=== PATIENT | male | born 1955 | race Caucasian/White ===

== ENCOUNTER → 2016-09-22 | Outpatient (CLI) | payer BC ==
[~2016-09-22] MED LIST: ATOR1TAB21 PO; CIAL20TA PO; PROS5TAB PO; TAMS0.4C2 PO
[2016-09-22 13:32] LABS: ALBUMIN 4.1 GM/DL (3.2-5.2); ALBUMIN/GLOBULIN RATIO 1.32 (1.00-1.93); ALKALINE PHOSPHATASE 76 U/L (45-117); ALT/SGPT 17 U/L (12-78); ANION GAP 9 MEQ/L (8-16); AST/SGOT 21 U/L (15-37); BILIRUBIN,TOTAL 0.8 MG/DL (0.2-1.0); BLOOD UREA NITROGEN 14 MG/DL (7-18); CALCIUM LEVEL 8.9 MG/DL (8.8-10.2); CARBON DIOXIDE LEVEL 25 MEQ/L (21-32); CHLORIDE LEVEL 105 MEQ/L (98-107); CHOLESTEROL LEVEL 241 MG/DL (<200); GLOMERULAR FILTRATION RATE > 60.0 (>49); GLUCOSE, FASTING 101 MG/DL (80-110); POTASSIUM SERUM 4.9 MEQ/L (3.5-5.1); SODIUM LEVEL 139 MEQ/L (136-145); TOTAL PROTEIN 7.2 GM/DL (6.4-8.2); TRIGLYCERIDES LEVEL 88 MG/DL (<150)
== END ==
LOC: M WUC 10:28
PROVIDERS: ATTEND Family Medicine
DX: E78.2 Mixed hyperlipidemia (principal)

== ENCOUNTER → 2016-11-04 | Outpatient (REF) | payer BC ==
[2016-11-04 18:34] LABS: CALCIUM OXALATE CRYSTALS MODERATE
== END ==
LOC: M SMT 16:57
PROVIDERS: ATTEND Urology
DX: R31.9 Hematuria, unspecified (principal)

== ENCOUNTER → 2016-12-16 | Outpatient (REF) | payer BC | LOC: M SMT 13:17 | PROVIDERS: ATTEND Family Medicine | DX: R31.0 Gross hematuria (principal) ==

== ENCOUNTER → 2017-03-29 | Outpatient (REF) | payer BC ==
[~2017-03-29] MED LIST changes: +CIAL5TAB PO
[2017-03-29 12:07] LABS: ALBUMIN 4.2 GM/DL (3.2-5.2); ALKALINE PHOSPHATASE 71 U/L (45-117); ALT/SGPT 17 U/L (12-78); ANION GAP 8 MEQ/L (8-16); AST/SGOT 21 U/L (15-37); BILIRUBIN,TOTAL 1.3 MG/DL (0.2-1.0); BLOOD UREA NITROGEN 16 MG/DL (7-18); CALCIUM LEVEL 8.6 MG/DL (8.8-10.2); CARBON DIOXIDE LEVEL 26 MEQ/L (21-32); CHLORIDE LEVEL 103 MEQ/L (98-107); CHOLESTEROL LEVEL 290 MG/DL (<200); CREATININE FOR GFR 0.93 MG/DL (0.70-1.30); GLOMERULAR FILTRATION RATE > 60.0 (>49); GLUCOSE, FASTING 113 MG/DL (80-110); POTASSIUM SERUM 4.4 MEQ/L (3.5-5.1); SODIUM LEVEL 137 MEQ/L (136-145); TRIGLYCERIDES LEVEL 87 MG/DL (<150)
== END ==
LOC: M SFHCCLAY 08:10
PROVIDERS: ATTEND Family Medicine
DX: E78.2 Mixed hyperlipidemia (principal)

== ENCOUNTER 2017-05-12 10:53 | Outpatient (CLI) | payer BC ==
[~2017-05-12] VITALS: Ht 175.3 cm; Wt 83.0 kg
[2017-05-12] MEDS ORDERED: NS 1,000 ML IV ONE (11:00)
--- NOTE | 2017-05-12 11:59 | ROOR ---
Patient Name: Bahman Silva Procedure Date: 05/12/2017 11:36 AM Date of : 1955 Age: 61 Room: [facility] Gender: Male Note Status: Finalized Procedure: Total Colonoscopy to cecum + Biopsy Polypectomy Indications: Colon cancer screening in patient at increased risk: Colorectal cancer in father Providers: Koffi Ma MD Referring MD: ROMULO GARDNER DO Requesting Provider: Medicines: Monitored Anesthesia Care Complications: No immediate complications. Procedure: Pre-Anesthesia Assessment: - The heart rate, respiratory rate, oxygen saturations, blood pressure, adequacy of pulmonary ventilation, and response to care were monitored throughout the procedure. The Colonoscope was introduced through the anus and advanced to the cecum, identified by appendiceal orifice and ileocecal valve. The colonoscopy was performed without difficulty. The patient tolerated the procedure well. The quality of the bowel preparation was excellent. Findings: The perianal and digital rectal examinations were normal. Non-bleeding internal hemorrhoids were found during retroflexion. The hemorrhoids were small and Grade I (internal hemorrhoids that do not prolapse). Multiple small and large-mouthed diverticula were found in the recto-sigmoid colon, sigmoid colon and descending colon. Multiple sessile polyps were found at 20 cm proximal to the anus. The polyps were small in size. These polyps were removed with a jumbo cold forceps. Resection and retrieval were complete. The exam was otherwise without abnormality on direct and retroflexion views. Impression: - Non-bleeding internal hemorrhoids. - Diverticulosis in the recto-sigmoid colon, in the sigmoid colon and in the descending colon. - Multiple small polyps at 20 cm proximal to the anus, removed with a jumbo cold forceps. Resected and retrieved. - The examination was otherwise normal on direct and retroflexion views. - The exam was otherwise normal to the cecum. Recommendation: - Patient has a contact number available for emergencies. The signs and symptoms of potential delayed complications were discussed with the patient. Return to normal activities tomorrow. Written discharge instructions were provided to the patient. - High fiber diet. - Discharge patient to home. - Continue present medications. - Await pathology results. - Telephone GI clinic for pathology results in 1 week. - Repeat colonoscopy in 5 years for surveillance based on pathology results. - Return to referring physician. - The findings and recommendations were discussed with the patient's family. Koffi Ma MD Koffi Ma MD 05/12/2017 11:58:51 AM This report has been signed electronically. Number of Addenda: 0 Note Initiated On: 05/12/2017 11:36 AM Estimated Blood Loss: Estimated blood loss: none.
[2017-05-12] MEDS ORDERED: LIDOCAINE 2% INJ 100 MG/5 ML SDV (FOR ANES.) As Ordered ONE (12:12)
[2017-05-12] MEDS ORDERED: PROPOFOL 500 MG/50 ML VIAL As Ordered ONE (12:12)
[2017-05-12 12:20] VITALS: BP 157/102
== END 2017-05-12 12:35 | disposition home or self-care (01) ==
LOC: M OPP 10:53
PROVIDERS: ATTEND Internal Medicine Gastroenterology
DX: Z12.11 Encounter for screening for malignant neoplasm of colon (principal); Z80.0 Family history of malignant neoplasm of digestive organs; Z86.010 Personal history of colon polyps; D12.5 Benign neoplasm of sigmoid colon; K64.0 First degree hemorrhoids; K57.30 Diverticulosis of large intestine without perforation or abscess without bleeding; R19.4 Change in bowel habit; E78.5 Hyperlipidemia, unspecified; N40.1 Benign prostatic hyperplasia with lower urinary tract symptoms; Z87.891 Personal history of nicotine dependence; Z79.899 Other long term (current) drug therapy; Z79.82 Long term (current) use of aspirin

== ENCOUNTER → 2017-06-15 | Outpatient (REF) | payer BC | LOC: M SMT 17:08 | PROVIDERS: ATTEND Urology | DX: R31.0 Gross hematuria (principal) ==

== ENCOUNTER → 2017-06-24 | Outpatient (CLI) | payer BC ==
--- NOTE | 2017-06-24 18:50 | REP ---
Clinical: Right testicular mass. Technique: Real time noriega scale and color Doppler evaluation using linear high frequency transducer. Findings: The bilateral testicles and left epididymis are normal in contour, size, echogenicity and overall appearance without intratesticular mass lesion, infectious/inflammatory process, or torsion. Right epididymis demonstrates 3.4 x 1.5 x 3.5 cm septated cyst corresponding to the palpable mass as well as a 4.9 x 4.2 x 6.7 mm cyst at the epididymal tail. No significant hydroceles or varicoceles noted. Right testicle measures 3.4 x 1.8 x 3.4 cm. Left testicle measures 3.3 x 2.2 x 2.7 cm. Impression: Palpable mass corresponds to large septated right epididymal cyst. Signed by Price Anderson MD 06/24/2017 06:41 P
== END ==
LOC: M LAB 15:43
PROVIDERS: ATTEND Urology
DX: Z12.5 Encounter for screening for malignant neoplasm of prostate (principal); N50.3 Cyst of epididymis
CPT/HCPCS: 36415; 76870; 93976; G0103

== ENCOUNTER → 2017-07-23 | Outpatient (CLI) | payer BC ==
[2017-07-23 18:28] LABS: ANION GAP 9 MEQ/L (8-16); BLOOD UREA NITROGEN 14 MG/DL (7-18); CALCIUM LEVEL 9.1 MG/DL (8.8-10.2); CARBON DIOXIDE LEVEL 28 MEQ/L (21-32); CHLORIDE LEVEL 102 MEQ/L (98-107); CREATININE FOR GFR 1.01 MG/DL (0.70-1.30); GLOMERULAR FILTRATION RATE > 60.0 (>49); GLUCOSE, FASTING 178 MG/DL (80-110); POTASSIUM SERUM 4.4 MEQ/L (3.5-5.1); SODIUM LEVEL 139 MEQ/L (136-145)
== END ==
LOC: M SMT 15:51
PROVIDERS: ATTEND Nurse Practitioner Family
DX: R31.9 Hematuria, unspecified (principal)

== ENCOUNTER → 2017-07-29 | Outpatient (CLI) | payer BC ==
[~2017-07-29] MED LIST changes: +ISOVUE-370 76% 100ML VIAL (Q9967) As Ordered ONE
--- NOTE | 2017-07-29 15:41 | REP ---
Clinical: Hematuria. Technique: Axial precontrast, contrast enhanced, and delayed images of the abdomen and pelvis using 100 ml Isovue 370 intravenous contrast material with coronal and sagittal re-formations. Findings: The kidneys are relatively normal in appearance and symmetric in enhancement without evidence for nephrolithiasis cystic or renal mass lesion. Mild right perinephric stranding and hydroureteronephrosis is appreciated to the level of the bladder without obstructing calculus, but which may be secondary to posterior bladder mass likely reflecting enlarged and possibly infiltrating prostate gland. Delayed images demonstrate symmetric excretion to the collecting system again demonstrating a mildly prominent right ureter to the bladder where posterior soft tissue mass is best appreciated (images 128 - 140). Liver, spleen, pancreas, gallbladder, and bilateral adrenal glands are normal. The enteric system is without obstruction or acute inflammatory process. Normal terminal ileum and appendix identified in the right lower quadrant. Colonic and sigmoid diverticulosis noted without acute diverticulitis. Pelvis again demonstrates mild bladder wall thickening and enlarged prostate gland which appears to be infiltrating into the base of the bladder. No ascites. No significant adenopathy. No free air. Abdominal aorta demonstrates atherosclerotic changes without aneurysm or dissection. Musculoskeletal structures demonstrate degenerative changes without focal osseous abnormality. Lung bases are clear. Impression: 1. Mild possibly chronic right perinephric stranding and hydroureter extending to the bladder which demonstrates wall thickening and posterior mass likely infiltrating from the underlying enlarged prostate gland. Prostate examination is recommended. 2. The urinary tract system including bilateral kidneys and ureters are otherwise unremarkable and without evidence for nephrolithiasis, cystic or renal mass lesion. 3. Colonic diverticula without acute diverticulitis. Signed by Price Anderson MD 07/29/2017 03:33 P
== END ==
LOC: M RAD 13:33
PROVIDERS: ATTEND Nurse Practitioner Family
DX: R31.9 Hematuria, unspecified (principal)
CPT/HCPCS: 74178; Q9967

== ENCOUNTER → 2017-08-04 | Outpatient (CLI) | payer BC ==
[~2017-08-04] MED LIST changes: -ISOVUE-370 76% 100ML VIAL (Q9967) As Ordered ONE
--- NOTE | 2017-08-04 14:36 | REP ---
Clinical: Preoperative assessment. Bladder obstruction. Comparison: 02/27/2016 . Technique: PA and lateral. Findings: The mediastinum and cardiac silhouette are normal. The lung etienne are clear and without acute consolidation, effusion, or pneumothorax. The skeletal structures are intact and normal. Impression: 1. No acute cardiopulmonary process. Signed by Price Anderson MD 08/04/2017 02:27 P
[2017-08-04 15:07] LABS: MEAN CORPUSCULAR HEMOGLOBIN 30.4 pg (27.0-33.0); MEAN CORPUSCULAR HGB CONC 33.7 g/dl (32.0-36.5); MEAN CORPUSCULAR VOLUME 90.1 fl (80.0-96.0); PLATELET COUNT, AUTOMATED 273 10^3/uL (150-450); RED CELL DISTRIBUTION WIDTH 12.8 % (11.5-14.5); WHITE BLOOD COUNT 10.5 10^3/uL (4.0-10.0)
--- NOTE | 2017-08-04 21:42 | ECGEPIP ---
Stationary ECG Study [facility] Test Date: 2017-08-04 Pat Name: SELENA ARRIAGA Department: Room: - Gender: M Marketing Specialist: JACOBO : 1955 Requested By: GO Arnett Order Number: [id number] Reading MD: Osmani Solares Measurements Intervals [place] Rate: 64 P: 70 TN: 273 QRS: 61 QRSD: 106 T: 39 QT: 388 QTc: 401 Interpretive Statements Normal sinus rhythm with first degree AV block Normal EKG otherwise No significant change when compared to prior tracing of 02/17/2016 Electronically Signed On 08-04-2017 21:41:50 EST by Osmani Solares
== END ==
LOC: M LAB 13:50
PROVIDERS: ATTEND Urology
DX: N32.0 Bladder-neck obstruction (principal)

== ENCOUNTER 2017-08-13 08:39 | Day surgery (SDC) | payer BC ==
[~2017-08-13] VITALS: Ht 175.3 cm; Wt 83.8 kg
[2017-08-13] MEDS ORDERED: FLOM5CAP PO (09:59)
[2017-08-13] MEDS ORDERED: LR 1,000 ML IV ONE (11:00)
[2017-08-13] MEDS ORDERED: MIDAZOLAM INJ 2 MG/2 ML VIAL (J2250) As Ordered ONE ×2 (11:59→12:51)
[2017-08-13] MEDS ORDERED: fentaNYL 100 MCG/2 ML INJECTION (J3010) As Ordered ONE ×3 (12:04→13:39)
[2017-08-13] MEDS ORDERED: FUROSEMIDE 100 MG/10 ML VIAL (J1940) As Ordered ONE (12:37)
[2017-08-13] MEDS ORDERED: PROPOFOL 200 MG/20 ML VIAL As Ordered ONE (12:37)
[2017-08-13] MEDS ORDERED: dexameTHASONE 4 MG/ML 1ML VIAL (J1100) As Ordered ONE (12:38)
[2017-08-13] MEDS ORDERED: ONDANSETRON 4MG/2ML VIAL (J2405) As Ordered ONE (12:38)
[2017-08-13] MEDS ORDERED: fentaNYL 250 MCG/5 ML INJECTION (J3010) As Ordered ONE (12:53)
[2017-08-13] MEDS ORDERED: HYDROmorphone HCL 1 MG/ML SYRINGE (J1170) IV PRN (13:30)
[2017-08-13] MEDS ORDERED: ONDANSETRON 4MG/2ML VIAL (J2405) IV PRN (13:30)
[2017-08-13] MEDS ORDERED: LR 1,000 ML IV SCH (13:30)
[2017-08-13] MEDS ORDERED: ACETAMINOPHEN TAB 650MG DOSE (2X325MG) PO PRN (13:45)
[2017-08-13] MEDS: fentaNYL 100 MCG/2 ML INJECTION (J3010) IV PRN ×2 (13:55→14:05)
[2017-08-13] MEDS ORDERED: PERCOCET 5MG/325MG TAB As Ordered ONE (14:39)
[2017-08-13] MEDS: PERCOCET 5MG/325MG TAB PO PRN ×2 (14:40→15:27)
[2017-08-13 16:00] VITALS: BP 168/99
--- NOTE | 2017-08-14 12:48 | RO ---
DATE OF PROCEDURE: 08/13/2017 PREOPERATIVE DIAGNOSIS: Bladder neck contracture. POSTOPERATIVE DIAGNOSIS: Bladder neck contracture. OPERATIVE PROCEDURE: Cystoscopy, transurethral incision of bladder neck. SURGEON: Miguel A Thomas MD ELEVATOR REPAIRER: None. ANESTHESIA: General. OPERATIVE INDICATIONS: This is a 62-year-old male who had a button transurethral electrovaporization of the prostate approximately 1 year ago. He started having obstructive voiding symptoms recently and office cystoscopy was notable for a moderate bladder neck contracture. He is brought today to the operating room for treatment. DESCRIPTION OF OPERATION: The patient was brought to the operating room and general anesthesia induced. Prophylactic antibiotics were infused. He was then placed in the dorsal lithotomy position and prepped and draped in the usual sterile fashion. A button resectoscope was inserted through the urethral meatus and advance towards the bladder using a the visual obturator. Of note he did have a moderate severe bladder neck contracture with a barely patent urethral lumen. I was able to advance the scope through the contracture I then utilized the button to incise the bladder neck contracture in several different areas. I kept doing this until the contracture was open. I also used the button to vaporize some overgrowth of prostate tissue as well. Once this was done, there was a clear open channel. I utilized the coagulation current to obtain good hemostasis. At the end of the procedure the button resectoscope was removed. I did make note not to vaporize too close to the ureteral orifices or distal to the verumontanum. After the scope was removed and an #18-Thai Drake catheter was inserted into the bladder and the balloon was filled with 15 mL of sterile water. At the end of the procedure fluid drained clear. The catheter then connected to gravity drainage and this marked the conclusion of the procedure. The patient was then taken out of dorsal lithotomy position, awakened from anesthesia and transported to the recovery room in stable condition. ESTIMATED BLOOD LOSS: 5 mL. COMPLICATIONS: None. SPECIMENS: None. PLAN: The patient will remove his catheter Wednesday morning. He will followup in the clinic in a week or two for postoperative visit. RAMÓN
== END 2017-08-13 16:18 | disposition home or self-care (01) ==
LOC: M SDC 08:39
PROVIDERS: ATTEND Urology
DX: N32.0 Bladder-neck obstruction (principal); N40.1 Benign prostatic hyperplasia with lower urinary tract symptoms; R73.9 Hyperglycemia, unspecified; R03.0 Elevated blood-pressure reading, without diagnosis of hypertension; E78.2 Mixed hyperlipidemia; R31.0 Gross hematuria; Z79.899 Other long term (current) drug therapy; Z87.81 Personal history of (healed) traumatic fracture; Z87.891 Personal history of nicotine dependence
CPT/HCPCS: 52640; J0690; J1100; J1940; J2250; J2405; J3010

== ENCOUNTER → 2018-05-23 | Outpatient (REF) | payer BC | LOC: M SFHCLERA 11:16 | DX: D23.5 Other benign neoplasm of skin of trunk (principal) | CPT/HCPCS: 88305 ==

== ENCOUNTER → 2018-08-08 | Outpatient (REF) | payer BC ==
[2018-08-08 17:52] LABS: APPEARANCE, URINE HAZY (CLEAR); BACTERIA, URINE AUTO NEGATIVE (NEGATIVE); BILIRUBIN, URINE AUTO NEGATIVE (NEGATIVE); BLOOD, URINE BLOOD 3+ (NEGATIVE); CALCIUM OXALATE CRYSTALS MODERATE; COLOR, URINE YELLOW (YELLOW); GLUCOSE, URINE (UA) AUTO NEGATIVE (NEGATIVE); KETONE, URINE AUTO TRACE mg/dL (NEGATIVE); LEUKOCYTE ESTERASE, URINE AUTO NEGATIVE (NEGATIVE); MUCUS, URINE SMALL (NEGATIVE); NITRITE, URINE AUTO NEGATIVE (NEGATIVE); PROTEIN, URINE AUTO 1+ mg/dL (NEGATIVE); RBC, URINE AUTO TNTC /HPF (0-3); SPECIFIC GRAVITY URINE AUTO 1.023 (1.002-1.035); SQUAMOUS EPITHELIAL CELL UR AU 0 /HPF (0-6); UROBILINOGEN, URINE AUTO 0.2 mg/dL (0.0-2.0); WBC, URINE AUTO 0 /HPF (0-3)
== END ==
LOC: M SMT 17:22
DX: N40.1 Benign prostatic hyperplasia with lower urinary tract symptoms (principal)
CPT/HCPCS: 81001

== ENCOUNTER → 2018-09-02 | Outpatient (CLI) | payer BC ==
[~2018-09-02] MED LIST changes: +ALFU10TA2; +FINA5TAB2; +FLOM0.4C39 PO
[2018-09-02 13:09] LABS: AMORPHOUS SEDIMENT SMALL (NEGATIVE); APPEARANCE, URINE HAZY (CLEAR); BACTERIA, URINE AUTO NEGATIVE (NEGATIVE); BILIRUBIN, URINE AUTO NEGATIVE (NEGATIVE); BLOOD, URINE BLOOD 2+ (NEGATIVE); COLOR, URINE YELLOW (YELLOW); GLUCOSE, URINE (UA) AUTO NEGATIVE (NEGATIVE); KETONE, URINE AUTO NEGATIVE (NEGATIVE); LEUKOCYTE ESTERASE, URINE AUTO NEGATIVE (NEGATIVE); MUCUS, URINE SMALL (NEGATIVE); NITRITE, URINE AUTO NEGATIVE (NEGATIVE); PROTEIN, URINE AUTO NEGATIVE (NEGATIVE); RBC, URINE AUTO 81 /HPF (0-3); SPECIFIC GRAVITY URINE AUTO 1.013 (1.002-1.035); SQUAMOUS EPITHELIAL CELL UR AU 0 /HPF (0-6); UROBILINOGEN, URINE AUTO 0.2 mg/dL (0.0-2.0); WBC, URINE AUTO 3 /HPF (0-3)
[2018-09-02 13:10] LABS: HEMATOCRIT 46.5 % (42.0-52.0); HEMOGLOBIN 15.8 g/dl (13.5-17.5); MEAN CORPUSCULAR HEMOGLOBIN 30.9 pg (27.0-33.0); MEAN CORPUSCULAR VOLUME 90.8 fl (80.0-96.0); PLATELET COUNT, AUTOMATED 243 10^3/uL (150-450); RED BLOOD COUNT 5.12 10^6/uL (4.30-6.10); WHITE BLOOD COUNT 7.4 10^3/uL (4.0-10.0)
[2018-09-02 13:23] LABS: INR 0.87; PROTHROMBIN TIME 11.9 SECONDS (12.1-14.4)
[2018-09-02 13:24] LABS: PARTIAL THROMBOPLASTIN TIME 32.3 SECONDS (25.4-37.6)
[2018-09-02 13:43] LABS: BLOOD UREA NITROGEN 18 MG/DL (7-18); CALCIUM LEVEL 8.7 MG/DL (8.8-10.2); CARBON DIOXIDE LEVEL 29 MEQ/L (21-32); CHLORIDE LEVEL 103 MEQ/L (98-107); CREATININE FOR GFR 1.02 MG/DL (0.70-1.30); GLOMERULAR FILTRATION RATE > 60.0 (>49); GLUCOSE, FASTING 103 MG/DL (70-100); POTASSIUM SERUM 4.5 MEQ/L (3.5-5.1); SODIUM LEVEL 140 MEQ/L (136-145)
== END ==
LOC: M WUC 10:46
PROVIDERS: ATTEND Nurse Practitioner Family
DX: Z01.818 Encounter for other preprocedural examination (principal); N40.1 Benign prostatic hyperplasia with lower urinary tract symptoms
CPT/HCPCS: 36415; 80048; 81001; 85027; 85610; 85730; 87086; G0103

== ENCOUNTER → 2018-09-02 | Outpatient (CLI) | payer BC ==
--- NOTE | 2018-09-02 16:53 | REP ---
Clinical: Preoperative assessment . Comparison: 08/04/2017 . Technique: PA and lateral. Findings: The mediastinum and cardiac silhouette are normal. Airway is patent and midline. The lung etienne are clear and without acute consolidation, effusion, or pneumothorax. The skeletal structures are intact and normal. Impression: 1. No acute cardiopulmonary process.
== END ==
LOC: M CLY 16:10
PROVIDERS: ATTEND Nurse Practitioner Family
DX: Z01.818 Encounter for other preprocedural examination (principal); N40.1 Benign prostatic hyperplasia with lower urinary tract symptoms

== ENCOUNTER → 2018-09-09 | Day surgery (SDC) | payer BC ==
[~2018-09-09] MED LIST changes: +ACETAMINOPHEN TAB 650MG DOSE (2X325MG) PO; -ALFU10TA2; -ATOR1TAB21 PO; -CIAL20TA PO; -CIAL5TAB PO; -FINA5TAB2; -FLOM0.4C39 PO; +FUROSEMIDE 100 MG/10 ML VIAL (J1940) As Ordered; +LIDOCAINE 2% INJ 100 MG/5 ML SDV (FOR ANES.) As Ordered; +LR 1,000 ML IV; +METOCLOPRAMIDE INJ 10MG/2ML VIAL (J2765) IV; +MIDAZOLAM INJ 2 MG/2 ML VIAL (J2250) As Ordered; +ONDANSETRON 4MG/2ML VIAL (J2405) As Ordered; +ONDANSETRON 4MG/2ML VIAL (J2405) IV; +PERCOCET 5MG/325MG TAB PO; +PROPOFOL 200 MG/20 ML VIAL As Ordered; -PROS5TAB PO; -TAMS0.4C2 PO; +dexameTHASONE 4 MG/ML 1ML VIAL (J1100) As Ordered; +fentaNYL 100 MCG/2 ML INJECTION (J3010) As Ordered
[2018-09-09] MEDS: LR 1,000 ML IV (09:00)
[2018-09-09] MEDS: fentaNYL 100 MCG/2 ML INJECTION (J3010) IV ×4 (11:38→11:55)
[2018-09-09] MEDS: oxyBUTYnin 5 MG TAB PO ×2 (11:48→12:35)
== END | disposition home or self-care (01) ==
LOC: M SDC 08:16
DX: N32.0 Bladder-neck obstruction (principal); N13.8 Other obstructive and reflux uropathy; I44.1 Atrioventricular block, second degree; E78.00 Pure hypercholesterolemia, unspecified; K57.30 Diverticulosis of large intestine without perforation or abscess without bleeding; K64.8 Other hemorrhoids; N40.1 Benign prostatic hyperplasia with lower urinary tract symptoms; Z79.899 Other long term (current) drug therapy; Z87.81 Personal history of (healed) traumatic fracture
CPT/HCPCS: 52277

== ENCOUNTER 2018-10-03 15:19 | Day surgery (SDC) | payer BC ==
[~2018-10-03] VITALS: Ht 175.3 cm; Wt 79.5 kg
[~2018-10-03 15:19] MED LIST changes: -ACETAMINOPHEN TAB 650MG DOSE (2X325MG) PO; +ALFU10TA2; +ATOR1TAB21 PO; +CIAL20TA PO; +CIAL5TAB PO; +FINA5TAB2; +FLOM0.4C39 PO; -FUROSEMIDE 100 MG/10 ML VIAL (J1940) As Ordered; -LIDOCAINE 2% INJ 100 MG/5 ML SDV (FOR ANES.) As Ordered; -LR 1,000 ML IV; -METOCLOPRAMIDE INJ 10MG/2ML VIAL (J2765) IV; -MIDAZOLAM INJ 2 MG/2 ML VIAL (J2250) As Ordered; -ONDANSETRON 4MG/2ML VIAL (J2405) As Ordered; -ONDANSETRON 4MG/2ML VIAL (J2405) IV; -PERCOCET 5MG/325MG TAB PO; -PROPOFOL 200 MG/20 ML VIAL As Ordered; +PROS5TAB PO; +TAMS0.4C2 PO; -dexameTHASONE 4 MG/ML 1ML VIAL (J1100) As Ordered; -fentaNYL 100 MCG/2 ML INJECTION (J3010) As Ordered
[2018-10-03] MEDS ORDERED: ceFAZolin SOD 1 GM in D5W MINI-BAG PLUS 50 ML IV ONE (15:30)
[2018-10-03] MEDS ORDERED: TETANUS/DIPHTHERIA TOX ADSORB ADULT 0.5ML SYR/VIAL (90714) IM ONE (15:30)
[2018-10-03 15:43] LABS: BASO # 0.1 10^3/uL (0.0-0.2); BASO % 0.4 % (0.0-1.0); EOS # 0.4 10^3/uL (0.0-0.50); EOS % 3.2 % (0.0-3.0); HEMATOCRIT 43.6 % (42.0-52.0); LYMPH # 3.2 10^3/uL (1.5-4.5); LYMPH % 26.9 % (24.0-44.0); MEAN CORPUSCULAR HEMOGLOBIN 30.8 pg (27.0-33.0); MEAN CORPUSCULAR HGB CONC 34.4 g/dl (32.0-36.5); MEAN CORPUSCULAR VOLUME 89.5 fl (80.0-96.0); MONO % 8.5 % (0.0-5.0); NEUTROPHILS # 7.2 10^3/uL (1.8-7.7); NEUTROPHILS % 60.7 % (36.0-66.0); PLATELET COUNT, AUTOMATED 253 10^3/uL (150-450); RED BLOOD COUNT 4.87 10^6/uL (4.30-6.10); WHITE BLOOD COUNT 11.8 10^3/uL (4.0-10.0)
[2018-10-03] MEDS ORDERED: NS 1,000 ML IV ONE (15:45)
[2018-10-03] MEDS ORDERED: MORPHINE 4 MG/ML 1ML VIAL/SYRINGE (J2270) IV ONE ×2 (15:45)
[2018-10-03] MEDS ORDERED: ONDANSETRON 4MG/2ML VIAL (J2405) IV ONE (15:45)
[2018-10-03 16:00] LABS: BLOOD UREA NITROGEN 21 MG/DL (7-18); CARBON DIOXIDE LEVEL 22 MEQ/L (21-32); CHLORIDE LEVEL 106 MEQ/L (98-107); CREATININE FOR GFR 0.98 MG/DL (0.70-1.30); GLOMERULAR FILTRATION RATE > 60.0 (>49); GLUCOSE, FASTING 120 MG/DL (70-100); POTASSIUM SERUM 4.3 MEQ/L (3.5-5.1); SODIUM LEVEL 138 MEQ/L (136-145)
[2018-10-03] MEDS ORDERED: BUPIVACAINE HCL 0.5% 10 ML VIAL SC ONE (16:00)
[2018-10-03] MEDS ORDERED: BUPIVACAINE HCL 0.5% 30 ML VIAL SC ONE (16:15)
--- NOTE | 2018-10-03 16:20 | REP ---
LEFT HAND, FOUR VIEWS: HISTORY: Amputation. The patient is status-post amputation of the distal phalange and distal one half of the intermediate phalange of the 4th digit. The patient is status-post amputation of the majority of the distal phalange of the 5th digit. A small remnant of the base is present. There is no dislocation. The remaining joint spaces are normal in appearance. IMPRESSION: Amputation of the 4th and 5th digits as described above. Electronically Signed by Claude Buenrostro MD 10/03/2018 04:21 P
[2018-10-03] MEDS ORDERED: ROPIvacaine 0.5% 30 ML INJECTION (J2795 PER 1MG) ONE (16:21)
[2018-10-03] MEDS ORDERED: dexameTHASONE 10 MG/1 ML VIAL PRES.FREE (J1100) ONE (16:21)
[2018-10-03] MEDS ORDERED: LIDOCAINE 1% MDV 20ML VIAL ONE (16:21)
[2018-10-03] MEDS ORDERED: SUCCINYLCHOLINE 100 MG/5 ML SYRINGE (J0330) As Ordered ONE (16:24)
[2018-10-03] MEDS ORDERED: PROPOFOL 200 MG/20 ML VIAL As Ordered ONE (16:24)
[2018-10-03] MEDS ORDERED: LIDOCAINE 2% INJ 100 MG/5 ML SDV (FOR ANES.) As Ordered ONE (16:24)
[2018-10-03] MEDS ORDERED: fentaNYL 100 MCG/2 ML INJECTION (J3010) As Ordered ONE (16:25)
[2018-10-03] MEDS ORDERED: MIDAZOLAM INJ 2 MG/2 ML VIAL (J2250) As Ordered ONE ×2 (16:25→20:04)
[2018-10-03] MEDS ORDERED: ceFAZolin 1GM INJ (J0690 PER 500MG) As Ordered ONE ×2 (16:25→17:36)
[2018-10-03] MEDS ORDERED: ROCURONIUM BROMIDE 50 MG/5 ML VIAL As Ordered ONE (17:38)
[2018-10-03] MEDS ORDERED: dexameTHASONE 4 MG/ML 1ML VIAL (J1100) As Ordered ONE (17:56)
[2018-10-03] MEDS ORDERED: ONDANSETRON 4MG/2ML VIAL (J2405) As Ordered ONE (17:56)
[2018-10-03] MEDS ORDERED: SUGAMMADEX SODIUM 500 MG/5 ML VIAL (BRIDION) As Ordered ONE (19:01)
[2018-10-03] MEDS ORDERED: LR 1,000 ML IV SCH (19:30)
[2018-10-03] MEDS ORDERED: ONDANSETRON 4MG/2ML VIAL (J2405) IV PRN (19:30)
[2018-10-03] MEDS ORDERED: NORCO, ANEXSIA 5/325MG TABLET (HYDROcodone/ACETAMINOPHEN) PO PRN ×2 (19:30)
[2018-10-03] MEDS ORDERED: MORPHINE 4 MG/ML 1ML VIAL/SYRINGE (J2270) IV PRN (19:30)
[2018-10-03] MEDS: fentaNYL 100 MCG/2 ML INJECTION (J3010) IV PRN ×5 (19:34→20:29)
[2018-10-03] MEDS ORDERED: PERCOCET 5MG/325MG TAB As Ordered ONE (19:44)
[2018-10-03] MEDS ORDERED: PERCOCET 5MG/325MG TAB PO PRN (20:00)
[2018-10-03] MEDS: MIDAZOLAM INJ 2 MG/2 ML VIAL (J2250) IV PRN ×2 (20:24→20:26)
[2018-10-03 22:10] VITALS: BP 168/88
--- NOTE | 2018-10-04 06:47 | HPE ---
DATE OF ADMISSION: 10/03/2018 REASON FOR ADMISSION: Table saw/router injury to the left hand small and ring fingers. HISTORY OF PRESENT ILLNESS: This is a 63-year-old right hand dominant male otherwise fairly healthy who was working in his wood shop with a gloved hand which was caught into the router and brought into the router causing traumatic amputations to the left small and ring fingers. He was brought to the emergency room and a friend looked for the ends of his digits, they were found to be in the vacuum sawdust remover in shreds. There was no salvage of pieces of his digits remaining. I was called to the emergency room from the emergency room staff to evaluate and treat this injury. He complains of isolated soreness just to the small and ring fingers, no other injury. He was otherwise healthy, just recently recovering from prostate surgery. He has had three separate prostate surgeries, most recently a week ago. MEDICATIONS: He is on no medications. ALLERGIES: None. PAST SURGICAL HISTORY: Per the history of present illness. SOCIAL HISTORY: He does not smoke. He does not drink alcohol excessively. REVIEW OF SYSTEMS: Health survey is in the chart. PHYSICAL EXAMINATION: GENERAL: He is in quite a bit of distress and pain in the emergency room but he is otherwise alert and oriented. VITAL SIGNS: Temperature 97.8, pulse 81, respirations 20, blood pressure 128/88, Oxygen sat 100% on room air. LUNGS: Clear to auscultation. HEART: Regular. LEFT UPPER EXTREMITY EXAM: Oblique, full thickness amputation across the dorsum of the small finger just proximal to distal interphalangeal phalanx (DIP) joint extending distally with just a small fragment of the distal phalanx remaining. On the ring finger there is a similar traumatic wound with the middle phalanx completely exposed which is quite comminuted and jagged with a volar flap of soft tissue still remaining. This is just at the base of the middle phalanx. Radiographs show comminuted traumatic fracture distal fracture amputation of the ring finger at the level of the base of the middle phalanx with some comminution. Small finger had a fracture amputation through the distal phalanx just at the DIP joint extending obliquely distally. IMPRESSION: Traumatic amputations of the small and ring fingers. This is going to require formal operative irrigation and debridement. There is no chance of salvaging these digits. I would instead recommend irrigating excess bone and dirt and debris in soft tissue and then primary soft tissue closure. He has received his tetanus shot in the emergency room and a gram of Kefzol has been given. I explained this to he and his in detail and they understand the plan and we plan to proceed to the operating room emergently to care for this injury. He signed a consent with plan to proceed shortly. cc: [facility]
--- NOTE | 2018-10-04 11:15 | RO ---
DATE OF PROCEDURE: 10/03/2018 PREPROCEDURE DIAGNOSIS: Traumatic amputations of the small and ring fingers of the left hand. POSTPROCEDURE DIAGNOSIS: Traumatic amputations of the small and ring fingers of the left hand. PROCEDURE: 1. Irrigation, debridement and resection of bone, soft tissue, tendons and deep dermis tissue left ring finger with completion amputation to the level of the base of the middle phalanx and primary flap closure. 2. Left small finger debridement of the dirt, debris, bone, soft tissue dermis and skin with completion amputation through the distal phalanx at the distal interphalangeal (DIP) joint of the left small finger. SURGEON: Dr. Aki Polanco. BET TAKER: None. ANESTHESIA: General endotracheal tube anesthesia. COMPLICATIONS: None. DESCRIPTION OF PROCEDURE: Antibiotics were given intravenously preoperatively in the emergency room. Tetanus shot had been given. He had already obtained a digital block on the volar aspect of both fingers in the emergency room by myself. After appropriate anesthesia, his left upper extremity was carefully scrubbed prepped and draped in the usual sterile fashion. After appropriate time-out, I first addressed the small finger. A finger tourniquet was applied. A combination of the Esmarch and tourniquet using a cutoff finger of a sterile glove. I first irritated thoroughly and removed any excess dirt and debris that was evident and then the distal phalanx was carefully shelled out from a soft tissue envelop. There was just as small portion of the distal phalanx remaining and this was removed. We continued to irrigate out the skin flap and make sure there was no dirt and debris. Then I contoured the skin and resected obvious necrotic skin edges and then created a volar flap to fold over dorsally and then secured the flap to the dorsal extensor skin surface with interrupted #4-0 nylon sutures. Then I trimmed the dog ears and repaired those appropriately providing nice cosmetic closure if this digit. I then removed the tourniquet at the base of that finger. I applied the tourniquet now to the base of the ring finger in a similar fashion using the sterile glove. I copiously irrigated the wound, removed excess dirt and debris sharply and with rongeur. Then I contoured and shelled out the remaining portion of the middle phalanx down to its base to level it off. He still had a attached fragment of bone at the level of the proximal interphalangeal (PIP) joint that was stable and I thought possibly leaving a small numb of bone would allow some potential pit tanner and this was elected to maintain the small piece of bone at the base of the middle phalanx. I leveled it off using a bone cutter and rongeur. Then continued to remove any dirt and debris. Once I was satisfied that the wound was nice and clean, I then folded the flap back over on to the dorsal extensor surface using #4-0 nylon sutures. Then repaired the dog-ear on each end by resecting the obvious necrotic skin edges that were necessary to remove. This provided a nice cosmetic closure. The tourniquet was then released and the wounds were carefully irrigated again and covered with Adaptic and a dry sterile hand dressing. Then he was awakened from general endotracheal anesthesia and then transferred to the recovery room instable condition. There were on intraoperative complications.
== END 2018-10-03 22:20 | disposition home or self-care (01) ==
LOC: M ED 15:19 → M SDC 16:20
PROVIDERS: ATTEND Orthopaedic Surgery
DX: S68.617A Complete traumatic transphalangeal amputation of left little finger, initial encounter (principal); S68.625A Partial traumatic transphalangeal amputation of left ring finger, initial encounter; W31.2XXA Contact with powered woodworking and forming machines, initial encounter; Y93.89 Activity, other specified; Y92.89 Other specified places as the place of occurrence of the external cause; Y99.8 Other external cause status; E78.5 Hyperlipidemia, unspecified
CPT/HCPCS: 11012; 26951; 26952; 73130; 80048; 85025; 90714; 96374; 96375; 96376; 99284; J0330; J0690; J1100; J2250; J2270; J2405; J2795; J3010

== ENCOUNTER 2019-01-22 06:07 | Emergency (ER) | payer BC ==
[~2019-01-22] VITALS: Ht 175.3 cm; Wt 79.5 kg
[2019-01-22] MEDS ORDERED: FLOM0.4C39 PO (06:18)
[2019-01-22] MEDS ORDERED: LIDOCAINE 2% 5ML JELLY UROJET TOP ONE (06:30)
[2019-01-22 07:19] LABS: BASO # 0.1 10^3/uL (0.0-0.2); BASO % 0.5 % (0.0-1.0); EOS # 0.2 10^3/uL (0.0-0.50); EOS % 2.3 % (0.0-3.0); HEMATOCRIT 50.4 % (42.0-52.0); HEMOGLOBIN 17.1 g/dl (13.5-17.5); LYMPH # 1.8 10^3/uL (1.5-4.5); MEAN CORPUSCULAR HEMOGLOBIN 30.7 pg (27.0-33.0); MEAN CORPUSCULAR HGB CONC 33.9 g/dl (32.0-36.5); MEAN CORPUSCULAR VOLUME 90.5 fl (80.0-96.0); MONO % 9.4 % (0.0-5.0); NEUTROPHILS # 7.4 10^3/uL (1.8-7.7); NEUTROPHILS % 70.4 % (36.0-66.0); PLATELET COUNT, AUTOMATED 259 10^3/uL (150-450); RED BLOOD COUNT 5.57 10^6/uL (4.30-6.10); WHITE BLOOD COUNT 10.5 10^3/uL (4.0-10.0)
[2019-01-22 07:29] LABS: INR 0.92; PROTHROMBIN TIME 12.5 SECONDS (12.1-14.4)
[2019-01-22] MEDS ORDERED: NITROFURANTOIN (MACROBID) 100 MG CAP PO ONE (07:30)
[2019-01-22 07:47] LABS: ALBUMIN 4.6 GM/DL (3.2-5.2); ALT/SGPT 21 U/L (12-78); BILIRUBIN,DIRECT 0.3 MG/DL (0.0-0.2); BILIRUBIN,TOTAL 1.3 MG/DL (0.2-1.0); BLOOD UREA NITROGEN 14 MG/DL (7-18); CALCIUM LEVEL 9.3 MG/DL (8.8-10.2); CARBON DIOXIDE LEVEL 23 MEQ/L (21-32); CHLORIDE LEVEL 108 MEQ/L (98-107); CPK CREATINE PHOSPHOKINASE 198 U/L (39-308); CREATININE FOR GFR 1.05 MG/DL (0.70-1.30); FREE T4 1.23 NG/DL (0.76-1.46); GLOMERULAR FILTRATION RATE > 60.0 (>49); GLUCOSE, FASTING 115 MG/DL (70-100); MB/CK RELATIVE INDEX 0.96 (< OR =4); SODIUM LEVEL 141 MEQ/L (136-145); TOTAL PROTEIN 7.4 GM/DL (6.4-8.2); TROPONIN I < 0.02 NG/ML (< 0.10)
[2019-01-22] MEDS ORDERED: NITR100C2 PO (07:53)
--- NOTE | 2019-01-22 08:08 | ECGEPIP ---
Stationary ECG Study [facility] - ED Test Date: 2019-01-22 Pat Name: SELENA ARRIAGA Department: Room: - Gender: M Biofuels Manager: TC : 1955 Requested By: Leyla Alcantar PA-C Order Number: [id number] Reading MD: Wayne Loving Measurements Intervals [place] Rate: 62 P: RI: 0 QRS: 45 QRSD: 110 T: 40 QT: 390 QTc: 398 Interpretive Statements SINUS RHYTHM WITH TYPE II SINOATRIAL EXIT BLOCK Electronically Signed On 01-22-2019 8:08:12 EDT by Wayne Loving
[2019-01-22 08:16] VITALS: BP 190/98
== END 2019-01-22 08:29 | disposition home or self-care (01) ==
LOC: M ED 06:07
DX: R33.9 Retention of urine, unspecified (principal); N40.0 Benign prostatic hyperplasia without lower urinary tract symptoms; N39.0 Urinary tract infection, site not specified; E80.6 Other disorders of bilirubin metabolism; I49.9 Cardiac arrhythmia, unspecified; I44.1 Atrioventricular block, second degree; E78.5 Hyperlipidemia, unspecified; Z87.891 Personal history of nicotine dependence; F12.10 Cannabis abuse, uncomplicated; Z79.899 Other long term (current) drug therapy

== ENCOUNTER 2019-01-25 14:23 | Day surgery (SDC) | payer BC ==
[~2019-01-25] VITALS: Ht 175.3 cm; Wt 83.1 kg
[~2019-01-25 14:23] MED LIST changes: +NITR100C2 PO
[2019-01-25] MEDS ORDERED: LR 1,000 ML IV ONE (16:15)
[2019-01-25] MEDS: PERCOCET 5MG/325MG TAB PO PRN ×2 (17:42→18:10)
[2019-01-25] MEDS: fentaNYL 100 MCG/2 ML INJECTION (J3010) IV PRN ×4 (17:42→18:02)
[2019-01-25] MEDS ORDERED: LR 1,000 ML IV SCH (17:45)
[2019-01-25] MEDS ORDERED: ONDANSETRON 4MG/2ML VIAL (J2405) IV PRN (17:45)
[2019-01-25] MEDS ORDERED: ACETAMINOPHEN TAB 650MG DOSE (2X325MG) PO PRN (17:45)
[2019-01-25] MEDS ORDERED: oxyBUTYnin 5 MG TAB PO PRN (18:00)
[2019-01-25] MEDS ORDERED: KETOROLAC 30 MG/ML VIAL (J1885) As Ordered ONE (18:04)
--- NOTE | 2019-01-25 18:04 | RO ---
DATE OF PROCEDURE: 01/25/2019 PREPROCEDURE DIAGNOSIS: Urethral stricture. POSTPROCEDURE DIAGNOSIS: Urethral stricture. PROCEDURE: Cystoscopy, transurethral resection of prostate. SURGEON: Dr. Miguel A Thomas SECURITY OPERATIONS ENGINEER: None. ANESTHESIA: General. OPERATIVE INDICATIONS: This is a 63-year-old male with a history of benign prostatic hyperplasia who has undergone a plasma reposition nephrostomy previously, also had bladder neck contracture, urethral stricture which has been treated with a transurethral incision of the bladder neck as well as removal of a prostatic calcification previously. I performed office cystoscopy today but could not get the scope past the membranous urethra due to calcifications. He was brought to the operating room today emergently for bladder retention and to clear out the calcifications. DESCRIPTION AND PROCEDURE: The patient was brought to the operating room where general anesthesia was induced. Prophylactic antibiotics were infused. He was then placed in the dorsal lithotomy position, prepped and draped in the usual sterile fashion. A rigid cystoscope was inserted into the urethral meatus and advanced towards the bladder. At the level of the membranous urethra a calcification was seen and I did have some resistance getting the scope in. I was able to advance the scope past this area of calcification. The prostatic urethra of note appeared to be wide open except it was lined with several calcifications all the way up to the membranous urethra. At this point the decision was made to use a Gyrus loop to try to resect these calcifications out of the prostate. This was done until the prostate calcifications were completely removed. There was a clear channel from the membranous urethra all the way up the bladder. Of note some of this tissue appeared friable and a little bit abnormal and therefore the decision was made to send all of the tissue including the calcifications for pathologic analysis. Once done the area of of resection was cauterized and there was good hemostasis. Once there was adequate hemostasis the resectoscope was removed and an 18-Maori Drake catheter was inserted into the bladder. The balloon was filled with 15 mL of sterile water and this marked the conclusion of the procedure. The catheter was connected to gravity drainage. The patient was taken out of dorsal lithotomy position, awakened from anesthesia and transferred to the recovery room in stable condition. ESTIMATED BLOOD LOSS: 10 mL. COMPLICATIONS: None. SPECIMENS: Prostate chips. PLAN: The patient will followup in the clinic in approximately 1 week for catheter removal and voiding trial. There is concern that this patient's calcifications will recur. We therefore will need to consider a different option to prevent this from happening again. This might include a prostatectomy. RAMÓN
[2019-01-25] MEDS ORDERED: MORPHINE 4 MG/ML 1ML VIAL/SYRINGE (J2270) As Ordered ONE ×2 (18:14→18:48)
[2019-01-25] MEDS: MORPHINE 10 MG/ML 1ML VIAL (J2270) IV PRN ×4 (18:14→19:05)
[2019-01-25] MEDS ORDERED: KETOROLAC 30 MG/ML VIAL (J1885) IV PRN (19:00)
[2019-01-25 19:45] VITALS: BP 158/96
== END 2019-01-25 19:55 | disposition home or self-care (01) ==
LOC: M SDC 14:23
PROVIDERS: ATTEND Urology
DX: C61 Malignant neoplasm of prostate (principal); K57.90 Diverticulosis of intestine, part unspecified, without perforation or abscess without bleeding; E78.49 Other hyperlipidemia; Z79.899 Other long term (current) drug therapy
CPT/HCPCS: 52601; 88305; J0690; J2270; J3010

== ENCOUNTER → 2019-02-09 | Outpatient (CLI) | payer BC ==
[~2019-02-09] MED LIST changes: +PROHANCE 279.3MG/ML 15ML VIAL (A9576) As Ordered ONE; +PROHANCE 279.3MG/ML 5ML VIAL (A9576) As Ordered ONE
--- NOTE | 2019-02-09 15:26 | REP ---
MULTI-PARAMETRIC PROSTATE MRI WITHOUT AND WITH IV GADOLINIUM: HISTORY: Prostate CA. The patient is status post transurethral resection January 26, 2019 showing high-grade prostatic adenocarcinoma. COMPARISONS: Comparison CT study of the abdomen and pelvis July 29, 2017. TECHNIQUE: Using a phased array surface coil, small field of view imaging was acquired using T2-weighted scans in the axial, coronal, and sagittal imaging planes. Small field of view diffusion-weighted sequences are acquired. Small field of view axial T1-weighted scans are acquired dynamically after the intravenous administration of 16 mL of ProHance. PROSTATE MRI FINDINGS: There is no evidence of skeletal metastatic disease. No inguinal or pelvic mass or adenopathy is observed. The posterior urethra is somewhat dilated consistent with transurethral resection. There is somewhat nodular enhancing thickening of the posterior bladder wall bilaterally and of the posterior urethral wall. The prostate gland is not enlarged overall. Seminal vesicles are prominent and show nodular low T1 signal intensity tissue which enhances. The left seminal vesicle is larger than the right. I suspect extraprostatic disease involving both seminal vesicles and the posterior bladder wall. Prostate glandular dimensions are 3.7 x 3.1 x 3.1 cm, calculated glandular volume 12.7 mL. T2-weighted scans demonstrate extensive low T2-weighted signal intensity at the apex of the gland circumferentially surrounding the urethra. There is some asymmetry in the left posterior aspect with increased thickening. There is a nodular enhancement in the anterior stroma in the mid base and left mid anterior stroma with type 3 enhancement curve. Abnormal low T2 nodular signal intensity is seen throughout both seminal vesicles, left more extensively than right. Three lesions were identified and circumscribed for submission to the UroNav system for possible ultrasound/MR fusion guided biopsy. Lesion #1 is the midline base anterior stroma and left mid anterior stromal area of type 3 contrast enhancement. This is a discrete homogeneous low signal intensity focus on T2-weighted scans with extracapsular extension extending into the anterior bladder wall. This has an intermediate appearance on diffusion weighted scans, a type 3 enhancement curve as above, and clinically significant cancer is felt to be highly likely. Its dimensions are 1.4 x 1.0 x 1.4 cm, 0.92 mL calculated volume. Lesion #2 is in the left base lateral peripheral zone extending into the left seminal vesicle. It is calculated volume is 1.2 mL , 1.8 x 1.3 x 1.0 cm. It is a discrete low signal intensity homogeneous focus on T2 invading the seminal vesicle. Intermediate appearance on diffusion weighted scans. Type 2 enhancement curve on dynamic postcontrast images. Clinically significant cancer is likely to be present. Lesion #3 is in the left apical posterior transition zone with a 1.3 mL volume lesion measuring 1.5 x 1.0 x 1.0 cm. It is homogeneous and low signal and T2, intermediate appearance on diffusion, type 2 enhancement curve and clinically significant cancer is felt to be likely. IMPRESSION: Three "lesions" are identified and circumscribed for transmission to the UroNav System. There is evidence of extensive malignancy essentially circumferentially involving the small prostate gland and extending into the bladder wall and suspected to extend into both seminal vesicles. No adenopathy or bony metastases seen. Electronically Signed by Javi Michaud MD 02/09/2019 03:58 P
== END ==
LOC: M RAD 07:55
PROVIDERS: ATTEND Urology
DX: C61 Malignant neoplasm of prostate (principal)
CPT/HCPCS: 72197; A9576

== ENCOUNTER → 2019-02-16 | Outpatient (CLI) | payer BC ==
[~2019-02-16] MED LIST changes: -PROHANCE 279.3MG/ML 15ML VIAL (A9576) As Ordered ONE; -PROHANCE 279.3MG/ML 5ML VIAL (A9576) As Ordered ONE
--- NOTE | 2019-02-17 13:42 | RADONC ---
RADIATION ONCOLOGY NEW PATIENT CONSULTATION DATE: 02/16/2019 CHART NUMBER: [id number] DIAGNOSIS: Adenocarcinoma, prostate, high-grade with a Jakob score of 9 (4+5). STAGE: [id number], group stage IIIC, and a PSA of approximately 2. There was evidence of bladder neck involvement and probable bilateral seminal vesicle involvement. The patient is status post TURP on 01/25/2019. ICD-10 CODE: C61. ECOG PERFORMANCE STATUS: 0 HISTORY OF PRESENT ILLNESS: The patient is a 63-year-old man who has had multiple TURP's in the past because of urinary retention and a long history of benign prostatic hypertrophy (BPH). He underwent TURP in 2016 and again in 2017 and a repeat in 2018. Most recently he underwent two bladder neck incisions, one in 2017 and in 2018. He most recently underwent a resection of the obstructing prostatic urethral calcifications under the care of Dr. Thomas in [place] and a resection of abnormal tissue seen after removal of calcifications. The pathology report revealed an adenocarcinoma of Compton 9 (4+5) with focal areas of grade 5 noted. Also noted was evidence of perineural invasion and bladder neck positive for involvement of adenocarcinoma. His PSAs have been approximately 2. After his TURP it was noted histopathologically that 80% of the tissue was involved with tumor and he was categorized as high risk group. He comes today to discuss the possibility of external beam radiotherapy and he has already been given some hormonal therapy under the direction of Dr. Thomas. The patient tells me that this was an injection which was to last approximately 1 month. He comes today to discuss radiotherapy options. PAST MEDICAL HEALTH: He has a history of a partial fourth and fifth finger amputation from a woodworking accident. He has a past surgical history of TURPs. MEDICAL ISSUES: BPH. Heart murmurs. Hyperlipidemia. Prostatic cancer. FAMILY HISTORY: Cancer. His father from colon cancer. SOCIAL HISTORY: He is and has three children who are healthy. He is a nonsmoker and drinks only moderately. ALLERGIES: No known allergies. MEDICATIONS: - atorvastatin OCCUPATION: Construction. REVIEW OF SYSTEMS: GENERAL: He denies any nausea, vomiting, fevers, chills, night sweats but has had about a 7-8 pounds weight loss in 3 weeks. HEENT: Normal vision. No visual field defects. No pain reported in the head and neck region. RESPIRATORY: Denies coughing, sputum production or shortness of breath. CARDIAC: He has a history of a murmur and he sees his outbound sales professional. No evidence of angina, COPD, dyspnea on exertion, palpitations or syncope. GASTROINTESTINAL: Negative for odynophagia, dysphagia, changes in bowel or bladder habits, dark stools or hematemesis. GENITOURINARY: See HPI. MUSCULAR: Denies any difficulty with motion, pain, swelling. NEUROLOGIC EXAMINATION: Negative for headaches, nausea, vomiting, weakness, seizure activity. HEMATOLOGY: Negative for bleeding diathesis or easy bruising. SKIN: Denies rashes, itching or other issues. LYMPHATICS: No lymphadenopathy appreciated. EXTREMITIES: Denies any evidence of abnormalities involving his extremities. EXAMINATION FINDINGS: PHYSICAL EXAMINATION BP 133/88, temperature 97.7, pulse 74, respirations 18, height 5 feet 9 inches, weight 175, O2 saturation 98% a room air. HEENT: Normocephalic. EOMs intact. PERRLA. Fundi benign. LYMPHATICS: No palpable peripheral lymphadenopathy is noted in the cervical, supraclavicular, axillary or inguinal lymph node chains. LUNGS: Clear to auscultation and percussion. HEART: Regular without murmurs. ABDOMEN: Without evidence of hepatomegaly, masses, deep abdominal tenderness. EXTREMITIES: Without cyanosis, clubbing or edema. NEUROLOGIC: Examination grossly physiologic. RECTAL EXAM: Normal rectal sphincter tone. A fairly small prostate is noted with no focal abnormalities. IMPRESSION: Adenocarcinoma, prostate high risk, Compton 9 (4+5), stage T1c, Nx, Mx, group stage IIIC with pathologic evidence of bladder neck involvement and radiographic evidence of probable bilateral involvement of the seminal vesicles. An MRI scan was obtained post TURP. There was evidence of extensive malignancy essentially circumferentially involving a small prostate gland and extending into the bladder wall and suspected to extend into both seminal vesicles. No adenopathy or bony metastasis were noted. A bone scan taken postoperatively was negative. PLAN OF RADIOTHERAPY: The patient would be an appropriate candidate for local regional definitive radiotherapy. As per our protocol, a cumulative dose of to 7920 cGy is recommended. The lymphatics are most likely at a significant risk for micrometastasis and should be included in our radiation portals as well as treatment to periprostatic tissues such as including seminal vesicles and extending into the bladder neck. Prior to treatment delivery localization will be accomplished upon our CT simulator and treatment portals defined by the use of multiple leaf collimators. IMRT/IGRT will be implemented for treatment delivery. The indications, possible side effects of radiotherapy have been explained thoroughly to the patient. He understands and is willing to proceed as outlined. The patient has received androgen deprivation therapy through the office of Dr. Thomas. Thank you for referring this fine gentleman to us and allowing us the opportunity of participation in his overall management. Fiduciary markers will be scheduled for Dr. Thomas's office. cc: MD Warren Melendez MD
== END ==
LOC: M ONCR 13:16
PROVIDERS: ATTEND Radiology Radiation Oncology
DX: C61 Malignant neoplasm of prostate (principal)

== ENCOUNTER → 2019-02-28 | Outpatient (CLI) | payer BC ==
--- NOTE | 2019-02-28 11:56 | REP ---
TRANSRECTAL ULTRASOUND GUIDANCE FOR FIDUCIARY MAKER PLACEMENT: Transrectal ultrasound guidance provided for Dr. Thomas who placed three fiduciary markers, one in the mid apex, one in the left base and one in the right base. Electronically Signed by Mehdi Varner MD 02/28/2019 04:31 P
== END ==
LOC: M SMT 09:51
PROVIDERS: ATTEND Urology
DX: C61 Malignant neoplasm of prostate (principal)

== ENCOUNTER → 2019-03-06 | Outpatient (REF) | payer BC ==
[2019-03-06 12:54] LABS: ALT/SGPT 17 U/L (12-78); BILIRUBIN,TOTAL 0.8 MG/DL (0.2-1.0); BLOOD UREA NITROGEN 15 MG/DL (7-18); CALCIUM LEVEL 9.4 MG/DL (8.8-10.2); CARBON DIOXIDE LEVEL 29 MEQ/L (21-32); CHLORIDE LEVEL 104 MEQ/L (98-107); CHOLESTEROL LEVEL 226 MG/DL (<200); CHOLESTEROL RISK RATIO 3.645 (<5); CREATININE FOR GFR 0.98 MG/DL (0.70-1.30); GLOMERULAR FILTRATION RATE > 60.0 (>49); GLUCOSE, FASTING 106 MG/DL (70-100); HDL CHOLESTEROL 62 MG/DL (>40); LDL CHOLESTEROL 147 MG/DL (<100); NON-HDL-C 164 MG/DL; POTASSIUM SERUM 4.6 MEQ/L (3.5-5.1); SODIUM LEVEL 140 MEQ/L (136-145); TOTAL PROTEIN 7.1 GM/DL (6.4-8.2); TRIGLYCERIDES LEVEL 87 MG/DL (<150)
== END ==
LOC: M SFHCCLAY 07:04
PROVIDERS: ATTEND Family Medicine
DX: E78.00 Pure hypercholesterolemia, unspecified (principal)

== ENCOUNTER → 2019-04-12 | Outpatient (RCR) | payer BC ==
--- NOTE | 2019-03-15 11:07 | RADONC ---
RADIATION ONCOLOGY SIMULATION NOTE DATE: 03/14/2019 DIAGNOSIS: Adenocarcinoma of prostate. The patient was brought to the simulator room and an immobilization device was constructed in order to immobilize the patient for day-to-day accuracy during his proposed radiation treatments. Thereafter, images of the pelvis were captured at 3-mm intervals and these images will be used for contouring purposes. Both the target volumes, as well as normal surrounding structures will be contoured in order to develop a treatment plan. The patient was simulated and will be planned for the utilization of IMRT / IGRT, in the definitive treatment of his prostate cancer.and the construction of the immobilization device went well as did the remainder of the simulation process. I was present during the entire simulation, which proceeded uneventfully. CHRISTYD
--- NOTE | 2019-04-05 09:17 | RADONC ---
RADIATION ONCOLOGY PROGRESS NOTE DATE: 04/03/2019 CHART NUMBER: [id number] Mr. Silva is presently at a dose of 900 cGy to his prostate and is tolerating treatments quite well at this point with no significant difficulties related to his radiation therapy. He is having no urinary or bowel difficulties and no bone pain. REVIEW OF SYSTEMS: The patient's review of systems is noncontributory. He denies nausea, vomiting, fevers, chills, night sweats, diplopia, headaches, anxiety or depression, anorexia, weight loss, visual disturbances, chest pain, urinary or bowel difficulties, bone pain or neurological problems. PHYSICAL EXAMINATION: The patient's skin is in good condition with no evidence of radiation change present. There is no moist or dry desquamation. The remainder of his physical exam remains unchanged. Mr. Silva is tolerating treatments quite well and radiation will continue as scheduled.
--- NOTE | 2019-04-11 11:48 | RADONC ---
RADIATION ONCOLOGY PROGRESS NOTE DATE: 04/10/2019 CHART NUMBER: [id number] PROGRESS NOTE: Mr. Silva is presently at a dose of 1800 cGy to his prostate and is tolerating treatments quite well at this point with no complaints related to his radiation therapy. He is having no urinary or bowel difficulties and no bone pain. REVIEW OF SYSTEMS: The patient's review of systems is noncontributory. Denies nausea, vomiting, fevers, chills, night sweats, diplopia, headaches, anxiety or depression, anorexia, weight loss, visual disturbances, chest pain, urinary or bowel difficulties, bone pain, or neurological problems. PHYSICAL EXAMINATION: The patient's skin is in good condition with no evidence of radiation change present. There is no moist or dry desquamation. The remainder of his physical exam remains unchanged. Mr. Silva is tolerating treatments quite well and radiation will continue as scheduled.
[~2019-04-12] MED LIST changes: -ALFU10TA2; +ALFU10TA3; +BACT800T5 PO; +CHLO125TA PO; +DOXY-350 PO; +LEVO750T13 PO; +POTA1TAB14 PO
== END ==
LOC: M ONCR 03-14 14:26
PROVIDERS: ATTEND Radiology Radiation Oncology
DX: C61 Malignant neoplasm of prostate (principal)

== ENCOUNTER → 2019-04-24 | Outpatient (CLI) | payer BC ==
[~2019-04-24] MED LIST changes: +ALFU10TA2; -ALFU10TA3; -BACT800T5 PO; -CHLO125TA PO; -DOXY-350 PO; +ISOVUE-370 76% 100ML VIAL (Q9967) As Ordered ONE; -LEVO750T13 PO; -POTA1TAB14 PO
--- NOTE | 2019-04-25 08:27 | REP ---
CT chest with IV contrast: History: Staging for prostate cancer. No comparison chest CT. Comparison chest x-ray September 02, 2018. CT contrast dose: 75 mL of intravenous Isovue 370. CT findings: The lungs are symmetrically aerated. No pulmonary nodule or mass lesion is observed. There is no evidence of pleural or pericardial effusion. No hilar or mediastinal mass or adenopathy is observed. Tracheobronchial tree is unremarkable. There are degenerative changes in the thoracic spine at multiple mid and lower thoracic levels. No bony destructive lesion is appreciated. No sclerotic lesion is seen. There are osteoarthritic changes in the glenohumeral articulations bilaterally. No adrenal lesion is seen. A tiny accessory splenule is noted. The visualized upper abdominal structures are unremarkable. Impression: No active cardiopulmonary disease seen. Electronically Signed by Javi Michaud MD 04/25/2019 07:26 P
== END ==
LOC: M RAD 16:21
PROVIDERS: ATTEND Internal Medicine Medical Oncology
DX: C61 Malignant neoplasm of prostate (principal)
CPT/HCPCS: 71260; Q9967

== ENCOUNTER → 2019-04-25 | Outpatient (REF) | payer BC ==
[~2019-04-25] MED LIST changes: -ISOVUE-370 76% 100ML VIAL (Q9967) As Ordered ONE
== END ==
LOC: M SMT 12:45
PROVIDERS: ATTEND Urology
DX: R39.9 Unspecified symptoms and signs involving the genitourinary system (principal)

== ENCOUNTER 2019-05-12 16:00 | Outpatient (RCR) | payer BC ==
--- NOTE | 2019-04-18 10:22 | RADONC ---
RADIATION ONCOLOGY PROGRESS NOTE DATE: 04/17/2019 CHART NUMBER: [id number] Mr. Silva, with a diagnosis of adenocarcinoma of the prostate, is currently receiving local regional radiotherapy and he is at a dose of 2700 cGy of an anticipated 920 cGy. He has no complaints referable to his disease or to his treatments. REVIEW OF SYSTEMS He specifically denies any nausea, vomiting, diarrhea, dysuria, hematuria or blood per rectum. His energy level is such that he is able to maintain most day-to-day activities without any alteration of his lifestyle. Skin irritation is denied. EXAMINATION FINDINGS: The skin within the irradiated volume shows neither erythema nor desquamation. Lymphatics: no palpable peripheral lymphadenopathy is appreciated. The remainder of the physical examination is unchanged. IMPRESSION: Tolerating therapy well. PLAN: Treatments to continue.
--- NOTE | 2019-04-28 11:26 | RADONC ---
RADIATION ONCOLOGY PROGRESS NOTE DATE: 04/25/2019 CHART NUMBER: [id number] Mr. Silva, with a diagnosis of adenocarcinoma of the prostate, is currently receiving local regional radiotherapy. He has been having some issues for several days. Most recently he has gone to see Dr. Miguel A Thomas for inability to urinate. He did not actually see Dr. Thomas but saw a doctor who was covering for him and the doctor took a sample of his urine and felt that he might be suffering from a urinary tract infection because he had several preceding days of urinary burning. When the patient self catheterized because of inability to urinate, a clot came out of the urine. It was not felt at the time by the covering doctor that the patient's bladder was full of clots but rather he may have one or two. The patient was told that he might have to have an irrigation of his bladder and might have to initiate antibiotic therapy if the urinary sample actually to did discover that he did have a urinary tract infection. Nonetheless, the patient has elected to observe whether or not these episodes of complete obstruction continue and will gladly consent to a flushing of his bladder if necessary. He also asked if there were any medications that he could take for the dysuria, which he was experiencing up to approximately 2 days ago. I told the patient that if he did have a urinary tract infection that we may want to put him on some antibiotic therapy and in addition to that he might get peridium in the drugstore. This medicine is an [id number] medicine at the current time and does not need a prescription. REVIEW OF SYSTEMS: The patient has been undergoing self-catheterization for the last 2 days, as above. He denies any nausea, vomiting, diarrhea. He does have some dysuria and hematuria. His energy level is diminished but he is able to still maintain most day-to-day activities without any alteration of his lifestyle. Skin irritation is denied. The remainder of the review of systems is unchanged. EXAMINATION FINDINGS: The patient is a slender but well-nourished and developed male in no acute distress. The skin within the irradiated volume shows neither significant erythema nor desquamation. There is no palpable peripheral lymphadenopathy. The remainder of the physical examination is unchanged. IMPRESSION: The patient has had difficulty with urination for the last several days and may require his bladder to be irrigated or may indeed require antibiotic therapy if there is a documented urinary tract infection.
[2019-05-03 15:44] LABS: BASO % 0.2 % (0.0-1.0); EOS % 0.5 % (0.0-3.0); HEMATOCRIT 41.6 % (42.0-52.0); HEMOGLOBIN 14.4 g/dl (13.5-17.5); LYMPH # 0.7 10^3/uL (1.5-4.5); MEAN CORPUSCULAR HEMOGLOBIN 31.6 pg (27.0-33.0); MEAN CORPUSCULAR HGB CONC 34.6 g/dl (32.0-36.5); MEAN CORPUSCULAR VOLUME 91.2 fl (80.0-96.0); MONO # 1.4 10^3/uL (0.0-0.8); NEUTROPHILS # 6.2 10^3/uL (1.8-7.7); NEUTROPHILS % 73.8 % (36.0-66.0); PLATELET COUNT, AUTOMATED 286 10^3/uL (150-450); RED BLOOD COUNT 4.56 10^6/uL (4.30-6.10); WHITE BLOOD COUNT 8.4 10^3/uL (4.0-10.0)
[2019-05-03 15:54] LABS: APPEARANCE, URINE HAZY (CLEAR); BACTERIA, URINE AUTO 1+ (NEGATIVE); BILIRUBIN, URINE AUTO NEGATIVE (NEGATIVE); BLOOD, URINE BLOOD 1+ (NEGATIVE); COLOR, URINE YELLOW (YELLOW); GLUCOSE, URINE (UA) AUTO NEGATIVE (NEGATIVE); KETONE, URINE AUTO TRACE mg/dL (NEGATIVE); LEUKOCYTE ESTERASE, URINE AUTO 2+ (NEGATIVE); NITRITE, URINE AUTO NEGATIVE (NEGATIVE); PROTEIN, URINE AUTO NEGATIVE (NEGATIVE); RBC, URINE AUTO 31 /HPF (0-3); SPECIFIC GRAVITY URINE AUTO 1.016 (1.002-1.035); SQUAMOUS EPITHELIAL CELL UR AU 0 /HPF (0-6); UROBILINOGEN, URINE AUTO 0.2 mg/dL (0.0-2.0); WBC, URINE AUTO 118 /HPF (0-3)
--- NOTE | 2019-05-04 11:09 | RADONC ---
RADIATION ONCOLOGY PROGRESS NOTE DATE: 05/01/2019 CHART NUMBER: [id number] PROGRESS NOTE: Mr. Silva is presently at a dose of 4500 cGy to his prostate and is tolerating treatments quite well at this point with no significant difficulties related to his radiation therapy. He was seen by his urologist last week and it was recommended that he catheterize himself. This was done and since self-catheterization he has had no further issues with urination or burning. REVIEW OF SYSTEMS: The patient's review of systems at this time is noncontributory. Denies nausea, vomiting, fevers, chills, night sweats, diplopia, headaches, anxiety or depression, anorexia, weight loss, visual disturbances, chest pain, urinary or bowel difficulties, bone pain, or neurological problems. PHYSICAL EXAMINATION: The patient's skin is in good condition with no evidence of radiation change present. There is no moist or dry desquamation. The remainder of his physical exam remains unchanged. Mr. Silva is tolerating treatments quite well and radiation will continue as scheduled.
[2019-05-05 14:50] LABS: Lyme Disease IgG/IgM Antibodie <0.91 ISR (0.00-0.90); Lyme Disease IgM Ab Quantitati <0.80 index (0.00-0.79)
--- NOTE | 2019-05-09 14:26 | MEDONCTEEN ---
MEDICAL ONCOLOGY TELEPHONE NOTE DATE OF SERVICE: 05/05/2019 Bahman in his Suha have been calling over the last 48 hours regarding intermittent fevers. He was started empirically on Bactrim a few days ago by Dr. Stinson. Currently undergoing radiation for stage III, T4N0M0 prostate cancer with bladder invasion. He began having fever spikes earlier in the week. These quelled after a day or two of Bactrim but have recurred in the last day associated with some shaking chills. Today, Bahman has developed a new pinpoint macular rash. This is non coalescing, nonerythematous, but over his arms and leg. He does have potential tick exposure, though no known tick bite. Notably, urinary culture has been negative with no growth. I prescribed doxycycline 100 mg b.i.d. for 14 days with one refill if needed, empiric treatment for potential Lyme disease though notably also Lyme titers drawn within the last 2 days were negative. IMPRESSION: Waxing and waning fever and a new rash in 63-year-old man with stage III bladder invasive, nonoperable prostate cancer undergoing radiation, status post TURP January 2019 and with recent self-catheterization, at risk for UTI, pyelonephritis, potential bladder / prostate abscess. PLAN: 1. Doxycycline 100 mg b.i.d. started today. 2. Arranged for CT of abdomen and pelvis with p.o. and IV contrast first thing Wednesday morning to rule out abscess or pyelo. Given negative urine culture and low grade fever, which seemingly broke, my suspicion is low, but given bladder invasive disease on radiation, recent need for surgical biopsy, infection and abscess remain a possibility. Bahman and Suha were advised for him to go immediately to the emergency room should he have increasing fever, chills during the weekend. Discontinue Bactrim given negative urine culture. Bahman has my number and will be in touch should symptoms progress. Electronically Signed by Veronika Snowden MD 05/09/2019 05:46 P DD: Veronika Snowden MD 05/05/2019 04:24 P DT: [email or web address] 05/09/2019 02:22 P CC: MD Mehdi Melendez MD John Gebert, MD Stephen Grybowski, MD
--- NOTE | 2019-05-10 10:31 | RADONC ---
RADIATION ONCOLOGY PROGRESS NOTE DATE: 05/08/2019 CHART NUMBER: [id number] Mr. Silva is presently at the dose of 5400 cGy to his prostate and is tolerating treatments quite well at this point with no complaints related to his radiation therapy. He reports that he is having some continued urinary issues but overall is feeling better. He is continuing with the doxycycline. This was prescribed by Dr. Snowden who believed he had Lyme disease. His Lyme test, however, was negative, but in light of the fact that he is clinically feeling better day I think that it is reasonable to continue with that treatment as prescribed by his medical oncologist. PHYSICAL EXAMINATION: The patient's skin is in good condition with no evidence of moist or dry desquamation. The remainder of his physical exam remains unchanged. Mr. Silva is tolerating treatments quite well and radiation will continue as scheduled.
== END 2019-05-13 ==
LOC: M ONCR 16:00
PROVIDERS: ATTEND Radiology Radiation Oncology
DX: C61 Malignant neoplasm of prostate (principal)

== ENCOUNTER → 2019-05-12 | Outpatient (CLI) | payer BC ==
[~2019-05-12] MED LIST changes: +BACT800T5 PO; +CHLO125TA PO; +DOXY-350 PO; +POTA1TAB14 PO
--- NOTE | 2019-05-12 13:02 | REP ---
MRI pelvis: Without and with intravenous gadolinium. History: Fever, weight loss, rectal bleeding. High risk stage 3 prostate carcinoma on radiation. Rule out progression, abscess, or fistula. Comparison MR imaging is from February 09, [address] scanning is from July 29, 2017. MRI contrast dose: 15 mL of intravenous ProHance is administered. MRI findings: Cortical and medullary bone signal intensity are normal in the pelvis. There is no evidence to suggest skeletal metastatic disease. No pelvic lymphadenopathy is appreciated. No free fluid collection or abscess is seen. The urinary bladder is distended and thick-walled with trabeculation. There are two bladder diverticula, one on each side. These are small. There is evidence of a hydroureter on the right which appears to be a new finding compared with February 09, 2019. The appearance the prostate and seminal vesicles is improved. The left seminal vesicle remains larger than the right. The oblique transverse dimension of the left seminal vesicle has decreased from 3.2 cm by my measurement February 09, 2019 to 2.7 cm today. Postcontrast imaging shows improvement in contrast enhancement in the seminal vesicles and prostate as well as the posterior bladder wall. Impression: Distension of the thick walled urinary bladder with bladder diverticula. Right-sided hydroureter suspected as a new finding. Improvement noted in the prostate and posterior bladder wall. No evidence of abscess or fistula. No adenopathy seen. Electronically Signed by Javi Michaud MD 05/12/2019 04:03 P
== END ==
LOC: M PLARAD 09:20
PROVIDERS: ATTEND Internal Medicine Medical Oncology
DX: C61 Malignant neoplasm of prostate (principal)

== ENCOUNTER 2019-05-30 16:00 | Outpatient (RCR) | payer BC ==
--- NOTE | 2019-05-17 10:48 | RADONC ---
RADIATION ONCOLOGY PROGRESS NOTE DATE: 05/16/2019 CHART NUMBER: [id number] PROGRESS NOTE: Mr. Silva with a diagnosis of prostate cancer is currently receiving local regional radiotherapy and he has achieved a dose thus far of 6120 cGy of an anticipated 6920 cGy. He seems to be tolerating his therapy reasonably well with the exception of having an indwelling Drake catheter. His doctors felt that an indwelling Drake catheter would help reduce the possibility of contamination with bacteria and thusly help reduce the possibility of infection. He also had an MRI scan according to the patient, which showed a reduction in the overall size of the tumor, and no evidence of inflammation or cancer having spread. He denies any nausea, vomiting, diarrhea. He had some dysuria and occasional clots involving his bladder but no rectal bleeding. EXAMINATION FINDINGS: Skin within the irradiated volume shows neither erythema nor desquamation. Lymphatics: No palpable peripheral lymphadenopathy noted. The remainder of the physical examination is unchanged. IMPRESSION: Tolerating therapy reasonably well with issues with clot formation and urethral obstruction. PLAN: Treatments to continue.
--- NOTE | 2019-05-24 09:45 | RADONC ---
RADIATION ONCOLOGY PROGRESS NOTE DATE: 05/22/2019 CHART NUMBER: [id number] PROGRESS NOTE: Mr. Silva with a diagnosis of adenocarcinoma of the prostate is currently receiving local regional radiotherapy and he has achieved dose of 6120 cGy of a proposed 7920 cGy. He is now tolerating his radiotherapy reasonably well, and he denies any nausea, vomiting, diarrhea, dysuria, hematuria or blood per rectum. He does have an indwelling Drake catheter and there have been no clots observed in the urine. His energy level is adequate and he is able to maintain most day-to-day activities. EXAMINATION FINDINGS: The skin within the irradiated volume shows neither erythema nor desquamation. There is no palpable peripheral lymphadenopathy. Lungs are clear. Remainder of the physical examination is unchanged. IMPRESSION: Tolerating therapy well. PLAN: Treatments to continue.
--- NOTE | 2019-05-31 13:28 | RADONC ---
RADIATION ONCOLOGY PROGRESS NOTE DATE OF SERVICE: 05/29/2019 CHART NUMBER: [id number]. PROGRESS NOTE: Mr. Silva is presently at a dose of 7740 cGy to his prostate and has been tolerating his treatments with some difficulty. He continues to have an indwelling catheter but has no other complaints related to his radiation. REVIEW OF SYSTEMS: The patient's review of systems is positive for his continued use of an indwelling catheter but is otherwise noncontributory. He denies nausea, vomiting, fevers, chills, night sweats, diplopia, headaches, anxiety or depression, anorexia, weight loss, visual disturbances, chest pain, urinary or bowel difficulties, bone pain, or neurological problems. PHYSICAL EXAMINATION: The patient's skin is in good condition with no evidence of moist or dry desquamation. The remainder of his physical exam remains unchanged. Mr. Silva is tolerating treatments quite well, and radiation will continue as scheduled.
--- NOTE | 2019-06-01 10:56 | RADONC ---
RADIATION ONCOLOGY TREATMENT SUMMARY DATE OF SERVICE: 05/31/2019 CHART NUMBER: [id number] DIAGNOSIS: Prostate cancer. STAGE: III C, T1c, NX, MX, Clarkston score 9 (4-5), probable seminal vesical involvement. ECOG PERFORMANCE STATUS: 0 TREATMENT SUMMARY: Mr. Silva is a very pleasant, 63-year-old white male who had multiple TURPs in the past because of urinary retention and a long history of benign prostatic hypertrophy. He was found on TURP to have a Jakob score 9 (4-5) adenocarcinoma of the prostate and presented to us for consideration of definitive external beam radiation therapy with IMRT/IGRT. We treated the patient to his prostate for a total dose of 7920 cGy delivered in 44 fractions of 180 cGy each over 61 elapsed days from 03/28/2019 through 05/30/2019. The patient's prostate was treated on a linear accelerator utilizing a 6 MV photon beam via IMRT/IGRT. We initially treated the prostate and seminal vesicles to a dose of 5400 cGy and subsequently coned down to deliver an additional 2520 cGy to the prostate itself. The patient tolerated his treatments quite well but continued to have obstructive symptoms and also continued to self-catheterize. Eventually, he was seen by Dr. Thomas and an indwelling catheter was placed. It is scheduled to be changed this week. He had no other complaints related to his radiation therapy or disease. The patient is scheduled to see me again in 1 month for further followup. He will also continue to be followed by his other physicians as well. cc: MAGED Hong MD [place], MD
== END 2019-06-12 ==
LOC: M ONCR 16:00
PROVIDERS: ATTEND Radiology Radiation Oncology
DX: C61 Malignant neoplasm of prostate (principal)

== ENCOUNTER → 2019-06-28 | Outpatient (CLI) | payer BC ==
--- NOTE | 2019-06-29 14:52 | RADONC ---
RADIATION ONCOLOGY FOLLOWUP NOTE DATE OF SERVICE: 06/28/2019 CHART NUMBER: [id number] DIAGNOSIS: Prostate cancer. 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 The patient was status post TURP. ECOG PERFORMANCE STATUS: 0. FOLLOWUP NOTE: Mr. Silva is a very pleasant 64-year-old white male with the diagnosis of what appears to be a stage III C, [id number] Mes[place] score 9 (4+5) adenocarcinoma of the prostate who is presenting to us today for routine followup visit 1 month post completion of external beam radiation therapy. The patient presents today reporting that he is doing quite well with no significant difficulties related to his radiation therapy other than continued use of an indwelling catheter. He is being followed by his urologist Dr. Thomas for this and indeed has spoken with a urologist at [facility] who agrees that he would be this catheter in place until August at least. The patient's review of systems is positive for continued use of his indwelling catheter but is otherwise noncontributory. Denies nausea, vomiting, fevers, chills, night sweats, diplopia, headaches, anxiety or depression, anorexia, weight loss, visual disturbances, chest pain, urinary or bowel difficulties, bone pain, or neurological problems. PHYSICAL EXAMINATION: The patient is a well-developed, well-nourished, white male in no acute distress. HEENT: Exam is normocephalic, atraumatic. Extraocular movements are intact. There is no palpable cervical, supraclavicular, infraclavicular, axillary or inguinal lymphadenopathy present. Lungs: Clear to auscultation and percussion. His heart has regular rate and rhythm. Rectal examination was deferred at this time. The remainder of his physical exam is unremarkable except for the use of an indwelling catheter. ASSESSMENT: The patient is clinically stable at this time. He did not go for his PSA level today and rather than hold him here and made him wait to have it done, I think it reasonable to wait at this time. Clearly, he has an indwelling catheter, which will irritate the prostate and cause an artificially elevated PSA at this point making the PSA results themselves unreliable. In light of that, I think it reasonable to wait and do a PSA level after the catheter is removed in August. At this time, the patient and his report they are planning to continue to close management with Dr. Thomas and have been consulting a physician at [facility]. He agrees that we could cause more damage and inflammation by multiple attempts at removing the indwelling catheter and then having to go back and place it in again. He has recommended waiting perhaps until mid August to remove it. Since the patient is being followed and managed so closely by his urologist, I have not set him up at this time for a followup appointment. He will contact us once they remove the catheter and then we will set him up to be seen by us and do a PSA level at that time. cc: MD Warren Melendez MD
== END ==
LOC: M ONCR 15:03
PROVIDERS: ATTEND Radiology Radiation Oncology
DX: C61 Malignant neoplasm of prostate (principal)

== ENCOUNTER → 2019-08-14 | Outpatient (REF) | payer BC ==
[~2019-08-14] MED LIST changes: -ALFU10TA2; +ALFU10TA3
== END ==
LOC: M LAB REF 18:47
PROVIDERS: ATTEND Dermatology
DX: L57.0 Actinic keratosis (principal); L81.4 Other melanin hyperpigmentation

== ENCOUNTER → 2019-08-26 | Outpatient (REF) | payer BC | LOC: M LAB REF 12:03 | PROVIDERS: ATTEND Physician Assistant | DX: R30.0 Dysuria (principal) ==

== ENCOUNTER → 2019-08-28 | Outpatient (CLI) | payer BC ==
[~2019-08-28] MED LIST changes: +GASTROGRAFIN SOLUTION 30ML (Q9963) As Ordered ONE; +ISOVUE-370 76% 100ML VIAL (Q9967) As Ordered ONE
--- NOTE | 2019-08-28 18:01 | REP ---
CT CHEST WITH IV CONTRAST: CT ANGIO CHEST: TECHNIQUE: Axial contrast enhanced images from the thoracic inlet to the upper abdomen using 100 mL Isovue 370 intravenous contrast material with multiplanar reformations. In the posterior aspect of the right upper lobe there is a tiny calcified granuloma. Another is seen more inferiorly in the right lower lobe. No suspicious nodules are seen in either lung. There is no aneurysm or dissection of the thoracic aorta. The heart is normal in size. There is no mediastinal, hilar or chest wall lymphadenopathy. There is no pleural or pericardial effusion. There are degenerative changes of the spine and shoulders. IMPRESSION: No active pulmonary disease. Electronically Signed by Mehdi Varner MD 08/29/2019 03:58 P
--- NOTE | 2019-08-28 19:40 | REP ---
CT ABDOMEN AND PELVIS WITH AND WITHOUT IV CONTRAST WITH ORAL CONTRAST: CT abdomen and pelvis was performed. Oral contrast was administered. Pre-Iv contrast images are obtained through the abdomen. Post-IV contrast images are obtained through the abdomen and pelvis. Sagittal and coronal reconstruction images are performed. Comparison made with prior MRI of the pelvis 05/12/2019. No mass is seen in the liver. The gallbladder is grossly unremarkable. The spleen, adrenals, and pancreas are unremarkable. The left kidney appears unremarkable. The right kidney demonstrates patchy heterogenous enhancement diffusely. Two subcentimeter cysts were seen in the upper pole of the right kidney. I do not see significant perinephric stranding or fluid. The findings may indicate hyperprofusion of the right kidney due to renal artery stenosis. There is fairly significant plaque seen at the origin of the main right renal artery. Alternatively the finding could indicate pyelonephritis. Moderate atherosclerotic calcifications are seen of the abdominal aorta without aneurysm. I see no adenopathy. There is no free air or free fluid. Scattered diverticula are seen of the left colon. The appendix is normal. Urinary bladder is diffusely thickened. Small amount of air and fluid is seen in the bladder lumen and there is a Drake catheter in place. Mildly prominent soft-tissue in the region of the left seminal vesical appears unchanged since the prior MRI. No new pelvic mass is seen. There are degenerative changes of the spine with no definite bone lesions identified. IMPRESSION: Diffuse heterogenous enhancement of the right kidney may be due to hypoperfusion from renal artery stenosis. There is a significant amount of plaque at the origin of the main right renal artery. Alternatively the findings could indicate pyelonephritis. No adenopathy is seen in the abdomen or pelvis. Diffuse bladder wall thickening and mildly prominent soft-tissue at the left base of the bladder in the region of the seminal vesicle appears unchanged since the prior MRI of the pelvis 05/12/2019. No new pelvic mass. Electronically Signed by Mehdi Varner MD 08/29/2019 03:59 P
== END ==
LOC: M RAD 14:01
PROVIDERS: ATTEND Internal Medicine Medical Oncology
DX: C61 Malignant neoplasm of prostate (principal); N28.1 Cyst of kidney, acquired; I70.1 Atherosclerosis of renal artery; I70.0 Atherosclerosis of aorta
CPT/HCPCS: 71260; 74178; Q9963; Q9967

== ENCOUNTER → 2019-11-23 | Outpatient (REF) | payer BC ==
[~2019-11-23] MED LIST changes: -GASTROGRAFIN SOLUTION 30ML (Q9963) As Ordered ONE; -ISOVUE-370 76% 100ML VIAL (Q9967) As Ordered ONE; +LEVO750T13 PO
== END ==
LOC: M LAB REF 17:14
PROVIDERS: ATTEND Nurse Practitioner Family
DX: N39.0 Urinary tract infection, site not specified (principal)

== ENCOUNTER → 2019-12-26 | Outpatient (CLI) | payer BC ==
[~2019-12-26] MED LIST changes: +GASTROGRAFIN SOLUTION 30ML (Q9963) As Ordered ONE; +ISOVUE-370 76% 100ML VIAL (Q9967) As Ordered ONE
[2019-12-26 09:40] LABS: BASO # 0.1 10^3/uL (0.0-0.2); BASO % 0.7 % (0.0-1.0); EOS # 0.4 10^3/uL (0.0-0.5); HEMATOCRIT 45.9 % (42.0-52.0); HEMOGLOBIN 15.8 g/dl (13.5-17.5); LYMPH % 26.5 % (24.0-44.0); MEAN CORPUSCULAR HEMOGLOBIN 30.8 pg (27.0-33.0); MEAN CORPUSCULAR HGB CONC 34.4 g/dl (32.0-36.5); MEAN CORPUSCULAR VOLUME 89.5 fl (80.0-96.0); MONO # 1.1 10^3/uL (0.0-0.8); MONO % 14.7 % (0.0-5.0); NEUTROPHILS # 4.1 10^3/uL (1.5-8.5); NEUTROPHILS % 52.8 % (36.0-66.0); PLATELET COUNT, AUTOMATED 315 10^3/uL (150-450); RED BLOOD COUNT 5.13 10^6/uL (4.30-6.10); WHITE BLOOD COUNT 7.7 10^3/uL (4.0-10.0)
[2019-12-26 10:10] LABS: ALT/SGPT 18 U/L (12-78); BILIRUBIN,TOTAL 0.6 MG/DL (0.2-1.0); BLOOD UREA NITROGEN 21 MG/DL (7-18); CALCIUM LEVEL 9.5 MG/DL (8.8-10.2); CARBON DIOXIDE LEVEL 31 MEQ/L (21-32); CHLORIDE LEVEL 100 MEQ/L (98-107); GLOMERULAR FILTRATION RATE > 60.0 (>49); GLUCOSE, FASTING 114 MG/DL (70-100); POTASSIUM SERUM 3.9 MEQ/L (3.5-5.1); PROSTATIC SPECIFIC AG MONITOR 0.03 NG/ML (< 4.00); SODIUM LEVEL 136 MEQ/L (136-145); TOTAL PROTEIN 7.8 GM/DL (6.4-8.2)
--- NOTE | 2019-12-27 18:01 | REP ---
Clinical: Prostate cancer restaging. Technique: Axial contrast enhanced images from the lung bases to the pubic symphysis using oral (per protocol) and 100 ml Isovue 370 intravenous contrast material. Delayed images of the abdomen obtained along with coronal and sagittal re-formations. Comparison: 08/28/2019. Findings: Lung bases are clear. Visualized heart and pericardium normal. Liver, spleen, pancreas, gallbladder, bilateral adrenal glands and kidneys are normal. The enteric system is without obstruction or acute inflammatory process. Normal terminal ileum and appendix are identified in the right lower quadrant. Colonic and sigmoid diverticulosis noted without acute diverticulitis. Pelvis demonstrates Drake catheter within collapsed bladder with bladder wall thickening essentially unchanged from prior examination. Findings suggest prior prostate surgery with stable calcifications at the base of the bladder. No ascites. No free air. No significant adenopathy. Atherosclerotic changes of the aorta and vasculature noted without aneurysm or dissection. Skeletal structures demonstrate degenerative appearing changes without focal sclerotic lesions identified. Impression: 1. Postsurgical changes in the pelvis related to prior prostate surgery remain essentially stable compared to prior examination. 2. Presumed chronic bladder wall thickening. 3. No acute abdominopelvic pathology is appreciated. No obvious evidence for metastatic disease or recurrence. No ascites. No adenopathy. 4. Colonic diverticulosis without acute diverticulitis. Electronically Signed by Price Anderson MD 12/27/2019 05:53 P
--- NOTE | 2019-12-27 18:15 | REP ---
Clinical: Prostate cancer restaging. Technique: Axial contrast enhanced images from the thoracic inlet to the upper abdomen with coronal and sagittal re-formations using 100 ml Isovue 370 intravenous contrast material followed by CT of the abdomen and pelvis. Comparison: 08/28/2019. Findings: The bilateral lung etienne are well-aerated and clear. No acute consolidation, significant nodule, or mass lesion is appreciated. A small 3 mm perifissural density along the apical aspect of the right major fissure remain stable along with minimal lingular and right upper lobe scarring. No pleural effusion or pneumothorax. Tracheobronchial tree is patent. No adenopathy. Mediastinum demonstrates normal thoracic aorta, pulmonary vasculature and heart/pericardium. No cardiomegaly or pericardial effusion. Surrounding musculoskeletal structures demonstrate age-related changes without focal osseous abnormality. Impression: No acute mediastinal or pleuroparenchymal process. Electronically Signed by Price Anderson MD 12/27/2019 06:07 P
== END ==
LOC: M RAD 09:09
PROVIDERS: ATTEND Internal Medicine Medical Oncology
DX: C61 Malignant neoplasm of prostate (principal)
CPT/HCPCS: 36415; 71260; 74177; 80053; 84153; 85025; Q9963; Q9967

== ENCOUNTER → 2020-01-10 | Outpatient (REF) | payer BC ==
[~2020-01-10] MED LIST changes: -GASTROGRAFIN SOLUTION 30ML (Q9963) As Ordered ONE; -ISOVUE-370 76% 100ML VIAL (Q9967) As Ordered ONE
[2020-01-10 18:55] LABS: APPEARANCE, URINE CLOUDY (CLEAR); BACTERIA, URINE AUTO 1+ (NEGATIVE); BILIRUBIN, URINE AUTO NEGATIVE (NEGATIVE); BLOOD, URINE BLOOD 2+ (NEGATIVE); COLOR, URINE YELLOW (YELLOW); GLUCOSE, URINE (UA) AUTO NEGATIVE (NEGATIVE); KETONE, URINE AUTO NEGATIVE (NEGATIVE); LEUKOCYTE ESTERASE, URINE AUTO 3+ (NEGATIVE); MUCUS, URINE SMALL (NEGATIVE); NITRITE, URINE AUTO POSITIVE (NEGATIVE); PROTEIN, URINE AUTO 2+ mg/dL (NEGATIVE); RBC, URINE AUTO 99 /HPF (0-3); SPECIFIC GRAVITY URINE AUTO 1.016 (1.002-1.035); SQUAMOUS EPITHELIAL CELL UR AU 0 /HPF (0-6); UROBILINOGEN, URINE AUTO 0.2 mg/dL (0.0-2.0); WBC, URINE AUTO TNTC /HPF (0-3)
== END ==
LOC: M SMT 17:27
PROVIDERS: ATTEND Urology
DX: R33.9 Retention of urine, unspecified (principal)

== ENCOUNTER → 2020-01-30 | Outpatient (REF) | payer BC | LOC: M SMT 14:34 | PROVIDERS: ATTEND Urology | DX: N39.0 Urinary tract infection, site not specified (principal) ==

== ENCOUNTER → 2020-04-01 | Outpatient (CLI) | payer BC ==
[~2020-04-01] MED LIST changes: +GASTROGRAFIN SOLUTION 30ML (Q9963) As Ordered ONE; +ISOVUE-370 76% 100ML VIAL As Ordered ONE
--- NOTE | 2020-04-01 16:08 | REP ---
Clinical: Stage III prostate cancer. Restaging. Technique: Axial contrast enhanced images from the lung bases to the pubic symphysis using oral (per protocol) and 100 ml Isovue 370 intravenous contrast material with coronal and sagittal re-formations. Comparison: 12/26/2019. Findings: Lung bases are clear. Visualized heart and pericardium normal. Mild fatty infiltration to the liver suggested without focal hepatic lesion identified. Spleen, pancreas, gallbladder, bilateral adrenal glands and kidneys are normal. The enteric system is without obstruction or acute inflammatory process. Normal terminal ileum, cecum and appendix identified in the right lower quadrant. Sigmoid diverticulosis noted without acute diverticulitis. Pelvis demonstrates chronic bladder wall thickening and scattered calcifications in the dependent posterior portion of the bladder along with evidence of prior prostate surgery. No obvious pelvic mass. Scattered retroperitoneal lymph nodes measuring up to approximately 12 mm are nonspecific but appears slightly more prominent when compared to prior examination and warrants followup. No ascites. No free air. Atherosclerotic changes to the aorta and vasculature noted without aneurysm or dissection. Musculoskeletal structures demonstrate age-related degenerative changes without focal osseous abnormality. Impression: 1. Retroperitoneal lymph nodes measuring up to approximately 12 mm appear more prominent than prior examination and warrants followup. 2. Scattered sigmoid diverticula without acute diverticulitis. 3. No further acute abdominopelvic pathology appreciated. No ascites. Electronically Signed by Price Anderson MD 04/01/2020 04:00 P
--- NOTE | 2020-04-01 16:10 | REP ---
Clinical: Stage III prostate cancer. Restaging. Technique: Axial contrast enhanced images from the thoracic inlet to the upper abdomen with coronal and sagittal re-formations using 100 ml Isovue 370 intravenous contrast material (followed by CT of the abdomen and pelvis). Comparison: 12/26/2019. Findings: Bilateral lung etienne are well-aerated and relatively clear. No consolidation, significant nodule/mass, or pleural effusion. No pneumothorax. Tracheobronchial tree is patent. No adenopathy. Mediastinum demonstrates normal thoracic aorta, pulmonary vasculature, and heart/pericardium. Surrounding musculoskeletal structures demonstrate age-related changes without focal osseous abnormality. Impression: No acute mediastinal or pleuroparenchymal process. No evidence for metastatic disease. Electronically Signed by Price Anderson MD 04/01/2020 04:02 P
== END ==
LOC: M RAD 13:51
PROVIDERS: ATTEND Internal Medicine Medical Oncology
DX: C61 Malignant neoplasm of prostate (principal)
CPT/HCPCS: 71260; 74177; Q9963; Q9967

== ENCOUNTER → 2020-05-07 | Outpatient (CLI) | payer BC ==
[~2020-05-07] MED LIST changes: -GASTROGRAFIN SOLUTION 30ML (Q9963) As Ordered ONE; -ISOVUE-370 76% 100ML VIAL As Ordered ONE; +LISI10TA4 PO
== END ==
LOC: M WUC 16:45
PROVIDERS: ATTEND Internal Medicine Medical Oncology
DX: C61 Malignant neoplasm of prostate (principal)

== ENCOUNTER → 2020-07-03 | Outpatient (CLI) | payer BC ==
[~2020-07-03] MED LIST changes: +GASTROGRAFIN SOLUTION 30ML (Q9963) As Ordered ONE; +ISOVUE-370 76% 100ML VIAL As Ordered ONE; -LISI10TA4 PO
--- NOTE | 2020-07-03 13:10 | REP ---
INDICATION: FOLLOW UP PROSTATE CA COMPARISON: 04/24/2019 TECHNIQUE: Axial contrast enhanced images from the thoracic inlet to the upper abdomen with coronal and sagittal reformations using 75 ml Isovue 370 intravenous contrast material. This CT examination was performed using the following dose reduction techniques: Automated exposure control, adjustment of mA and/or kv according to the patient's size, and use of iterative reconstruction technique. FINDINGS: There is a small 3 mm non solid perifissural nodule along the apical aspect of the right major fissure (image 43) which remains stable. Minimal scattered linear scarring noted primarily at the right middle lobe and lingula unchanged. No acute consolidation, suspicious nodule or mass lesion. No pleural effusion. No pneumothorax. Tracheobronchial tree is patent. Further evaluation of the mediastinum demonstrates normal thoracic aorta, pulmonary vasculature, and heart/pericardium. Normal thyroid tissue noted. No axillary, hilar, or mediastinal adenopathy. Osseous structures are intact with age-related degenerative changes and no evidence for obvious osseous metastatic lesion. IMPRESSION: *Chronic stable findings as described above including 3 mm non solid perifissural nodule along the right major fissure. *No acute mediastinal or pleuroparenchymal process appreciated. *No evidence for metastatic disease. <Electronically signed by Price Anderson > 07/03/20 [id number]
--- NOTE | 2020-07-03 13:21 | REP ---
INDICATION: FOLLOW UP PROSTATE CA. COMPARISON: 04/01/2020, 08/28/2019 TECHNIQUE: Axial contrast-enhanced images from the lung bases to the pubic symphysis using oral and 100 cc Isovue 370 intravenous contrast material. Delayed images of the abdomen as well as coronal and sagittal reformations obtained. This CT examination was performed using the following dose reduction techniques: Automated exposure control, adjustment of mA and/or kv according to the patient's size, and the use of iterative reconstruction technique. FINDINGS: Moderate fatty infiltration to the liver noted without focal hepatic lesion identified. Spleen, pancreas, gallbladder, bilateral adrenal glands are normal. The left kidney demonstrates mild cortical scarring without perinephric stranding or hydroureteronephrosis. The right kidney demonstrates mild but somewhat prominent and obviously asymmetric enhancement of the urothelial tissue lining the renal collecting system and ureter along with mild distal Periureteral stranding as well as mild adenopathy in the retroperitoneal/pericaval space at the level of the right kidney. These findings are suspicious for an underlying process including possible transitional cell carcinoma and or changes related to metastatic disease. Subtle posterior bladder wall thickening and layering bladder calculi. Calcifications extend caudally into the region of the dilated prostatic urethra with evidence for prior TURP. The enteric system including stomach, small, and large bowel appears normal. No evidence for obstruction or acute inflammatory process. Normal terminal ileum and appendix are identified in the right lower quadrant. Few scattered sigmoid diverticula noted without acute diverticulitis. Pelvis demonstrates bladder findings as described above and evidence for prior prostatectomy (TURP). No pelvic fluid or adenopathy. No ascites. Skeletal structures demonstrate degenerative changes without definite focal osseous abnormalities to suggest osseous metastatic disease related to the given history of prostate cancer. IMPRESSION: 1. Prominent asymmetric enhancement to the urothelial tissue of the right renal pelvis and right ureter with mild periureteral stranding as well as adenopathy at the level of the right kidney. These findings are suspicious for an underlying acute process including malignancy. Differential diagnosis includes but is not limited to transitional cell carcinoma and metastatic disease. Urology consultation is required. 2. Bladder demonstrates calcifications, and somewhat irregular mild bladder wall thickening which may be related to prior prostate disease and TURP. 3. Sigmoid diverticulosis without acute diverticulitis. 4. Further nonacute findings as described above. <Electronically signed by Price Anderson > 07/03/20 [id number]
== END ==
LOC: M RAD 11:19
PROVIDERS: ATTEND Internal Medicine Medical Oncology
DX: C61 Malignant neoplasm of prostate (principal); R93.41 Abnormal radiologic findings on diagnostic imaging of renal pelvis, ureter, or bladder
CPT/HCPCS: 71260; 74177; Q9963; Q9967

== ENCOUNTER → 2020-07-30 | Outpatient (CLI) | payer BC ==
[~2020-07-30] MED LIST changes: -GASTROGRAFIN SOLUTION 30ML (Q9963) As Ordered ONE; -ISOVUE-370 76% 100ML VIAL As Ordered ONE; +LISI10TA4 PO
== END ==
LOC: M LABSMTC 10:20
PROVIDERS: ATTEND Anesthesiology
DX: Z01.812 Encounter for preprocedural laboratory examination (principal); Z20.828 Contact with and (suspected) exposure to other viral communicable diseases

== ENCOUNTER 2020-08-01 08:50 | Day surgery (SDC) | payer BC ==
[~2020-08-01] VITALS: Ht 175.3 cm; Wt 86.2 kg
[~2020-08-01 08:50] MED LIST changes: +LR 1,000 ML IV ONE; +ceFAZolin SOD 2 GM in IV 1 EA IV ONE
[2020-08-01] MEDS ORDERED: CONRAY-60 60% 50ML VIAL (Q9961) As Ordered ONE (09:33)
[2020-08-01] MEDS ORDERED: LIDOCAINE 2% 100MG/5ML SDV (FOR ANES.) As Ordered ONE (09:35)
[2020-08-01] MEDS ORDERED: MIDAZOLAM INJ 2MG/2ML VIAL (J2250 PER 1MG) As Ordered ONE (09:35)
[2020-08-01] MEDS ORDERED: fentaNYL 100 MCG/2 ML INJECTION (J3010) As Ordered ONE ×2 (09:35→10:18)
[2020-08-01] MEDS ORDERED: dexameTHASONE 4 MG/ML 1ML VIAL (J1100 PER 1MG) As Ordered ONE (09:36)
[2020-08-01] MEDS ORDERED: ONDANSETRON 4MG/2ML VIAL As Ordered ONE (09:36)
[2020-08-01] MEDS ORDERED: propofoL 200 MG/20 ML VIAL As Ordered ONE (09:52)
[2020-08-01] MEDS ORDERED: oxyCODONE 5MG TAB PO PRN (11:45)
[2020-08-01] MEDS ORDERED: fentaNYL 100 MCG/2 ML INJECTION (J3010) IV PRN (11:45)
[2020-08-01] MEDS ORDERED: ONDANSETRON 4MG/2ML VIAL IV PRN (11:45)
[2020-08-01] MEDS ORDERED: LR 1,000 ML IV SCH (11:45)
[2020-08-01] MEDS ORDERED: PERCOCET 5MG/325MG TAB PO PRN (11:45)
[2020-08-01 13:02] VITALS: BP 166/87
--- NOTE | 2020-08-01 13:37 | REP ---
INDICATION: RIGHT URETERAL STENT PLACEMENT. COMPARISON: None. TECHNIQUE: Multiple C-arm views performed of abdomen and pelvis. FINDINGS: The right ureter is catheterized and contrast is injected. Air bubbles are seen in the mid right ureter. The proximal ureter appears narrowed and strictured. Pelvocaliceal system appears mildly dilated. A right ureteral stent is placed. The proximal end is in the right renal pelvis in the distal end is in the urinary bladder. IMPRESSION: 59 seconds fluoroscopy time utilized. <Electronically signed by Mehdi Varner > 08/01/20 [id number]
--- NOTE | 2020-08-02 10:52 | RO ---
DATE OF OPERATION: 08/01/2020 PREOPERATIVE DIAGNOSIS: Right hydroureteronephrosis. POSTOPERATIVE DIAGNOSIS: Right hydroureteronephrosis, urethral stricture. PROCEDURE: Cystoscopy, Right Ureteroscopy, Right Retrograde Pyelogram with Intraoperative Interpretation of Images, Urethral Dilation. SURGEON: Miguel A Thomas MD PEDIATRIC CNS: None. ANESTHESIA: General. OPERATIVE INDICATIONS: This is a 65-year-old male with history of high risk prostate cancer treated with radiation therapy and androgen deprivation therapy. He also had history of benign prostatic hyperplasia and undergone TURP previously. On recent surveillance CT scan he was found to have what appeared to be enhancement of the urothelium of the right collecting system from the renal pelvis down to the ureter raising concern for possible malignancy. There is also mild hydroureteronephrosis. He is brought to the operating room today to investigate this. DESCRIPTION OF PROCEDURE: The patient was brought to the operating room and general anesthesia induced. Prophylactic antibiotics were infused. He was then placed in the dorsal lithotomy position and prepped and draped in usual sterile fashion. At this point a rigid cystoscope was inserted in the urethral meatus and advanced toward the bladder. At the level of the prostatic urethra I could not advance the scope due to a stricture. I therefore advanced the guidewire through the stricture into the bladder. The cystoscope was then removed and the wire was utilized to dilate the stricture to 24-Honduran using blue fascial dilators. Once that was done the cystoscope was advanced in and I could get the scope into the bladder. The patient of note had calcifications within his prostatic urethra which had been seen previously. There was fibrotic tissue there. Once at the bladder the right ureteral orifice was identified and the 6- Honduran open-ended ureteral catheter was advanced into the right collecting system. Retrograde pyelogram was performed and notable for mild to moderate right hydroureteronephrosis with tortuous appearing proximal ureter. There were no filling defects. There was no extravasation. I then advanced the guidewire up the right collecting system. I then advanced the ureteral access sheath over the wire. I advanced the access sheath over flexible ureteroscope and of note the proximal ureter was nephrotic and tortuous. It was a little bit difficult to get the scope into the renal pelvis because of the tortuosity of the proximal ureter. I was ultimately able to get the scope into the renal pelvis and the renal pelvis and all calyces were examined. No tumors were seen. There was no erythema of the urothelium. Everything appeared to be completely normal with the exception of the fact that the right kidney was hydronephrotic. At this point I withdrew the ureteroscope along with access sheath and no abnormalities were seen inside the right ureter except for the hydronephrosis. I then utilized the previously placed guidewire to advance a 6-Honduran x 22-32 cm JJ ureteral stent up the right collecting system. I then withdrew the wire and there were adequate curls of the stent in the right renal pelvis and bladder. I removed the scope completely. I then utilized the guidewire to advance an 18-Honduran [place]-tip catheter into the bladder. The balloon was filled with 10 mL of sterile water and the catheter was connected to gravity drainage after removing the wire. This marked the conclusion of the procedure. The patient was taken out of the dorsal lithotomy position, awakened from anesthesia, transported to the recovery room in stable condition. ESTIMATED BLOOD LOSS: 10 mL. COMPLICATIONS: None. SPECIMENS: None. PLAN: I will have the patient take his catheter out in a few days. He will follow up in urology clinic in few weeks for stent removal. RAMÓN
== END 2020-08-01 13:02 | disposition home or self-care (01) ==
LOC: M SDC 08:50
PROVIDERS: ATTEND Urology
DX: N35.919 Unspecified urethral stricture, male, unspecified site (principal); N13.30 Unspecified hydronephrosis; I10 Essential (primary) hypertension; I35.8 Other nonrheumatic aortic valve disorders; I49.5 Sick sinus syndrome; E78.00 Pure hypercholesterolemia, unspecified; K57.30 Diverticulosis of large intestine without perforation or abscess without bleeding; N40.1 Benign prostatic hyperplasia with lower urinary tract symptoms; Z87.81 Personal history of (healed) traumatic fracture; Z87.891 Personal history of nicotine dependence; Z92.3 Personal history of irradiation
CPT/HCPCS: 53600; 74420; C1769; C1894; C2617; J1100; J2250; J2405; J3010; Q9961

== ENCOUNTER → 2020-08-15 | Outpatient (CLI) | payer BC ==
[~2020-08-15] MED LIST changes: -LR 1,000 ML IV ONE; -ceFAZolin SOD 2 GM in IV 1 EA IV ONE
== END ==
LOC: M LABSMTC 13:59
PROVIDERS: ATTEND Family Medicine
DX: Z20.828 Contact with and (suspected) exposure to other viral communicable diseases (principal)

== ENCOUNTER → 2020-10-02 | Outpatient (REF) | payer BC ==
[~2020-10-02] MED LIST changes: +LISI10TA22 PO; -LISI10TA4 PO
== END ==
LOC: M LAB REF 17:19
PROVIDERS: ATTEND Dermatology
DX: L57.0 Actinic keratosis (principal); C44.519 Basal cell carcinoma of skin of other part of trunk

== ENCOUNTER → 2020-11-07 | Outpatient (REF) | payer BC | LOC: M LAB REF 11:17 | PROVIDERS: ATTEND Physician Assistant | DX: N39.0 Urinary tract infection, site not specified (principal) ==

== ENCOUNTER → 2020-11-12 | Outpatient (REF) | payer BC | LOC: M LAB REF 19:19 | PROVIDERS: ATTEND Dermatology | DX: L57.8 Other skin changes due to chronic exposure to nonionizing radiation (principal); Z85.828 Personal history of other malignant neoplasm of skin ==

== ENCOUNTER → 2020-11-25 | Outpatient (REF) | payer BC | LOC: M WUC 20:30 | PROVIDERS: ATTEND Physician Assistant | DX: N39.0 Urinary tract infection, site not specified (principal) ==

== ENCOUNTER → 2020-12-09 | Outpatient (REF) | payer BC ==
[2020-12-09 19:12] LABS: APPEARANCE, URINE CLOUDY (CLEAR); BACTERIA, URINE AUTO 1+ (NEGATIVE); BILIRUBIN, URINE AUTO NEGATIVE (NEGATIVE); BLOOD, URINE BLOOD 1+ (NEGATIVE); COLOR, URINE YELLOW (YELLOW); GLUCOSE, URINE (UA) AUTO NEGATIVE (NEGATIVE); KETONE, URINE AUTO NEGATIVE (NEGATIVE); LEUKOCYTE ESTERASE, URINE AUTO 2+ (NEGATIVE); MUCUS, URINE SMALL (NEGATIVE); NITRITE, URINE AUTO NEGATIVE (NEGATIVE); PROTEIN, URINE AUTO 2+ mg/dL (NEGATIVE); RBC, URINE AUTO 20 /HPF (0-3); SPECIFIC GRAVITY URINE AUTO 1.019 (1.002-1.035); SQUAMOUS EPITHELIAL CELL UR AU 0 /HPF (0-6); UROBILINOGEN, URINE AUTO 0.2 mg/dL (0.0-2.0); WBC, URINE AUTO TNTC /HPF (0-3)
== END ==
LOC: M SMT 17:01
PROVIDERS: ATTEND Urology
DX: N40.1 Benign prostatic hyperplasia with lower urinary tract symptoms (principal)

== ENCOUNTER → 2021-01-06 | Outpatient (CLI) | payer BC ==
[~2021-01-06] MED LIST changes: +eligard INJ
[2021-01-06 17:33] LABS: BASO % 0.3 % (0.0-1.0); EOS # 0.3 10^3/uL (0.0-0.5); HEMOGLOBIN 14.3 g/dl (13.5-17.5); LYMPH # 1.7 10^3/uL (1.5-5.0); LYMPH % 19.5 % (24.0-44.0); MEAN CORPUSCULAR HEMOGLOBIN 29.9 pg (27.0-33.0); MEAN CORPUSCULAR HGB CONC 33.3 g/dl (32.0-36.5); MONO % 11.8 % (2.0-8.0); NEUTROPHILS # 5.6 10^3/uL (1.5-8.5); NEUTROPHILS % 65.1 % (36.0-66.0); PLATELET COUNT, AUTOMATED 312 10^3/uL (150-450); RED BLOOD COUNT 4.78 10^6/uL (4.30-6.10); WHITE BLOOD COUNT 8.7 10^3/uL (4.0-10.0)
[2021-01-06 17:53] LABS: ALT/SGPT 20 U/L (12-78); BILIRUBIN,TOTAL 0.4 MG/DL (0.2-1.0); BLOOD UREA NITROGEN 22 MG/DL (7-18); CALCIUM LEVEL 9.9 MG/DL (8.8-10.2); CARBON DIOXIDE LEVEL 30 MEQ/L (21-32); CHLORIDE LEVEL 99 MEQ/L (98-107); CREATININE FOR GFR 1.22 MG/DL (0.70-1.30); GLOMERULAR FILTRATION RATE > 60.0 (>49); GLUCOSE, FASTING 99 MG/DL (70-100); POTASSIUM SERUM 3.9 MEQ/L (3.5-5.1); PROSTATIC SPECIFIC AG MONITOR 0.02 NG/ML (< 4.00); SODIUM LEVEL 137 MEQ/L (136-145); TOTAL PROTEIN 7.7 GM/DL (6.4-8.2)
== END ==
LOC: M LAB 16:42
PROVIDERS: ATTEND Internal Medicine Medical Oncology
DX: C61 Malignant neoplasm of prostate (principal)

== ENCOUNTER → 2021-01-06 | Outpatient (CLI) | payer BC ==
[~2021-01-06] MED LIST changes: +GASTROGRAFIN SOLUTION 30ML (Q9963) As Ordered ONE; +ISOVUE-370 76% 100ML VIAL As Ordered ONE
--- NOTE | 2021-01-06 19:05 | REP ---
INDICATION: PROSTATE CANCER COMPARISON: 07/03/2020. TECHNIQUE: CT Scan of the abdomen and pelvis was performed with intravenous administration of 100 cc of Isovue 370, and oral contrast. FINDINGS: Lung bases: Unremarkable. Liver: There is diffuse fatty infiltration of the liver without evidence of an enhancing mass. Gallbladder: Unremarkable. Spleen: Normal. Adrenals: Normal. Pancreas: Normal. Kidneys: The enhancement of urothelial tissue in the right renal pelvis and right ureter has decreased, and the perinephric and periureteral fat stranding has improved. Small and large bowel: There is colonic diverticulosis. Free fluid: None. Abdominal aorta: No aneurysm or dissection. Adenopathy: The subcentimeter aortocaval lymph nodes seen on the prior study have decreased in size. Appendix: Not inflamed. Osseous structures: There are degenerative changes of the spine. Pelvis: There is increased diffuse bladder wall thickening. Dilated prostatic urethra as again noted and there are calcifications again seen along its lumen as well as in the region of the seminal vesicles.. IMPRESSION: The previously noted urothelial enhancement of the right renal pelvis and ureter as well as the perinephric and. Ureteral fat stranding has improved. The previously noted subcentimeter aortocaval lymph nodes predominantly to the right of midline have decreased in size. There is increased diffuse bladder wall thickening. Dilated prostatic urethra again demonstrates calcifications along its periphery with mild calcifications in the seminal vesicles bilaterally. <Electronically signed by Mehdi Varner > 01/06/21 [id number]
== END ==
LOC: M RAD 16:28
PROVIDERS: ATTEND Specialist
DX: C61 Malignant neoplasm of prostate (principal)
CPT/HCPCS: 74177; Q9963; Q9967

== ENCOUNTER → 2021-01-08 | Outpatient (CLI) | payer BC ==
[~2021-01-08] MED LIST changes: -GASTROGRAFIN SOLUTION 30ML (Q9963) As Ordered ONE; -ISOVUE-370 76% 100ML VIAL As Ordered ONE
--- NOTE | 2021-01-08 11:54 | REP ---
INDICATION: Z01.818 PRE OPERATIVE CLEARANCE. COMPARISON: 09/02/2018 the latest prior TECHNIQUE: PA and lateral FINDINGS: The superior mediastinal structures are midline. The cardiac silhouette is unremarkable in size, shape, and position. The diaphragmatic surfaces of the lungs are regular, and the costophrenic angles are clear. The pulmonary etienne are clear. The imaged osseous structures are intact. IMPRESSION: There is no acute cardiopulmonary disease. <Electronically signed by Omari Schwartz > 01/08/21 [id number]
== END ==
LOC: M CLY 10:54
PROVIDERS: ATTEND Family Medicine
DX: Z01.818 Encounter for other preprocedural examination (principal)

== ENCOUNTER → 2021-01-08 | Outpatient (CLI) | payer BC | LOC: M LABSMTC 12:39 | PROVIDERS: ATTEND Anesthesiology | DX: Z01.812 Encounter for preprocedural laboratory examination (principal); Z20.822 Contact with and (suspected) exposure to COVID-19 ==

== ENCOUNTER → 2021-01-08 | Outpatient (REF) | payer BC | LOC: M SFHCCLAY 10:47 | PROVIDERS: ATTEND Family Medicine | DX: Z01.812 Encounter for preprocedural laboratory examination (principal) ==

== ENCOUNTER → 2021-01-14 | Outpatient (CLI) | payer BC ==
[~2021-01-14] MED LIST changes: +LEVO500T3 PO
== END ==
LOC: M LABSMTC 11:55
PROVIDERS: ATTEND Anesthesiology
DX: Z01.812 Encounter for preprocedural laboratory examination (principal); Z20.822 Contact with and (suspected) exposure to COVID-19

== ENCOUNTER 2021-01-15 10:19 | Day surgery (SDC) | payer BC ==
[~2021-01-15] VITALS: Ht 175.3 cm; Wt 88.9 kg
[~2021-01-15 10:19] MED LIST changes: +ACETAMINOPHEN 1000MG 100ML IV BTL (OFIRMEV) (J0131 PER 10MG) As Ordered ONE; -LEVO500T3 PO; +LIDOCAINE 2% 100MG/5ML SDV (FOR ANES.) As Ordered ONE; +LR 1,000 ML IV ONE; +MIDAZOLAM INJ 2MG/2ML VIAL (J2250 PER 1MG) As Ordered ONE; +ONDANSETRON 4MG/2ML VIAL As Ordered ONE; +ROCURONIUM BROMIDE 50 MG/5 ML VIAL As Ordered ONE; +SUGAMMADEX SODIUM 500 MG/5 ML VIAL (BRIDION) As Ordered ONE; +ceFAZolin SOD 2 GM in IV 1 EA IV ONE; +dexameTHASONE 4 MG/ML 1ML VIAL (J1100 PER 1MG) As Ordered ONE; +fentaNYL 100 MCG/2 ML INJECTION (J3010) As Ordered ONE; +propofoL 200 MG/20 ML VIAL As Ordered ONE
[2021-01-15] MEDS ORDERED: LEVO500T3 PO (11:05)
[2021-01-15] MEDS ORDERED: fentaNYL 100 MCG/2 ML INJECTION (J3010) As Ordered ONE (12:48)
[2021-01-15] MEDS ORDERED: KETOROLAC 60MG 2ML VIAL As Ordered ONE (12:50)
[2021-01-15] MEDS ORDERED: FUROSEMIDE 100MG/10ML VIAL (J1940) As Ordered ONE (13:02)
[2021-01-15] MEDS ORDERED: LR 1,000 ML IV SCH (14:05)
[2021-01-15] MEDS ORDERED: ACETAMINOPHEN TAB 650MG DOSE (2X325MG) PO PRN (14:05)
[2021-01-15] MEDS ORDERED: fentaNYL 100 MCG/2 ML INJECTION (J3010) IV PRN (14:05)
[2021-01-15] MEDS ORDERED: ONDANSETRON 4MG/2ML VIAL IV PRN (14:05)
[2021-01-15] MEDS ORDERED: oxyCODONE 5MG TAB PO PRN (14:05)
--- NOTE | 2021-01-15 14:06 | RO ---
OPERATIVE NOTE DATE OF OPERATION: 01/15/2021 PREOPERATIVE DIAGNOSIS: Bladder neck contracture. POSTOPERATIVE DIAGNOSIS: Bladder neck contracture. PROCEDURES: 1. Cystoscopy. 2. Direct vision internal urethrotomy. 3. Urethral dilation. SURGEON: Miguel A Thomas MD. ELEVATOR EXAMINER: None. ANESTHESIA: General. OPERATIVE INDICATIONS: This is a 65-year-old male with a history of benign prostatic hyperplasia and prostate cancer. He has previously undergone a button transurethral electrovaporization of the prostate and then subsequently radiation therapy for prostate cancer. He also has had several recurrent bladder neck contractures which have been treated. He was brought to the operating room today for treatment for another bladder neck contracture. DESCRIPTION OF PROCEDURE: The patient was brought to the operating room and general anesthesia was induced. Prophylactic antibiotics were infused. He was placed in the dorsal lithotomy position, prepped, and draped in the usual sterile fashion. At this point, a resectoscope was inserted into the urethral meatus and advanced towards the bladder using the visual obturator. At the level of the bladder neck, there was a narrow contracture through which I could not advance the scope. I then advanced the guidewire into the bladder. I removed the scope and dilated the bladder neck contracture to 24-Gabonese using fascial dilators. Once that was done, I went back in with the resectoscope and I was just barely able to get the scope into the bladder. Of note, the patient had recurrent calcifications inside his prostatic urethra. These did not appear to be obstructing. His main issue was the contracture. At this point, I utilized a Black knife to incise the contracture at 5:00 o'clock, 7:00 o'clock, and 12:00 o'clock. I kept doing this until it was wide open enough for me to get the scope back and forth easily. Once I was done with that, I examined the bladder and no abnormalities were seen inside the bladder. I then advanced a guidewire back into the bladder and removed the resectoscope. I utilized the guidewire to advance the 18-Gabonese Councill catheter into the bladder. The balloon was filled with 10 mL of sterile water and then the wire was removed. The catheter was connected to gravity drainage and this marked the conclusion of the procedure. The patient was taken out of the dorsal lithotomy position, awakened from anesthesia, and transferred to the recovery room in stable condition. ESTIMATED BLOOD LOSS: 10 mL. COMPLICATIONS: None. SPECIMEN: None. PLAN: The patient will take his own catheter out on Wednesday. We will have him follow up in the Urology office subsequently for a post-void residual. RAMÓN
[2021-01-15 14:15] VITALS: BP 166/90
== END 2021-01-15 14:45 | disposition home or self-care (01) ==
LOC: M SDC 10:19
PROVIDERS: ATTEND Urology
DX: N32.0 Bladder-neck obstruction (principal); Z85.46 Personal history of malignant neoplasm of prostate; Z90.79 Acquired absence of other genital organ(s); Z92.3 Personal history of irradiation; I10 Essential (primary) hypertension; Z79.899 Other long term (current) drug therapy
CPT/HCPCS: 52640; J0131; J0690; J1100; J1885; J1940; J2250; J2405; J3010

== ENCOUNTER 2021-01-24 08:36 | Emergency (ER) | payer BC ==
[~2021-01-24] VITALS: Ht 170.2 cm; Wt 89.8 kg
[~2021-01-24 08:36] MED LIST changes: -ACETAMINOPHEN 1000MG 100ML IV BTL (OFIRMEV) (J0131 PER 10MG) As Ordered ONE; +LEVO500T3 PO; -LIDOCAINE 2% 100MG/5ML SDV (FOR ANES.) As Ordered ONE; -LR 1,000 ML IV ONE; -MIDAZOLAM INJ 2MG/2ML VIAL (J2250 PER 1MG) As Ordered ONE; -ONDANSETRON 4MG/2ML VIAL As Ordered ONE; -ROCURONIUM BROMIDE 50 MG/5 ML VIAL As Ordered ONE; -SUGAMMADEX SODIUM 500 MG/5 ML VIAL (BRIDION) As Ordered ONE; -ceFAZolin SOD 2 GM in IV 1 EA IV ONE; -dexameTHASONE 4 MG/ML 1ML VIAL (J1100 PER 1MG) As Ordered ONE; -fentaNYL 100 MCG/2 ML INJECTION (J3010) As Ordered ONE; -propofoL 200 MG/20 ML VIAL As Ordered ONE
[2021-01-24 08:37] VITALS: BP 166/99
[2021-01-24] MEDS ORDERED: LIDOCAINE 2% 5ML JELLY UROJET TOP ONE ×2 (09:30→12:00)
[2021-01-24 10:14] LABS: BASO # 0.1 10^3/uL (0.0-0.2); BASO % 0.4 % (0.0-1.0); EOS # 0.1 10^3/uL (0.0-0.5); EOS % 1.2 % (0.0-3.0); HEMATOCRIT 45.8 % (42.0-52.0); HEMOGLOBIN 15.3 g/dl (13.5-17.5); LYMPH # 1.4 10^3/uL (1.5-5.0); LYMPH % 12.1 % (24.0-44.0); MEAN CORPUSCULAR HEMOGLOBIN 30.1 pg (27.0-33.0); MEAN CORPUSCULAR HGB CONC 33.4 g/dl (32.0-36.5); MONO # 1.2 10^3/uL (0.0-0.8); MONO % 10.3 % (2.0-8.0); NEUTROPHILS % 75.2 % (36.0-66.0); PLATELET COUNT, AUTOMATED 302 10^3/uL (150-450); RED BLOOD COUNT 5.09 10^6/uL (4.30-6.10); WHITE BLOOD COUNT 11.9 10^3/uL (4.0-10.0)
[2021-01-24 10:32] LABS: INR 0.94; PROTHROMBIN TIME 12.8 SECONDS (12.5-14.3)
[2021-01-24 10:33] LABS: PARTIAL THROMBOPLASTIN TIME 30.4 SECONDS (24.2-38.5)
[2021-01-24] MEDS ORDERED: PERCOCET 5MG/325MG TAB PO ONE (10:55)
[2021-01-24] MEDS ORDERED: CIPR-249 PO (12:42)
--- NOTE | 2021-01-24 13:01 | SMCUROLCON ---
Urology Consultation General Date of Consultation 01/24/21 Reason For Consultation This patient is seen for Urinary Problem. History of Present Illness This is a 65 y/o M w/ prostate cancer treated w/ EBRT + ADT, BPH s/p TURP and then several procedures for recurrent bladder neck contractures (BNC), present ing to the ER today w/ inability to void or perform CIC. He underwent a DVIU approximately 1 wk ago for a BNC. He notes that he removed his catheter a few days after the procedure and initially had some difficulty voiding b/c of clots. He notes that once he passed the clots he was able to void better. Since last night he was no longer able to void. He tried to perform CIC and was unable to do so, meeting resistance at the level of the prsotati urethra. Past Medical History Medical History see HPI Surgical Hstory see HPI Allergies Allergies: Coded Allergies: No Known Allergies (Unverified , 01/06/21) Review of Systems Constitutional: Denies: Fever, Chills, Sweats, Weakness, Malaise Skin: Denies: Rash, Lesions, Breakdown, Nail Changes Pulmonary: Denies: Dyspnea, Cough Cardiovascular: Denies Chest Pain, Denies Palpitations Gastrointestinal: Reports: Abdominal Pain; Denies: Nausea, Vomiting Genitourinary: Reports: Retention Musculoskeletal: Denies: Neck Pain, Back Pain Neurological: Denies: Weakness, Numbness, Incoordination, Change in Speech Psych: Reports: Mood Normal; Denies: Anxiety, Depression Physical Examination General Exam: Alert, Cooperative, No Acute Distress Chest Exam: Normal air movement Heart Exam: Rate Normal Abdomen Exam: Soft, Other (suprapubic fullness) Male Exam circumcised phallus w/o lesions; b/l descended testicles Skin Exam: Nl turgor and temperature Neuro Exam: Normal Speech Psych Exam: Mental status NL, Mood NL Vital Signs/I&O Vital Signs Date Time Temp Pulse Resp B/P (MAP) Pulse Ox O2 Delivery O2 Flow Rate FiO2 01/24/21 11:15 20 01/24/21 10:15 01/24/21 08:37 97.3 99 99 Room Air Laboratory Data 24H Labs Laboratory Tests 2 01/24/21 09:51: Immature Granulocyte % (Auto) 0.8, Neutrophils (%) (Auto) 75.2H, Lymphocytes (%) (Auto) 12.1L, Monocytes (%) (Auto) 10.3H, Eosinophils (%) (Auto) 1.2, Basophils (%) (Auto) 0.4, Neutrophils # (Auto) 9.0H, Lymphocytes # (Auto) 1.4L, Monocytes # (Auto) 1.2H, Eosinophils # (Auto) 0.1, Basophils # (Auto) 0.1, Nucleated Red Blood Cells % (auto) 0.0, Prothrombin Time 12.8, Prothromb Time International Ratio 0.94, Activated Partial Thromboplast Time 30.4 01/24/21 10:07: POC Glucose (Misc Panel) 128H, POC Sodium (Misc Panel) 137, POC Potassium (Misc Panel) 3.7, POC Chloride (Misc Panel) 102, POC Total CO2 (Misc Panel) 25.0, POC Blood Urea Nitrogen (Misc Panel 23, POC Ionized Calcium (Misc Panel) 4.1L, POC Creatinine (Misc Panel) 1.3, POC Hematocrit (Misc Panel) 47.0 CBC/BMP Laboratory Tests 01/24/21 09:51 Assessment This is a 65 y/o M w/ prostate cancer treated w/ EBRT + ADT, BPH s/p TURP and then several procedures for recurrent bladder neck contractures (BNC), presenting to the ER today w/ inability to void or perform CIC. I attempted to pass a 16Fr coude catheter and could not get it into the bladder, meeting significant resistance at the level of the bladder. I therefore recommended that we perform bedside cystoscopy. This was done after obtaining informed consent. Cystoscopy was notable for a significant amount of fibrotic tissue causing obstruction within the prostatic urethra. I was able to pass a wire into the bladder and then advance the scope over the wire into the bladder w/ some pressure. The scope was then removed and an 18Fr narragans[place] tip catheter was placed. I explained to the patient that this will likely be a recurrent problem. I once again recommended that he consider a suprapubic catheter as this is likely the best option to drain his bladder at this point. Plan - catheter placed over a wire using cystoscopic guidance - recommend placing the patient on abx for 1 wk - will arrange f/u in the urology office next wk after for a voiding trial or to discuss setting him up for a suprapubic catheter GO ROSAS MD January 24, 2021 13:01
--- NOTE | 2021-01-24 14:47 | RO ---
OPERATIVE NOTE DATE OF OPERATION: 01/24/2021 PREOPERATIVE DIAGNOSIS: Urinary retention. POSTOPERATIVE DIAGNOSIS: Bladder neck contracture. PROCEDURE: Cystoscopy, complex catheter placement over wire. SURGEON: Miguel A Thomas MD TELETYPE ADJUSTER: None. ANESTHESIA: Local. OPERATIVE INDICATIONS: This is a 65-year-old male with history of having a TURP a few years ago and recurrent bladder neck contractures. He also had history of prostate cancer treated with radiation therapy within the last year or two. He had undergone a direct vision internal urethrotomy last week for recurrent bladder neck contracture and since his catheter was removed he has had increased difficulty voiding. Ultimately he could not void at all this morning and could not pass a catheter. I attempted to pass a catheter and met resistance and therefore it was recommended he undergo the above procedure. DESCRIPTION OF PROCEDURE: The patient was prepped and draped in usual sterile fashion. At this point a flexible cystoscope was advanced into the urethra and towards the location of the bladder. Within the prostatic urethra there was significant amount of fibrotic scar tissue causing obstruction. I was able to see a small lumen and advance a wire through the lumen. Once the wire was advanced into the bladder I was able to advance the scope over the wire into the bladder but I had to use some force to get the scope through the scar tissue. Once the scope was inside the bladder I then withdrew it leaving the wire in place. I then utilized guidewire to advance an 18-Bh[place]-tip catheter into the bladder. The balloon was filled with 10 mL of sterile water and then the wire was removed. The catheter was connected to gravity drainage and large amount of yellow urine drained. This marked the conclusion of the procedure. ESTIMATED BLOOD LOSS: Zero mL. COMPLICATIONS: None. SPECIMENS: None. PLAN: I recommended to the patient that he undergo suprapubic catheter placement in the near future to manage his issues of bladder neck contractures as I think this will likely be recurrent problem. He is somewhat hesitant to do this and therefore will see him back in the office next week. At that time will either do catheter removal and voiding trial or leave his catheter in and get him setup for suprapubic catheter placement. RAMÓN
== END 2021-01-24 13:12 | disposition home or self-care (01) ==
LOC: M ED 08:36
DX: R33.9 Retention of urine, unspecified (principal); I10 Essential (primary) hypertension; N40.1 Benign prostatic hyperplasia with lower urinary tract symptoms; Z85.46 Personal history of malignant neoplasm of prostate; K57.92 Diverticulitis of intestine, part unspecified, without perforation or abscess without bleeding; Z87.891 Personal history of nicotine dependence

== ENCOUNTER 2021-01-31 02:55 | Day surgery (SDC) | payer BC ==
[~2021-01-31] VITALS: Ht 175.3 cm; Wt 89.2 kg
[~2021-01-31 02:55] MED LIST changes: +CIPR-249 PO
[2021-01-31] MEDS ORDERED: MORPHINE 10 MG/ML 1ML VIAL (J2270) IM ONE (04:05)
[2021-01-31] MEDS ORDERED: HYDROMORPHONE HCL 0.5 MG/ 0.5 ML SYRINGE (J1170 PER 1) IV PRN ×2 (05:05→07:00)
[2021-01-31] MEDS ORDERED: CIPR-249 PO (05:10)
[2021-01-31] MEDS ORDERED: BANO25TA PO (05:10)
[2021-01-31] MEDS ORDERED: LIDOCAINE 2% 100MG/5ML SDV (FOR ANES.) As Ordered ONE (05:23)
[2021-01-31] MEDS ORDERED: propofoL 200 MG/20 ML VIAL As Ordered ONE (05:23)
[2021-01-31] MEDS ORDERED: fentaNYL 100 MCG/2 ML INJECTION (J3010) As Ordered ONE (05:24)
[2021-01-31] MEDS ORDERED: MIDAZOLAM INJ 2MG/2ML VIAL (J2250 PER 1MG) As Ordered ONE (05:24)
[2021-01-31] MEDS ORDERED: ceFAZolin 2 GM/D5W 50 ML IV BAG (J0690 PER 500MG) As Ordered ONE (06:17)
[2021-01-31] MEDS ORDERED: dexameTHASONE 4 MG/ML 1ML VIAL (J1100 PER 1MG) As Ordered ONE (06:23)
[2021-01-31] MEDS ORDERED: ONDANSETRON 4MG/2ML VIAL As Ordered ONE (06:23)
--- NOTE | 2021-01-31 06:58 | SMCUROLCON ---
Urology Consultation General Date of Consultation 01/31/21 Reason For Consultation This patient is seen for Urethral Strictures. History of Present Illness The patient is a 65-year-old male with a past medical history for prostate cancer and radiation therapy. 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 Patient states that this catheter came out one or 2 days later and he felt he was voidin g well until yesterday when he could not void at all since 2 in the afternoon and he therefore presented to the emergency room and a urology consult was called. Past Medical History Medical History Prostate cancer Family History Family History Brother has prostate cancer Social History Social History Patient is and does not smoke Medications Current Medications Current Medications Medications (Trade) Dose Ordered Sig/Autumn Route PRN Reason Start Time Stop Time Status Last Admin Dose Admin Home Med (Med Rec Complete!) ASDIRECTED XX 01/31/21 05:10 01/31/21 05:17 DC Hydromorphone HCl (Dilaudid) 0.5 mg Q30M PRN IV MODERATE PAIN (PS 5-7) 01/31/21 05:05 01/31/21 05:08 Allergies Allergies: Coded Allergies: No Known Allergies (Unverified , 01/06/21) Review of Systems General: Reports: Normal Appetite; Denies: Fatigue, Malaise Constitutional: Denies: Fever, Chills, Sweats, Weakness, Malaise Eyes: Denies: Pain, Vision change ENT: Denies: Head Aches, Sore Throat, Epistaxis Skin: Denies: Rash, Lesions, Breakdown, Nail Changes Pulmonary: Denies: Dyspnea, Cough, Pleuritic Chest Pain, Other Symptoms Cardiovascular: Denies Chest Pain, Denies Palpitations Gastrointestinal: Denies: Nausea, Vomiting, Abdominal Pain Genitourinary: Reports: Dysuria, Frequency, Incontinence, Retention; Denies: Hematuria Hematologic: Denies: Bruising, Bleeding Excessively Endocrine: Denies: Polydipsia, Polyphagia, Polyuria Musculoskeletal: Denies: Neck Pain, Back Pain Neurological: Denies: Weakness, Numbness, Incoordination, Change in Speech Physical Examination General Exam: Cooperative, Moderate Distress EYE EXAM: PERRLA, Conjunctiva & lids normal, EOMI; No: Sclera icteric ENT EXAM: Atraumatic, Mucous membr. moist/pink, Pharynx Normal Neck Exam: Supple; No: JVD, thyromegaly Chest Exam: Clear to auscultation, Normal air movement Heart Exam: Rate Normal, Regular Rhythm, Normal S1, Normal S2; No: Murmurs, Rubs Abdomen Exam: Normal Bowel Sounds, Soft; No: Tenderness, Hepatospenomegaly Male Exam Penis is circumcised. Scrotum, testes, epididymides and perineum are normal. Bladder is palpably distended. 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 CHRISTINE VASQUES MD January 31, 2021 06:58
[2021-01-31] MEDS ORDERED: ONDANSETRON 4MG/2ML VIAL IV PRN (07:00)
[2021-01-31] MEDS ORDERED: fentaNYL 100 MCG/2 ML INJECTION (J3010) IV PRN (07:00)
[2021-01-31] MEDS ORDERED: oxyCODONE 5MG TAB PO PRN (07:00)
[2021-01-31] MEDS ORDERED: hydrALAZINE 20MG/ML 1ML VIAL (J0360 PER 20MG) IV PRN (07:00)
[2021-01-31] MEDS ORDERED: LR 1,000 ML IV SCH ×2 (07:00→07:20)
[2021-01-31] MEDS ORDERED: LABETALOL 100MG/20ML VIAL IV PRN (07:00)
--- NOTE | 2021-01-31 07:03 | ROOPDOC ---
[facility] Report Of Operation Report of Operation DATE OF PROCEDURE: 01/31/21 PREPROCEDURE DIAGNOSES: Urinary retention and urethral stricture POSTPROCEDURE DIAGNOSES: Same PROCEDURE: Cystoscopy, urethral dilation, Drake catheter insertion SURGEON: Favian Saeed MD OXYACETYLENE CUTTER: None ANESTHESIA: Gen. ESTIMATED BLOOD LOSS: Approximately none mL. COMPLICATIONS: None REMARKS: Membranous stricture PROCEDURE NOTE: Patient needs to be taken to the operating room for catheter insertion under anesthesia with cystoscopic assistance. DESCRIPTION OF PROCEDURE: The patient was placed on the table in the supine position, given general anesthesia, placed in lithotomy position, prepped with Betadine paint, draped in an aseptic manner and timeout was performed. A 22 Gibraltarian cystoscope was then inserted into the meatus and advanced under direct vision of a 30 lens to the membranous urethra, In this area, there was inflammation and very edematous tissue. No urethral channel could be found. A wire guide was therefore used to identify the channel and it was passed into the bladder with minimal manipulation. This wire was then left in place and the cystoscope was removed. Fascial dilators were then used to dilate the urethral channel to 20 Gibraltarian. An 18 Gibraltarian Councill catheter was then passed over the wire. Clear yellow urine was drained from the bladder and the balloon was inflated with 15 mL of water and connected to drainage after irrigation with a Wally syringe. The patient was then awakened and sent to recovery room in stable condition having tolerated the procedure well. FAVIAN SAEED MD January 31, 2021 07:03
[2021-01-31 09:00] VITALS: BP 166/88
== END 2021-01-31 09:12 | disposition home or self-care (01) ==
LOC: M ED 02:55 → M SDC 06:03
PROVIDERS: ATTEND Urology
DX: N35.913 Unspecified membranous urethral stricture, male (principal)
CPT/HCPCS: 52281; 87798; 96372; 96374; 99284; C1769; J0690; J1100; J1170; J2250; J2270; J2405; J3010

== ENCOUNTER 2021-02-01 11:49 | Emergency (ER) | payer BC ==
[~2021-02-01] VITALS: Ht 175.3 cm; Wt 89.9 kg
[~2021-02-01 11:49] MED LIST changes: +BANO25TA PO
[2021-02-01] MEDS ORDERED: LIDOCAINE 2% 5ML JELLY UROJET TOP ONE (13:00)
[2021-02-01 13:49] VITALS: BP 164/80
--- NOTE | 2021-02-01 16:45 | SMCUROLCON ---
Urology Consultation General Date of Consultation 02/01/21 Reason For Consultation This patient is seen for Catheter Issue. History of Present Illness The patient is a 65-year-old male with a past medical history for prostate cancer, was radiation therapy, urethral strictures and dilations. Patient was taken to the operating room 36 hours ago for dilation and a catheter insertion. He called me today stating that the catheter fell out. Resected him to go to the emergency room for an immediate catheter reinsertion. Past Medical History Medical History See prior HPI Allergies Allergies: Coded Allergies: No Known Allergies (Unverified , 01/06/21) Review of Systems General: Reports: Normal Appetite; Denies: Fatigue, Malaise Constitutional: Denies: Fever, Chills, Sweats, Weakness, Malaise Eyes: Denies: Pain, Vision change ENT: Denies: Head Aches, Sore Throat, Epistaxis Skin: Denies: Rash, Lesions, Breakdown, Nail Changes Pulmonary: Denies: Dyspnea, Cough Cardiovascular: Denies Chest Pain, Denies Palpitations Gastrointestinal: Denies: Nausea, Vomiting, Abdominal Pain Genitourinary: Denies: Dysuria, Frequency, Incontinence, Hematuria Hematologic: Denies: Bruising, Bleeding Excessively Endocrine: Denies: Polydipsia, Polyphagia, Polyuria Musculoskeletal: Denies: Neck Pain, Back Pain Neurological: Denies: Weakness, Numbness, Incoordination, Change in Speech Psych: Reports: Mood Normal; Denies: Anxiety, Depression Physical Examination General Exam: Alert, No Acute Distress EYE EXAM: PERRLA, Conjunctiva & lids normal, EOMI; No: Sclera icteric ENT EXAM: Atraumatic, Mucous membr. moist/pink, Pharynx Normal Neck Exam: Supple; No: JVD, thyromegaly Chest Exam: Clear to auscultation, Normal air movement Heart Exam: Rate Normal, Regular Rhythm, Normal S1, Normal S2; No: Murmurs, Rubs Abdomen Exam: Normal Bowel Sounds, Soft; No: Tenderness, Hepatospenomegaly Male Exam: Normal Genital Exam Vital Signs/I&O Vital Signs Date Time Temp Pulse Resp B/P (MAP) Pulse Ox O2 Delivery O2 Flow Rate FiO2 02/01/21 13:49 98.2 75 18 164/80 (108) 96 Room Air Assessment Urethral stricture Plan A new 18 Swedish coud Drake catheter was reinserted into the bladder without difficulty and inflated with 10 mL of sterile water. Time Spent on Consult: Time Spent / Consult (Minutes): 55 CHRISTINE VASQUES MD February 01, 2021 16:45
== END 2021-02-01 13:52 | disposition home or self-care (01) ==
LOC: M ED 11:49
DX: T83.091A Other mechanical complication of indwelling urethral catheter, initial encounter (principal); I10 Essential (primary) hypertension; Z85.46 Personal history of malignant neoplasm of prostate; Z79.899 Other long term (current) drug therapy

== ENCOUNTER → 2021-03-14 | Outpatient (REF) | payer BC ==
[2021-03-14 17:06] LABS: APPEARANCE, URINE HAZY (CLEAR); BACTERIA, URINE AUTO NEGATIVE (NEGATIVE); BILIRUBIN, URINE AUTO NEGATIVE (NEGATIVE); BLOOD, URINE BLOOD 3+ (NEGATIVE); COLOR, URINE YELLOW (YELLOW); GLUCOSE, URINE (UA) AUTO NEGATIVE (NEGATIVE); KETONE, URINE AUTO NEGATIVE (NEGATIVE); LEUKOCYTE ESTERASE, URINE AUTO 2+ (NEGATIVE); MUCUS, URINE SMALL (NEGATIVE); NITRITE, URINE AUTO NEGATIVE (NEGATIVE); PROTEIN, URINE AUTO NEGATIVE (NEGATIVE); RBC, URINE AUTO 53 /HPF (0-3); SPECIFIC GRAVITY URINE AUTO 1.018 (1.002-1.035); SQUAMOUS EPITHELIAL CELL UR AU 1 /HPF (0-6); UROBILINOGEN, URINE AUTO 0.2 mg/dL (0.0-2.0); WBC, URINE AUTO 28 /HPF (0-3)
== END ==
LOC: M SMT 16:35
PROVIDERS: ATTEND Urology
DX: R33.9 Retention of urine, unspecified (principal)

== ENCOUNTER → 2021-04-01 | Outpatient (CLI) | payer BC ==
[~2021-04-01] MED LIST changes: +OXYB5TAB10 PO; +OXYC1TAB23 PO
[2021-04-01 12:07] LABS: HEMATOCRIT 43.3 % (42.0-52.0); HEMOGLOBIN 14.2 g/dl (13.5-17.5); MEAN CORPUSCULAR HEMOGLOBIN 29.8 pg (27.0-33.0); MEAN CORPUSCULAR HGB CONC 32.8 g/dl (32.0-36.5); MEAN CORPUSCULAR VOLUME 90.8 fl (80.0-96.0); PLATELET COUNT, AUTOMATED 256 10^3/uL (150-450); RED BLOOD COUNT 4.77 10^6/uL (4.30-6.10); WHITE BLOOD COUNT 6.8 10^3/uL (4.0-10.0)
[2021-04-01 12:40] LABS: BLOOD UREA NITROGEN 23 MG/DL (7-18); CALCIUM LEVEL 9.2 MG/DL (8.8-10.2); CARBON DIOXIDE LEVEL 29 MEQ/L (21-32); CHLORIDE LEVEL 99 MEQ/L (98-107); CREATININE FOR GFR 1.09 MG/DL (0.70-1.30); GLOMERULAR FILTRATION RATE > 60.0 (>49); GLUCOSE, FASTING 81 MG/DL (70-100); POTASSIUM SERUM 3.4 MEQ/L (3.5-5.1); SODIUM LEVEL 135 MEQ/L (136-145)
== END ==
LOC: M PLALAB 09:10
PROVIDERS: ATTEND Urology
DX: Z01.818 Encounter for other preprocedural examination (principal); R33.9 Retention of urine, unspecified; N39.0 Urinary tract infection, site not specified

== ENCOUNTER → 2021-04-09 | Outpatient (CLI) | payer BC | LOC: M LABSMTC 13:32 | PROVIDERS: ATTEND Anesthesiology | DX: Z01.812 Encounter for preprocedural laboratory examination (principal); Z20.822 Contact with and (suspected) exposure to COVID-19 ==

== ENCOUNTER 2021-04-10 15:06 | Day surgery (SDC) | payer BC ==
[~2021-04-10] VITALS: Ht 175.3 cm; Wt 86.2 kg
[~2021-04-10 15:06] MED LIST changes: +BUPIVACAINE HCL 0.25% 30ML VIAL As Ordered ONE; +BUPIVACAINE HCL 0.5% 30 ML VIAL As Ordered ONE; +LIDOCAINE 1% MDV 20ML VIAL SQ PRN; +LIDOCAINE 1% SDV 30ML VIAL As Ordered ONE; +LR 1,000 ML IV ONE; -OXYC1TAB23 PO; +ceFAZolin SOD 2 GM in IV 1 EA IV ONE
[2021-04-10] MEDS ORDERED: propofoL 200 MG/20 ML VIAL As Ordered ONE (16:15)
[2021-04-10] MEDS ORDERED: fentaNYL 100 MCG/2 ML INJECTION (J3010) As Ordered ONE ×2 (16:15→17:05)
[2021-04-10] MEDS ORDERED: MIDAZOLAM INJ 2MG/2ML VIAL (J2250 PER 1MG) As Ordered ONE (16:15)
[2021-04-10] MEDS ORDERED: LIDOCAINE 2% 100MG/5ML SDV (FOR ANES.) As Ordered ONE (16:15)
[2021-04-10] MEDS ORDERED: ONDANSETRON 4MG/2ML VIAL As Ordered ONE (16:15)
[2021-04-10] MEDS ORDERED: dexameTHASONE 4 MG/ML 1ML VIAL (J1100 PER 1MG) As Ordered ONE (16:15)
[2021-04-10] MEDS ORDERED: ACETAMINOPHEN 1000MG 100ML IV BTL (OFIRMEV) (J0131 PER 10MG) As Ordered ONE (16:15)
[2021-04-10] MEDS ORDERED: LIDOCAINE 5% OINT 30GM TUBE As Ordered ONE (16:19)
[2021-04-10] MEDS ORDERED: OXYC1TAB23 PO (16:43)
[2021-04-10] MEDS ORDERED: LR 1,000 ML IV SCH (18:20)
[2021-04-10] MEDS ORDERED: MEPERIDINE INJ 25 MG/ML VIAL (J2175) IV PRN (18:20)
[2021-04-10] MEDS ORDERED: PERCOCET 5MG/325MG TAB PO PRN (18:20)
[2021-04-10] MEDS ORDERED: ONDANSETRON 4MG/2ML VIAL IV PRN (18:20)
[2021-04-10] MEDS: fentaNYL 100 MCG/2 ML INJECTION (J3010) IV PRN ×4 (18:29→18:51)
[2021-04-10] MEDS: oxyCODONE 5MG TAB PO PRN ×2 (18:29→19:02)
--- NOTE | 2021-04-10 19:42 | RO ---
OPERATIVE NOTE DATE OF OPERATION: 04/10/2021 PRE-OPERATIVE DIAGNOSIS: Urinary retention. POST-OPERATIVE DIAGNOSIS: Urinary retention. PROCEDURES: Open cystotomy with suprapubic catheter placement. SURGEON: Miguel A Thomas MD. BRANCH EMPLOYMENT COORDINATOR: None. ANESTHESIA: General. OPERATIVE INDICATIONS: This is a 65-year-old male with a history of recurrent bladder neck contractures, as well as prostate cancer treated with radiation therapy. Due to recurrent bladder neck contractures, it was recommended that he undergo the above listed procedure for management of his retention. DESCRIPTION OF PROCEDURE: The patient was brought to the operating room and general anesthesia was induced. Prophylactic antibiotics were infused. He was then placed in the supine position, prepped, and draped in the usual sterile fashion. At this point, an 18-Micronesian Drake catheter was inserted through the urethra into the bladder and the balloon was filled with 10 mL of sterile water. I then made an approximately 6-cm midline suprapubic incision. I then dissected down through the abdominal wall layers. The fascia was then opened with electrocautery. The bellies of the rectus muscles were spread. At this point, I filled the bladder with approximately 120 mL of normal saline. I then dissected down to the bladder and I was able to palpate the distended bladder. I then utilized the spinal needle to aspirate what appeared to be the bladder and urine came out, indicating that we were indeed staring at the bladder. A 2-0 Vicryl pursestring stitch was then placed at the dome of the bladder. A cystotomy was then made in the center of the pursestring stitch, and at this point, the saline started flowing out. I then inserted a 20-Micronesian catheter into the cystotomy and the balloon was filled with 7 mL of sterile water. I then tied down the pursestring stitch around the catheter. I then irrigated the abdominal cavity and then the fascia was closed with interrupted [id number] #1 non-looped PDS sutures. Once the fascia was closed, the subcutaneous tissue was then reapproximated with interrupted 3-0 Vicryl sutures. I then closed the skin around the catheter using a running subcuticular 4-0 Monocryl stitch. Then, 2-0 Prolene sutures were then placed through the skin and around the catheter to further secure it. Once this was done, Dermabond was placed and then the suprapubic catheter was connected to gravity drainage. The urethral catheter was removed and this marked the conclusion of the procedure. The patient was then awakened from anesthesia and transported to the recovery room in stable condition. ESTIMATED BLOOD LOSS: 10 mL. COMPLICATIONS: None. SPECIMEN: None. PLAN: The patient will follow up in the Urology Clinic in approximately six weeks for his first suprapubic catheter change. RAMÓN
[2021-04-10 20:07] VITALS: BP 170/88
== END 2021-04-10 20:07 | disposition home or self-care (01) ==
LOC: M SDC 15:06
PROVIDERS: ATTEND Urology
DX: R33.9 Retention of urine, unspecified (principal); K57.90 Diverticulosis of intestine, part unspecified, without perforation or abscess without bleeding; I10 Essential (primary) hypertension; Z85.46 Personal history of malignant neoplasm of prostate; Z79.899 Other long term (current) drug therapy
CPT/HCPCS: 51040; J0131; J0690; J1100; J2250; J2405; J3010

== ENCOUNTER → 2021-06-18 | Outpatient (REF) | payer BC ==
[~2021-06-18] MED LIST changes: -BUPIVACAINE HCL 0.25% 30ML VIAL As Ordered ONE; -BUPIVACAINE HCL 0.5% 30 ML VIAL As Ordered ONE; -LIDOCAINE 1% MDV 20ML VIAL SQ PRN; -LIDOCAINE 1% SDV 30ML VIAL As Ordered ONE; -LR 1,000 ML IV ONE; +OXYC1TAB23 PO; -ceFAZolin SOD 2 GM in IV 1 EA IV ONE
== END ==
LOC: M SFHCCLAY 10:12
PROVIDERS: ATTEND Nurse Practitioner Women's Health
DX: C61 Malignant neoplasm of prostate (principal)

== ENCOUNTER → 2021-06-19 | Outpatient (REF) | payer BC ==
[2021-06-19 19:00] LABS: APPEARANCE, URINE CLOUDY (CLEAR); BACTERIA, URINE AUTO NEGATIVE (NEGATIVE); BILIRUBIN, URINE AUTO NEGATIVE (NEGATIVE); BLOOD, URINE BLOOD 3+ (NEGATIVE); COLOR, URINE AMBER (YELLOW); GLUCOSE, URINE (UA) AUTO NEGATIVE (NEGATIVE); KETONE, URINE AUTO TRACE mg/dL (NEGATIVE); LEUKOCYTE ESTERASE, URINE AUTO 3+ (NEGATIVE); NITRITE, URINE AUTO POSITIVE (NEGATIVE); PROTEIN, URINE AUTO 3+ mg/dL (NEGATIVE); RBC, URINE AUTO TNTC /HPF (0-3); SPECIFIC GRAVITY URINE AUTO 1.018 (1.002-1.035); SQUAMOUS EPITHELIAL CELL UR AU 1 /HPF (0-6); TRANSITIONAL EPITHELIAL AUTO 2 /HPF; UROBILINOGEN, URINE AUTO 0.2 mg/dL (0.0-2.0); WBC, URINE AUTO TNTC /HPF (0-3)
== END ==
LOC: M SMT 17:11
PROVIDERS: ATTEND Urology
DX: N39.0 Urinary tract infection, site not specified (principal)

== ENCOUNTER 2021-07-05 12:11 | Inpatient (IN) | payer BC ==
[~2021-07-05] VITALS: Ht 175.3 cm; Wt 85.3 kg
--- OUTSIDE RECORDS SUMMARY | 2021-07-05 12:20 | CCD | Continuity of Care Document ---
Author Author Bahman CHAUDHARY Organization Unknown Address [address] [place] [address] [place] [address] Phone [phone] Care Team Providers [facility] Associate [facility] [phone] Problems Description No Information Available Social History Type Date Description Comments Sex Unknown ETOH Use Occasionally consumes alcohol Tobacco Use Start: Unknown Patient has never smoked Smoking Status Reviewed: 11/25/20 Patient has never smoked Allergies and adverse reactions Description No Known Drug Allergies Medications Active Medications SIG Qnty Indications Ordering Provide r Date Chlorthalidone 25mg Tablets Unknown Potassium Chloride ER 20Meq Tablets ER Unknown Immunizations Description No Information Available Vital Signs Date Vital Result Comment 07/02/2021 4:37pm BP Systolic 139 mmHg BP Diastolic 94 mmHg Heart Rate 72 /min Respiratory Rate 15 /min O2 % BldC Oximetry 97 % Body Temperature 97.1 F 11/25/2020 5:11pm Heart Rate 63 /min Respiratory Rate 16 /min O2 % BldC Oximetry 98 % Body Temperature 97.7 F Weight 185.00 lb Height 69 inches 5'9" BMI (Body Mass Index) 27.3 kg/m2 Pain Level 0 Results Description No Information Available Procedures Date Code Description Status 07/02/2021 90195 Office/Outpatient Established Lo w MDM 20-29 Min Completed Medical Devices Description No Information Available Encounters Type Date Location Provider Dx Diagnosis Office Visit 07/02/2021 11:50a Main Office AINSLEY Pizarro J06 .9 Acute upper respiratory infection, unspecified Z20.828 Contact w and exposure to ot h viral communicable diseases Assessments Date Code Description Provider 07/02/2021 J06.9 Acute upper respiratory infectio n, unspecified AINSLEY Pizarro 07/02/2021 Z20.828 Contact with and (valerio spected) exposure to other viral communicable diseases AINSLEY Pizarro Plan of Treatment 07/02/2021 - AINSLEY Pizarro* J06.9 Acute upper respiratory infection, unspecified* Comments:* Rest/fluids/tylenol/motrin/time * Z20.828 Contact with and (suspected) exposure to other viral communicable diseases Functional Status Description No Information Available Mental Status Description No Information Available Referrals Description No Information Available
--- OUTSIDE RECORDS SUMMARY | 2021-07-05 12:20 | CCD ---
Author Author [facility] Organization [facility] Address Unknown Phone Unavailable Care Team Providers Care Quality Control Systems Manager Name Role Phone Miguel A Thomas Unavailable PROBLEMS Type Condition ICD9-CM Code HUT22-KG Code Onset Dates Condition S tatus W/U Status Risk SNOMED Code Notes Problem Urinary retention R33.9 Active confirmed 26 5677840 Problem Second degree heart block I44.1 Active confirmed 489293044 Problem Pure hypercholesterolemia E78.00 Active confirmed 180027382 Problem 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.35 Active confirmed 584396265 Problem Sinoatrial block I45.5 Active confirmed 657 30477 Problem 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 Acti ve confirmed 02149266 Problem Low libido R68.82 Active confirmed 4707789 Problem Dry skin L85.3 Active confirmed 95352490 Problem Gross hematuria R31.0 Active confirmed 1979 18302 Problem Melanocytic nevi of face D22.30 Active confirmed 437603848 Problem Hematuria R31.9 Active confirmed 32587225 Problem Bladder neck contracture N32.0 Active confirmed 938986619 Problem Testicular mass N50.9 Active confirmed 8786 0000 Problem Seborrheic keratoses L82.1 Active confirmed 267033621 Problem Actinic keratoses L57.0 Active confirmed 40 1013749 Problem Melanocytic nevi of left lower limb, including hip D22.72 Active confirmed 146461216356892 Problem Lentigines L81.4 Active confirmed 366247152 Problem Melanocytic nevi of left upper limb, including shoulder D22.62 Active confirmed 728519147 Problem Elevated blood-pressure reading without diagnosi s of hypertension R03.0 Active confirmed 748280231 Problem Melanocytic nevi of right lower limb, including hip D22.71 Active confirmed 571018368 Problem Melanocytic nevi of trunk D22.5 Active confirmed 579701039 Problem Enlarged prostate without lower urinary tract symptoms N40.0 Active confirmed 138396364 Problem Melanocytic nevi of right upper limb, including shoulder D22.61 Active confirmed 535908462 Problem BPH w urinary obs/LUTS N40.1 Active confirmed 64407642139013 Problem Basal cell carcinoma of lower back C44.519 Activ e confirmed 431939346 Problem Sick sinus syndrome I49.5 Active confirmed 45112352 Problem Hypertensive heart disease without heart failure I 11.9 Active confirmed 42050487 Problem History of basal cell carcinoma Z85.828 Active confirmed 888462300 Problem HTN (hypertension), benign I10 Active confirmed 48246092 Problem Bladder spasm N32.89 Active confirmed 608724 006 Problem Hydronephrosis N13.30 Active confirmed 90777 006 Problem Prostate cancer C61 Active confirmed 2549 31330 Problem Basal cell carcinoma (BCC) of skin of other part of torso C44.519 Active confirmed 984003028 Problem Screening, malignant neoplasm, skin Z12.83 Acti ve confirmed 202463540 Problem UTI (urinary tract infection) N39.0 Active confirm ed 52030544 Problem Preop testing Z01.818 Active confirmed 96263 9001 ALLERGIES No Known Allergies ENCOUNTERS from 1955 to 2021-07-02 Encounter Location Date Provider Diagnosis [facility] Urology [address] [phone] [place] [address] Jun, Miguel A Thomas IMMUNIZATIONS Vaccine Route Administration Date Status Influenza Pharmacy Given Unknown Jul 30, 2020 Refused Influenza 6mo & up Fluzone Unknown Sep 23, 2016 Refus ed Influenza 6mo & up Fluzone Unknown Aug 13, 2015 Refus ed Influenza 6mo & up Fluzone Unknown April 10, 2015 Refus ed SOCIAL HISTORY Tobacco Use: Social History Observation Description Date Details (start date - stop date) Former Smoker Sex Assigned At : Social History Observation Description Sex Assigned At Unknown Education: Question Answer Notes Level of Education: Finished College Audit Question Answer Notes Total Score: 4 Interpretation: Alcohol Education Language: Question Answer Notes Languages spoken: [place] Islander Drug and Alcohol Question Answer Notes Total Score: 0 Interpretation: No problems reported Alcohol Screening: Question Answer Notes Did you have a drink containing alcohol in the past year? Ye s Points 4 Interpretation Positive How often did you have six or more drinks on one occas ion in the past year? Never (0 points) How many drinks did you have on a typica l day when you were drinking in the past year? 1 or 2 (0 points) How often did you have a drink containing alcohol in t he past year? Four or more times a week (4 points) BMI Care Goal Follow-Up Question Answer Notes Above Normal BMI Follow-Up Dietary management educatio n, guidance, and counseling Tobacco Use: Question Answer Notes Are you a: former smoker How long has it been since you last smoked? > 10 years REASON FOR REFERRAL No Information VITAL SIGNS No information MEDICATIONS Medication SIG (Take, Route, Frequency, Duration) Notes Start Da te End Date Status Atorvastatin Calcium 20 mg 1 tablet Orally Once a day for 90 Not-Taking Proscar 5 MG 1 tablet Orally Once a day for 30 day(s) 01 D 2014 Not-Taking Eligard 7.5 MG as directed Subcutaneous monthly Not-Taking Flomax 0.4 MG 1 capsule Orally Once a day Jun, Not-Taking levoFLOXacin 500 MG 1 tablet Orally Once a day for 10 day(s) January, Not-Taking Bactrim DS 800-160 MG 1 tablet Orally Twice a day for 10 day(s) Feb, Active Cialis 5 MG take one tablet by mouth day Orally Daily Dx: N40.1 for 90 day(s) Not-Taking Viagra 100 MG as directed Orally once daily as needed 18 O 2016 Not-Taking Oxybutynin Chloride ER 5 MG 1 tablet Orally Once a day Mar, Not-Taking Alfuzosin HCl ER 10 MG 1 tablet immediately after t he same meal Orally Once a day for 30 day(s) Jul, Not-Taking Oxybutynin Chloride 5 MG TAKE ONE TABLET BY MOUTH TWICE A DAY for 30 Active hydroCHLOROthiazide 12.5 MG 1 tablet in the morning Or ally Once a day for 30 day(s) Active Macrobid 100 MG 1 capsule with food Orally daily at bedtime Mar, Active Cipro 500 MG 1 tablet Orally Daily N ot-Taking Ketorolac Tromethamine 10 MG 1 tablet with food or mil k Orally every 6 hrs as needed for pain January, Not-Taking PROCEDURES No Information RESULTS No Results REASON FOR VISIT UTI symptoms MEDICAL (GENERAL) HISTORY Type Description Date Medical History History of actinic keratosis Medical History Elevated blood-pressure read ing without diagnosis of hypertension Medical History Mixed hyperlipidemia Medical History BPH w urinary obs/LUTS Medical History Prostate cancer: radiation, Dr. Carter Surgical History colonoscopy: Dr. Ma 2015 Surgical History TURP 03/05/16 Surgical History bladder neck incision 08/13/17 Surgical History BLADDER NECK INCISION 09/09/2018 Surgical History CYSTOSCOPY 01/25/2019 Surgical History FIDUCIAL MARKER PLACEMENT 02/28/2019 Surgical History Prostate biopsy 02/13/19 Surgical History TURP 02/13/19 Surgical History CYSTOSCOPY 01/22/2020 Surgical History cysto w/ stent removal 08-23-2020 Surgical History BCC lower back 11/2020 Surgical History CYSTO 12/2020 Surgical History s/p cath placement 03/2021 Hospitalization History [facility]-w/surgery 02/13/19 Goals Section No Information Health Concerns No Information MEDICAL EQUIPMENT No Information MENTAL STATUS No Information FUNCTIONAL STATUS No Information ASSESSMENTS No Information PLAN OF TREATMENT Medication Medication Name Sig Start Date Stop Date Bactrim DS 800-160 MG 1 tablet Orally Twice a day for 10 day(s) Feb, Macrobid 100 MG 1 capsule with food Orally daily at bedtime 2020 Next Appt Details Provider Name:Miguel A Thomas, 02:00:00 PM, [address], , [place], [address], Provider Name:Radha Vines, 2021-07 03:30:00 PM, [address] , , [place], [address], Provider Name:Miguel A Thomas, 09:00:00 AM, [address], , [place], [address], Provider Name:Miguel A Thomas, 02:00:00 PM, [address], , [place], [address], Provider Name:Bridgette Stanley, 04:30:00 PM, [address] [facility], , [place], [address], Insurance Providers Payer Name Payer Address Payer Phone Insured Name Patient Relati onship to Insured Coverage Start Date Coverage End Date BCBS [facility] [id number] [facility] [place] [address] SELENA SILVA self
--- OUTSIDE RECORDS SUMMARY | 2021-07-05 12:20 | CCD | Continuity of Care Document ---
Author Author Bahman CHAUDHARY Organization Unknown Address [address] [place] [address] [place] [address] Phone [phone] Care Team Providers Care Arc Cutter Plasma Arc Name Role Phone [facility] [phone] Problems Description No Information Available Social History [...] Available Procedures Date Code Description Status 07/02/2021 69349 Office/Outpatient Established Lo w MDM 20-29 Min [...]
--- OUTSIDE RECORDS SUMMARY | 2021-07-05 12:20 | CCD | Continuity of Care Document ---
Author Author Bahman CHAUDHARY Organization Unknown Address [address] [place] [address] [place] [address] Phone [phone] Care Team Providers Care School Bus Driver Name Role Phone [facility] [phone] Problems Description No Information Available Social History [...] Available Procedures Date Code Description Status 07/02/2021 40896 Office/Outpatient Established Lo w MDM 20-29 Min [...]
--- OUTSIDE RECORDS SUMMARY | 2021-07-05 12:20 | CCD | Continuity of Care Document ---
Author Author [facility] Organization Unknown Address [address] [place] [address] [place] [address] Phone [phone] Care Team Providers Care Saute Chef Name Role Phone [facility] [phone] Problems Description No Information Available Social History [...] Available Procedures Date Code Description Status 07/02/2021 99749 Office/Outpatient Established Lo w MDM 20-29 Min [...]
--- OUTSIDE RECORDS SUMMARY | 2021-07-05 12:21 | CCD ---
Author Author [facility] Organization [facility] Address Unknown Phone Unavailable Care Team Providers Care Interlacer Name Role Phone Miguel A Thomas Unavailable PROBLEMS Type Condition ICD9-CM Code [id number] Code Onset Dates Condition S tatus W/U Status Risk SNOMED Code Notes Problem Urinary retention R33.9 Active confirmed 26 5040404 Problem Second degree heart block I44.1 Active confirmed 417319853 Problem Pure hypercholesterolemia E78.00 Active confirmed 440433464 Problem 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.35 Active confirmed 644810132 Problem Sinoatrial block I45.5 Active confirmed 657 12014 Problem 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 Acti ve confirmed 91397979 Problem Low libido R68.82 Active confirmed 8459032 Problem Dry skin L85.3 Active confirmed 89133947 Problem Gross hematuria R31.0 Active confirmed 1979 12453 Problem Melanocytic nevi of face D22.30 Active confirmed 108275111 Problem Hematuria R31.9 Active confirmed 60949467 Problem Bladder neck contracture N32.0 Active confirmed 421276605 Problem Testicular mass N50.9 Active confirmed 8786 0000 Problem Seborrheic keratoses L82.1 Active confirmed 203995159 Problem Actinic keratoses L57.0 Active confirmed 40 9999806 Problem Melanocytic nevi of left lower limb, including hip D22.72 Active confirmed 432409362539633 Problem Lentigines L81.4 Active confirmed 717886534 Problem Melanocytic nevi of left upper limb, including shoulder D22.62 Active confirmed 974859806 Problem Elevated blood-pressure reading without diagnosi s of hypertension R03.0 Active confirmed 427762408 Problem Melanocytic nevi of right lower limb, including hip D22.71 Active confirmed 897366291 Problem Melanocytic nevi of trunk D22.5 Active confirmed 354658807 Problem Enlarged prostate without lower urinary tract symptoms N40.0 Active confirmed 896821703 Problem Melanocytic nevi of right upper limb, including shoulder D22.61 Active confirmed 361405616 Problem BPH w urinary obs/LUTS N40.1 Active confirmed 09208352462978 Problem Basal cell carcinoma of lower back C44.519 Activ e confirmed 258296436 Problem Sick sinus syndrome I49.5 Active confirmed 71530187 Problem Hypertensive heart disease without heart failure I 11.9 Active confirmed 30276442 Problem History of basal cell carcinoma Z85.828 Active confirmed 472175590 Problem HTN (hypertension), benign I10 Active confirmed 61754114 Problem Bladder spasm N32.89 Active confirmed 826618 006 Problem Hydronephrosis N13.30 Active confirmed 28505 006 Problem Prostate cancer C61 Active confirmed 2549 14597 Problem Basal cell carcinoma (BCC) of skin of other part of torso C44.519 Active confirmed 490937160 Problem Screening, malignant neoplasm, skin Z12.83 Acti ve confirmed 981079493 Problem UTI (urinary tract infection) N39.0 Active confirm ed 99616320 Problem Preop testing Z01.818 Active confirmed 69111 9001 ALLERGIES No Known Allergies ENCOUNTERS from 1955 to 2021-06-24 Encounter Location Date Provider Diagnosis [facility] Urology [address] [phone] [place] [address] Jun, 2021 Miguel A Thomas UTI (urinary tract infection) N39.0 IMMUNIZATIONS Vaccine Route Administration Date Status Influenza [...] Education Language: Question Answer Notes Languages spoken: [place] Islander Drug and Alcohol Question Answer Notes [...] 5 MG take one tablet by mouth corazon day Orally Daily Dx: N40.1 for 90 [...] RESULTS No Results REASON FOR VISIT UTI MEDICAL (GENERAL) HISTORY Type Description Date Medical [...] No Information FUNCTIONAL STATUS No Information ASSESSMENTS Encounter Date Diagnosis Assessment Notes Treatment Notes Treatm ent Clinical Notes Jun, UTI (urinary tract infection) (ICD-10 - N39.0) PLAN OF TREATMENT Medication Medication Name Sig Start Date Stop Date Bactrim DS 800-160 MG 1 tablet Orally Twice a day for 10 day(s) Feb, Macrobid 100 MG 1 capsule with food Orally daily at bedtime 2020 Next Appt Details Provider Name:Miguel A Thomas, 02:00:00 PM, [address], , [place], [address], Provider Name:Radha Vines, 2021-07 03:30:00 PM, [address], , [place], [address], Provider Name:Miguel A Thomas, 09:00:00 AM, [address], , [place], [address], Provider Name:Miguel A Thomas 02:00:00 PM, [address] [facility], , [place], [address], Provider Name:Bridgette Stanley, 04:30:00 PM, [address] [facility], , [place], [address], Insurance Providers Payer Name Payer Address Payer Phone Insured Name Patient Relati onship to Insured Coverage Start Date Coverage End Date BCBS [place] [facility] PPO [id number] [facility] [place] [facility] [place] [address] SELENA SILVA self
--- OUTSIDE RECORDS SUMMARY | 2021-07-05 12:21 | CCD ---
Author Author [facility] Organization [facility] Address Unknown Phone Unavailable Care Team Providers Care Outbound Sales Advisor Name Role Phone Miguel A Thomas Unavailable PROBLEMS Type Condition ICD9-CM Code GES50-SY Code Onset Dates Condition S tatus W/U Status Risk SNOMED Code Notes Problem Urinary retention R33.9 Active confirmed 26 3079971 Problem Second degree heart block I44.1 Active confirmed 851440777 Problem Pure hypercholesterolemia E78.00 Active confirmed 301217703 Problem 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.35 Active confirmed 159952986 Problem Sinoatrial block I45.5 Active confirmed 657 92035 Problem 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 Acti ve confirmed 45941223 Problem Low libido R68.82 Active confirmed 7305168 Problem Dry skin L85.3 Active confirmed 12838647 Problem Gross hematuria R31.0 Active confirmed 1979 47446 Problem Melanocytic nevi of face D22.30 Active confirmed 576824484 Problem Hematuria R31.9 Active confirmed 02659114 Problem Bladder neck contracture N32.0 Active confirmed 738444913 Problem Testicular mass N50.9 Active confirmed 8786 0000 Problem Seborrheic keratoses L82.1 Active confirmed 616145584 Problem Actinic keratoses L57.0 Active confirmed 40 5254518 Problem Melanocytic nevi of left lower limb, including hip D22.72 Active confirmed 156306045650558 Problem Lentigines L81.4 Active confirmed 632950199 Problem Melanocytic nevi of left upper limb, including shoulder D22.62 Active confirmed 620094040 Problem Elevated blood-pressure reading without diagnosi s of hypertension R03.0 Active confirmed 188603795 Problem Melanocytic nevi of right lower limb, including hip D22.71 Active confirmed 315141936 Problem Melanocytic nevi of trunk D22.5 Active confirmed 278391848 Problem Enlarged prostate without lower urinary tract symptoms N40.0 Active confirmed 754553277 Problem Melanocytic nevi of right upper limb, including shoulder D22.61 Active confirmed 791461850 Problem BPH w urinary obs/LUTS N40.1 Active confirmed 95815939731623 Problem Basal cell carcinoma of lower back C44.519 Activ e confirmed 982558145 Problem Sick sinus syndrome I49.5 Active confirmed 16480711 Problem Hypertensive heart disease without heart failure I 11.9 Active confirmed 61980674 Problem History of basal cell carcinoma Z85.828 Active confirmed 135901143 Problem HTN (hypertension), benign I10 Active confirmed 95848601 Problem Bladder spasm N32.89 Active confirmed 440103 006 Problem Hydronephrosis N13.30 Active confirmed 42559 006 Problem Prostate cancer C61 Active confirmed 2549 08466 Problem Basal cell carcinoma (BCC) of skin of other part of torso C44.519 Active confirmed 927663407 Problem Screening, malignant neoplasm, skin Z12.83 Acti ve confirmed 311175724 Problem UTI (urinary tract infection) N39.0 Active confirm ed 83706743 Problem Preop testing Z01.818 Active confirmed 07691 9001 ALLERGIES No Known Allergies ENCOUNTERS from 1955 to 2021-06-20 Encounter Location Date Provider Diagnosis [facility] Urology [address] [phone] [place] [address] Jun, Miguel A Thomas Urinary retention R33.9 ; Prostate cance r C61 ; UTI (urinary tract infection) N39.0 and Bladder spasm N32.89 IMMUNIZATIONS Vaccine Route Administration Date Status Influenza [...] Education Language: Question Answer Notes Languages spoken: [place] Drug and Alcohol Question Answer Notes Total [...] REASON FOR REFERRAL No Information VITAL SIGNS Weight 193 lbs Jun, Weight-kg 87.54 kg Jun, Height 67.5 in Jun, BMI 29.78 kg/m2 Jun, Heart Rate 75 /min Jun, Respiratory Rate 18 /min Jun, Temperature 95.7 degrees Fahrenheit Jun, Oximetry 98 Jun, Blood pressure systolic 144 mm Hg Jun, Blood pressure diastolic 96 mm Hg Jun, MEDICATIONS Medication SIG (Take, Route, Frequency, Duration) Notes Start Da te End Date Status Atorvastatin Calcium 20 mg 1 tablet Orally Once a day for 90 Not-Taking Macrobid 100 MG 1 capsule with food Orally bid for 10 day(s) Mar, Not-Taking Oxybutynin Chloride ER 5 MG 1 tablet Orally Once a day Mar, Not-Taking levoFLOXacin 500 MG 1 tablet Orally Once a day for 10 day(s) January, Not-Taking Eligard 7.5 MG as directed Subcutaneous monthly Not-Taking Bactrim DS 800-160 MG 1 tablet Orally Twice a day Feb, Not-Taking Cialis 5 MG take one tablet by mouth corazon day Orally Daily Dx: N40.1 for 90 day(s) Not-Taking Viagra 100 MG as directed Orally once daily as needed 18 O 2016 Not-Taking Cipro 500 MG 1 tablet Orally Daily N ot-Taking Alfuzosin HCl ER 10 MG 1 tablet immediately after t he same meal Orally Once a day for 30 day(s) Jul, Not-Taking Proscar 5 MG 1 tablet Orally Once a day for 30 day(s) 01 D 2014 Not-Taking hydroCHLOROthiazide 12.5 MG 1 tablet in the morning Or ally Once a day for 30 day(s) Active Flomax 0.4 MG 1 capsule Orally Once a day Jun, Not-Taking Oxybutynin Chloride 5 MG TAKE ONE TABLET BY MOUTH TWICE A DAY for 30 Active Ketorolac Tromethamine 10 MG 1 tablet with food or mil k Orally every 6 hrs as needed for pain January, Not-Taking PROCEDURES No Information RESULTS No Results REASON FOR VISIT PSA, catheter change MEDICAL (GENERAL) HISTORY Type Description Date Medical [...] Treatment Notes Treatm ent Clinical Notes Jun, Urinary retention (ICD-10 - R33.9) - SP catheter changed - send urine for UA and culture - will call w/ results and further recs - continue oxybutynin bid for now - check PSA q3 months - schedule MRI pelvis for next month - nv for SP cath change monthly - visit w/ me in 3 months Jun, Prostate cancer (ICD-10 - C61) Jun, UTI (urinary tract infection) (ICD-10 - N39.0) Jun, Bladder spasm (ICD-10 - N32.89) PLAN OF TREATMENT Treatment Notes Assessment Notes Clinical Notes Urinary retention - SP catheter change d- send urine for UA and culture - will call w/ results and further recs- continue oxybutynin bid for now- check PSA q3 months- schedule MRI pelvis for next month- nv for SP cath change monthly- visit w/ me in 3 months Treatment Notes Test Name Order Date Basic Metabolic Profile (BMP) 2021-06-19 Insert Supra Pubic Catheter 20F, Simple 2021-06-19 URINE CULTURE 2021-06-19 UA URINALYSIS 2021-06-19 Future Test Test Name Order Date PSA MONITOR (HX PROSTATE CA/ABNORMAL PSA) [id number] [facility] MRI PELVIS W/O FOLL WITH CON [id number] Next Appt Details monthly nv for SP cath change; 3 months w/ me Reason:urinary retention, prostate cancer Provider Name:Álvaro Roth, 10:30:00 AM, [address], , [place], [address], Provider Name:Miguel A Thomas, 02:00:00 PM, [address], , [place], [address], Provider Name:Radha Vines, 2021-07 03:30:00 PM, [address] [place] [address], , [place], [address], Provider Name:Miguel A Thomas, 09:00:00 AM, [address], , [place], [address], Provider Name:Miguel A Thomas, 02:00:00 PM, [address], , [place], [address], Provider Name:Bridgette Stanley, 04:30:00 PM, [address] [place] [address], , [place], [address], Follow Up:monthly nv for SP cath change; 3 months w/ meurinary retention, prostate cancer Insurance Providers Payer Name Payer Address Payer Phone Insured Name Patient Relati onship to Insured Coverage Start Date Coverage End Date [employer] PPO [id number] [facility] Groupsite [place] [place] [id number] SELENA SILVA self
--- OUTSIDE RECORDS SUMMARY | 2021-07-05 12:21 | CCD ---
Author Author [facility] Organization [facility] Address Unknown Phone Unavailable Care Team Providers Care Office Receptionist Name Role Phone Radha Vines Unavailable PROBLEMS Type Condition ICD9-CM Code [id number] Code Onset Dates Condition S tatus W/U Status Risk SNOMED Code Notes Problem Testicular mass N50.9 Active confirmed 8786 0000 Problem Urinary retention R33.9 Active confirmed 26 5392295 Problem Bladder neck contracture N32.0 Active confirmed 966233334 Problem Second degree heart block I44.1 Active confirmed 587857441 Problem Pure hypercholesterolemia E78.00 Active confirmed 187304581 Problem 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.35 Active confirmed 735199995 Problem Sinoatrial block I45.5 Active confirmed 657 34566 Problem Melanocytic nevi of trunk D22.5 Active confirmed 143469211 Problem Enlarged prostate without lower urinary tract symptoms N40.0 Active confirmed 124091028 Problem Melanocytic nevi of right upper limb, including shoulder D22.61 Active confirmed 579050107 Problem BPH w urinary obs/LUTS N40.1 Active confirmed 32323136982907 Problem Gross hematuria R31.0 Active confirmed 1979 57777 Problem Hematuria R31.9 Active confirmed 03167603 Problem Prostate cancer C61 Active confirmed 2549 66650 Problem HTN (hypertension), benign I10 Active confirmed 35544663 Problem Seborrheic keratoses L82.1 Active confirmed 648651805 Problem Actinic keratoses L57.0 Active confirmed 40 9104609 Problem Melanocytic nevi of left lower limb, including hip D22.72 Active confirmed 252314905015129 Problem Lentigines L81.4 Active confirmed 704562278 Problem Melanocytic nevi of left upper limb, including shoulder D22.62 Active confirmed 714358489 Problem Elevated blood-pressure reading without diagnosi s of hypertension R03.0 Active confirmed 585059691 Problem Melanocytic nevi of right lower limb, including hip D22.71 Active confirmed 851948297 Problem Melanocytic nevi of face D22.30 Active confirmed 892861212 Problem Dry skin L85.3 Active confirmed 94317844 Problem Basal cell carcinoma of lower back C44.519 Activ e confirmed 179559294 Problem Preop testing Z01.818 Active confirmed 78024 9001 Problem 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 Acti ve confirmed 23587582 Problem UTI (urinary tract infection) N39.0 Active confirm ed 18922917 Problem Low libido R68.82 Active confirmed 3673273 Problem Hydronephrosis N13.30 Active confirmed 60546 006 Problem Sick sinus syndrome I49.5 Active confirmed 38604458 Problem Hypertensive heart disease without heart failure I 11.9 Active confirmed 87080757 Problem Basal cell carcinoma (BCC) of skin of other part of torso C44.519 Active confirmed 313968353 Problem Screening, malignant neoplasm, skin Z12.83 Acti ve confirmed 624296745 ALLERGIES No Known Allergies ENCOUNTERS from 1955 to 2021-04-23 Encounter Location Date Provider Diagnosis [facility] [address] [place] [address] [place] [address] 05 Apr, 2021 Radha Schoeneman Pure hypercholesterolemia E78.00 and Hyp ertensive heart disease without heart failure I11.9 IMMUNIZATIONS Vaccine Route Administration Date Status Influenza [...] Education Language: Question Answer Notes Languages spoken: Chadian Drug and Alcohol Question Answer Notes Total [...] Notes Start Da te End Date Status Flomax 0.4 MG 1 capsule Orally Once a day Jun, Not-Taking Eligard 7.5 MG as directed Subcutaneous monthly Not-Taking Oxybutynin Chloride 5 MG 1 tablet Orally Twice a day for 30 day( s) Mar, Active hydroCHLOROthiazide 12.5 MG 1 tablet in the morning Or ally Once a day for 30 day(s) Active Cialis 5 MG take one tablet by mouth corazon day Orally Daily Dx: N40.1 for 90 day(s) Not-Taking Atorvastatin Calcium 20 mg 1 tablet Orally Once a day for 90 Not-Taking Cipro 500 MG 1 tablet Orally Daily N ot-Taking Viagra 100 MG as directed Orally once daily as needed 18 O 2016 Not-Taking Alfuzosin HCl ER 10 MG 1 tablet immediately after t he same meal Orally Once a day for 30 day(s) Jul, Not-Taking Bactrim DS 800-160 MG 1 tablet Orally Twice a day Feb, Not-Taking Proscar 5 MG 1 tablet Orally Once a day for 30 day(s) 01 D 2014 Not-Taking Oxybutynin Chloride ER 5 MG 1 tablet Orally Once a day Mar, Not-Taking Ketorolac Tromethamine 10 MG 1 tablet with food or mil k Orally every 6 hrs as needed for pain January, Not-Taking Macrobid 100 MG 1 capsule with food Orally bid for 10 day(s) Mar, Active levoFLOXacin 500 MG 1 tablet Orally Once a day for 10 day(s) January, Not-Taking PROCEDURES No Information RESULTS No Results REASON FOR VISIT labs due? MEDICAL (GENERAL) HISTORY Type Description Date Medical [...] lower back 11/2020 Surgical History [facility] 12/2020 Hospitalization History [facility]-w/surgery 02/13/19 Goals Section No Information Health Concerns No Information MEDICAL EQUIPMENT No Information MENTAL STATUS No Information FUNCTIONAL STATUS No Information ASSESSMENTS Encounter Date Diagnosis Assessment Notes Treatment Notes Treatm ent Clinical Notes Apr, Pure hypercholesterolemia (ICD-10 - E78.00) Apr, Hypertensive heart disease without heart failure (ICD-10 - I11.9) PLAN OF TREATMENT Future Test Test Name Order Date LIPID PANEL (CARDIAC RISK) [id number] Basic Metabolic Profile (BMP) [id number] Next Appt Details Provider Name:Bridgette Stanley, 03:45:00 PM, [address] [place] [address], , [place], [address], Provider Name:Leyla Torres, 7 08:30:00 AM, [address], , [place], [address], Provider Name:Radha Vines, 2021-07 03:30:00 PM, [address], , [place], [address], Insurance Providers Payer Name Payer Address Payer Phone Insured Name Patient Relati onship to Insured Coverage Start Date Coverage End Date BCBS [employer] PPO [id number] [facility] [place] [address] [facility] [id number] SELENA SILVA self
--- OUTSIDE RECORDS SUMMARY | 2021-07-05 12:21 | CCD ---
Author Author [facility] Organization [facility] Address Unknown Phone Unavailable Care Team Providers Care Width Stripper Name Role Phone Leyla Torres Unavailable PROBLEMS Type Condition ICD9-CM Code [id number] Code Onset Dates Condition S tatus W/U Status Risk SNOMED Code Notes Problem Bladder neck contracture N32.0 Active confirmed 881070389 Problem Pure hypercholesterolemia E78.00 Active confirmed 829465291 Problem Urinary retention R33.9 Active confirmed 26 7031180 Problem Sinoatrial block I45.5 Active confirmed 657 31534 Problem Second degree heart block I44.1 Active confirmed 352762894 Problem Low libido R68.82 Active confirmed 4801312 Problem 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.35 Active confirmed 057643358 Problem Melanocytic nevi of face D22.30 Active confirmed 779241664 Problem Hematuria R31.9 Active confirmed 96035142 Problem Melanocytic nevi of trunk D22.5 Active confirmed 076120806 Problem Enlarged prostate without lower urinary tract symptoms N40.0 Active confirmed 252897376 Problem Testicular mass N50.9 Active confirmed 8786 0000 Problem Gross hematuria R31.0 Active confirmed 1979 10278 Problem Actinic keratoses L57.0 Active confirmed 40 4812947 Problem Prostate cancer C61 Active confirmed 2549 40380 Problem Lentigines L81.4 Active confirmed 643808548 Problem Seborrheic keratoses L82.1 Active confirmed 922394048 Problem Melanocytic nevi of right lower limb, including hip D22.71 Active confirmed 460648278 Problem Melanocytic nevi of left lower limb, including hip D22.72 Active confirmed 357139662680286 Problem Melanocytic nevi of right upper limb, including shoulder D22.61 Active confirmed 012231453 Problem BPH w urinary obs/LUTS N40.1 Active confirmed 44512046637156 Problem Melanocytic nevi of left upper limb, including shoulder D22.62 Active confirmed 954522527 Problem Elevated blood-pressure reading without diagnosi s of hypertension R03.0 Active confirmed 026152289 Problem Dry skin L85.3 Active confirmed 44451748 Problem Basal cell carcinoma of lower back C44.519 Activ e confirmed 485887415 Problem Sick sinus syndrome I49.5 Active confirmed 55950430 Problem Preop testing Z01.818 Active confirmed 72878 9001 Problem Hydronephrosis N13.30 Active confirmed 62394 006 Problem History of basal cell carcinoma Z85.828 Active confirmed 102018046 Problem 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 Acti ve confirmed 22768987 Problem HTN (hypertension), benign I10 Active confirmed 70700814 Problem Hypertensive heart disease without heart failure I 11.9 Active confirmed 87580232 Problem Basal cell carcinoma (BCC) of skin of other part of torso C44.519 Active confirmed 112068039 Problem Screening, malignant neoplasm, skin Z12.83 Acti ve confirmed 157697593 Problem UTI (urinary tract infection) N39.0 Active confirm ed [id number] ALLERGIES No Known Allergies ENCOUNTERS from 1955 to 2021-05-21 Encounter Location Date Provider Diagnosis [facility] [address] [phone] [place] [address] 07 May, 2021 Leyla Recore Prostate cancer C61 and Urinary retentio n R33.9 IMMUNIZATIONS Vaccine Route Administration Date Status Influenza [...] Education Language: Question Answer Notes Languages spoken: Italian Drug and Alcohol Question Answer Notes Total [...] No Information VITAL SIGNS Weight 193 lbs May, Weight-kg 87.54 kg May, Height 67.5 in May, BMI 29.78 kg/m2 May, Heart Rate 67 /min May, Respiratory Rate 18 /min May, Temperature 96.0 degrees Fahrenheit May, Oximetry 97% May, Blood pressure systolic 152 mm Hg May, Blood pressure diastolic 88 mm Hg May, MEDICATIONS Medication SIG (Take, Route, Frequency, Duration) Notes Start Da te End Date Status Ketorolac Tromethamine 10 MG 1 tablet with food or mil k Orally every 6 hrs as needed for pain January, Not-Taking Proscar 5 MG 1 tablet Orally Once a day for 30 day(s) 01 D 2014 Not-Taking Bactrim DS 800-160 MG 1 tablet Orally Twice a day Feb, Not-Taking Macrobid 100 MG 1 capsule with food Orally bid for 10 day(s) Mar, Not-Taking Viagra 100 MG as directed Orally once daily as needed 18 O 2016 Not-Taking Oxybutynin Chloride ER 5 MG 1 tablet Orally Once a day Mar, Not-Taking Alfuzosin HCl ER 10 MG 1 tablet immediately after t he same meal Orally Once a day for 30 day(s) Jul, Not-Taking hydroCHLOROthiazide 12.5 MG 1 tablet in the morning Or ally Once a day for 30 day(s) Active Cipro 500 MG 1 tablet Orally Daily N ot-Taking levoFLOXacin 500 MG 1 tablet Orally Once a day for 10 day(s) January, Not-Taking Oxybutynin Chloride 5 MG 1 tablet Orally Twice a day for 30 day( s) Mar, Active Flomax 0.4 MG 1 capsule Orally Once a day Jun, Not-Taking Eligard 7.5 MG as directed Subcutaneous monthly Not-Taking Cialis 5 MG take one tablet by mouth corazon ry day Orally Daily Dx: N40.1 for 90 day(s) Not-Taking Atorvastatin Calcium 20 mg 1 tablet Orally Once a day for 90 Not-Taking PROCEDURES from 1955 to 2021-05-21 Procedure Date Ordered Result Body Site Insert Supra Pubic Catheter 20F, Simple 2021-05-20 N/A RESULTS No Results REASON FOR VISIT S/P open cysto, suprapubic catheter placement MEDICAL (GENERAL) HISTORY Type Description Date Medical [...] Notes Treatment Notes Treatm ent Clinical Notes May, Prostate cancer (ICD-10 - C61) May, Urinary retention (ICD-10 - R33.9) PLAN OF TREATMENT Future Test Test Name Order Date PSA MONITOR (HX PROSTATE CA/ABNORMAL PSA) [id number] Next Appt Details 4 Weeks Reason: Provider Name:Miguel A Thomas, 02:30:00 PM, [address], , [place], [address], Provider Name:Radha Vines, 2021-07 03:30:00 PM, [address] [place] [address], , [place], [address], Provider Name:Bridgette Stanley, 04:30:00 PM, [address] [place] [address], , [place], [address], Insurance Providers Payer Name Payer Address Payer Phone Insured Name Patient Relati onship to Insured Coverage Start Date Coverage End Date [facility] [place] [facility] [id number] [facility] [place] [facility] [place] [id number] SELENA SILVA self
--- OUTSIDE RECORDS SUMMARY | 2021-07-05 12:21 | CCD ---
Author Author [facility] Organization [facility] Address Unknown Phone Unavailable Care Team Providers Care Core Extruder Name Role Phone Miguel A Thomas Unavailable PROBLEMS Type Condition ICD9-CM Code [id number] Code Onset Dates Condition S tatus W/U Status Risk SNOMED Code Notes Problem Bladder neck contracture N32.0 Active confirmed 717157527 Problem Pure hypercholesterolemia E78.00 Active confirmed 658570039 Problem Urinary retention R33.9 Active confirmed 26 8211636 Problem Sinoatrial block I45.5 Active confirmed 657 31544 Problem Second degree heart block I44.1 Active confirmed 125857005 Problem Low libido R68.82 Active confirmed 5102265 Problem 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.35 Active confirmed 937759599 Problem Melanocytic nevi of face D22.30 Active confirmed 338121278 Problem Hematuria R31.9 Active confirmed 52845720 Problem Melanocytic nevi of trunk D22.5 Active confirmed 568240069 Problem Enlarged prostate without lower urinary tract symptoms N40.0 Active confirmed 224578003 Problem Testicular mass N50.9 Active confirmed 8786 0000 Problem Gross hematuria R31.0 Active confirmed 1979 71260 Problem Actinic keratoses L57.0 Active confirmed 40 0303286 Problem Prostate cancer C61 Active confirmed 2549 99059 Problem Lentigines L81.4 Active confirmed 850944571 Problem Seborrheic keratoses L82.1 Active confirmed 764340102 Problem Melanocytic nevi of right lower limb, including hip D22.71 Active confirmed 546086766 Problem Melanocytic nevi of left lower limb, including hip D22.72 Active confirmed 444744948075205 Problem Melanocytic nevi of right upper limb, including shoulder D22.61 Active confirmed 564391701 Problem BPH w urinary obs/LUTS N40.1 Active confirmed 96032415446594 Problem Melanocytic nevi of left upper limb, including shoulder D22.62 Active confirmed 447327340 Problem Elevated blood-pressure reading without diagnosi s of hypertension R03.0 Active confirmed 611043021 Problem Dry skin L85.3 Active confirmed 97206687 Problem Basal cell carcinoma of lower back C44.519 Activ e confirmed 946483521 Problem Sick sinus syndrome I49.5 Active confirmed 12665329 Problem Preop testing Z01.818 Active confirmed 00921 9001 Problem Hydronephrosis N13.30 Active confirmed 62539 006 Problem History of basal cell carcinoma Z85.828 Active confirmed 765015492 Problem 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 Acti ve confirmed 35903075 Problem HTN (hypertension), benign I10 Active confirmed 94985054 Problem Hypertensive heart disease without heart failure I 11.9 Active confirmed 74934410 Problem Basal cell carcinoma (BCC) of skin of other part of torso C44.519 Active confirmed 821635416 Problem Screening, malignant neoplasm, skin Z12.83 Acti ve confirmed 433102319 Problem UTI (urinary tract infection) N39.0 Active confirm ed [id number] ALLERGIES No Known Allergies ENCOUNTERS from 1955 to 2021-05-06 Encounter Location Date Provider Diagnosis [facility] [address] [phone] [place] [address] Apr, Miguel A Thomas IMMUNIZATIONS Vaccine Route Administration [...] Education Language: Question Answer Notes Languages spoken: Filipino Drug and Alcohol Question Answer Notes Total [...] Notes Start Da te End Date Status Cialis 5 MG take one tablet by mouth corazon ry day Orally Daily Dx: N40.1 for 90 day(s) Not-Taking Cipro 500 MG 1 tablet Orally Daily N ot-Taking Macrobid 100 MG 1 capsule with food Orally bid for 10 day(s) Mar, Active Oxybutynin Chloride 5 MG 1 tablet Orally Twice a day for 30 day( s) Mar, Active Proscar 5 MG 1 tablet Orally Once a day for 30 day(s) 01 D 2014 Not-Taking Alfuzosin HCl ER 10 MG 1 tablet immediately after t he same meal Orally Once a day for 30 day(s) Jul, Not-Taking levoFLOXacin 500 MG 1 tablet Orally Once a day for 10 day(s) January, Not-Taking Bactrim DS 800-160 MG 1 tablet Orally Twice a day Feb, Not-Taking Viagra 100 MG as directed Orally once daily as needed 18 O 2016 Not-Taking Ketorolac Tromethamine 10 MG 1 tablet with food or mil k Orally every 6 hrs as needed for pain January, Not-Taking Oxybutynin Chloride ER 5 MG 1 tablet Orally Once a day Mar, Not-Taking Flomax 0.4 MG 1 capsule Orally Once a day Jun, Not-Taking hydroCHLOROthiazide 12.5 MG 1 tablet in the morning Or ally Once a day for 30 day(s) Active Eligard 7.5 MG as directed Subcutaneous monthly Not-Taking Atorvastatin Calcium 20 mg 1 tablet Orally Once a day for 90 Not-Taking PROCEDURES No Information RESULTS No Results REASON FOR VISIT ?uti, ? infection around cath MEDICAL (GENERAL) HISTORY Type Description Date Medical [...] Information ASSESSMENTS No Information PLAN OF TREATMENT Next Appt Details Provider Name:Leyla Torres, 7 08:30:00 AM, [address] , , [place], [address], Provider Name:Radha Vines, 2021-07 03:30:00 PM, [address] [place] [address], , [place], [address], Provider Name:Bridgette Stanley, 04:30:00 PM, [address] [place] [address], , [place], [address], Insurance Providers Payer Name Payer Address Payer Phone Insured Name Patient Relati onship to Insured Coverage Start Date Coverage End Date BCBS [place] PPO [id number] [facility] [place] [id number] SELENA SILVA self
--- OUTSIDE RECORDS SUMMARY | 2021-07-05 12:21 | CCD ---
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 Active confirmed 348212998 Problem Low libido R68.82 Active confirmed 0787222 Problem 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.35 Active confirmed 147392733 Problem Melanocytic nevi of face D22.30 Active confirmed 968418156 Problem Hematuria R31.9 Active confirmed 73291331 Problem Melanocytic nevi of trunk D22.5 Active confirmed 513576569 Problem Enlarged prostate without lower urinary tract symptoms N40.0 Active confirmed 663506303 Problem Testicular mass N50.9 Active confirmed 8786 0000 Problem Gross hematuria R31.0 Active confirmed 1979 88053 Problem Actinic keratoses L57.0 Active confirmed 40 1199200 Problem Prostate cancer C61 Active confirmed 2549 37272 Problem Lentigines L81.4 Active confirmed 787821871 Problem Seborrheic keratoses L82.1 Active confirmed 600771103 Problem Melanocytic nevi of right lower limb, including hip D22.71 Active confirmed 225690525 Problem Melanocytic nevi of left lower limb, including hip D22.72 Active confirmed [id number] Problem Melanocytic nevi of right upper limb, including shoulder D22.61 Active confirmed 981139065 Problem BPH w urinary obs/LUTS N40.1 Active confirmed 56458120539060 Problem Melanocytic nevi of left upper limb, including shoulder D22.62 Active confirmed 093358081 Problem Elevated blood-pressure reading without diagnosi s of hypertension R03.0 Active confirmed 930848360 Problem Dry skin L85.3 Active confirmed 59487140 Problem Basal cell carcinoma of lower back C44.519 Activ e confirmed 506433130 Problem Sick sinus syndrome I49.5 Active confirmed 20226827 Problem Preop testing Z01.818 Active confirmed 58249 9001 Problem Hydronephrosis N13.30 Active confirmed 35654 006 Problem History of basal cell carcinoma Z85.828 Active confirmed 346427402 Problem 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 Acti ve confirmed 27858505 Problem HTN (hypertension), benign I10 Active confirmed 90313222 Problem Hypertensive heart disease without heart failure I 11.9 Active confirmed 62922798 Problem Basal cell carcinoma (BCC) of skin of other part of torso C44.519 Active confirmed 487958516 Problem Screening, malignant neoplasm, skin Z12.83 Acti ve confirmed 834739780 Problem UTI (urinary tract infection) N39.0 Active confirm ed 59241961 ALLERGIES No Known Allergies ENCOUNTERS from 1955 to 2021-05-07 Encounter Location Date Provider Diagnosis [facility] D[facility] [address] [facility] [phone] [place] [address] 23 Apr[facility] Skin cancer screening Z12.83 ; History of basal cell carcinoma Z85.828 ; Actinic keratoses L57.0 ; Seborrheic keratoses, inflamed L82.0 ; Lentigines L81.4 and Gao angioma D18.01 IMMUNIZATIONS Vaccine Route Administration Date Status Influenza [...] Education Language: Question Answer Notes Languages spoken: Polish Drug and Alcohol Question Answer Notes Total [...] No Information VITAL SIGNS Weight 193 lbs Apr, Weight-kg 87.54 kg Apr, Height 67.5 in Apr, BMI 29.78 kg/m2 Apr, Blood pressure systolic 130 mm Hg Apr, Blood pressure diastolic 78 mm Hg Apr, MEDICATIONS Medication SIG (Take, Route, Frequency, Duration) Notes Start Da te End Date Status Cialis 5 MG take one tablet by mouth Orally Daily Dx: N40.1 for 90 day(s) Not-Taking Cipro 500 MG 1 tablet Orally Daily N ot-Taking Macrobid 100 MG 1 capsule with food Orally bid for 10 day(s) Mar, Active Oxybutynin Chloride 5 MG 1 tablet Orally Twice a day for 30 day( s) Mar, Active Proscar 5 MG 1 tablet Orally Once a day for 30 day(s) D 2014 Not-Taking Alfuzosin HCl ER 10 [...] Information RESULTS No Results REASON FOR VISIT Skin cancer screening MEDICAL (GENERAL) HISTORY Type Description Date Medical [...] Treatment Notes Treatm ent Clinical Notes Apr, Skin cancer screening (ICD-10 - Z12.83) Patient counseled on signs and symptoms of skin cancer including ABCDE's of Melanoma. Patient counseled to wear sunscreen or use sun protective clothing when outdoors. Avoid peak hours of sun between 10-2. Patient instructed to call with any new or changing lesions. Apr, History of basal cell carcinoma (ICD-10 - Z85.82 8) No evidence of recurrence L lower back. Apr, Actinic keratoses (ICD-10 - L57.0) Cryotherapy x [ 4] number of sites. [place] protocol was followed in compliance with [facility] standards. Patient was counseled regarding the indication for treatment (precancerous state for actinic keratosis or cosmetic reasons if done for seborrheic keratoses, acrochordons or warts) as well as, the method and expected results to include compromise of the skin barrier, bleeding, scarring/white area, redness at site, lesion recurrence, and pain. Patient was consented to the risks and benefits of the procedure and gave informed consent. Lesion(s) with locations as indicated in the physical examination were treated. Lesion(s) were treated with 2 cycles of liquid nitrogen with a thaw time of at least ten seconds. Therapy was applied in a pulsed fashion to minimize collateral tissue injury. Patient was instructed to use Vaseline ointment to the area(s) until healed. Patient tolerated the procedure well and left in stable condition. Pain before and after the procedure were assessed to not be significantly different than baseline. Apr, Seborrheic keratoses, inflamed (ICD-10 - L82.0) Cryotherapy x [1 ] number of sites. [place] protocol was followed in compliance with [facility] standards. Patient was counseled regarding the indication for treatment (precancerous state for actinic keratosis or cosmetic reasons if done for seborrheic keratoses, acrochordons or warts) as well as, the method and expected results to include compromise of the skin barrier, bleeding, scarring/white area, redness at site, lesion recurrence, and pain. Patient was consented to the risks and benefits of the procedure and gave informed consent. Lesion(s) with locations as indicated in the physical examination were treated. Lesion(s) were treated with 2 cycles of liquid nitrogen with a thaw time of at least ten seconds. Therapy was applied in a pulsed fashion to minimize collateral tissue injury. Patient was instructed to use Vaseline ointment to the area(s) until healed. Patient tolerated the procedure well and left in stable condition. Pain before and after the procedure were assessed to not be significantly different than baseline. Apr, Lentigines (ICD-10 - L81.4) Benign Lesion Counseling. The patient was extensively counseled regarding the benign nature of the lesion but that skin cancer may arise in this area just as it would anywhere on their skin. For that reason, return to clinic was recommended for any acute changes, itching, burning, or bleeding. The patient was educated that benign lesions are not a covered insurance benefit and treatment would be elective and cosmetic. They expressed understanding. Apr, Gao angioma (ICD-10 - D18.01) Benign Lesion Counseling. The patient was extensively counseled regarding the benign nature of the lesion but that skin cancer may arise in this area just as it would anywhere on their skin. For that reason, return to clinic was recommended for any acute changes, itching, burning, or bleeding. The patient was educated that benign lesions are not a covered insurance benefit and treatment would be elective and cosmetic. They expressed understanding. PLAN OF TREATMENT Treatment Notes Assessment Notes Clinical Notes Skin cancer screening Patient counseled on signs and symptoms of skin cancer including ABCDE's of Melanoma. Patient counseled to wear sunscreen or use sun protective clothing when outdoors. Avoid peak hours of sun between 10-2. Patient instructed to call with any new or changing lesions. History of basal cell carcinoma No evide nce of recurrence L lower back. Actinic keratoses Cryotherapy x [ 4] n umber of sites. [place] protocol was followed in compliance with [facility] standards. Patient was counseled regarding the indication for treatment (precancerous state for actinic keratosis or cosmetic reasons if done for seborrheic keratoses, acrochordons or warts) as well as, the method and expected results to include compromise of the skin barrier, bleeding, scarring/white area, redness at site, lesion recurrence, and pain. Patient was consented to the risks and benefits of the procedure and gave informed consent. Lesion(s) with locations as indicated in the physical examination were treated. Lesion(s) were treated with 2 cycles of liquid nitrogen with a thaw time of at least ten seconds. Therapy was applied in a pulsed fashion to minimize collateral tissue injury. Patient was instructed to use Vaseline ointment to the area(s) until healed. Patient tolerated the procedure well and left in stable condition. Pain before and after the procedure were assessed to not be significantly different than baseline. Seborrheic keratoses, inflamed Cryothera py x [1 ] number of sites. [place] protocol was followed in compliance with [facility] standards. Patient was counseled regarding the indication for treatment (precancerous state for actinic keratosis or cosmetic reasons if done for seborrheic keratoses, acrochordons or warts) as well as, the method and expected results to include compromise of the skin barrier, bleeding, scarring/white area, redness at site, lesion recurrence, and pain. Patient was consented to the risks and benefits of the procedure and gave informed consent. Lesion(s) with locations as indicated in the physical examination were treated. Lesion(s) were treated with 2 cycles of liquid nitrogen with a thaw time of at least ten seconds. Therapy was applied in a pulsed fashion to minimize collateral tissue injury. Patient was instructed to use Vaseline ointment to the area(s) until healed. Patient tolerated the procedure well and left in stable condition. Pain before and after the procedure were assessed to not be significantly different than baseline. Lentigines Benign Lesion Counscollins suresh. The patient was extensively counseled regarding the benign nature of the lesion but that skin cancer may arise in this area just as it would anywhere on their skin. For that reason, return to clinic was recommended for any acute changes, itching, burning, or bleeding. The patient was educated that benign lesions are not a covered insurance benefit and treatment would be elective and cosmetic. They expressed understanding. Gao angioma Benign Lesion Counse ling. The patient was extensively counseled regarding the benign nature of the lesion but that skin cancer may arise in this area just as it would anywhere on their skin. For that reason, return to clinic was recommended for any acute changes, itching, burning, or bleeding. The patient was educated that benign lesions are not a covered insurance benefit and treatment would be elective and cosmetic. They expressed understanding. Next Appt Details 1 Year Reason:FBSE Provider Name:Leyla Torres, 7 08:30:00 AM, [address], , [place], [address], Provider Name:Radha Vines, 2021-07 03:30:00 PM, [address] [place] [address], , [place], [address], Provider Name:Bridgette Stanley, 04:30:00 PM, [address] [place] [address], , [place], [address], Follow Up:1 YearFBSE Insurance Providers Payer Name Payer Address Payer Phone Insured Name Patient Relati onship to Insured Coverage Start Date Coverage End Date [employer] [id number] [facility] [place] [id number] SELENA SILVA self
[2021-07-05] MEDS ORDERED: BACTDSTA PO (12:22)
--- OUTSIDE RECORDS SUMMARY | 2021-07-05 12:22 | CCD ---
Author Author [facility] Organization [facility] Address Unknown Phone Unavailable Care Team Providers Care Associate Programmer Analyst Name Role Phone Emely Morales Unavailable Unavailable Emely Morales Unavailable Unavailable Emely Morales Unavailable Unavailable Emely Morales Unavailable Unavailable Emely Morales Unavailable Unavailable Emely Morales Unavailable Unavailable Emely Morales Unavailable Unavailable Andrew, L Emma PA Unavailable Unavailable Andrew, L Emma PA Unavailable Unavailable Andrew, L Emma PA Unavailable Unavailable Andrew, L Emma PA Unavailable Unavailable Andrew, L Emma PA Unavailable Unavailable Andrew, L Emma PA Unavailable Unavailable Andrew, L Emma PA Unavailable Unavailable Andrew, L Emma PA Unavailable Unavailable Andrew, L Emma PA Unavailable Unavailable Andrew, L Emma PA Unavailable Unavailable Andrew, L Emma PA Unavailable Unavailable Andrew, L Emma PA Unavailable Unavailable Andrew, L Emma PA Unavailable Unavailable Andrew, L Emma PA Unavailable Unavailable Andrew, L Emma PA Unavailable Unavailable Andrew, L Emma PA Unavailable Unavailable Campos, Valerie MILITARY PAY CLERK Unavailable Unavailable Campos, Valerie MILITARY PAY CLERK Unavailable Unavailable Campos, Valerie MILITARY PAY CLERK Unavailable Unavailable Campos, Valerie MILITARY PAY CLERK Unavailable Unavailable Campos, Valerie MILITARY PAY CLERK Unavailable Unavailable Campos, Valerie MILITARY PAY CLERK Unavailable Unavailable Campos, Valerie MILITARY PAY CLERK Unavailable Unavailable Campos, Valerie MILITARY PAY CLERK Unavailable Unavailable Campos, Valerie MILITARY PAY CLERK Unavailable Unavailable Campos, Valerie MILITARY PAY CLERK Unavailable Unavailable Campos, Valerie MILITARY PAY CLERK Unavailable Unavailable Campos, Valerie MILITARY PAY CLERK Unavailable Unavailable Campos, Valerie MILITARY PAY CLERK Unavailable Unavailable LETTIERE, A DIONNE PA Unavailable Unavailable LETTIERE, A DIONNE PA Unavailable Unavailable LETTIERE, A DIONNE PA Unavailable Unavailable LETTIERE, A DIONNE PA Unavailable Unavailable LETTIERE, A DIONNE PA Unavailable Unavailable LETTIERE, A DIONNE PA Unavailable Unavailable LETTIERE, A DIONNE PA Unavailable Unavailable LETTIERE, A DIONNE PA Unavailable Unavailable LETTIERE, A DIONNE PA Unavailable Unavailable LETTIERE, A DIONNE PA Unavailable Unavailable LETTIERE, A DIONNE PA Unavailable Unavailable LETTIERE, A DIONNE PA Unavailable Unavailable LETTIERE, A DIONNE PA Unavailable Unavailable LETTIERE, A DIONNE PA Unavailable Unavailable LETTIERE, A DIONNE PA Unavailable Unavailable LETTIERE, A DIONNE PA Unavailable Unavailable LETTIERE, A DIONNE PA Unavailable Unavailable LETTIERE, A DIONNE PA Unavailable Unavailable LETTIERE, A DIONNE PA Unavailable Unavailable LETTIERE, A DIONNE PA Unavailable Unavailable LETTIERE, A DIONNE PA Unavailable Unavailable LETTIERE, A DIONNE PA Unavailable Unavailable LETTIERE, A DIONNE PA Unavailable Unavailable LETTIERE, A DIONNE PA Unavailable Unavailable LETTIERE, A DIONNE PA Unavailable Unavailable LETTIERE, A DIONNE PA Unavailable Unavailable LETTIERE, A DIONNE PA Unavailable Unavailable LETTIERE, A DIONNE PA Unavailable Unavailable LETTIERE, A DIONNE PA Unavailable Unavailable LETTIERE, A DIONNE PA Unavailable Unavailable LETTIERE, A DIONNE PA Unavailable Unavailable ASUNCION, L KARYN PA Unavailable Unavailable ASUNCION, L KARYN PA Unavailable Unavailable ASUNCION, L KARYN PA Unavailable Unavailable ASUNCION, L KARYN PA Unavailable Unavailable ASUNCION, L KARYN PA Unavailable Unavailable ASUNCION, L KARYN PA Unavailable Unavailable ASUNCION, L KARYN PA Unavailable Unavailable ASUNCION, L KARYN PA Unavailable Unavailable ASUNCION, L KARYN PA Unavailable Unavailable ASUNCION, L KARYN PA Unavailable Unavailable ASUNCION, L KARYN PA Unavailable Unavailable ASUNCION, L KARYN PA Unavailable Unavailable ASUNCION, L KARYN PA Unavailable Unavailable ASUNCION, L KARYN PA Unavailable Unavailable ASUNCION, L KARYN PA Unavailable Unavailable ASUNCION, L KARYN PA Unavailable Unavailable ALBALA, Cheli LEE MD Unavailable Unavailable ALBALA, Cheli LEE MD Unavailable Unavailable ALBALA, Cheli LEE MD Unavailable Unavailable ALBALA, Cheli LEE MD Unavailable Unavailable ALBALA, Cheli LEE MD Unavailable Unavailable ALBALA, Cheli LEE MD Unavailable Unavailable ALBALA, Cheli LEE MD Unavailable Unavailable ALBALA, Cheli LEE MD Unavailable Unavailable ALBALA, Cheli LEE MD Unavailable Unavailable ALBALA, Cheli LEE MD Unavailable Unavailable ALBALA, Cheli LEE MD Unavailable Unavailable ALBALA, Cheli LEE MD Unavailable Unavailable ALBALA, Cheli LEE MD Unavailable Unavailable ALBALA, Cheli LEE MD Unavailable Unavailable ALBALA, Cheli LEE MD Unavailable Unavailable ALBALA, Cheli LEE MD Unavailable Unavailable ALBALA, Cheli LEE MD Unavailable Unavailable ALBALA, Cheli LEE MD Unavailable Unavailable ALBALA, Cheli LEE MD Unavailable Unavailable ALBALA, Cheli LEE MD Unavailable Unavailable ALBALA, Cheli LEE MD Unavailable Unavailable ALBALA, Cheli LEE MD Unavailable Unavailable ALBALA, Cheli LEE MD Unavailable Unavailable ALBALA, Cheli LEE MD Unavailable Unavailable ALBALA, Cheli LEE MD Unavailable Unavailable ALBALA, Cheli LEE MD Unavailable Unavailable ALBALA, Cheli LEE MD Unavailable Unavailable ALBALA, Cheli LEE MD Unavailable Unavailable ALBALA, Cheli LEE MD Unavailable Unavailable ALBALA, Cheli LEE MD Unavailable Unavailable ALBALA, Cheli LEE MD Unavailable Unavailable ALBALA, Cheli LEE MD Unavailable Unavailable ALBALA, Cheli LEE MD Unavailable Unavailable ALBALA, Cheli LEE MD Unavailable Unavailable ALBALA, Cheli LEE MD Unavailable Unavailable ALBALA, Cheli LEE MD Unavailable Unavailable ALBALA, Cheli LEE MD Unavailable Unavailable ALBALA, Cheli LEE MD Unavailable Unavailable ALBALA, Cheli LEE MD Unavailable Unavailable ALBALA, Cheli LEE MD Unavailable Unavailable ALBALA, Cheli LEE MD Unavailable Unavailable ALBALA, Cheli LEE MD Unavailable Unavailable ALBALA, Cheli LEE MD Unavailable Unavailable ALBALA, Cheli LEE MD Unavailable Unavailable ALBALA, Cheli LEE MD Unavailable Unavailable ALBALA, Cheli LEE MD Unavailable Unavailable ALBALA, Cheli LEE MD Unavailable Unavailable ALBALA, Cheli LEE MD Unavailable Unavailable ALBALA, Cheli LEE MD Unavailable Unavailable ALBALA, Cheli LEE MD Unavailable Unavailable ALBALA, Cheli LEE MD Unavailable Unavailable ALBALA, Cheli LEE MD Unavailable Unavailable ALBALA, Cheli LEE MD Unavailable Unavailable ALBALA, Cheli LEE MD Unavailable Unavailable ALBALA, Cheli LEE MD Unavailable Unavailable ALBALA, Cheli LEE MD Unavailable Unavailable ALBALA, Cheli LEE MD Unavailable Unavailable ALBALA, Cheli LEE MD Unavailable Unavailable ALBALA, Cheli LEE MD Unavailable Unavailable ALBALA, Cheli LEE MD Unavailable Unavailable ALBALA, Cheli LEE MD Unavailable Unavailable ALBALA, Cheli LEE MD Unavailable Unavailable ALBALA, Cheli LEE MD Unavailable Unavailable ALBALA, Cheli LEE MD Unavailable Unavailable ALBALA, Cheli LEE MD Unavailable Unavailable ALBALA, Cheli LEE MD Unavailable Unavailable ALBALA, Cheli LEE MD Unavailable Unavailable ALBALA, Cheli LEE MD Unavailable Unavailable ALBALA, Cheli LEE MD Unavailable Unavailable ALBALA, Cheli LEE MD Unavailable Unavailable ALBALA, Cheli LEE MD Unavailable Unavailable ALBALA, Cheli LEE MD Unavailable Unavailable ALBALA, Cheli LEE MD Unavailable Unavailable ALBALA, Cheli LEE MD Unavailable Unavailable ALBALA, Cheli LEE MD Unavailable Unavailable ALBALA, Cheli LEE MD Unavailable Unavailable ALBALA, Cheli LEE MD Unavailable Unavailable ALBALA, Cheli LEE MD Unavailable Unavailable ALBALA, Cheli LEE MD Unavailable Unavailable ALBALA, Cheli LEE MD Unavailable Unavailable ALBALA, Cheli LEE MD Unavailable Unavailable ALBALA, Cheli LEE MD Unavailable Unavailable ALBALA, Cheli LEE MD Unavailable Unavailable ALBALA, Cheli LEE MD Unavailable Unavailable ALBALA, Cheli LEE MD Unavailable Unavailable ALBALA, Cheli LEE MD Unavailable Unavailable ALBALA, Cheli LEE MD Unavailable Unavailable ALBALA, Cheli LEE MD Unavailable Unavailable ALBALA, Cheli LEE MD Unavailable Unavailable ALBALA, Cheli LEE MD Unavailable Unavailable ALBALA, Cheli LEE MD Unavailable Unavailable ALBALA, Cheli LEE MD Unavailable Unavailable ALBALA, Cheli LEE MD Unavailable Unavailable RING, K DIEGO PA Unavailable Unavailable RING, K DIEGO PA Unavailable Unavailable RING, K DIEGO PA Unavailable Unavailable RING, K DIEGO PA Unavailable Unavailable RING, K DIEGO PA Unavailable Unavailable RING, K DIEGO PA Unavailable Unavailable RING, K DIEGO PA Unavailable Unavailable RING, K DIEGO PA Unavailable Unavailable RING, K DIEGO PA Unavailable Unavailable RING, K DIEGO PA Unavailable Unavailable RING, K DIEGO PA Unavailable Unavailable RING, K DIEGO PA Unavailable Unavailable RING, K DIEGO PA Unavailable Unavailable RING, K DIEGO PA Unavailable Unavailable RING, K DIEGO PA Unavailable Unavailable RING, K DIEGO PA Unavailable Unavailable RING, K DIEGO PA Unavailable Unavailable RING, K DIEGO PA Unavailable Unavailable RING, K DIEGO PA Unavailable Unavailable RING, K DIEGO PA Unavailable Unavailable RING, K DIEGO PA Unavailable Unavailable Re-disclosure Warning The records that you are about to access may contain information from federally-assisted alcohol or drug abuse programs. If such information is present, then the following federally mandated warning applies: This information has been disclosed to you from records protected by federal confidentiality rules (42 CFR part 2). The federal rules prohibit you from making any further disclosure of this information unless further disclosure is expressly permitted by the written consent of the person to whom it pertains or as otherwise permitted by 42 CFR part 2. A general authorization for the release of medical or other information is NOT sufficient for this purpose. The Federal rules restrict any use of the information to criminally investigate or prosecute any alcohol or drug abuse patient.The records that you are about to access may contain highly sensitive health information, the redisclosure of which is protected by Article 27-F of the [facility] Public Health law. If you continue you may have access to information: Regarding HIV / AIDS; Provided by facilities licensed or operated by the [facility] Office of Mental Health; or Provided by the [facility] Office for People With Developmental Disabilities. If such information is present, then the following [facility] mandated warning applies: This information has been disclosed to you from confidential records which are protected by state law. State law prohibits you from making any further disclosure of this information without the specific written consent of the person to whom it pertains, or as otherwise permitted by law. Any unauthorized further disclosure in violation of state law may result in a fine or retirement sentence or both. A general authorization for the release of medical or other information is NOT sufficient authorization for further disc losure. Family History Family Member Name Family Member Gender Family Member Status Date o f Status Description Data Source(s) Unknown Male Problem MED[facility] ([facility]) Unknown Male Problem MED[facility] ([facility]) () Encounters Encounter Providers Location Date Indications Data Source(s ) Outpatient Attender: DIONNE maldonado 07/02/2021 11:50:00 AM EDT [facility] ([facility]) [place] [address] [facility] [place] [address] 07/02/2021 12:00:00 AM EDT eCW1 ([facility]) Unknown [address] [facility] [place] [address] 06/23/2021 12:00:00 AM EDT eCW1 ([facility]) Outpatient [address] [facility] Y [address] 06/19/2021 12:00:00 AM EDT eCW1 ([facility]) Postop visit [address] [facility] [place] [address] 05/20/2021 12:00:00 AM EDT eCW1 ([facility]) [place] [address] [facility] [address] 05/05/2021 12:00:00 AM EDT eCW1 ([facility]) Unknown [address] [facility] [place] [address] 05/05/2021 12:00:00 AM EDT eCW1 ([facility]) Unknown [address] [facility] [place] [address] 04/17/2021 12:00:00 AM EDT eCW1 ([facility]) Unknown [address] [facility] [address] 04/03/2021 12:00:00 AM EDT eCW1 ([facility]) Outpatient [address] [facility] [place] [address] 04/01/2021 12:00:00 AM EDT eCW1 ([facility]) Unknown [address] [facility] [place] [address] 03/27/2021 12:00:00 AM EDT eCW1 ([facility]) Unknown [address] [facility] [address] 03/18/2021 12:00:00 AM EDT eCW1 ([facility]) Outpatient [address] [facility] [address] 03/14/2021 12:00:00 AM EDT eCW1 ([facility]) Unknown [address] [facility] [address] 03/06/2021 12:00:00 AM EDT eCW1 ([facility]) (Cysto2) Urology [address] [place] [address] 03/03/2021 12:00:00 AM EDT eCW1 ([facility]) Unknown [address] [facility] [place] [address] 03/03/2021 12:00:00 AM EDT eCW1 ([facility]) Unknown [address] [facility] [address] 02/27/2021 12:00:00 AM EDT eCW1 ([facility]) Unknown [address] [facility] [place] [address] 02/27/2021 12:00:00 AM EDT eCW1 ([facility]) Unknown [address] [facility] [place] [address] 02/12/2021 12:00:00 AM EDT eCW1 ([facility]) Unknown [address] [facility] [address] 02/07/2021 12:00:00 AM EDT eCW1 ([facility]) Unknown [address] [facility] [place] [address] 02/04/2021 12:00:00 AM EDT eCW1 ([facility]) Outpatient [address] [facility] [place] [address] 01/29/2021 12:00:00 AM EDT eCW1 ([facility]) Unknown [address] [facility] [address] 01/24/2021 12:00:00 AM EDT eCW1 ([facility]) Outpatient Attender: KARYN SCHMITZ Main Office 01/13/2021 0 3:30:00 PM EDT MEDENT ([facility]) Outpatient [address] [facility] [address] 01/13/2021 12:00:00 AM EDT eCW1 ([facility]) Unknown [address] [facility] [place] [address] 01/13/2021 12:00:00 AM EDT eCW1 ([facility]) Unknown [address] [facility], [place] [address] 01/10/2021 12:00:00 AM EDT eCW1 ([facility]) Unknown [address] [facility] Y [address] 01/08/2021 12:00:00 AM EDT eCW1 ([facility]) Outpatient [address] [facility] [place] [address] 01/08/2021 12:00:00 AM EDT eCW1 ([facility]) Unknown [address] [facility], [place] [address] 01/06/2021 12:00:00 AM EDT eCW1 ([facility]) Unknown [address] [facility] Y [address] 12/27/2020 12:00:00 AM EDT eCW1 [facility]) (Cysto1) Urology [address] [place] [address] 12/25/2020 12:00:00 AM EDT eCW1 ([facility]) Outpatient Attender: JESUS Mcallister/ [facility] 12/20/2020 03:00:00 PM EDT MEDENT ([facility]) Outpatient [address] [facility], [place] [address] 12/20/2020 12:00:00 AM EDT eCW1 ([facility]) Outpatient [address] [facility] [place] [address] 12/12/2020 12:00:00 AM EDT eCW1 ([facility]) Unknown [address] [facility] [place] [address] 12/10/2020 12:00:00 AM EDT eCW1 ([facility]) Outpatient Attender: DIEGO Duffy Primary 11/25/2020 04:50:00 PM EDT MEDENT ([facility] Outpatient [address] [facility], [place] [address] 11/12/2020 12:00:00 AM EST eCW1 ([facility]) Outpatient Attender: DIEGO Duffy Primary 11/07/2020 07:50:00 AM EST [facility] ([facility]) [place] [address] [facility] [place] [address] 11/06/2020 12:00:00 AM EST eCW1 ([facility]) Outpatient [address] [facility] [place] [address] 10/17/2020 12:00:00 AM EST eCW1 ([facility]) Unknown [address] [facility] [place] [address] 10/16/2020 12:00:00 AM EST eCW1 ([facility]) Outpatient [address] [facility] [place] [address] 10/02/2020 12:00:00 AM EST eCW1 ([facility]) Outpatient [address] [facility] [place] [address] 10/02/2020 12:00:00 AM EST eCW1 ([facility]) Unknown [address] [facility] [place] [address] 09/26/2020 12:00:00 AM EST eCW1 ([facility]) Outpatient [address] [facility] [place] [address] 09/19/2020 12:00:00 AM EST eCW1 ([facility]) Outpatient [address] [facility] [place] [address] 09/18/2020 12:00:00 AM EST eCW1 ([facility]) Unknown [address] [facility] [place] [address] 09/17/2020 12:00:00 AM EST eCW1 ([facility]) Outpatient [address] [facility] [place] [address] 09/16/2020 12:00:00 AM EST eCW1 ([facility]) Outpatient [address] [facility] [place] [address] 09/16/2020 12:00:00 AM EST eCW1 ([facility]) Outpatient [address] [facility] [place] [address] 09/12/2020 12:00:00 AM EST eCW1 ([facility]) Outpatient [address] [facility] [place] [address] 09/11/2020 12:00:00 AM EST eCW1 ([facility]) Unknown [address] [facility] [place] [address] 09/10/2020 12:00:00 AM EST eCW1 ([facility]) Outpatient [address] [facility] [place] [address] 09/09/2020 12:00:00 AM EST eCW1 ([facility]) Outpatient [address] [facility] [place] [address] 09/05/2020 12:00:00 AM EST eCW1 ([facility]) Outpatient [address] [facility] [place] [address] 09/04/2020 12:00:00 AM EST eCW1 ([facility]) Unknown [address] [facility] [place] [address] 09/03/2020 12:00:00 AM EST eCW1 ([facility]) Outpatient [address] [facility] [place] [address] 09/03/2020 12:00:00 AM EST eCW1 ([facility]) Outpatient [address] [facility], [place] [address] 09/02/2020 12:00:00 AM EST eCW1 ([facility]) Unknown [address] [facility] Y [address] 08/30/2020 12:00:00 AM EST eCW1 ([facility]) Outpatient [address] [facility] Y [address] 08/29/2020 12:00:00 AM EST eCW1 ([facility]) Outpatient [address] [facility] Y [address] 08/28/2020 12:00:00 AM EST eCW1 ([facility]) Outpatient [address] [facility] [address] 08/27/2020 12:00:00 AM EST eCW1 ([facility]) ([id number]) [employer] [address] [place] [address] 08/26/2020 12:00:00 AM EST eCW1 ([facility]) Outpatient [address] [facility] [address] 08/26/2020 12:00:00 AM EST eCW1 ([facility]) Outpatient [address] [facility] [place] [address] 08/23/2020 12:00:00 AM EST eCW1 ([facility]) (Cysto1) Urology [address] [place] [address] 08/23/2020 12:00:00 AM EST eCW1 ([facility]) Outpatient [address] [facility] Y [address] 08/22/2020 12:00:00 AM EST eCW1 ([facility]) Outpatient [address] [facility] Y [address] 08/21/2020 12:00:00 AM EST eCW1 ([facility]) Outpatient [address] [facility], [place] [address] 08/20/2020 12:00:00 AM EST eCW1 ([facility]) Outpatient [address] [facility] Y [address] 08/19/2020 12:00:00 AM EST eCW1 ([facility]) Unknown [address] [facility] [address] 08/16/2020 12:00:00 AM EST eCW1 ([facility]) Outpatient [address] [facility] [address] 08/15/2020 12:00:00 AM EST eCW1 ([facility]) Outpatient [address] [facility] [address] 08/14/2020 12:00:00 AM EST eCW1 ([facility]) [facility] [address] [place] [address] 08/14/2020 12:00:00 AM EST eCW1 ([facility]) Outpatient [address] [facility] [address] 08/13/2020 12:00:00 AM EST eCW1 ([facility]) ([id number]) [facility] [employer] [address] [place] [address] 08/12/2020 12:00:00 AM EST eCW1 ([facility]) Outpatient [address] [facility] [address] 08/12/2020 12:00:00 AM EST eCW1 ([facility]) Outpatient [address] [facility] [address] 08/05/2020 12:00:00 AM EST eCW1 ([facility]) Unknown [address] [facility] [place] [address] 08/02/2020 12:00:00 AM EST eCW1 ([facility]) Outpatient [address] [facility] [address] 08/02/2020 12:00:00 AM EST eCW1 ([facility]) Unknown [address] [facility] [place] [address] 08/01/2020 12:00:00 AM EST eCW1 ([facility]) Outpatient [address] [facility] [place] [address] 07/31/2020 12:00:00 AM EST eCW1 ([facility]) Outpatient [address] [facility] [place] [address] 07/30/2020 12:00:00 AM EST eCW1 ([facility]) Outpatient [address] [facility] [place] [address] 07/30/2020 12:00:00 AM EST eCW1 ([facility]) Outpatient [address] [facility] [place] [address] 07/29/2020 12:00:00 AM EST eCW1 ([facility]) Unknown [address] [facility] [place] [address] 07/26/2020 12:00:00 AM EST [facility]CW1 [facility] Outpatient [address] [facility] [place] [address] 07/26/2020 12:00:00 AM EST eCW1 ([facility]) Outpatient [address] [facility] [place] [address] 07/25/2020 12:00:00 AM EST eCW1 ([facility]) Outpatient [address] [facility] [place] [address] 07/25/2020 12:00:00 AM EST eCW1 ([facility]) Outpatient Attender: Emma SCHMITZ Main Office 07/24/2020 10:45:0 0 AM EST [facility] ([facility]) Outpatient [address] [facility] [place] [address] 07/24/2020 12:00:00 AM EST eCW1 ([facility]) Outpatient [address] [facility] [place] [address] 07/24/2020 12:00:00 AM EST eCW1 ([facility]) Outpatient [address] [facility] [place] [address] 07/23/2020 12:00:00 AM EST eCW1 ([facility]) Unknown [address] [facility] [place] [address] 07/23/2020 12:00:00 AM EST eCW1 ([facility]) Unknown [address] [facility] [place] [address] 07/22/2020 12:00:00 AM EST eCW1 ([facility]) Outpatient [address] [facility] [address] 07/22/2020 12:00:00 AM EST eCW1 ([facility]) Outpatient [address] [facility] [place] [address] 07/19/2020 12:00:00 AM EST eCW1 ([facility]) Unknown [address] [facility] [place] [address] 07/18/2020 12:00:00 AM EST eCW1 ([facility]) [place] [address] [facility] [address] 07/18/2020 12:00:00 AM EST eCW1 ([facility]) [place] [address] [facility] [address] 07/17/2020 12:00:00 AM EST eCW1 ([facility]) [place] [address] [facility] [facility] [address] 07/16/2020 12:00:00 AM EST eCW1 ([facility]) [place] [address] [facility] [facility] [address] 07/15/2020 12:00:00 AM EST eCW1 ([facility]) Unknown [address] [facility] [address] 07/15/2020 12:00:00 AM EST eCW1 ([facility]) [place] [address] [facility] [address] 07/15/2020 12:00:00 AM EST eCW1 ([email or web address] [place] [address] [facility] [address] 07/12/2020 12:00:00 AM EDT eCW1 ([facility] [[email or web address] [address] [facility] [facility] [address] 07/05/2020 12:00:00 AM EDT eCW1 ([facility]) [place] [address] [facility] [facility] [address] 06/27/2020 12:00:00 AM EDT eCW1 ([facility]) [place] [address] [facility] [address] 06/18/2020 12:00:00 AM EDT eCW1 ([facility]) [place] [address] [facility] [facility] [address] 06/13/2020 12:00:00 AM EDT eCW1 ([facility]) Unknown [address] [facility] [address] 06/13/2020 12:00:00 AM EDT eCW1 ([facility]) Outpatient Attender: Valerie de la rosa 05/17/2020 12:30:00 PM EDT MEDENT ([facility]) Immunizations Vaccine Date Status Description Data Source(s) COVID-19 VACCINE Pfizer 11/15/2020 12:00:00 AM EST completed [facility] Vaccine Series Complete: YESThis Data wa s Submitted to [facility] [employer]. COVID-19 VACCINE Pfizer 10/25/2020 12:00:00 AM EST completed [facility] Vaccine Series Complete: NOThis Data was Submitted to [facility] [employer]. IIV3. This is one of two codes replacing CVX 15, which is being retired. 07/30/2020 10:08:00 AM EST completed eCW1 ([facility]) IIV3. This is one of two codes replacing CVX 15, which is being retired. 07/30/2020 10:08:00 AM EST completed eCW1 ([facility]) IIV3. This is one of two codes replacing CVX 15, which is being retired. 07/30/2020 10:08:00 AM EST completed eCW1 ([facility]) IIV3. This is one of two codes replacing CVX 15, which is being retired. 07/30/2020 10:08:00 AM EST completed eCW1 ([facility]) IIV3. This is one of two codes replacing CVX 15, which is being retired. 07/30/2020 10:08:00 AM EST completed eCW1 ([facility]) IIV3. This is one of two codes replacing CVX 15, which is being retired. 07/30/2020 10:08:00 AM EST completed eCW1 ([facility]) IIV3. This is one of two codes replacing CVX 15, which is being retired. 07/30/2020 10:08:00 AM EST completed eCW1 ([facility]) IIV3. This is one of two codes replacing CVX 15, which is being retired. 07/30/2020 10:08:00 AM EST completed eCW1 ([facility]) IIV3. This is one of two codes replacing CVX 15, which is being retired. 07/30/2020 10:08:00 AM EST completed eCW1 ([facility]) IIV3. This is one of two codes replacing CVX 15, which is being retired. 07/30/2020 10:08:00 AM EST completed eCW1 ([facility]) IIV3. This is one of two codes replacing CVX 15, which is being retired. 07/30/2020 10:08:00 AM EST completed eCW1 ([facility]) IIV3. This is one of two codes replacing CVX 15, which is being retired. 07/30/2020 10:08:00 AM EST completed eCW1 ([facility]) IIV3. This is one of two codes replacing CVX 15, which is being retired. 07/30/2020 10:08:00 AM EST completed eCW1 ([facility]) IIV3. This is one of two codes replacing CVX 15, which is being retired. 07/30/2020 10:08:00 AM EST completed eCW1 ([facility]) IIV3. This is one of two codes replacing CVX 15, which is being retired. 07/30/2020 10:08:00 AM EST completed eCW1 ([facility]) IIV3. This is one of two codes replacing CVX 15, which is being retired. 07/30/2020 10:08:00 AM EST completed eCW1 ([facility]) IIV3. This is one of two codes replacing CVX 15, which is being retired. 07/30/2020 10:08:00 AM EST completed eCW1 ([facility]) IIV3. This is one of two codes replacing CVX 15, which is being retired. 07/30/2020 10:08:00 AM EST completed eCW1 ([facility]) IIV3. This is one of two codes replacing CVX 15, which is being retired. 07/30/2020 10:08:00 AM EST completed eCW1 ([facility]) IIV3. This is one of two codes replacing CVX 15, which is being retired. 07/30/2020 10:08:00 AM EST completed eCW1 ([facility]) IIV3. This is one of two codes replacing CVX 15, which is being retired. 07/30/2020 10:08:00 AM EST completed eCW1 ([facility]) IIV3. This is one of two codes replacing CVX 15, which is being retired. 07/30/2020 10:08:00 AM EST completed eCW1 ([facility]) IIV3. This is one of two codes replacing CVX 15, which is being retired. 07/30/2020 10:08:00 AM EST completed eCW1 ([facility]) IIV3. This is one of two codes replacing CVX 15, which is being retired. 07/30/2020 10:08:00 AM EST completed eCW1 ([facility]) IIV3. This is one of two codes replacing CVX 15, which is being retired. 07/30/2020 10:08:00 AM EST completed eCW1 ([facility]) IIV3. This is one of two codes replacing CVX 15, which is being retired. 07/30/2020 10:08:00 AM EST completed eCW1 ([facility]) IIV3. This is one of two codes replacing CVX 15, which is being retired. 07/30/2020 10:08:00 AM EST completed eCW1 ([facility]) IIV3. This is one of two codes replacing CVX 15, which is being retired. 07/30/2020 10:08:00 AM EST completed eCW1 ([facility]) IIV3. This is one of two codes replacing CVX 15, which is being retired. 07/30/2020 10:08:00 AM EST completed eCW1 ([facility]) IIV3. This is one of two codes replacing CVX 15, which is being retired. 07/30/2020 10:08:00 AM EST completed eCW1 ([facility]) IIV3. This is one of two codes replacing CVX 15, which is being retired. 07/30/2020 10:08:00 AM EST completed eCW1 ([facility]) IIV3. This is one of two codes replacing CVX 15, which is being retired. 07/30/2020 10:08:00 AM EST completed eCW1 ([facility]) IIV3. This is one of two codes replacing CVX 15, which is being retired. 07/30/2020 10:08:00 AM EST completed eCW1 ([facility]) IIV3. This is one of two codes replacing CVX 15, which is being retired. 07/30/2020 10:08:00 AM EST completed eCW1 ([facility]) IIV3. This is one of two codes replacing CVX 15, which is being retired. 07/30/2020 10:08:00 AM EST completed eCW1 ([facility]) IIV3. This is one of two codes replacing CVX 15, which is being retired. 07/30/2020 10:08:00 AM EST completed eCW1 ([facility]) IIV3. This is one of two codes replacing CVX 15, which is being retired. 07/30/2020 10:08:00 AM EST completed eCW1 ([facility]) IIV3. This is one of two codes replacing CVX 15, which is being retired. 07/30/2020 10:08:00 AM EST completed eCW1 ([facility]) IIV3. This is one of two codes replacing CVX 15, which is being retired. 07/30/2020 10:08:00 AM EST completed eCW1 ([facility]) IIV3. This is one of two codes replacing CVX 15, which is being retired. 07/30/2020 10:08:00 AM EST completed eCW1 ([facility]) IIV3. This is one of two codes replacing CVX 15, which is being retired. 07/30/2020 10:08:00 AM EST completed eCW1 ([facility]) IIV3. This is one of two codes replacing CVX 15, which is being retired. 07/30/2020 10:08:00 AM EST completed eCW1 ([facility]) IIV3. This is one of two codes replacing CVX 15, which is being retired. 07/30/2020 10:08:00 AM EST completed eCW1 ([facility]) IIV3. This is one of two codes replacing CVX 15, which is being retired. 07/30/2020 10:08:00 AM EST completed eCW1 ([facility]) IIV3. This is one of two codes replacing CVX 15, which is being retired. 07/30/2020 10:08:00 AM EST completed eCW1 ([facility]) IIV3. This is one of two codes replacing CVX 15, which is being retired. 07/30/2020 10:08:00 AM EST completed eCW1 ([facility]) IIV3. This is one of two codes replacing CVX 15, which is being retired. 07/30/2020 10:08:00 AM EST completed eCW1 ([facility]) IIV3. This is one of two codes replacing CVX 15, which is being retired. 07/30/2020 10:08:00 AM EST completed eCW1 ([facility]) IIV3. This is one of two codes replacing CVX 15, which is being retired. 07/30/2020 10:08:00 AM EST completed eCW1 ([facility]) IIV3. This is one of two codes replacing CVX 15, which is being retired. 07/30/2020 10:08:00 AM EST completed eCW1 ([facility]) IIV3. This is one of two codes replacing CVX 15, which is being retired. 07/30/2020 10:08:00 AM EST completed eCW1 ([facility]) IIV3. This is one of two codes replacing CVX 15, which is being retired. 07/30/2020 10:08:00 AM EST completed eCW1 ([facility]) IIV3. This is one of two codes replacing CVX 15, which is being retired. 07/30/2020 10:08:00 AM EST completed eCW1 ([facility]) IIV3. This is one of two codes replacing CVX 15, which is being retired. 07/30/2020 10:08:00 AM EST completed eCW1 ([facility]) IIV3. This is one of two codes replacing CVX 15, which is being retired. 07/30/2020 10:08:00 AM EST completed eCW1 ([facility]) IIV3. This is one of two codes replacing CVX 15, which is being retired. 07/30/2020 10:08:00 AM EST completed eCW1 ([facility]) IIV3. This is one of two codes replacing CVX 15, which is being retired. 07/30/2020 10:08:00 AM EST completed eCW1 ([facility]) IIV3. This is one of two codes replacing CVX 15, which is being retired. 07/30/2020 10:08:00 AM EST completed eCW1 ([facility]) IIV3. This is one of two codes replacing CVX 15, which is being retired. 07/30/2020 10:08:00 AM EST completed eCW1 ([facility]) IIV3. This is one of two codes replacing CVX 15, which is being retired. 07/30/2020 10:08:00 AM EST completed eCW1 ([facility]) IIV3. This is one of two codes replacing CVX 15, which is being retired. 07/30/2020 10:08:00 AM EST completed eCW1 ([facility]) IIV3. This is one of two codes replacing CVX 15, which is being retired. 07/30/2020 10:08:00 AM EST completed eCW1 ([facility]) IIV3. This is one of two codes replacing CVX 15, which is being retired. 07/30/2020 10:08:00 AM EST completed eCW1 ([facility]) IIV3. This is one of two codes replacing CVX 15, which is being retired. 07/30/2020 10:08:00 AM EST completed eCW1 ([facility]) IIV3. This is one of two codes replacing CVX 15, which is being retired. 07/30/2020 10:08:00 AM EST completed eCW1 ([facility]) IIV3. This is one of two codes replacing CVX 15, which is being retired. 07/30/2020 10:08:00 AM EST completed eCW1 ([facility]) IIV3. This is one of two codes replacing CVX 15, which is being retired. 07/30/2020 10:08:00 AM EST completed eCW1 ([facility]) IIV3. This is one of two codes replacing CVX 15, which is being retired. 07/30/2020 10:08:00 AM EST completed eCW1 ([facility]) IIV3. This is one of two codes replacing CVX 15, which is being retired. 07/30/2020 10:08:00 AM EST completed eCW1 ([facility]) IIV3. This is one of two codes replacing CVX 15, which is being retired. 07/30/2020 10:08:00 AM EST completed eCW1 ([facility]) IIV3. This is one of two codes replacing CVX 15, which is being retired. 07/30/2020 10:08:00 AM EST completed eCW1 ([facility]) IIV3. This is one of two codes replacing CVX 15, which is being retired. 07/30/2020 10:08:00 AM EST completed eCW1 ([facility]) IIV3. This is one of two codes replacing CVX 15, which is being retired. 07/30/2020 10:08:00 AM EST completed eCW1 ([facility]) IIV3. This is one of two codes replacing CVX 15, which is being retired. 07/30/2020 10:08:00 AM EST completed eCW1 ([facility]) IIV3. This is one of two codes replacing CVX 15, which is being retired. 07/30/2020 10:08:00 AM EST completed eCW1 ([facility]) IIV3. This is one of two codes replacing CVX 15, which is being retired. 07/30/2020 10:08:00 AM EST completed eCW1 ([facility]) IIV3. This is one of two codes replacing CVX 15, which is being retired. 07/30/2020 10:08:00 AM EST completed eCW1 ([facility]) IIV3. This is one of two codes replacing CVX 15, which is being retired. 07/30/2020 10:08:00 AM EST completed eCW1 ([facility]) IIV3. This is one of two codes replacing CVX 15, which is being retired. 07/30/2020 10:08:00 AM EST completed eCW1 ([facility]) IIV3. This is one of two codes replacing CVX 15, which is being retired. 07/30/2020 10:08:00 AM EST completed eCW1 ([facility]) IIV3. This is one of two codes replacing CVX 15, which is being retired. 07/30/2020 10:08:00 AM EST completed eCW1 ([facility]) Medications Medication Brand Name Start Date Product Form Dose Route Admi nistrative Instructions Pharmacy Instructions Status Indications Reaction Description Data Source(s) NITROFURANTOIN, MACROCRYSTALS 25 MG / Ni trofurantoin, Monohydrate 75 MG Oral Capsule 100 mg NITROFURANTOIN MONOHYD/M-CRYST 06/23/2021 12:00:00 AM EDT ca psule 30 TAKE ONE CAPSULE BY MOUTH AT BED TIME WITH FOOD TAKE ONE CAPSULE BY MOUTH AT BEDTIME WITH FOOD SOLD: 06/25/2021 [facility] 800-160 mg 06/23/2021 12:00:00 AM EDT tablet 20 TAKE ONE TABLET BY MOUTH TWICE A DAY FOR 10 DAYS TAKE ONE TABLET BY MOUTH TWICE A DAY FOR 10 DAYS SOLD: 06/25/2021 [facility] 5 mg 05/24/2021 12:00:00 AM EDT tablet 60 TAKE ONE TABLET BY MOUTH TWICE A DAY TAKE ONE TABLET BY MOUTH TWICE A DAY SOLD: 06/02/2021 [facility] 5-325 mg 04/10/2021 12:00:00 AM EDT tablet 20 TAKE ONE TABLET BY MOUTH EVERY 6 HOURS NEEDED FOR MODERATE TO SEVERE PAIN MAXIMUM DAILY DOSE = 4 TABLETS TAKE ONE TABLET BY MOUTH EVERY 6 HOURS NEEDED FOR MODERATE TO SEVERE PAIN MAXIMUM DAILY DOSE = 4 TABLETS SOLD: 04/10/2021 [facility] NITROFURANTOIN, MACROCRYSTALS 25 MG / Ni trofurantoin, Monohydrate 75 MG Oral Capsule [Macrobid] Macrobid 100 MG Macrobid 100 MG 03/18/2021 12:00:00 AM EDT 1.0 {capsule_with_food} active Macrobid 100 MG eCW1 ([facility]) NITROFURANTOIN, MACROCRYSTALS 25 MG / Ni trofurantoin, Monohydrate 75 MG Oral Capsule [Macrobid] Macrobid 100 MG Macrobid 100 MG 03/18/2021 12:00:00 AM EDT 1.0 {capsule_with_food} active Macrobid 100 MG eCW1 ([facility]) NITROFURANTOIN, MACROCRYSTALS 25 MG / Ni trofurantoin, Monohydrate 75 MG Oral Capsule [Macrobid] Macrobid 100 MG Macrobid 100 MG 03/18/2021 12:00:00 AM EDT 1.0 {capsule_with_food} active Macrobid 100 MG eCW1 ([facility]) NITROFURANTOIN, MACROCRYSTALS 25 MG / Ni trofurantoin, Monohydrate 75 MG Oral Capsule [Macrobid] Macrobid 100 MG Macrobid 100 MG 03/18/2021 12:00:00 AM EDT 1.0 {capsule_with_food} suspended Macrob id 100 MG eCW1 ([facility]) NITROFURANTOIN, MACROCRYSTALS 25 MG / Ni trofurantoin, Monohydrate 75 MG Oral Capsule [Macrobid] Macrobid 100 MG Macrobid 100 MG 03/18/2021 12:00:00 AM EDT 1.0 {capsule_with_food} active Macrobid 100 MG eCW1 ([facility]) NITROFURANTOIN, MACROCRYSTALS 25 MG / Ni trofurantoin, Monohydrate 75 MG Oral Capsule [Macrobid] Macrobid 100 MG Macrobid 100 MG 03/18/2021 12:00:00 AM EDT 1.0 {capsule_with_food} active Macrobid 100 MG eCW1 ([facility]) NITROFURANTOIN, MACROCRYSTALS 25 MG / Ni trofurantoin, Monohydrate 75 MG Oral Capsule 100 mg NITROFURANTOIN MONOHYD/M-CRYST 03/18/2021 12:00:00 AM EDT ca psule 20 TAKE ONE CAPSULE BY MOUTH TWICE A DAY WITH FOOD FOR 10 DAYS TAKE ONE CAPSULE BY MOUTH TWICE A DAY WITH FOOD FOR 10 DAYS SOLD: 03/20/2021 [facility] NITROFURANTOIN, MACROCRYSTALS 25 MG / Ni trofurantoin, Monohydrate 75 MG Oral Capsule [Macrobid] Macrobid 100 MG Macrobid 100 MG 03/18/2021 12:00:00 AM EDT 1.0 {capsule_with_food} active Macrobid 100 MG eCW1 ([facility]) NITROFURANTOIN, MACROCRYSTALS 25 MG / Ni trofurantoin, Monohydrate 75 MG Oral Capsule [Macrobid] Macrobid 100 MG Macrobid 100 MG 03/18/2021 12:00:00 AM EDT 1.0 {capsule_with_food} active Macrobid 100 MG eCW1 ([facility]) NITROFURANTOIN, MACROCRYSTALS 25 MG / Ni trofurantoin, Monohydrate 75 MG Oral Capsule [Macrobid] Macrobid 100 MG Macrobid 100 MG 03/18/2021 12:00:00 AM EDT 1.0 {capsule_with_food} suspended Macrob id 100 MG eCW1 ([facility]) NITROFURANTOIN, MACROCRYSTALS 25 MG / Ni trofurantoin, Monohydrate 75 MG Oral Capsule [Macrobid] Macrobid 100 MG Macrobid 100 MG 03/18/2021 12:00:00 AM EDT 1.0 {capsule_with_food} active Macrobid 100 MG eCW1 ([facility]) NITROFURANTOIN, MACROCRYSTALS 25 MG / Ni trofurantoin, Monohydrate 75 MG Oral Capsule [Macrobid] Macrobid 100 MG Macrobid 100 MG 03/18/2021 12:00:00 AM EDT 1.0 {capsule_with_food} active Macrobid 100 MG eCW1 ([facility]) NITROFURANTOIN, MACROCRYSTALS 25 MG / Ni trofurantoin, Monohydrate 75 MG Oral Capsule [Macrobid] Macrobid 100 MG Macrobid 100 MG 03/18/2021 12:00:00 AM EDT 1.0 {capsule_with_food} active Macrobid 100 MG eCW1 ([facility]) NITROFURANTOIN, MACROCRYSTALS 25 MG / Ni trofurantoin, Monohydrate 75 MG Oral Capsule [Macrobid] Macrobid 100 MG Macrobid 100 MG 03/18/2021 12:00:00 AM EDT 1.0 {capsule_with_food} active Macrobid 100 MG eCW1 ([facility]) 5 mg 03/14/2021 12:00:00 AM EDT tablet 60 TAKE ONE TABLET BY MOUTH TWICE A DAY TAKE ONE TABLET BY MOUTH TWICE A DAY SOLD: 04/13/2021 [facility] Oxybutynin chloride 5 MG Oral Tablet Oxybutynin Chlori de 5 MG Oxybutynin Chloride 5 MG 03/14/2021 12:00:00 AM EDT 1.0 {tablet} active Oxybutynin Chloride 5 MG eCW1 ([facility]) Oxybutynin chloride 5 MG Oral Tablet Oxybutynin Chlori de 5 MG Oxybutynin Chloride 5 MG 03/14/2021 12:00:00 AM EDT 1.0 {tablet} active Oxybutynin Chloride 5 MG eCW1 ([facility]) 5 mg 03/14/2021 12:00:00 AM EDT tablet 60 TAKE ONE TABLET BY MOUTH TWICE A DAY TAKE ONE TABLET BY MOUTH TWICE A DAY SOLD: 03/14/2021 [facility] Oxybutynin chloride 5 MG Oral Tablet Oxybutynin Chlori de 5 MG Oxybutynin Chloride 5 MG 03/14/2021 12:00:00 AM EDT 1.0 {tablet} active Oxybutynin Chloride 5 MG eCW1 ([facility]) Oxybutynin chloride 5 MG Oral Tablet Oxybutynin Chlori de 5 MG Oxybutynin Chloride 5 MG 03/14/2021 12:00:00 AM EDT 1.0 {tablet} active Oxybutynin Chloride 5 MG eCW1 ([facility]) Oxybutynin chloride 5 MG Oral Tablet Oxybutynin Chlori de 5 MG Oxybutynin Chloride 5 MG 03/14/2021 12:00:00 AM EDT 1.0 {tablet} active Oxybutynin Chloride 5 MG eCW1 ([facility]) Oxybutynin chloride 5 MG Oral Tablet Oxybutynin Chlori de 5 MG Oxybutynin Chloride 5 MG 03/14/2021 12:00:00 AM EDT 1.0 {tablet} active Oxybutynin Chloride 5 MG eCW1 ([facility]) Oxybutynin chloride 5 MG Oral Tablet Oxybutynin Chlori de 5 MG Oxybutynin Chloride 5 MG 03/14/2021 12:00:00 AM EDT 1.0 {tablet} active Oxybutynin Chloride 5 MG eCW1 ([facility]) Oxybutynin chloride 5 MG Oral Tablet Oxybutynin Chlori de 5 MG Oxybutynin Chloride 5 MG 03/14/2021 12:00:00 AM EDT 1.0 {tablet} active Oxybutynin Chloride 5 MG eCW1 ([facility]) Oxybutynin chloride 5 MG Oral Tablet Oxybutynin Chlori de 5 MG Oxybutynin Chloride 5 MG 03/14/2021 12:00:00 AM EDT 1.0 {tablet} active Oxybutynin Chloride 5 MG eCW1 ([facility]) Oxybutynin chloride 5 MG Oral Tablet Oxybutynin Chlori de 5 MG Oxybutynin Chloride 5 MG 03/14/2021 12:00:00 AM EDT 1.0 {tablet} active Oxybutynin Chloride 5 MG eCW1 ([facility]) Oxybutynin chloride 5 MG Oral Tablet Oxybutynin Chlori de 5 MG Oxybutynin Chloride 5 MG 03/14/2021 12:00:00 AM EDT 1.0 {tablet} active Oxybutynin Chloride 5 MG eCW1 ([facility]) Sulfamethoxazole 800 MG / Trimethoprim 1 60 MG Oral Tablet [Bactrim] Bactrim DS 800-160 MG Bactrim DS 800-160 MG 03/03/2021 12:00:00 AM EDT 1.0 {table t} suspended Bactrim DS 800-160 MG eCW1 ( [facility]) Sulfamethoxazole 800 MG / Trimethoprim 1 60 MG Oral Tablet [Bactrim] Bactrim DS 800-160 MG Bactrim DS 800-160 MG 03/03/2021 12:00:00 AM EDT 1.0 {table t} suspended Bactrim DS 800-160 MG eCW1 ( [facility]) Sulfamethoxazole 800 MG / Trimethoprim 1 60 MG Oral Tablet [Bactrim] Bactrim DS 800-160 MG Bactrim DS 800-160 MG 03/03/2021 12:00:00 AM EDT 1.0 {table t} suspended Bactrim DS 800-160 MG eCW1 ( [facility]) Sulfamethoxazole 800 MG / Trimethoprim 1 60 MG Oral Tablet [Bactrim] Bactrim DS 800-160 MG Bactrim DS 800-160 MG 03/03/2021 12:00:00 AM EDT 1.0 {table t} suspended Bactrim DS 800-160 MG eCW1 ( [facility]) Sulfamethoxazole 800 MG / Trimethoprim 1 60 MG Oral Tablet [Bactrim] Bactrim DS 800-160 MG Bactrim DS 800-160 MG 03/03/2021 12:00:00 AM EDT 1.0 {table t} suspended Bactrim DS 800-160 MG eCW1 ( [facility]) Sulfamethoxazole 800 MG / Trimethoprim 1 60 MG Oral Tablet [Bactrim] Bactrim DS 800-160 MG Bactrim DS 800-160 MG 03/03/2021 12:00:00 AM EDT 1.0 {table t} active Bactrim DS 800-160 MG eCW1 ( [facility]) Sulfamethoxazole 800 MG / Trimethoprim 1 60 MG Oral Tablet [Bactrim] Bactrim DS 800-160 MG Bactrim DS 800-160 MG 03/03/2021 12:00:00 AM EDT 1.0 {table t} suspended Bactrim DS 800-160 MG eCW1 ( [facility]) Sulfamethoxazole 800 MG / Trimethoprim 1 60 MG Oral Tablet [Bactrim] Bactrim DS 800-160 MG Bactrim DS 800-160 MG 03/03/2021 12:00:00 AM EDT 1.0 {table t} active Bactrim DS 800-160 MG eCW1 ( [facility]) Sulfamethoxazole 800 MG / Trimethoprim 1 60 MG Oral Tablet [Bactrim] Bactrim DS 800-160 MG Bactrim DS 800-160 MG 03/03/2021 12:00:00 AM EDT 1.0 {table t} suspended Bactrim DS 800-160 MG eCW1 ( [facility]) Sulfamethoxazole 800 MG / Trimethoprim 1 60 MG Oral Tablet [Bactrim] Bactrim DS 800-160 MG Bactrim DS 800-160 MG 03/03/2021 12:00:00 AM EDT 1.0 {table t} suspended Bactrim DS 800-160 MG eCW1 ( [facility]) Sulfamethoxazole 800 MG / Trimethoprim 1 60 MG Oral Tablet [Bactrim] Bactrim DS 800-160 MG Bactrim DS 800-160 MG 03/03/2021 12:00:00 AM EDT 1.0 {table t} suspended Bactrim DS 800-160 MG eCW1 ( [facility]) Sulfamethoxazole 800 MG / Trimethoprim 1 60 MG Oral Tablet [Bactrim] Bactrim DS 800-160 MG Bactrim DS 800-160 MG 03/03/2021 12:00:00 AM EDT 1.0 {table t} suspended Bactrim DS 800-160 MG eCW1 ( [facility]) Sulfamethoxazole 800 MG / Trimethoprim 1 60 MG Oral Tablet [Bactrim] Bactrim DS 800-160 MG Bactrim DS 800-160 MG 03/03/2021 12:00:00 AM EDT 1.0 {table t} suspended Bactrim DS 800-160 MG eCW1 ( [facility]) Sulfamethoxazole 800 MG / Trimethoprim 1 60 MG Oral Tablet [Bactrim] Bactrim DS 800-160 MG Bactrim DS 800-160 MG 03/03/2021 12:00:00 AM EDT 1.0 {table t} active Bactrim DS 800-160 MG eCW1 ( [facility]) Sulfamethoxazole 800 MG / Trimethoprim 1 60 MG Oral Tablet [Bactrim] Bactrim DS 800-160 MG Bactrim DS 800-160 MG 03/03/2021 12:00:00 AM EDT 1.0 {table t} suspended Bactrim DS 800-160 MG eCW1 ( [facility]) 800-160 mg 03/03/2021 12:00:00 AM EDT tablet 10 TAKE ONE TABLET BY MOUTH TWICE A DAY TAKE ONE TABLET BY MOUTH TWICE A DAY SOLD: 03/05/2021 [facility] 500 mg 01/24/2021 12:00:00 AM EDT tablet 14 TAKE ONE TABLET BY MOUTH TWICE A DAY TAKE ONE TABLET BY MOUTH TWICE A DAY SOLD: 01/24/2021 [facility] Levofloxacin 500 MG Oral Tablet levoFLOXacin 500 MG levoFLOX acin 500 MG 01/13/2021 12:00:00 AM EDT 1.0 {tablet} suspende d levoFLOXacin 500 MG eCW1 ([facility]) Levofloxacin 500 MG Oral Tablet Levofloxacin 500 MG 01/13/2021 1 2:00:00 AM EDT 1.0 {tablet} active Levofloxaci n 500 MG eCW1 ([facility]) Levofloxacin 500 MG Oral Tablet levoFLOXacin 500 MG levoFLOX acin 500 MG 01/13/2021 12:00:00 AM EDT 1.0 {tablet} suspende d levoFLOXacin 500 MG eCW1 ([facility]) Levofloxacin 500 MG Oral Tablet levoFLOXacin 500 MG levoFLOX acin 500 MG 01/13/2021 12:00:00 AM EDT 1.0 {tablet} suspende d levoFLOXacin 500 MG eCW1 ([facility]) Levofloxacin 500 MG Oral Tablet levoFLOXacin 500 MG levoFLOX acin 500 MG 01/13/2021 12:00:00 AM EDT 1.0 {tablet} suspende d levoFLOXacin 500 MG eCW1 ([facility]) Levofloxacin 500 MG Oral Tablet Levofloxacin 500 MG 01/13/2021 1 2:00:00 AM EDT 1.0 {tablet} active Levofloxaci n 500 MG eCW1 ([facility]) Levofloxacin 500 MG Oral Tablet Levofloxacin 500 MG 01/13/2021 1 2:00:00 AM EDT 1.0 {tablet} suspended Levofloxa orquidea 500 MG eCW1 ([facility]) Levofloxacin 500 MG Oral Tablet Levofloxacin 500 MG 01/13/2021 1 2:00:00 AM EDT 1.0 {tablet} suspended Levofloxa orquidea 500 MG eCW1 ([facility]) Levofloxacin 500 MG Oral Tablet levoFLOXacin 500 MG levoFLOX acin 500 MG 01/13/2021 12:00:00 AM EDT 1.0 {tablet} suspende d levoFLOXacin 500 MG eCW1 ([facility]) Levofloxacin 500 MG Oral Tablet levoFLOXacin 500 MG levoFLOX acin 500 MG 01/13/2021 12:00:00 AM EDT 1.0 {tablet} suspende d levoFLOXacin 500 MG eCW1 ([facility]) Levofloxacin 500 MG Oral Tablet levoFLOXacin 500 MG levoFLOX acin 500 MG 01/13/2021 12:00:00 AM EDT 1.0 {tablet} suspende d levoFLOXacin 500 MG eCW1 ([facility]) 500 mg 01/13/2021 12:00:00 AM EDT tablet 7 TAKE ONE TABLET BY MOUTH EVERY DAY TAKE ONE TABLET BY MOUTH EVERY DAY SOLD: 01/17/2021 [facility] Levofloxacin 500 MG Oral Tablet levoFLOXacin 500 MG levoFLOX acin 500 MG 01/13/2021 12:00:00 AM EDT 1.0 {tablet} suspende d levoFLOXacin 500 MG eCW1 ([facility]) Levofloxacin 500 MG Oral Tablet levoFLOXacin 500 MG levoFLOX acin 500 MG 01/13/2021 12:00:00 AM EDT 1.0 {tablet} suspende d levoFLOXacin 500 MG eCW1 ([facility]) Levofloxacin 500 MG Oral Tablet Levofloxacin 500 MG 01/13/2021 1 2:00:00 AM EDT 1.0 {tablet} active Levofloxaci n 500 MG eCW1 ([facility]) Levofloxacin 500 MG Oral Tablet levoFLOXacin 500 MG levoFLOX acin 500 MG 01/13/2021 12:00:00 AM EDT 1.0 {tablet} suspende d levoFLOXacin 500 MG eCW1 ([facility]) Levofloxacin 500 MG Oral Tablet levoFLOXacin 500 MG levoFLOX acin 500 MG 01/13/2021 12:00:00 AM EDT 1.0 {tablet} suspende d levoFLOXacin 500 MG eCW1 ([facility]) Levofloxacin 500 MG Oral Tablet levoFLOXacin 500 MG levoFLOX acin 500 MG 01/13/2021 12:00:00 AM EDT 1.0 {tablet} suspende d levoFLOXacin 500 MG eCW1 ([facility]) Levofloxacin 500 MG Oral Tablet Levofloxacin 500 MG 01/13/2021 1 2:00:00 AM EDT 1.0 {tablet} active Levofloxaci n 500 MG eCW1 ([facility]) Levofloxacin 500 MG Oral Tablet levoFLOXacin 500 MG levoFLOX acin 500 MG 01/13/2021 12:00:00 AM EDT 1.0 {tablet} suspende d levoFLOXacin 500 MG eCW1 ([facility]) Levofloxacin 500 MG Oral Tablet levoFLOXacin 500 MG levoFLOX acin 500 MG 01/13/2021 12:00:00 AM EDT 1.0 {tablet} suspende d levoFLOXacin 500 MG eCW1 ([facility]) Levofloxacin 500 MG Oral Tablet Levofloxacin 500 MG 01/13/2021 1 2:00:00 AM EDT 1.0 {tablet} suspended e CW1 ([facility]) Levofloxacin 500 MG Oral Tablet levoFLOXacin 500 MG levoFLOX acin 500 MG 01/13/2021 12:00:00 AM EDT 1.0 {tablet} suspende d levoFLOXacin 500 MG eCW1 ([facility]) Levofloxacin 500 MG Oral Tablet levoFLOXacin 500 MG levoFLOX acin 500 MG 01/13/2021 12:00:00 AM EDT 1.0 {tablet} suspende d levoFLOXacin 500 MG eCW1 ([facility]) Levofloxacin 500 MG Oral Tablet levoFLOXacin 500 MG levoFLOX acin 500 MG 01/13/2021 12:00:00 AM EDT 1.0 {tablet} suspende d levoFLOXacin 500 MG eCW1 ([facility]) Levofloxacin 500 MG Oral Tablet Levofloxacin 500 MG 01/13/2021 1 2:00:00 AM EDT 1.0 {tablet} suspended Levofloxa orquidea 500 MG eCW1 ([facility]) Ciprofloxacin 500 MG Oral Tablet [Cipro] Cipro 11/25/2020 12:00: 00 AM EDT ORAL active MEDENT ([facility]) 500 mg 11/25/2020 12:00:00 AM EDT tablet 14 TAKE ONE TABLET BY MOUTH EVERY 12 HOURS FOR 7 DAYS TAKE ONE TABLET BY MOUTH EVERY 12 HOURS FOR 7 DAYS [facility] Ciprofloxacin 500 MG Oral Tablet [Cipro] Cipro 11/07/2020 12:00: 00 AM EST ORAL completed MEDENT ([facility]) 500 mg 11/07/2020 12:00:00 AM EST tablet 10 TAKE ONE TABLET BY MOUTH EVERY 12 HOURS FOR 5 DAYS TAKE ONE TABLET BY MOUTH EVERY 12 HOURS FOR 5 DAYS [facility] 25 mg 08/21/2020 12:00:00 AM EST tablet 90 TAKE ONE TABLET BY MOUTH EVERY DAY TAKE ONE TABLET BY MOUTH EVERY DAY SOLD: 03/05/2021 [facility] 25 mg 08/21/2020 12:00:00 AM EST tablet 90 TAKE ONE TABLET BY MOUTH EVERY DAY TAKE ONE TABLET BY MOUTH EVERY DAY SOLD: 05/24/2021 [facility] 25 mg 08/21/2020 12:00:00 AM EST tablet 90 TAKE ONE TABLET BY MOUTH EVERY DAY TAKE ONE TABLET BY MOUTH EVERY DAY SOLD: 11/25/2020 [facility] 25 mg 08/21/2020 12:00:00 AM EST tablet 90 TAKE ONE TABLET BY MOUTH EVERY DAY TAKE ONE TABLET BY MOUTH EVERY DAY SOLD: 08/23/2020 [facility] 20 mEq 08/13/2020 12:00:00 AM EST tablet extended release 90 TAKE ONE TABLET BY MOUTH EVERY DAY TAKE ONE TABLET BY MOUTH EVERY DAY SOLD: 05/24/2021 [facility] 20 mEq 08/13/2020 12:00:00 AM EST tablet extended release 90 TAKE ONE TABLET BY MOUTH EVERY DAY TAKE ONE TABLET BY MOUTH EVERY DAY SOLD: 08/21/2020 [facility] Levofloxacin 500 MG Oral Tablet Levaquin 500 MG Levaquin 500 MG 07/29/2020 12:00:00 AM EST 1.0 {tablet} suspended Levaquin 500 MG eCW1 ([facility]) Levofloxacin 500 MG Oral Tablet Levaquin 500 MG Levaquin 500 MG 07/29/2020 12:00:00 AM EST 1.0 {tablet} suspended Levaquin 500 MG eCW1 ([facility]) Levofloxacin 500 MG Oral Tablet Levaquin 500 MG Levaquin 500 MG 07/29/2020 12:00:00 AM EST 1.0 {tablet} suspended Levaquin 500 MG eCW1 ([facility]) Levofloxacin 500 MG Oral Tablet Levaquin 500 MG Levaquin 500 MG 07/29/2020 12:00:00 AM EST 1.0 {tablet} suspended Levaquin 500 MG eCW1 ([facility]) Levofloxacin 500 MG Oral Tablet Levaquin 500 MG Levaquin 500 MG 07/29/2020 12:00:00 AM EST 1.0 {tablet} suspended Levaquin 500 MG eCW1 ([facility]) Levofloxacin 500 MG Oral Tablet Levaquin 500 MG Levaquin 500 MG 07/29/2020 12:00:00 AM EST 1.0 {tablet} suspended Levaquin 500 MG eCW1 ([facility]) Levofloxacin 500 MG Oral Tablet Levaquin 500 MG Levaquin 500 MG 07/29/2020 12:00:00 AM EST 1.0 {tablet} suspended Levaquin 500 MG eCW1 ([facility]) Levofloxacin 500 MG Oral Tablet Levaquin 500 MG Levaquin 500 MG 07/29/2020 12:00:00 AM EST 1.0 {tablet} suspended Levaquin 500 MG eCW1 ([facility]) Levofloxacin 500 MG Oral Tablet Levaquin 500 MG Levaquin 500 MG 07/29/2020 12:00:00 AM EST 1.0 {tablet} active Le vaquin 500 MG eCW1 ([facility]) Levofloxacin 500 MG Oral Tablet Levaquin 500 MG Levaquin 500 MG 07/29/2020 12:00:00 AM EST 1.0 {tablet} suspended Levaquin 500 MG eCW1 ([facility]) Levofloxacin 500 MG Oral Tablet Levaquin 500 MG Levaquin 500 MG 07/29/2020 12:00:00 AM EST 1.0 {tablet} active Le vaquin 500 MG eCW1 ([facility]) Levofloxacin 500 MG Oral Tablet Levaquin 500 MG Levaquin 500 MG 07/29/2020 12:00:00 AM EST 1.0 {tablet} suspended Levaquin 500 MG eCW1 ([facility]) Levofloxacin 500 MG Oral Tablet Levaquin 500 MG Levaquin 500 MG 07/29/2020 12:00:00 AM EST 1.0 {tablet} suspended Levaquin 500 MG eCW1 ([facility]) Levofloxacin 500 MG Oral Tablet Levaquin 500 MG Levaquin 500 MG 07/29/2020 12:00:00 AM EST 1.0 {tablet} suspended Levaquin 500 MG eCW1 ([facility]) Levofloxacin 500 MG Oral Tablet Levaquin 500 MG Levaquin 500 MG 07/29/2020 12:00:00 AM EST 1.0 {tablet} suspended Levaquin 500 MG eCW1 ([facility]) Levofloxacin 500 MG Oral Tablet Levaquin 500 MG Levaquin 500 MG 07/29/2020 12:00:00 AM EST 1.0 {tablet} suspended Levaquin 500 MG eCW1 ([facility]) Levofloxacin 500 MG Oral Tablet Levaquin 500 MG Levaquin 500 MG 07/29/2020 12:00:00 AM EST 1.0 {tablet} suspended Levaquin 500 MG eCW1 ([facility]) Levofloxacin 500 MG Oral Tablet Levaquin 500 MG Levaquin 500 MG 07/29/2020 12:00:00 AM EST 1.0 {tablet} suspended Levaquin 500 MG eCW1 ([facility]) Levofloxacin 500 MG Oral Tablet Levaquin 500 MG Levaquin 500 MG 07/29/2020 12:00:00 AM EST 1.0 {tablet} suspended Levaquin 500 MG eCW1 ([facility]) Levofloxacin 500 MG Oral Tablet Levaquin 500 MG Levaquin 500 MG 07/29/2020 12:00:00 AM EST 1.0 {tablet} suspended Levaquin 500 MG eCW1 ([facility]) Levofloxacin 500 MG Oral Tablet Levaquin 500 MG Levaquin 500 MG 07/29/2020 12:00:00 AM EST 1.0 {tablet} active Le vaquin 500 MG eCW1 ([facility]) Levofloxacin 500 MG Oral Tablet Levaquin 500 MG Levaquin 500 MG 07/29/2020 12:00:00 AM EST 1.0 {tablet} suspended Levaquin 500 MG eCW1 ([facility]) Levofloxacin 500 MG Oral Tablet Levaquin 500 MG Levaquin 500 MG 07/29/2020 12:00:00 AM EST 1.0 {tablet} active Le vaquin 500 MG eCW1 ([facility]) Levofloxacin 500 MG Oral Tablet Levaquin 500 MG Levaquin 500 MG 07/29/2020 12:00:00 AM EST 1.0 {tablet} suspended Levaquin 500 MG eCW1 ([facility]) Levofloxacin 500 MG Oral Tablet Levaquin 500 MG Levaquin 500 MG 07/29/2020 12:00:00 AM EST 1.0 {tablet} active Le vaquin 500 MG eCW1 ([facility]) Levofloxacin 500 MG Oral Tablet Levaquin 500 MG Levaquin 500 MG 07/29/2020 12:00:00 AM EST 1.0 {tablet} suspended Levaquin 500 MG eCW1 ([facility]) Levofloxacin 500 MG Oral Tablet Levaquin 500 MG Levaquin 500 MG 07/29/2020 12:00:00 AM EST 1.0 {tablet} suspended Levaquin 500 MG eCW1 ([facility]) Levofloxacin 500 MG Oral Tablet Levaquin 500 MG Levaquin 500 MG 07/29/2020 12:00:00 AM EST 1.0 {tablet} suspended Levaquin 500 MG eCW1 ([facility]) Levofloxacin 500 MG Oral Tablet Levaquin 500 MG Levaquin 500 MG 07/29/2020 12:00:00 AM EST 1.0 {tablet} suspended Levaquin 500 MG eCW1 ([facility]) Levofloxacin 500 MG Oral Tablet Levaquin 500 MG Levaquin 500 MG 07/29/2020 12:00:00 AM EST 1.0 {tablet} suspended Levaquin 500 MG eCW1 ([facility]) Levofloxacin 500 MG Oral Tablet Levaquin 500 MG Levaquin 500 MG 07/29/2020 12:00:00 AM EST 1.0 {tablet} suspended Levaquin 500 MG eCW1 ([facility]) Levofloxacin 500 MG Oral Tablet Levaquin 500 MG Levaquin 500 MG 07/29/2020 12:00:00 AM EST 1.0 {tablet} suspended Levaquin 500 MG eCW1 ([facility]) Levofloxacin 500 MG Oral Tablet Levaquin 500 MG Levaquin 500 MG 07/29/2020 12:00:00 AM EST 1.0 {tablet} suspended Levaquin 500 MG eCW1 ([facility]) Levofloxacin 500 MG Oral Tablet Levaquin 500 MG Levaquin 500 MG 07/29/2020 12:00:00 AM EST 1.0 {tablet} suspended Levaquin 500 MG eCW1 ([facility]) Levofloxacin 500 MG Oral Tablet Levaquin 500 MG Levaquin 500 MG 07/29/2020 12:00:00 AM EST 1.0 {tablet} suspended Levaquin 500 MG eCW1 ([facility]) Levofloxacin 500 MG Oral Tablet Levaquin 500 MG Levaquin 500 MG 07/29/2020 12:00:00 AM EST 1.0 {tablet} active Le vaquin 500 MG eCW1 ([facility]) Levofloxacin 500 MG Oral Tablet Levaquin 500 MG Levaquin 500 MG 07/29/2020 12:00:00 AM EST 1.0 {tablet} active Le vaquin 500 MG eCW1 ([facility]) Levofloxacin 500 MG Oral Tablet Levaquin 500 MG Levaquin 500 MG 07/29/2020 12:00:00 AM EST 1.0 {tablet} suspended Levaquin 500 MG eCW1 ([facility]) Levofloxacin 500 MG Oral Tablet Levaquin 500 MG Levaquin 500 MG 07/29/2020 12:00:00 AM EST 1.0 {tablet} suspended Levaquin 500 MG eCW1 ([facility]) Levofloxacin 500 MG Oral Tablet Levaquin 500 MG Levaquin 500 MG 07/29/2020 12:00:00 AM EST 1.0 {tablet} suspended Levaquin 500 MG eCW1 ([facility]) Levofloxacin 500 MG Oral Tablet Levaquin 500 MG Levaquin 500 MG 07/29/2020 12:00:00 AM EST 1.0 {tablet} suspended Levaquin 500 MG eCW1 ([facility]) Levofloxacin 500 MG Oral Tablet Levaquin 500 MG Levaquin 500 MG 07/29/2020 12:00:00 AM EST 1.0 {tablet} suspended Levaquin 500 MG eCW1 ([facility]) Levofloxacin 500 MG Oral Tablet Levaquin 500 MG Levaquin 500 MG 07/29/2020 12:00:00 AM EST 1.0 {tablet} suspended Levaquin 500 MG eCW1 ([facility]) Levofloxacin 500 MG Oral Tablet Levaquin 500 MG Levaquin 500 MG 07/29/2020 12:00:00 AM EST 1.0 {tablet} suspended Levaquin 500 MG eCW1 ([facility]) Levofloxacin 500 MG Oral Tablet Levaquin 500 MG Levaquin 500 MG 07/29/2020 12:00:00 AM EST 1.0 {tablet} suspended Levaquin 500 MG eCW1 ([facility]) 500 mg 07/29/2020 12:00:00 AM EST tablet 10 TAKE ONE TABLET BY MOUTH EVERY DAY FOR 10 DAYS TAKE ONE TABLET BY MOUTH EVERY DAY FOR 10 DAYS SOLD: [facility] Levofloxacin 500 MG Oral Tablet Levaquin 500 MG Levaquin 500 MG 07/29/2020 12:00:00 AM EST 1.0 {tablet} suspended Levaquin 500 MG eCW1 ([facility]) Levofloxacin 500 MG Oral Tablet Levaquin 500 MG Levaquin 500 MG 07/29/2020 12:00:00 AM EST 1.0 {tablet} suspended Levaquin 500 MG eCW1 ([facility]) Levofloxacin 500 MG Oral Tablet Levaquin 500 MG Levaquin 500 MG 07/29/2020 12:00:00 AM EST 1.0 {tablet} active Le vaquin 500 MG eCW1 ([facility]) Levofloxacin 500 MG Oral Tablet Levaquin 500 MG Levaquin 500 MG 07/29/2020 12:00:00 AM EST 1.0 {tablet} suspended Levaquin 500 MG eCW1 ([facility]) Levofloxacin 500 MG Oral Tablet Levaquin 500 MG Levaquin 500 MG 07/29/2020 12:00:00 AM EST 1.0 {tablet} suspended Levaquin 500 MG eCW1 ([facility]) Levofloxacin 500 MG Oral Tablet Levaquin 500 MG Levaquin 500 MG 07/29/2020 12:00:00 AM EST 1.0 {tablet} suspended Levaquin 500 MG eCW1 ([facility]) Levofloxacin 500 MG Oral Tablet Levaquin 500 MG Levaquin 500 MG 07/29/2020 12:00:00 AM EST 1.0 {tablet} active Le vaquin 500 MG eCW1 ([facility]) Levofloxacin 500 MG Oral Tablet Levaquin 500 MG Levaquin 500 MG 07/29/2020 12:00:00 AM EST 1.0 {tablet} active Le vaquin 500 MG eCW1 ([facility]) Levofloxacin 500 MG Oral Tablet Levaquin 500 MG Levaquin 500 MG 07/29/2020 12:00:00 AM EST 1.0 {tablet} suspended Levaquin 500 MG eCW1 ([facility]) Levofloxacin 500 MG Oral Tablet Levaquin 500 MG Levaquin 500 MG 07/29/2020 12:00:00 AM EST 1.0 {tablet} suspended Levaquin 500 MG eCW1 ([facility]) Levofloxacin 500 MG Oral Tablet Levaquin 500 MG Levaquin 500 MG 07/29/2020 12:00:00 AM EST 1.0 {tablet} suspended Levaquin 500 MG eCW1 ([facility]) 10 mg 07/24/2020 12:00:00 AM EST tablet 90 TAKE ONE TABLET BY MOUTH EVERY DAY TAKE ONE TABLET BY MOUTH EVERY DAY SOLD: 07/29/2020 [facility] Lisinopril 10 MG Oral Tablet Lisinopril 07/24/2020 12:00:00 AM EST ORAL completed MEDENT ([facility]) 3.5-10,000-1 mg/mL-unit/mL-% 05/17/2020 12:00:00 AM EDT solu tion 10 INSTILL 4 DROPS INTO THE AFFECTED EAR 3 TIMES A DAY FOR 7 DAYS INSTILL 4 DROPS INTO THE AFFECTED EAR 3 TIMES A DAY FOR 7 DAYS SOLD: 05/17/2020 [facility] Hydrocortisone 10 MG/ML / Neomycin 3.5 M G/ML / Polymyxin B 51269 UNT/ML Otic Solution Neomycin/Polymyxin/Hydrocortisone (Otic) 05/17/2020 12:00:00 AM EDT completed MEDENT ([facility]) Insurance Providers Payer name Policy type / Coverage type Policy ID Covered constitution party ID Covered constitution party's relationship to gustafson Policy [place] Plan Information [employer]CC[employer] PPO 302/307 [id number] SP [id number] [employer] 302/307 [id number] SP [id number] BLUE CARD C [id number] Self [id number] [employer] [place]PO 302/307 [id number] SP [id number] [place]PO 302/307 [id number] SP [id number] [place]PO 302/307 [id number] SP [id number] [place]PO 302/307 [id number] SP [id number] BS [employer] [id number] Self V [id number] [place]PO 302/307 [id number] SP [id number] [employer] [place]PO 302/307 [id number] SP [id number] [place]PO 302/307 [id number] SP [id number] [employer] [place]PO 302/307 [id number] SP [id number] [employer] [place]PO 302/307 [id number] SP [id number] ANSI-Commercial [id number] ANSI-Commercial [id number] ANSI-Commercial [id number] ANSI-Commercial [id number] ANSI-Commercial [id number] BCBS [employer] [id number] Self [id number] [employer] [id number] Self [id number] ANSI-Commercial [id number] ANSI-Commercial [id number] ANSI-Commercial [id number] ANSI-Commercial [id number] ANSI-Commercial [id number] ANSI-Commercial [id number] ANSI-Commercial [id number] ANSI-Commercial [id number] ANSI-Commercial [id number] ANSI-Commercial [id number] ANSI-Commercial [id number] ANSI-Commercial [id number] ANSI-Commercial [id number] ANSI-Commercial [id number] ANSI-Commercial [id number] ANSI-Commercial [id number] ANSI-Commercial [id number] BLUE CROSS BLUE SHIELD -RECURRING [id number] ANSI-Commercial [id number] [facility] B [id number] S VYS [id number] ANSI-Commercial [id number] ANSI-Commercial [id number]-[id number] ANSI-Commercial [id number] ANSI-Commercial [id number] ANSI-Commercial [id number] ANSI-Commercial [id number] ANSI-Commercial [id number] ANSI-Commercial [id number] ANSI-Commercial [id number] ANSI-Commercial [id number] ANSI-Commercial [id number] [facility] Part B [id number] Self 1 [id number] [facility] [place] [facility] [id number] Self [id number] [facility] [id number] SP [id number] SELF PAY 5 UNAVAILABLE 1 UNAVAILA BLE [employer] [place] PPO 302/307 [id number] SP [id number] [employer] [place] PPO 302/307 [id number] SP [id number] [employer] [place] PPO 302/307 [id number] SP [id number] [employer] [place] PPO [place]/307 [id number] SP [id number] [employer] [place] PPO 302/307 [id number] SP [id number] [employer] B [id number] S [id number] [employer] [place] PPO 302/307 [id number] SP [id number] ANSI-Commercial [id number] ANSI-Commercial [id number] ANSI-Commercial [id number] ANSI-Commercial [id number] ANSI-Commercial [id number] Problems, Conditions, and Diagnoses Code Display Name Description Problem Type Effective Dates Data Source(s) N32.89 Bladder spasm Bladder spasm Problem 06/19/2021 12:00:00 AM EDT eCW1 ([facility]) Z85.828 [id number] History of basal cell carcinoma Problem 05/05/2021 12:00:00 AM EDT eCW1 ([facility]) Z12.83 [id number] Screening, malignant neoplasm, skin Probl em 01/23/2021 12:00:00 AM EDT eCW1 ([facility]) Z01.810 Preoperative cardiovascular examination Preoperative cardiovascular examination Problem 01/13/2021 12:00:00 AM EDT [facility] ([facility]) I10 Essential hypertension Essential hypertension Problem 01/13/2021 12:00:00 AM EDT MED[facility] ([facility]) R94.31 Electrocardiogram abnormal Electrocardiogram abnormal Problem 01/13/2021 12:00:00 AM EDT MED[facility] ([facility]) Z01.818 Pre-procedure evaluation check Preop testing Problem 12/25/2020 12:00:00 AM EDT eCW1 ([facility]) N39.0 Urinary tract infectious disease UTI (urinary tract in fection) Problem 12/25/2020 12:00:00 AM EDT eCW1 ([facility]) C61 Malignant tumor of prostate Malignant tumor of prostat e Problem 12/20/2020 12:00:00 AM EDT [facility] ([facility]) N52.9 Erectile dysfunction Erectile dysfunction Problem 12/20/2020 12:00:00 AM EDT [facility] ([facility]) C44.519 [id number] Basal cell carcinoma of lower back Proble m 11/12/2020 12:00:00 AM EST eCW1 ([facility]) C44.519 [id number] Basal cell carcinoma (BCC) of sk in of other part of torso Problem 10/17/2020 12:00:00 AM EST eCW1 ([facility]) I11.9 [id number] Hypertensive heart disease without heart failure Problem 10/17/2020 12:00:00 AM EST eCW1 ([facility]) I49.5 [id number] Sick sinus syndrome Problem 10/17/2020 12:00 :00 AM EST eCW1 ([facility]) C61 Prostate cancer Prostate cancer Problem 10/02/2020 12:0 0:00 AM EST eCW1 ([facility]) D22.61 [id number] Melanocytic nevi of right upper limb, including shoulder Problem 10/02/2020 12:00:00 AM EST eCW1 ([facility]) D22.5 [id number] Melanocytic nevi of trunk Problem 10/02/2020 12:00:00 AM EST eCW1 ([facility]) D22.71 [id number] Melanocytic nevi of right lower limb, inc luding hip Problem 10/02/2020 12:00:00 AM EST eCW1 ([facility]) D22.62 [id number] Melanocytic nevi of left upper l imb, including shoulder Problem 10/02/2020 12:00:00 AM EST eCW1 ([facility]) L81.4 [id number] Lentigines Problem 10/02/2020 12:00:00 AM ES T eCW1 ([facility]) D22.72 [id number] Melanocytic nevi of left lower l imb, including hip Problem 10/02/2020 12:00:00 AM EST eCW1 ([facility]) L57.0 [id number] Actinic keratoses Problem 10/02/2020 12:00:0 0 AM EST eCW1 ([facility]) L82.1 [id number] Seborrheic keratoses Problem 10/02/2020 12:0 0:00 AM EST eCW1 ([facility]) D22.30 [id number] Melanocytic nevi of face Problem 10/02/2020 12:00:00 AM EST eCW1 ([facility]) L85.3 [id number] Dry skin Problem 10/02/2020 12:00:00 AM ES T eCW1 ([facility]) I10 [id number] HTN (hypertension), benign Problem 0 12:00:00 AM EST eCW1 ([facility]) N13.30 Hydronephrosis Hydronephrosis Problem 07/22/2020 12:00: 00 AM EST eCW1 ([facility]) N30.41 [id number] Irradiation cystitis with hematuria Probl em 07/12/2020 12:00:00 AM EDT eCW1 ([facility]) Surgeries/Procedures Procedure Description Date Indications Data Source(s) OFFICE OUTPATIENT VISIT 15 MINUTES 07/02/2021 12:00:00 AM EDT [facility] ([facility]) Insert Supra Pubic Catheter 20F, Simple 05/20/2021 12: 00:00 AM EDT eCW1 ([facility]) Med: Lidocaine Jelly 2% 6ml Intravesically (Glydo) 04/01/2021 12:00:00 AM EDT eCW1 ([facility]) Drake Catheter Coude Insertion 18F 04/01/2021 12:00:00 AM EDT eCW1 ([facility]) Med: Lidocaine Jelly 2% 6ml Intravesically (Glydo) 03/14/2021 12:00:00 AM EDT eCW1 ([facility]) Drake Catheter Coude Insertion 16F 03/14/2021 12:00:00 AM EDT eCW1 ([facility]) Med: Lidocaine Jelly 2% 6ml Intravesically (Glydo) 03/03/2021 12:00:00 AM EDT eCW1 ([facility]) Drake Catheter Coude Insertion 16F 03/03/2021 12:00:00 AM EDT eCW1 ([facility]) ECG ROUTINE ECG W/LEAST 12 LDS W/I&R 01/13/2021 12:00: 00 AM EDT MED[facility] ([facility]) Medication: Lidocaine HCl 2% Jelly 5mL Intravesically 12/25/2020 12:00:00 AM EDT eCW1 ([facility]) TOBACCO USE ASSESSED 12/25/2020 12:00:00 AM EDT eCW1 ([facility]) Leuprolide acetate (for depot suspension), 7.5 mg 12/12/2020 12:00:00 AM EDT eCW1 ([facility]) Med: Derm Lidocaine with Epinephrine Inj ection 1% with 2 ml sodium bicarbonate Intradermally to marked areas 11/12/2020 12:00:00 AM EST eCW1 ([facility]) Leuprolide acetate (for depot suspension), 7.5 mg 10/02/2020 12:00:00 AM EST eCW1 ([facility]) ASTHMA SYMPTOMS EVALUATED 10/02/2020 12:00:00 AM EST eCW1 ([facility]) XTRNL ECG < 48 HR RECORDING 09/20/2020 12:00:00 AM EST MED[facility] ([facility]) XTRNL ECG CONTINUOUS RHYTHM PHYS REVIEW&INTERPJ 2020 12:00:00 AM EST MED[facility] ([facility]) HBO Protocol 2.0 ALISSON for 90 Minutes without Air Breaks 09/19/2020 12:00:00 AM EST eCW1 ([facility]) HBO Protocol 2.0 ALISSON for 90 Minutes without Air Breaks 09/18/2020 12:00:00 AM EST eCW1 ([facility]) HBO Protocol 2.0 ALISSON for 90 Minutes without Air Breaks 09/16/2020 12:00:00 AM EST eCW1 ([facility]) HBO Protocol 2.0 ALISSON for 90 Minutes without Air Breaks 09/11/2020 12:00:00 AM EST eCW1 ([facility]) HBO Protocol 2.0 ALISSON for 90 Minutes without Air Breaks 09/09/2020 12:00:00 AM EST eCW1 ([facility]) HBO Protocol 2.0 ALISSON for 90 Minutes without Air Breaks 09/05/2020 12:00:00 AM EST eCW1 ([facility]) HBO Protocol 2.0 ALISSON for 90 Minutes without Air Breaks 09/04/2020 12:00:00 AM EST eCW1 ([facility]) HBO Protocol 2.0 ALISSON for 90 Minutes without Air Breaks 09/03/2020 12:00:00 AM EST eCW1 ([facility]) HBO Protocol 2.0 ALISSON for 90 Minutes without Air Breaks 09/02/2020 12:00:00 AM EST eCW1 ([facility]) HBO Protocol 2.0 ALISSON for 90 Minutes without Air Breaks 08/29/2020 12:00:00 AM EST eCW1 ([facility]) HBO Protocol 2.0 ALISSON for 90 Minutes without Air Breaks 08/28/2020 12:00:00 AM EST eCW1 ([facility]) HBO Protocol 2.0 ALISSON for 90 Minutes without Air Breaks 08/27/2020 12:00:00 AM EST eCW1 ([facility]) HBO Protocol 2.0 ALISSON for 90 Minutes without Air Breaks 08/26/2020 12:00:00 AM EST eCW1 ([facility]) HBO Protocol 2.0 ALISSON for 90 Minutes without Air Breaks 08/23/2020 12:00:00 AM EST eCW1 ([facility]) Leuprolide acetate (for depot suspension), 7.5 mg 08/23/2020 12:00:00 AM EST eCW1 ([facility]) HBO Protocol 2.0 ALISSON for 90 Minutes without Air Breaks 08/22/2020 12:00:00 AM EST eCW1 ([facility]) HBO Protocol 2.0 ALISSON for 90 Minutes without Air Breaks 08/21/2020 12:00:00 AM EST eCW1 ([facility]) HBO Protocol 2.0 ALISSON for 90 Minutes without Air Breaks 08/20/2020 12:00:00 AM EST eCW1 ([facility]) HBO Protocol 2.0 ALISSON for 90 Minutes without Air Breaks 08/19/2020 12:00:00 AM EST eCW1 ([facility]) HBO Protocol 2.0 ALISSON for 90 Minutes without Air Breaks 08/15/2020 12:00:00 AM EST eCW1 ([facility]) HBO Protocol 2.0 ALISSON for 90 Minutes without Air Breaks 08/14/2020 12:00:00 AM EST eCW1 ([facility]) HBO Protocol 2.0 ALISSON for 90 Minutes without Air Breaks 08/13/2020 12:00:00 AM EST eCW1 ([facility]) HBO Protocol 2.0 ALISSON for 90 Minutes without Air Breaks 08/12/2020 12:00:00 AM EST eCW1 ([facility]) HBO Protocol 2.0 ALISSON for 90 Minutes without Air Breaks 08/05/2020 12:00:00 AM EST eCW1 ([facility]) HBO Protocol 2.0 ALISSON for 90 Minutes without Air Breaks 08/02/2020 12:00:00 AM EST eCW1 ([facility]) HBO Protocol 2.0 ALISSON for 90 Minutes without Air Breaks 07/31/2020 12:00:00 AM EST eCW1 ([facility]) HBO Protocol 2.0 ALISSON for 90 Minutes without Air Breaks 07/30/2020 12:00:00 AM EST eCW1 ([facility]) HBO Protocol 2.0 ALISSON for 90 Minutes without Air Breaks 07/29/2020 12:00:00 AM EST eCW1 ([facility]) HBO Protocol 2.0 ALISSON for 90 Minutes without Air Breaks 07/26/2020 12:00:00 AM EST eCW1 ([facility]) HBO Protocol 2.0 ALISSON for 90 Minutes without Air Breaks 07/25/2020 12:00:00 AM EST eCW1 ([facility]) ECG ROUTINE ECG W/LEAST 12 LDS W/I&R 07/24/2020 12:00: 00 AM EST MED[facility] ([facility]) Leuprolide acetate (for depot suspension), 7.5 mg 07/24/2020 12:00:00 AM EST eCW1 ([facility]) HBO Protocol 2.0 ALISSON for 90 Minutes without Air Breaks 07/24/2020 12:00:00 AM EST eCW1 ([facility]) HBO Protocol 2.0 ALISSON for 90 Minutes without Air Breaks 07/23/2020 12:00:00 AM EST eCW1 ([facility]) HBO Protocol 2.0 ALISSON for 90 Minutes without Air Breaks 07/22/2020 12:00:00 AM EST eCW1 ([facility]) HBO Protocol 2.0 ALISSON for 90 Minutes without Air Breaks 07/19/2020 12:00:00 AM EST eCW1 ([facility]) HBO Protocol 2.0 ALISSON for 90 Minutes without Air Breaks 07/18/2020 12:00:00 AM EST eCW1 ([facility]) HBO Protocol 2.0 ALISSON for 90 Minutes without Air Breaks 07/17/2020 12:00:00 AM EST eCW1 ([facility]) HBO Protocol 2.0 ALISSON for 90 Minutes without Air Breaks 07/16/2020 12:00:00 AM EST eCW1 ([facility]) Leuprolide acetate (for depot suspension), 7.5 mg 06/13/2020 12:00:00 AM EDT eCW1 ([facility]) Results ID Date Data Source [id number] 05/02/2021 12:00:00 AM EDT [facility] Name Value Range Interpretation Code Description Data Annmarie rce(s) Supporting Document(s) pcr negative [facility] This lab was ordered by [facility] and reported by [facility]. ID Date Data Source [id number] 04/09/2021 10:50:00 AM EDT [facility] Name Value Range Interpretation Code Description Data Annmarie rce(s) Supporting Document(s) SARS coronavirus 2 RNA [Presence] in Res piratory specimen by JOSE with probe detection NEGATIVE [facility] This lab was ordered by [facility] a nd reported by [facility]. ID Date Data Source [id number] 01/31/2021 04:30:00 AM EDT [facility] Name Value Range Interpretation Code Description Data Annmarie rce(s) Supporting Document(s) SARS-CoV-2 (COVID 19) NEGATIVE - SARS-CoV-2 (COVID19) [facility] This lab was ordered by [facility] a nd reported by [facility]. ID Date Data Source [id number] 01/14/2021 11:55:00 AM EDT [facility] Name Value Range Interpretation Code Description Data Annmarie rce(s) Supporting Document(s) SARS coronavirus 2 RNA [Presence] in Res piratory specimen by JOSE with probe detection NEGATIVE [facility] This lab was ordered by [facility] a nd reported by [facility]. ID Date Data Source [id number] 01/08/2021 12:00:00 PM EDT [facility] Name Value Range Interpretation Code Description Data Annmarie rce(s) Supporting Document(s) SARS-CoV-2 (COVID-19) RNA [Presence] in Respiratory specimen by JOSE with probe detection Not Detected [facility] This lab was ordered by [facility] and reported by [employer]. ID Date Data Source ERMA CHEST 2 VIEW 01/08/2021 12:00:00 AM EDT eCW1 ([facility]) Name Value Range Interpretation Code Description Data Annmarie rce(s) Supporting Document(s) ERMA CHEST 2 VIEW eCW1 ([facility]) ID Date Data Source [id number] 11/25/2020 05:43:00 PM EDT MED[facility] ([facility]) Name Value Range Interpretation Code Description Data Annmarie rce(s) Supporting Document(s) Bacteria identified in Urine by Culture Laboratory test result MED[facility] ([facility], [facility]) ID Date Data Source [id number] 11/07/2020 10:15:00 AM EST [facility] ([facility]) Name Value Range Interpretation Code Description Data Annmarie rce(s) Supporting Document(s) Bacteria identified in Urine by Culture Laboratory test result [facility] ([facility]) <content>FULL REPORT IN LAB NOTES (eCW a nd Med[facility]).</content>
<content></content>
<content>ORGANISM 1: STREP ANGINOSUS GRP</content>
<content></content>
<content>COLONY COUNT >100,000</content>
<content></content>
<content></content>
<content> ORGANISM 1: STREP ANGINOSUS GRP</content>
<content></content>
<content> STREP ANGINOSUS GRP: REACTION</content>
<content>TETRACYCLINE PO 250 mg qid >=16 R</content>
<content>PENICILLIN G IV 1 mu q6h <=0.06 S</content>
<content>PENICILLIN G PO 250mg q6h fasting <=0.06 S</content>
<content> AMPICILLIN IV 500mg q6h <=0.25 S</content>
<content>AMPICILLIN PO 500mg q6h fasting <=0.25 S</content>
<content>ERYTHROMYCIN IV 500mg q6h 4 R</content>
<content>ERYTHROMYCIN PO 500mg q6h 4 R</content>
<content>CLINDAMYCIN IV 600mg q6h <=0.25 S</content>
<content>CLINDAMYCIN PO 150mg q6h <=0.25 S</content>
<content>LEVOFLOXACIN IV 500mg qd 1 S</content>
<content>LEVOFLOXACIN PO 250mg qd 1 S</content>
<content>LEVOFLOXACIN PO 500mg qd 1 S</content>
<content>VANCOMYCIN IV 500mg q8h 0.5 S</content>
<content> MOXIFLOXACIN (AVELOX) IV 400MG QD 0.25 S</content>
<content>MOXIFLOXACIN (AVELOX) PO 400MG QD 0.25 S</content>
<content>CEFTRIAXONE IV 1gm q24h 0.25 S</content>
<content>CEFOTAXIME IV 1gm q8h <=0.12 S</content>
<content></content> ID Date Data Source [id number] 10/14/2020 12:27:00 PM EST [facility] ([facility] Name Value Range Interpretation Code Description Data Annmarie rce(s) Supporting Document(s) Prostate specific Ag [Mass/volume] in Serum or Plasma Laboratory test result [facility] ([facility]) ID Date Data Source [id number] 08/15/2020 02:00:00 PM EST [facility] Name Value Range Interpretation Code Description Data Annmarie rce(s) Supporting Document(s) SARS coronavirus 2 RNA [facility] This lab was ordered by [facility] and reported by [facility]. ID Date Data Source [id number] 07/12/2020 04:12:00 PM EDT [facility] ([facility]) Name Value Range Interpretation Code Description Data Annmarie rce(s) Supporting Document(s) White Blood Count 7.0 4.0-10.0 [facility] ([facility]) Hemoglobin 14.6 [facility] ([facility]) Platelets 287 150-450 [facility] Red Blood Count 4.78 4.30-6.10 [facility] ([facility]) Hematocrit 43.9 [facility] ([facility]) Procedure Social History Code Duration Value Status Description Data Source(s ) Smoking 06/19/2021 12:00:00 AM EDT Former Smoker completed Former Smoker eCW1 ([facility]) Smoking 06/19/2021 12:00:00 AM EDT Former Smoker completed Former Smoker eCW1 ([facility]) Smoking 06/19/2021 12:00:00 AM EDT Former Smoker completed Former Smoker eCW1 ([facility]) Smoking 05/20/2021 12:00:00 AM EDT Former Smoker completed Former Smoker eCW1 ([facility]) Smoking 05/05/2021 12:00:00 AM EDT Former Smoker completed Former Smoker eCW1 ([facility]) Smoking 05/05/2021 12:00:00 AM EDT Former Smoker completed Former Smoker eCW1 ([facility]) Smoking 04/01/2021 12:00:00 AM EDT Former Smoker completed Former Smoker eCW1 ([facility]) Smoking 04/01/2021 12:00:00 AM EDT Former Smoker completed Former Smoker eCW1 ([facility]) Smoking 04/01/2021 12:00:00 AM EDT Former Smoker completed Former Smoker eCW1 ([facility]) Smoking 03/14/2021 12:00:00 AM EDT Former Smoker completed Former Smoker eCW1 ([facility]) Smoking 03/14/2021 12:00:00 AM EDT Former Smoker completed Former Smoker eCW1 ([facility]) Smoking 03/14/2021 12:00:00 AM EDT Former Smoker completed Former Smoker eCW1 ([facility]) Smoking 03/14/2021 12:00:00 AM EDT Former Smoker completed Former Smoker eCW1 ([facility]) Smoking 03/14/2021 12:00:00 AM EDT Former Smoker completed Former Smoker eCW1 ([facility]) Smoking 03/03/2021 12:00:00 AM EDT Former Smoker completed Former Smoker eCW1 ([facility]) Smoking 01/29/2021 12:00:00 AM EDT Former Smoker completed Former Smoker eCW1 ([facility]) Smoking 01/29/2021 12:00:00 AM EDT Former Smoker completed Former Smoker eCW1 ([facility]) Smoking 01/29/2021 12:00:00 AM EDT Former Smoker completed Former Smoker eCW1 ([facility]) Smoking 01/29/2021 12:00:00 AM EDT Former Smoker completed Former Smoker eCW1 ([facility]) Smoking 01/29/2021 12:00:00 AM EDT Former Smoker completed Former Smoker eCW1 ([facility]) Smoking 01/29/2021 12:00:00 AM EDT Former Smoker completed Former Smoker eCW1 ([facility]) Smoking 01/13/2021 12:00:00 AM EDT Former Smoker completed Former Smoker eCW1 ([facility]) Smoking 01/13/2021 12:00:00 AM EDT Former Smoker completed Former Smoker eCW1 ([facility]) Smoking 01/13/2021 12:00:00 AM EDT Patient is a former smoker completed Patient is a former smoker [facility] ([facility]) Smoking 01/13/2021 12:00:00 AM EDT Former Smoker completed Former Smoker eCW1 ([facility]) Smoking 01/13/2021 12:00:00 AM EDT Former Smoker completed Former Smoker eCW1 ([facility]) Smoking 01/08/2021 12:00:00 AM EDT Former Smoker completed Former Smoker eCW1 ([facility]) Smoking 01/08/2021 12:00:00 AM EDT Former Smoker completed Former Smoker eCW1 ([facility]) Smoking 01/08/2021 12:00:00 AM EDT Former Smoker completed Former Smoker eCW1 ([facility]) Smoking 12/25/2020 12:00:00 AM EDT Former Smoker completed Former Smoker eCW1 ([facility]) Smoking 12/25/2020 12:00:00 AM EDT Former Smoker completed Former Smoker eCW1 ([facility]) Smoking 12/20/2020 12:00:00 AM EDT Former Smoker completed Former Smoker eCW1 ([facility]) Smoking 12/20/2020 12:00:00 AM EDT Former Smoker completed Former Smoker eCW1 ([facility]) Smoking 12/20/2020 12:00:00 AM EDT Former Cigarette Smoker com pleted Former Cigarette Smoker [facility] ([facility]) Smoking 12/12/2020 12:00:00 AM EDT Former Smoker completed Former Smoker eCW1 ([facility]) Smoking 11/25/2020 12:00:00 AM EDT Patient has never smoked co mpleted Patient has never smoked [facility] ([facility]) Smoking 11/12/2020 12:00:00 AM EST Former Smoker completed Former Smoker eCW1 ([facility]) Smoking 11/12/2020 12:00:00 AM EST Former Smoker completed Former Smoker eCW1 ([facility]) Smoking 11/12/2020 12:00:00 AM EST Former Smoker completed Former Smoker eCW1 ([facility]) Smoking 10/17/2020 12:00:00 AM EST Former Smoker completed Former Smoker eCW1 ([facility]) Smoking 10/17/2020 12:00:00 AM EST Former Smoker completed Former Smoker eCW1 ([facility]) Smoking 10/02/2020 12:00:00 AM EST Former Smoker completed Former Smoker eCW1 ([facility]) Smoking 09/19/2020 12:00:00 AM EST Former Smoker completed Former Smoker eCW1 ([facility]) Smoking 09/19/2020 12:00:00 AM EST Former Smoker completed Former Smoker eCW1 ([facility]) Smoking 09/19/2020 12:00:00 AM EST Former Smoker completed Former Smoker eCW1 ([facility]) Smoking 09/19/2020 12:00:00 AM EST Former Smoker completed Former Smoker eCW1 ([facility]) Smoking 09/19/2020 12:00:00 AM EST Former Smoker completed Former Smoker eCW1 ([facility]) Smoking 09/19/2020 12:00:00 AM EST Former Smoker completed Former Smoker eCW1 ([facility]) Smoking 09/18/2020 12:00:00 AM EST Former Smoker completed Former Smoker eCW1 ([facility]) Smoking 09/18/2020 12:00:00 AM EST Former Smoker completed Former Smoker eCW1 ([facility]) Smoking 09/16/2020 12:00:00 AM EST Former Smoker completed Former Smoker eCW1 ([facility]) Smoking 09/12/2020 12:00:00 AM EST Former Smoker completed Former Smoker eCW1 ([facility]) Smoking 09/09/2020 12:00:00 AM EST Former Smoker completed Former Smoker eCW1 ([facility]) Smoking 09/09/2020 12:00:00 AM EST Former Smoker completed Former Smoker eCW1 ([facility]) Smoking 09/03/2020 12:00:00 AM EST Former Smoker completed Former Smoker eCW1 ([facility]) Smoking 09/03/2020 12:00:00 AM EST Former Smoker completed Former Smoker eCW1 ([facility]) Smoking 09/03/2020 12:00:00 AM EST Former Smoker completed Former Smoker eCW1 ([facility]) Smoking 09/03/2020 12:00:00 AM EST Former Smoker completed Former Smoker eCW1 ([facility]) Smoking 08/29/2020 12:00:00 AM EST Former Smoker completed Former Smoker eCW1 ([facility]) Smoking 08/29/2020 12:00:00 AM EST Former Smoker completed Former Smoker eCW1 ([facility]) Smoking 08/29/2020 12:00:00 AM EST Former Smoker completed Former Smoker eCW1 ([facility]) Smoking 08/29/2020 12:00:00 AM EST Former Smoker completed Former Smoker eCW1 ([facility]) Smoking 08/29/2020 12:00:00 AM EST Former Smoker completed Former Smoker eCW1 ([facility]) Smoking 08/29/2020 12:00:00 AM EST Former Smoker completed Former Smoker eCW1 ([facility]) Smoking 08/29/2020 12:00:00 AM EST Former Smoker completed Former Smoker eCW1 ([facility]) Smoking 08/27/2020 12:00:00 AM EST Former Smoker completed Former Smoker eCW1 ([facility]) Smoking 08/23/2020 12:00:00 AM EST Former Smoker completed Former Smoker eCW1 ([facility]) Smoking 08/23/2020 12:00:00 AM EST Former Smoker completed Former Smoker eCW1 ([facility]) Smoking 08/23/2020 12:00:00 AM EST Former Smoker completed Former Smoker eCW1 ([facility]) Smoking 08/23/2020 12:00:00 AM EST Former Smoker completed Former Smoker eCW1 ([facility]) Smoking 08/23/2020 12:00:00 AM EST Former Smoker completed Former Smoker eCW1 ([facility]) Smoking 08/23/2020 12:00:00 AM EST Former Smoker completed Former Smoker eCW1 ([facility]) Smoking 08/15/2020 12:00:00 AM EST Former Smoker completed Former Smoker eCW1 ([facility]) Smoking 08/15/2020 12:00:00 AM EST Former Smoker completed Former Smoker eCW1 ([facility]) Smoking 08/15/2020 12:00:00 AM EST Former Smoker completed Former Smoker eCW1 ([facility]) Smoking 08/15/2020 12:00:00 AM EST Former Smoker completed Former Smoker eCW1 ([facility]) Smoking 08/07/2020 12:00:00 AM EST Former Smoker completed Former Smoker eCW1 ([facility]) Smoking 08/06/2020 12:00:00 AM EST Former Smoker completed Former Smoker eCW1 ([facility]) Smoking 08/02/2020 12:00:00 AM EST Former Smoker completed Former Smoker eCW1 ([facility]) Smoking 08/02/2020 12:00:00 AM EST Former Smoker completed Former Smoker eCW1 ([facility]) Smoking 08/02/2020 12:00:00 AM EST Former Smoker completed Former Smoker eCW1 ([facility]) Smoking 07/31/2020 12:00:00 AM EST Former Smoker completed Former Smoker eCW1 ([facility]) Smoking 07/31/2020 12:00:00 AM EST Former Smoker completed Former Smoker eCW1 ([facility]) Smoking 07/30/2020 12:00:00 AM EST Former Smoker completed Former Smoker eCW1 ([facility]) Smoking 07/29/2020 12:00:00 AM EST Former Smoker completed Former Smoker eCW1 ([facility]) Smoking 07/29/2020 12:00:00 AM EST Former Smoker completed Former Smoker eCW1 ([facility]) Smoking 07/29/2020 12:00:00 AM EST Former Smoker completed Former Smoker eCW1 ([facility]) Smoking 07/26/2020 12:00:00 AM EST Former Smoker completed Former Smoker eCW1 ([facility]) Smoking 07/26/2020 12:00:00 AM EST Former Smoker completed Former Smoker eCW1 ([facility]) Smoking 07/26/2020 12:00:00 AM EST Former Smoker completed Former Smoker eCW1 ([facility]) Smoking 07/24/2020 12:00:00 AM EST Former Smoker completed Former Smoker eCW1 ([facility]) Smoking 07/24/2020 12:00:00 AM EST Former Smoker completed Former Smoker eCW1 ([facility]) Smoking 07/24/2020 12:00:00 AM EST Former Smoker completed Former Smoker eCW1 ([facility]) Smoking 07/22/2020 12:00:00 AM EST Former Smoker completed Former Smoker eCW1 ([facility]) Smoking 07/22/2020 12:00:00 AM EST Former Smoker completed Former Smoker eCW1 ([facility]) Smoking 07/22/2020 12:00:00 AM EST Former Smoker completed Former Smoker eCW1 ([facility]) Smoking 07/19/2020 12:00:00 AM EST Former Smoker completed Former Smoker eCW1 ([facility]) Smoking 07/19/2020 12:00:00 AM EST Former Smoker completed Former Smoker eCW1 ([facility]) Smoking 07/18/2020 12:00:00 AM EST Former Smoker completed Former Smoker eCW1 ([facility]) Smoking 07/18/2020 12:00:00 AM EST Former Smoker completed Former Smoker eCW1 ([facility]) Smoking 07/17/2020 12:00:00 AM EST Former Smoker completed Former Smoker eCW1 ([facility]) Smoking 07/17/2020 12:00:00 AM EST Former Smoker completed Former Smoker eCW1 ([facility]) Smoking 07/16/2020 12:00:00 AM EST Former Smoker completed Former Smoker eCW1 ([facility]) Smoking 06/13/2020 12:00:00 AM EDT Former Smoker completed Former Smoker eCW1 ([facility]) Smoking 06/13/2020 12:00:00 AM EDT Former Smoker completed Former Smoker eCW1 ([facility]) Smoking 06/13/2020 12:00:00 AM EDT Former Smoker completed Former Smoker eCW1 ([facility]) Vital Signs ID Date Data Source UNK Name Value Range Interpretation Code Description Data Source(s) Systolic blood pressure 139 mm[Hg] 139 mm[Hg] M EDENT ([facility]) Diastolic blood pressure 94 mm[Hg] 94 mm[Hg] MEDENT ([facility], [facility]) Heart rate 72 /min 72 /min MEDENT ([facility], [facility]) Respiratory rate 15 /min 15 /min MEDENT ( [facility]) Oxygen saturation in Arterial blood by Pulse oximetry 97 % 97 % MEDENT ([facility], [facility]) Body temperature 97.1 [degF] 97.1 [degF] MEDENT ([facility], [facility]) Body weight 193 [lb_av] 193 [lb_av] eCW1 ([facility]) Body weight 87.54 kg 87.54 kg W1 ([facility]) Body height 67.5 [in_i] 67.5 [in_i] eCW1 ([facility]) Body mass index (BMI) [Ratio] 29.78 kg/m2 29.78 kg/m2 W1 ([facility]) Heart rate 75 /min 75 /min eCW1 ([facility]) Respiratory rate 18 /min 18 /min eCW1 ([facility]) Body temperature 95.7 [degF] 95.7 [degF] eCW1 ( [facility]) Systolic blood pressure 144 mm[Hg] 144 mm[Hg] e CW1 ([facility]) Diastolic blood pressure 96 mm[Hg] 96 mm[Hg] eCW1 ([facility]) Body weight 193 [lb_av] 193 [lb_av] eCW1 ([facility]) Body weight 87.54 kg 87.54 kg eCW1 ([facility]) Body height 67.5 [in_i] 67.5 [in_i] eCW1 ([facility]) Body mass index (BMI) [Ratio] 29.78 kg/m2 29.78 kg/m2 W1 ([facility]) Heart rate 67 /min 67 /min eCW1 ([facility]) Respiratory rate 18 /min 18 /min eCW1 ([facility]) Body temperature 96.0 [degF] 96.0 [degF] eCW1 ( [facility]) Systolic blood pressure 152 mm[Hg] 152 mm[Hg] e CW1 ([facility]) Diastolic blood pressure 88 mm[Hg] 88 mm[Hg] eCW1 ([facility]) Body weight 193 [lb_av] 193 [lb_av] eCW1 ([facility]) Body weight 87.54 kg 87.54 kg eCW1 ([facility]) Body height 67.5 [in_i] 67.5 [in_i] eCW1 ([facility]ly [facility]) Body mass index (BMI) [Ratio] 29.78 kg/m2 29.78 kg/m2 eCW1 ([facility]) Systolic blood pressure 130 mm[Hg] 130 mm[Hg] e CW1 ([facility]) Diastolic blood pressure 78 mm[Hg] 78 mm[Hg] eCW1 ([facility]) Heart rate 76 /min 76 /min eCW1 ([facility]) Respiratory rate 18 /min 18 /min eCW1 ([facility]) Body temperature 97 [degF] 97 [degF] eCW1 ([facility]) Systolic blood pressure 144 mm[Hg] 144 mm[Hg] e CW1 ([facility]) Body weight 198 [lb_av] 198 [lb_av] eCW1 ([facility]) Body height 67.5 [in_i] 67.5 [in_i] eCW1 ([facility]) Body mass index (BMI) [Ratio] 30.55 kg/m2 30.55 kg/m2 eCW1 ([facility]) Diastolic blood pressure 76 mm[Hg] 76 mm[Hg] eCW1 ([facility]) Heart rate 73 /min 73 /min eCW1 ([facility]) Body weight 198 [lb_av] 198 [lb_av] eCW1 ([facility]ly [facility]) Body height 67.5 [in_i] 67.5 [in_i] eCW1 ([facility]) Body mass index (BMI) [Ratio] 30.55 kg/m2 30.55 kg/m2 eCW1 ([facility]) Respiratory rate 18 /min 18 /min eCW1 ([facility]) Body temperature 96.6 [degF] 96.6 [degF] eCW1 ( [facility]) Systolic blood pressure 142 mm[Hg] 142 mm[Hg] e CW1 ([facility]) Diastolic blood pressure 78 mm[Hg] 78 mm[Hg] eCW1 ([facility]) Body weight 195 [lb_av] 195 [lb_av] eCW1 ([facility]) Body height 67.5 [in_i] 67.5 [in_i] eCW1 ([facility]) Body mass index (BMI) [Ratio] 30.09 kg/m2 30.09 kg/m2 eCW1 ([facility]) Heart rate 71 /min 71 /min eCW1 ([facility]) Respiratory rate 18 /min 18 /min eCW1 ([facility]) Body temperature 97.5 [degF] 97.5 [degF] eCW1 ( [facility]) Systolic blood pressure 148 mm[Hg] 148 mm[Hg] e CW1 ([facility]) Diastolic blood pressure 84 mm[Hg] 84 mm[Hg] eCW1 ([facility]) Body weight 195 [lb_av] 195 [lb_av] eCW1 ([facility]) Body height 67.5 [in_i] 67.5 [in_i] eCW1 ([facility]) Body mass index (BMI) [Ratio] 30.09 kg/m2 30.09 kg/m2 eCW1 ([facility]) Heart rate 79 /min 79 /min eCW1 ([facility]) Respiratory rate 18 /min 18 /min eCW1 ([facility]) Body temperature 97.1 [degF] 97.1 [degF] eCW1 ( [facility]) Systolic blood pressure 128 mm[Hg] 128 mm[Hg] e CW1 ([facility]) Diastolic blood pressure 76 mm[Hg] 76 mm[Hg] eCW1 ([facility]) Body weight 197 [lb_av] 197 [lb_av] eCW1 ([facility]) Body height 67.5 [in_i] 67.5 [in_i] eCW1 ([facility]) Body mass index (BMI) [Ratio] 30.40 kg/m2 30.40 kg/m2 eCW1 ([facility]) Heart rate 76 /min 76 /min eCW1 ([facility]) Respiratory rate 18 /min 18 /min eCW1 ([facility]) Body temperature 97.0 [degF] 97.0 [degF] eCW1 ( [facility]) Systolic blood pressure 124 mm[Hg] 124 mm[Hg] e CW1 ([facility]) Diastolic blood pressure 78 mm[Hg] 78 mm[Hg] eCW1 ([facility]) Body mass index (BMI) [Ratio] 28.8 kg/m2 28.8 k g/m2 MEDENT ([facility]) Heart rate 67 /min 67 /min MEDENT ([facility] Body weight 195.00 [lb_av] 195.00 [lb_av] MEDEN T ([facility]) Systolic blood pressure--sitting 138 mm[Hg] 138 mm[Hg] MEDENT ([facility]) Ra, large cuff Body height 69 [in_i] 69 [in_i] MEDENT ([facility] 5'9" Diastolic blood pressure--sitting 84 mm[Hg] 84 mm[Hg] MEDENT ([facility]) Ra, large cuff Body weight 198.12 [lb_av] 198.12 [lb_av] eCW1 ([facility]) Body height 67.5 [in_i] 67.5 [in_i] eCW1 ([facility]) Body mass index (BMI) [Ratio] 30.57 kg/m2 30.57 kg/m2 eCW1 ([facility]) Heart rate 78 /min 78 /min eCW1 ([facility]) Respiratory rate 17 /min 17 /min eCW1 ([facility]) Body temperature 97.2 [degF] 97.2 [degF] eCW1 ( [facility]) Systolic blood pressure 134 mm[Hg] 134 mm[Hg] e CW1 ([facility]) Diastolic blood pressure 85 mm[Hg] 85 mm[Hg] eCW1 ([facility]) Body weight 188 [lb_av] 188 [lb_av] eCW1 ([facility]) Body height 67.5 [in_i] 67.5 [in_i] eCW1 ([facility]) Body mass index (BMI) [Ratio] 29.01 kg/m2 29.01 kg/m2 eCW1 ([facility]) Heart rate 73 /min 73 /min eCW1 ([facility]) Respiratory rate 18 /min 18 /min eCW1 ([facility]) Body temperature 97.3 [degF] 97.3 [degF] eCW1 ( [facility]) Systolic blood pressure 136 mm[Hg] 136 mm[Hg] e CW1 ([facility]) Diastolic blood pressure 84 mm[Hg] 84 mm[Hg] eCW1 ([facility]) Body temperature 97.7 [degF] 97.7 [degF] eCW1 ( [facility]) Systolic blood pressure 142 mm[Hg] 142 mm[Hg] e CW1 ([facility]) Respiratory rate 18 /min 18 /min eCW1 ([facility]) Body weight 195 [lb_av] 195 [lb_av] eCW1 ([facility]) Body height 67.5 [in_i] 67.5 [in_i] eCW1 ([facility]) Body mass index (BMI) [Ratio] 30.09 kg/m2 30.09 kg/m2 eCW1 ([facility]) Heart rate 66 /min 66 /min eCW1 ([facility]) Diastolic blood pressure 84 mm[Hg] 84 mm[Hg] eCW1 ([facility]) Body height 69 [in_i] 69 [in_i] MEDENT ([facility] 5'9" Body weight 189.00 [lb_av] 189.00 [lb_av] MEDEN T ([facility]) Body weight 85.730 kg 85.730 kg MEDENT ([facility] Body mass index (BMI) [Ratio] 27.9 kg/m2 27.9 k g/m2 MEDENT ([facility]) Body weight 190 [lb_av] 190 [lb_av] eCW1 ([facility]) Body height 67.5 [in_i] 67.5 [in_i] eCW1 ([facility]) Body mass index (BMI) [Ratio] 29.32 kg/m2 29.32 kg/m2 eCW1 ([facility]) Heart rate 76 /min 76 /min eCW1 ([facility]) Respiratory rate 18 /min 18 /min eCW1 ([facility]) Body temperature 96.8 [degF] 96.8 [degF] eCW1 ( [facility]) Systolic blood pressure 122 mm[Hg] 122 mm[Hg] e CW1 ([facility]) Diastolic blood pressure 74 mm[Hg] 74 mm[Hg] eCW1 ([facility]) Respiratory rate 16 /min 16 /min MEDENT ( [facility]) Oxygen saturation in Arterial blood by Pulse oximetry 98 % 98 % MEDENT ([facility]) Body temperature 97.7 [degF] 97.7 [degF] MEDENT ([facility], [facility]) Body weight 185.00 [lb_av] 185.00 [lb_av] MEDEN T ([facility], [facility]) Body height 69 [in_i] 69 [in_i] MEDENT ([facility], [facility]) 5'9" Body mass index (BMI) [Ratio] 27.3 kg/m2 27.3 k g/m2 MEDENT ([facility], [facility]) Heart rate 63 /min 63 /min MEDENT ([facility], [facility]) Body weight 196 [lb_av] 196 [lb_av] eCW1 ([facility]) Body height 67.5 [in_i] 67.5 [in_i] eCW1 ([facility]) Body mass index (BMI) [Ratio] 30.24 kg/m2 30.24 kg/m2 eCW1 ([facility]) Systolic blood pressure 146 mm[Hg] 146 mm[Hg] e CW1 ([facility]) Diastolic blood pressure 82 mm[Hg] 82 mm[Hg] eCW1 ([facility]) Body mass index (BMI) [Ratio] 27.3 kg/m2 27.3 k g/m2 MEDENT ([facility], [facility]) Systolic blood pressure 148 mm[Hg] 148 mm[Hg] M EDENT ([facility], [facility]) Diastolic blood pressure 98 mm[Hg] 98 mm[Hg] MEDENT ([facility], [facility]) Heart rate 72 /min 72 /min MEDENT ([facility]) Respiratory rate 12 /min 12 /min MEDENT ( [facility]) Oxygen saturation in Arterial blood by Pulse oximetry 97 % 97 % MEDENT ([facility], [facility]) Body temperature 96.1 [degF] 96.1 [degF] MEDENT ([facility], [facility]) Body weight 185.00 [lb_av] 185.00 [lb_av] MEDEN T ([facility], [facility]) Body height 69 [in_i] 69 [in_i] MEDENT ([facility], [facility]) 5'9" Respiratory rate 18 /min 18 /min eCW1 ([facility]) Body weight 199 [lb_av] 199 [lb_av] eCW1 ([facility]) Body height 67.5 [in_i] 67.5 [in_i] eCW1 ([facility]) Body mass index (BMI) [Ratio] 30.70 kg/m2 30.70 kg/m2 eCW1 ([facility]) Heart rate 68 /min 68 /min eCW1 ([facility]) Body temperature 97.9 [degF] 97.9 [degF] eCW1 ( [facility]) Systolic blood pressure 135 mm[Hg] 135 mm[Hg] e CW1 ([facility]) Diastolic blood pressure 86 mm[Hg] 86 mm[Hg] eCW1 ([facility]) Respiratory rate 18 /min 18 /min eCW1 ([facility]) Body temperature 97.1 [degF] 97.1 [degF] eCW1 ( [facility]) Systolic blood pressure 143 mm[Hg] 143 mm[Hg] e CW1 ([facility]) Diastolic blood pressure 88 mm[Hg] 88 mm[Hg] eCW1 ([facility]) Body weight 197.3 [lb_av] 197.3 [lb_av] eCW1 (Counts include 234 beds at the [facility]) Body height 67.5 [in_i] 67.5 [in_i] eCW1 ([facility]) Body mass index (BMI) [Ratio] 30.44 kg/m2 30.44 kg/m2 eCW1 ([facility]) Heart rate 70 /min 70 /min eCW1 ([facility]) Body weight 197.0 [lb_av] 197.0 [lb_av] eCW1 (Counts include 234 beds at the [facility]) Body height 67.5 [in_i] 67.5 [in_i] eCW1 ([facility]) Body mass index (BMI) [Ratio] 30.40 kg/m2 30.40 kg/m2 eCW1 ([facility]) Systolic blood pressure 138 mm[Hg] 138 mm[Hg] e CW1 ([facility]) Diastolic blood pressure 82 mm[Hg] 82 mm[Hg] eCW1 ([facility]) Body temperature 96.5 [degF] 96.5 [degF] eCW1 ( [facility]) Systolic blood pressure 142 mm[Hg] 142 mm[Hg] e CW1 ([facility]) Diastolic blood pressure 88 mm[Hg] 88 mm[Hg] eCW1 ([facility]) Body weight 193 [lb_av] 193 [lb_av] eCW1 ([facility]) Body weight kg eCW1 ([facility]) Body height 67.5 [in_i] 67.5 [in_i] eCW1 ([facility]) Body mass index (BMI) [Ratio] 29.78 kg/m2 29.78 kg/m2 eCW1 ([facility]) Heart rate 71 /min 71 /min eCW1 ([facility]) Respiratory rate 18 /min 18 /min eCW1 ([facility]) Body weight 193 [lb_av] 193 [lb_av] eCW1 ([facility]) Body weight kg eCW1 ([facility]) Body height 67.5 [in_i] 67.5 [in_i] eCW1 ([facility]) Body mass index (BMI) [Ratio] 29.78 kg/m2 29.78 kg/m2 eCW1 ([facility]) Heart rate 72 /min 72 /min eCW1 ([facility]) Respiratory rate 18 /min 18 /min eCW1 ([facility]) Body temperature 96.3 [degF] 96.3 [degF] eCW1 ( [facility]) Systolic blood pressure 140 mm[Hg] 140 mm[Hg] e CW1 ([facility]) Diastolic blood pressure 88 mm[Hg] 88 mm[Hg] eCW1 ([facility]) Body weight 193 [lb_av] 193 [lb_av] eCW1 ([facility]) Body weight kg eCW1 ([facility]) Body height 67.5 [in_i] 67.5 [in_i] eCW1 ([facility]) Body mass index (BMI) [Ratio] 29.78 kg/m2 29.78 kg/m2 eCW1 ([facility]) Heart rate 77 /min 77 /min eCW1 ([facility]) Respiratory rate 18 /min 18 /min eCW1 ([facility]) Body temperature 95.5 [degF] 95.5 [degF] eCW1 ( [facility]) Systolic blood pressure 136 mm[Hg] 136 mm[Hg] e CW1 ([facility]) Diastolic blood pressure 86 mm[Hg] 86 mm[Hg] eCW1 ([facility]) Body weight 193 [lb_av] 193 [lb_av] eCW1 ([facility]) Body weight kg eCW1 ([facility]) Body height 67.5 [in_i] 67.5 [in_i] eCW1 ([facility]) Body mass index (BMI) [Ratio] 29.78 kg/m2 29.78 kg/m2 eCW1 ([facility]) Heart rate 77 /min 77 /min eCW1 ([facility]) Respiratory rate 18 /min 18 /min eCW1 ([facility]) Body temperature 95.5 [degF] 95.5 [degF] eCW1 ( [facility]) Systolic blood pressure 136 mm[Hg] 136 mm[Hg] e CW1 ([facility]) Diastolic blood pressure 86 mm[Hg] 86 mm[Hg] eCW1 ([facility]) Body mass index (BMI) [Ratio] 29.78 kg/m2 29.78 kg/m2 eCW1 ([facility]) Heart rate 72 /min 72 /min eCW1 ([facility]) Respiratory rate 18 /min 18 /min eCW1 ([facility]) Body temperature 96.8 [degF] 96.8 [degF] eCW1 ( [facility]) Systolic blood pressure 150 mm[Hg] 150 mm[Hg] e CW1 ([facility]) Diastolic blood pressure 92 mm[Hg] 92 mm[Hg] eCW1 ([facility]) Body weight 193 [lb_av] 193 [lb_av] eCW1 ([facility]) Body height 67.5 [in_i] 67.5 [in_i] eCW1 ([facility]) Systolic blood pressure 140 mm[Hg] 140 mm[Hg] e CW1 ([facility]) Body weight 193 [lb_av] 193 [lb_av] eCW1 ([facility]) Body weight kg eCW1 ([facility]) Body height 67.5 [in_i] 67.5 [in_i] eCW1 ([facility]) Body mass index (BMI) [Ratio] 29.78 kg/m2 29.78 kg/m2 eCW1 ([facility]) Heart rate 74 /min 74 /min eCW1 ([facility]) Respiratory rate 18 /min 18 /min eCW1 ([facility]) Body temperature 96.2 [degF] 96.2 [degF] eCW1 ( [facility]) Diastolic blood pressure 80 mm[Hg] 80 mm[Hg] eCW1 ([facility]) Respiratory rate 18 /min 18 /min eCW1 ([facility]) Body temperature 97.5 [degF] 97.5 [degF] eCW1 ( [facility]) Systolic blood pressure 160 mm[Hg] 160 mm[Hg] e CW1 ([facility]) Diastolic blood pressure 90 mm[Hg] 90 mm[Hg] eCW1 ([facility]) Body weight 193 [lb_av] 193 [lb_av] eCW1 ([facility]) Body height 67.5 [in_i] 67.5 [in_i] eCW1 ([facility]) Body mass index (BMI) [Ratio] 29.78 kg/m2 29.78 kg/m2 eCW1 ([facility]) Heart rate 70 /min 70 /min eCW1 ([facility]) Body weight 193 [lb_av] 193 [lb_av] eCW1 ([facility]) Body weight kg eCW1 ([facility]) Body height 67.5 [in_i] 67.5 [in_i] eCW1 ([facility]) Body mass index (BMI) [Ratio] 29.78 kg/m2 29.78 kg/m2 eCW1 ([facility]) Heart rate 79 /min 79 /min eCW1 ([facility]) Respiratory rate 18 /min 18 /min eCW1 ([facility]) Body temperature 96.6 [degF] 96.6 [degF] eCW1 ( [facility]) Systolic blood pressure 130 mm[Hg] 130 mm[Hg] e CW1 ([facility]) Diastolic blood pressure 88 mm[Hg] 88 mm[Hg] eCW1 ([facility]) Body weight 193 [lb_av] 193 [lb_av] eCW1 ([facility]) Body weight kg eCW1 ([facility]) Body height 67.5 [in_i] 67.5 [in_i] eCW1 ([facility]) Body mass index (BMI) [Ratio] 29.78 kg/m2 29.78 kg/m2 eCW1 ([facility]) Heart rate 69 /min 69 /min eCW1 ([facility]) Respiratory rate 18 /min 18 /min eCW1 ([facility]) Body temperature 96.2 [degF] 96.2 [degF] eCW1 ( [facility]) Systolic blood pressure 132 mm[Hg] 132 mm[Hg] e CW1 ([facility]) Diastolic blood pressure 82 mm[Hg] 82 mm[Hg] eCW1 ([facility]) Body weight 193 [lb_av] 193 [lb_av] eCW1 ([facility]) Body weight kg eCW1 ([facility]) Body height 67.5 [in_i] 67.5 [in_i] eCW1 ([facility]) Body mass index (BMI) [Ratio] 29.78 kg/m2 29.78 kg/m2 eCW1 ([facility]) Heart rate 78 /min 78 /min eCW1 ([facility] [facility]) Respiratory rate 18 /min 18 /min eCW1 ([facility]) Body temperature 96.8 [degF] 96.8 [degF] eCW1 ( [facility]) Systolic blood pressure 138 mm[Hg] 138 mm[Hg] e CW1 ([facility]) Diastolic blood pressure 86 mm[Hg] 86 mm[Hg] eCW1 ([facility]) Body weight 193 [lb_av] 193 [lb_av] eCW1 ([facility]ly [facility]) Body weight kg eCW1 ([facility]) Body height 67.5 [in_i] 67.5 [in_i] eCW1 ([facility]ly [facility]) Body mass index (BMI) [Ratio] 29.78 kg/m2 29.78 kg/m2 W1 ([facility]) Heart rate 78 /min 78 /min eCW1 (Formerly [facility]) Respiratory rate 18 /min 18 /min eCW1 ([facility]) Body temperature 96.4 [degF] 96.4 [degF] eCW1 ( [facility]) Systolic blood pressure 136 mm[Hg] 136 mm[Hg] e CW1 ([facility]) Diastolic blood pressure 88 mm[Hg] 88 mm[Hg] eCW1 ([facility]) Body mass index (BMI) [Ratio] 29.78 kg/m2 29.78 kg/m2 eCW1 ([facility]) Body weight 193 [lb_av] 193 [lb_av] eCW1 ([facility]ly [facility]) Heart rate 70 /min 70 /min eCW1 ([facility]ly [facility]) Respiratory rate 18 /min 18 /min eCW1 ([facility]) Body temperature 97.2 [degF] 97.2 [degF] eCW1 ( [facility]) Systolic blood pressure 134 mm[Hg] 134 mm[Hg] e CW1 ([facility]) Diastolic blood pressure 86 mm[Hg] 86 mm[Hg] eCW1 ([facility]) Body weight kg eCW1 ([facility]) Body height 67.5 [in_i] 67.5 [in_i] eCW1 ([facility]ly [facility]) Diastolic blood pressure 88 mm[Hg] 88 mm[Hg] eCW1 ([facility]) Body height 67.5 [in_i] 67.5 [in_i] eCW1 ([facility]ly [facility]) Body mass index (BMI) [Ratio] 29.78 kg/m2 29.78 kg/m2 eCW1 ([facility]) Heart rate 72 /min 72 /min eCW1 ([facility]) Respiratory rate 18 /min 18 /min eCW1 ([facility]) Body temperature 96.5 [degF] 96.5 [degF] eCW1 ( [facility]) Systolic blood pressure 140 mm[Hg] 140 mm[Hg] e CW1 ([facility]) Body weight 193 [lb_av] 193 [lb_av] eCW1 ([facility]ly [facility]) Body weight kg eCW1 ([facility]) Body weight 193 [lb_av] 193 [lb_av] eCW1 ([facility]) Diastolic blood pressure 72 mm[Hg] 72 mm[Hg] eCW1 ([facility]) Body weight kg eCW1 ([facility]) Body height 67.5 [in_i] 67.5 [in_i] eCW1 ([facility]ly [facility]) Body mass index (BMI) [Ratio] 29.78 kg/m2 29.78 kg/m2 eCW1 ([facility]) Heart rate 70 /min 70 /min eCW1 ([facility]) Respiratory rate 18 /min 18 /min eCW1 ([facility]) Body temperature 96.5 [degF] 96.5 [degF] eCW1 ( [facility]) Systolic blood pressure 126 mm[Hg] 126 mm[Hg] e CW1 ([facility]) Body weight 193 [lb_av] 193 [lb_av] eCW1 ([facility]ly [facility]) Body weight kg eCW1 ([facility]) Body height 67.5 [in_i] 67.5 [in_i] eCW1 ([facility]ly [facility]) Body mass index (BMI) [Ratio] 29.78 kg/m2 29.78 kg/m2 eCW1 ([facility]) Heart rate 64 /min 64 /min eCW1 ([facility]) Respiratory rate 18 /min 18 /min eCW1 ([facility]) Body temperature 97.8 [degF] 97.8 [degF] eCW1 ( [facility]) Systolic blood pressure 160 mm[Hg] 160 mm[Hg] e CW1 ([facility]) Diastolic blood pressure 105 mm[Hg] 105 mm[Hg] eCW1 ([facility]) Body weight 193 [lb_av] 193 [lb_av] eCW1 ([facility]) Body height 67.5 [in_i] 67.5 [in_i] eCW1 ([facility]) Body mass index (BMI) [Ratio] 29.78 kg/m2 29.78 kg/m2 eCW1 ([facility]) Heart rate 67 /min 67 /min eCW1 ([facility]) Respiratory rate 18 /min 18 /min eCW1 ([facility]) Body temperature 96.1 [degF] 96.1 [degF] eCW1 ( [facility]) Systolic blood pressure 180 mm[Hg] 180 mm[Hg] e CW1 ([facility]) Diastolic blood pressure 100 mm[Hg] 100 mm[Hg] eCW1 ([facility]) Body height 67.5 [in_i] 67.5 [in_i] eCW1 ([facility]) Body weight 193 [lb_av] 193 [lb_av] eCW1 ([facility]) Systolic blood pressure 118 mm[Hg] 118 mm[Hg] e CW1 ([facility]) Diastolic blood pressure 70 mm[Hg] 70 mm[Hg] eCW1 ([facility]) Body mass index (BMI) [Ratio] 29.78 kg/m2 29.78 kg/m2 eCW1 ([facility]) Heart rate 66 /min 66 /min eCW1 ([facility]) Respiratory rate 18 /min 18 /min eCW1 ([facility]) Body temperature 96.8 [degF] 96.8 [degF] eCW1 ( [facility]) Body weight kg eCW1 ([facility]) Heart rate 70 /min 70 /min eCW1 ([facility]) Body weight 192 [lb_av] 192 [lb_av] eCW1 ([facility]) Respiratory rate 18 /min 18 /min eCW1 ([facility]) Body temperature 96.8 [degF] 96.8 [degF] eCW1 ( [facility]) Systolic blood pressure 132 mm[Hg] 132 mm[Hg] e CW1 ([facility]) Diastolic blood pressure 88 mm[Hg] 88 mm[Hg] eCW1 ([facility]) Body height 67.5 [in_i] 67.5 [in_i] eCW1 ([facility]) Body mass index (BMI) [Ratio] 29.62 kg/m2 29.62 kg/m2 eCW1 ([facility]) Body weight kg eCW1 ([facility]) Body weight 192 [lb_av] 192 [lb_av] eCW1 ([facility]) Body height 67.5 [in_i] 67.5 [in_i] eCW1 ([facility]) Body mass index (BMI) [Ratio] 29.62 kg/m2 29.62 kg/m2 eCW1 ([facility]) Heart rate 65 /min 65 /min eCW1 ([facility]) Respiratory rate 18 /min 18 /min eCW1 ([facility]) Body temperature 96.5 [degF] 96.5 [degF] eCW1 ( [facility]) Systolic blood pressure 140 mm[Hg] 140 mm[Hg] e CW1 ([facility]) Diastolic blood pressure 78 mm[Hg] 78 mm[Hg] eCW1 ([facility]) Body weight 192 [lb_av] 192 [lb_av] eCW1 ([facility]) Body weight kg eCW1 ([facility]) Body height 67.5 [in_i] 67.5 [in_i] eCW1 ([facility]) Body mass index (BMI) [Ratio] 29.62 kg/m2 29.62 kg/m2 eCW1 ([facility]) Heart rate 70 /min 70 /min eCW1 ([facility]) Respiratory rate 18 /min 18 /min eCW1 ([facility]) Body temperature 98.5 [degF] 98.5 [degF] eCW1 ( [facility]) Systolic blood pressure 130 mm[Hg] 130 mm[Hg] e CW1 ([facility]) Diastolic blood pressure 88 mm[Hg] 88 mm[Hg] eCW1 ([facility]) Body weight kg eCW1 ([facility]) Body weight 192 [lb_av] 192 [lb_av] eCW1 ([facility]) Body mass index (BMI) [Ratio] 29.62 kg/m2 29.62 kg/m2 eCW1 ([facility]) Heart rate 64 /min 64 /min eCW1 ([facility]) Body height 67.5 [in_i] 67.5 [in_i] eCW1 ([facility]) Respiratory rate 18 /min 18 /min eCW1 ([facility]) Systolic blood pressure 128 mm[Hg] 128 mm[Hg] e CW1 ([facility]) Body temperature 97.6 [degF] 97.6 [degF] eCW1 ( [facility]) Diastolic blood pressure 88 mm[Hg] 88 mm[Hg] eCW1 ([facility]) Systolic blood pressure 136 mm[Hg] 136 mm[Hg] e CW1 ([facility]) Respiratory rate 18 /min 18 /min eCW1 ([facility]) Diastolic blood pressure 88 mm[Hg] 88 mm[Hg] eCW1 ([facility]) Heart rate 69 /min 69 /min eCW1 ([facility]) Body temperature 96.8 [degF] 96.8 [degF] eCW1 ( [facility]) Body weight 192 [lb_av] 192 [lb_av] eCW1 ([facility]) Body weight kg eCW1 ([facility]) Body height 67.5 [in_i] 67.5 [in_i] eCW1 ([facility]) Body mass index (BMI) [Ratio] 29.62 kg/m2 29.62 kg/m2 eCW1 ([facility]) Respiratory rate 18 /min 18 /min eCW1 ([facility]) Body height 67.5 [in_i] 67.5 [in_i] eCW1 ([facility]) Body mass index (BMI) [Ratio] 29.62 kg/m2 29.62 kg/m2 eCW1 ([facility]) Heart rate 68 /min 68 /min eCW1 ([facility]) Body weight 192 [lb_av] 192 [lb_av] eCW1 ([facility]) Body weight kg eCW1 ([facility]) Body temperature 96.9 [degF] 96.9 [degF] eCW1 ( [facility]) Systolic blood pressure 128 mm[Hg] 128 mm[Hg] e CW1 ([facility]) Diastolic blood pressure 88 mm[Hg] 88 mm[Hg] eCW1 ([facility]) Body weight 192 [lb_av] 192 [lb_av] eCW1 ([facility]) Body weight kg eCW1 ([facility]) Body height 67.5 [in_i] 67.5 [in_i] eCW1 ([facility]) Body mass index (BMI) [Ratio] 29.62 kg/m2 29.62 kg/m2 eCW1 ([facility]) Heart rate 72 /min 72 /min eCW1 ([facility]) Respiratory rate 18 /min 18 /min eCW1 ([facility]) Body temperature 96.9 [degF] 96.9 [degF] eCW1 ( [facility]) Systolic blood pressure 130 mm[Hg] 130 mm[Hg] e CW1 ([facility]) Diastolic blood pressure 84 mm[Hg] 84 mm[Hg] eCW1 ([facility]) Body weight 192 [lb_av] 192 [lb_av] eCW1 ([facility]) Body weight kg eCW1 ([facility]) Body height 67.5 [in_i] 67.5 [in_i] eCW1 ([facility]) Body mass index (BMI) [Ratio] 29.62 kg/m2 29.62 kg/m2 eCW1 ([facility]) Heart rate 74 /min 74 /min eCW1 ([facility]) Respiratory rate 18 /min 18 /min eCW1 ([facility]) Body temperature 96.5 [degF] 96.5 [degF] eCW1 ( [facility]) Systolic blood pressure 126 mm[Hg] 126 mm[Hg] e CW1 ([facility]) Diastolic blood pressure mm[Hg] eCW1 ([facility]) Body weight 192 [lb_av] 192 [lb_av] eCW1 ([facility]) Body mass index (BMI) [Ratio] 29.62 kg/m2 29.62 kg/m2 eCW1 ([facility]) Heart rate 66 /min 66 /min eCW1 ([facility]) Body weight kg eCW1 ([facility]) Respiratory rate 18 /min 18 /min eCW1 ([facility]) Body temperature 96.4 [degF] 96.4 [degF] eCW1 ( [facility]) Systolic blood pressure 126 mm[Hg] 126 mm[Hg] e CW1 ([facility]) Body height 67.5 [in_i] 67.5 [in_i] eCW1 ([facility]) Diastolic blood pressure 88 mm[Hg] 88 mm[Hg] eCW1 ([facility]) Body weight 192 [lb_av] 192 [lb_av] eCW1 ([facility]) Body weight kg eCW1 ([facility]) Body height 67.5 [in_i] 67.5 [in_i] eCW1 ([facility]) Body mass index (BMI) [Ratio] 29.62 kg/m2 29.62 kg/m2 eCW1 ([facility]) Heart rate 67 /min 67 /min eCW1 ([facility]) Respiratory rate 18 /min 18 /min eCW1 ([facility]) Body temperature 96.6 [degF] 96.6 [degF] eCW1 ( [facility]) Systolic blood pressure 130 mm[Hg] 130 mm[Hg] e CW1 ([facility]) Diastolic blood pressure mm[Hg] eCW1 ([facility]) Body weight 192 [lb_av] 192 [lb_av] eCW1 ([facility]) Body weight kg eCW1 ([facility]) Body height 67.5 [in_i] 67.5 [in_i] eCW1 ([facility]) Body mass index (BMI) [Ratio] 29.62 kg/m2 29.62 kg/m2 eCW1 ([facility]) Heart rate 76 /min 76 /min eCW1 ([facility]) Respiratory rate 18 /min 18 /min eCW1 ([facility]) Body temperature 96.5 [degF] 96.5 [degF] eCW1 ( [facility]) Systolic blood pressure 160 mm[Hg] 160 mm[Hg] e CW1 ([facility]) Diastolic blood pressure 88 mm[Hg] 88 mm[Hg] eCW1 ([facility]) Body weight 192 [lb_av] 192 [lb_av] eCW1 ([facility]) Body weight kg eCW1 ([facility]) Body height 67.5 [in_i] 67.5 [in_i] eCW1 ([facility]) Body mass index (BMI) [Ratio] 29.62 kg/m2 29.62 kg/m2 eCW1 ([facility]) Heart rate 74 /min 74 /min eCW1 ([facility]) Respiratory rate 18 /min 18 /min eCW1 ([facility]) Body temperature 96.7 [degF] 96.7 [degF] eCW1 ( [facility]) Systolic blood pressure 124 mm[Hg] 124 mm[Hg] e CW1 ([facility]) Diastolic blood pressure 88 mm[Hg] 88 mm[Hg] eCW1 ([facility]) Body weight 192 [lb_av] 192 [lb_av] eCW1 ([facility]) Body weight kg eCW1 ([facility]) Body height 67.5 [in_i] 67.5 [in_i] eCW1 ([facility]) Body mass index (BMI) [Ratio] 29.62 kg/m2 29.62 kg/m2 eCW1 ([facility]) Heart rate 68 /min 68 /min eCW1 ([facility]) Respiratory rate 18 /min 18 /min eCW1 ([facility]) Body temperature 96.9 [degF] 96.9 [degF] eCW1 ( [facility]) Systolic blood pressure 124 mm[Hg] 124 mm[Hg] e CW1 ([facility]) Diastolic blood pressure mm[Hg] eCW1 ([facility]) Body weight 192 [lb_av] 192 [lb_av] eCW1 ([facility]) Body weight kg eCW1 ([facility]) Body height 67.5 [in_i] 67.5 [in_i] eCW1 ([facility]) Body mass index (BMI) [Ratio] 29.62 kg/m2 29.62 kg/m2 eCW1 ([facility]) Heart rate 50 /min 50 /min eCW1 ([facility]) Respiratory rate 18 /min 18 /min eCW1 ([facility]) Body temperature 96.7 [degF] 96.7 [degF] eCW1 ( [facility]) Systolic blood pressure 132 mm[Hg] 132 mm[Hg] e CW1 ([facility]) Diastolic blood pressure 90 mm[Hg] 90 mm[Hg] eCW1 ([facility]) Body weight 192 [lb_av] 192 [lb_av] eCW1 ([facility]) Body weight kg eCW1 ([facility]) Body height 67.5 [in_i] 67.5 [in_i] eCW1 ([facility]) Body mass index (BMI) [Ratio] 29.62 kg/m2 29.62 kg/m2 eCW1 ([facility]) Heart rate 74 /min 74 /min eCW1 ([facility]) Respiratory rate 18 /min 18 /min eCW1 ([facility]) Body temperature 96.3 [degF] 96.3 [degF] eCW1 ( [facility]) Systolic blood pressure 130 mm[Hg] 130 mm[Hg] e CW1 ([facility]) Diastolic blood pressure mm[Hg] eCW1 ([facility]) Body weight 192 [lb_av] 192 [lb_av] eCW1 ([facility]) Body weight kg eCW1 ([facility]) Body height 67.5 [in_i] 67.5 [in_i] eCW1 ([facility]) Body mass index (BMI) [Ratio] 29.62 kg/m2 29.62 kg/m2 eCW1 ([facility]) Heart rate 75 /min 75 /min eCW1 ([facility]) Respiratory rate 18 /min 18 /min eCW1 ([facility]) Body temperature 96.8 [degF] 96.8 [degF] eCW1 ( [facility]) Systolic blood pressure 128 mm[Hg] 128 mm[Hg] e CW1 ([facility]) Diastolic blood pressure mm[Hg] eCW1 ([facility]) Body weight 192 [lb_av] 192 [lb_av] eCW1 ([facility]) Body weight kg eCW1 ([facility]) Body height 67.5 [in_i] 67.5 [in_i] eCW1 ([facility]) Body mass index (BMI) [Ratio] 29.62 kg/m2 29.62 kg/m2 eCW1 ([facility]) Heart rate 61 /min 61 /min eCW1 ([facility]) Respiratory rate 18 /min 18 /min eCW1 ([facility]) Body temperature 96.4 [degF] 96.4 [degF] eCW1 ( [facility]) Systolic blood pressure 138 mm[Hg] 138 mm[Hg] e CW1 ([facility]) Diastolic blood pressure mm[Hg] eCW1 ([facility]) Respiratory rate 18 /min 18 /min eCW1 ([facility]) Body temperature 98.4 [degF] 98.4 [degF] eCW1 ( [facility]) Systolic blood pressure 124 mm[Hg] 124 mm[Hg] e CW1 ([facility]) Diastolic blood pressure 76 mm[Hg] 76 mm[Hg] eCW1 ([facility]) Body weight 192.4 [lb_av] 192.4 [lb_av] eCW1 (Counts include 234 beds at the [facility]) Body height 67.5 [in_i] 67.5 [in_i] eCW1 ([facility]) Body mass index (BMI) [Ratio] 29.69 kg/m2 29.69 kg/m2 W1 ([facility]) Heart rate 72 /min 72 /min eCW1 ([facility]) Body weight 192 [lb_av] 192 [lb_av] eCW1 ([facility]) Body weight kg eCW1 ([facility]) Body height 67.5 [in_i] 67.5 [in_i] eCW1 ([facility]) Body mass index (BMI) [Ratio] 29.62 kg/m2 29.62 kg/m2 eCW1 ([facility]) Heart rate 62 /min 62 /min eCW1 ([facility]) Respiratory rate 18 /min 18 /min eCW1 ([facility]) Body temperature 97.3 [degF] 97.3 [degF] eCW1 ( [facility]) Systolic blood pressure 130 mm[Hg] 130 mm[Hg] e CW1 ([facility]) Diastolic blood pressure mm[Hg] eCW1 ([facility]) Body weight 192 [lb_av] 192 [lb_av] eCW1 ([facility]) Body height 67.5 [in_i] 67.5 [in_i] eCW1 ([facility]) Body mass index (BMI) [Ratio] 29.62 kg/m2 29.62 kg/m2 eCW1 ([facility]) Heart rate 59 /min 59 /min eCW1 ([facility]) Respiratory rate 17 /min 17 /min eCW1 ([facility]) Body temperature 97.2 [degF] 97.2 [degF] eCW1 ( [facility]) Systolic blood pressure 128 mm[Hg] 128 mm[Hg] e CW1 ([facility]) Diastolic blood pressure mm[Hg] eCW1 ([facility]) Body height 69 [in_i] 69 [in_i] MEDENT ([facility] 5'9" Body mass index (BMI) [Ratio] 28.1 kg/m2 28.1 k g/m2 MEDENT ([facility]) Heart rate 66 /min 66 /min MEDENT ([facility]) Systolic blood pressure--sitting 138 mm[Hg] 138 mm[Hg] MEDENT ([facility]) large cuff, Ra Diastolic blood pressure--sitting 82 mm[Hg] 82 mm[Hg] MEDENT ([facility]) large cuff, Ra Body weight 190.00 [lb_av] 190.00 [lb_av] ISAIAS T ([facility]) Body weight 192 [lb_av] 192 [lb_av] eCW1 ([facility]) Body weight kg eCW1 ([facility]) Body height 67.5 [in_i] 67.5 [in_i] eCW1 ([facility]) Body mass index (BMI) [Ratio] 29.62 kg/m2 29.62 kg/m2 eCW1 ([facility]) Heart rate 67 /min 67 /min eCW1 ([facility]) Respiratory rate 18 /min 18 /min eCW1 ([facility]) Body temperature 96.3 [degF] 96.3 [degF] eCW1 ( [facility]) Systolic blood pressure 165 mm[Hg] 165 mm[Hg] e CW1 ([facility]) Diastolic blood pressure 89 mm[Hg] 89 mm[Hg] eCW1 ([facility]) Body mass index (BMI) [Ratio] 29.62 kg/m2 29.62 kg/m2 eCW1 ([facility]) Body weight 192 [lb_av] 192 [lb_av] eCW1 ([facility]) Body weight kg eCW1 ([facility]) Body height 67.5 [in_i] 67.5 [in_i] eCW1 ([facility]) Diastolic blood pressure 90 mm[Hg] 90 mm[Hg] eCW1 ([facility]) Heart rate 71 /min 71 /min eCW1 ([facility]) Respiratory rate 18 /min 18 /min eCW1 ([facility]) Body temperature 97.6 [degF] 97.6 [degF] eCW1 ( [facility]) Systolic blood pressure 155 mm[Hg] 155 mm[Hg] e CW1 ([facility]) Body weight 192 [lb_av] 192 [lb_av] eCW1 ([facility]) Body weight kg eCW1 ([facility]) Body height 67.5 [in_i] 67.5 [in_i] eCW1 ([facility]) Body mass index (BMI) [Ratio] 29.62 kg/m2 29.62 kg/m2 eCW1 ([facility]) Heart rate 56 /min 56 /min eCW1 ([facility]) Respiratory rate 18 /min 18 /min eCW1 ([facility]) Body temperature 98.1 [degF] 98.1 [degF] eCW1 ( [facility]) Systolic blood pressure 145 mm[Hg] 145 mm[Hg] e CW1 ([facility]) Diastolic blood pressure 94 mm[Hg] 94 mm[Hg] eCW1 ([facility]) Body weight 192 [lb_av] 192 [lb_av] eCW1 ([facility]) Body weight kg eCW1 ([facility]) Body height 67.5 [in_i] 67.5 [in_i] eCW1 ([facility]) Body mass index (BMI) [Ratio] 29.62 kg/m2 29.62 kg/m2 eCW1 ([facility]) Heart rate 72 /min 72 /min eCW1 ([facility]) Respiratory rate 18 /min 18 /min eCW1 ([facility]) Body temperature 97.2 [degF] 97.2 [degF] eCW1 ( [facility]) Systolic blood pressure 139 mm[Hg] 139 mm[Hg] e CW1 ([facility]) Diastolic blood pressure 88 mm[Hg] 88 mm[Hg] eCW1 ([facility]) Body weight 192 [lb_av] 192 [lb_av] eCW1 ([facility]) Body weight kg eCW1 ([facility]) Body height 67.5 [in_i] 67.5 [in_i] eCW1 ([facility]) Body mass index (BMI) [Ratio] 29.62 kg/m2 29.62 kg/m2 eCW1 ([facility]) Heart rate 68 /min 68 /min eCW1 ([facility]) Respiratory rate 18 /min 18 /min eCW1 ([facility]) Body temperature 96.0 [degF] 96.0 [degF] eCW1 ( [facility]) Systolic blood pressure 137 mm[Hg] 137 mm[Hg] e CW1 ([facility]) Diastolic blood pressure 88 mm[Hg] 88 mm[Hg] eCW1 ([facility]) Body weight 192 [lb_av] 192 [lb_av] eCW1 ([facility]) Body weight kg eCW1 ([facility]) Body height 67.5 [in_i] 67.5 [in_i] eCW1 ([facility]) Body mass index (BMI) [Ratio] 29.62 kg/m2 29.62 kg/m2 eCW1 ([facility]) Heart rate 76 /min 76 /min eCW1 ([facility] [facility]) Respiratory rate 18 /min 18 /min eCW1 ([facility]) Body temperature 96.7 [degF] 96.7 [degF] eCW1 ( [facility]) Systolic blood pressure 173 mm[Hg] 173 mm[Hg] e CW1 ([facility]) Diastolic blood pressure 81 mm[Hg] 81 mm[Hg] eCW1 ([facility]) Respiratory rate 18 /min 18 /min eCW1 ([facility]) Body weight 192 [lb_av] 192 [lb_av] eCW1 (Formerly [facility]) Body weight kg eCW1 ([facility]) Body height 67.5 [in_i] 67.5 [in_i] eCW1 (Formerly [facility]) Body mass index (BMI) [Ratio] 29.62 kg/m2 29.62 kg/m2 W1 ([facility]) Heart rate 75 /min 75 /min eCW1 (Formerly [facility]) Body temperature 96.5 [degF] 96.5 [degF] eCW1 ( [facility]) Systolic blood pressure 147 mm[Hg] 147 mm[Hg] e CW1 ([facility]) Diastolic blood pressure 82 mm[Hg] 82 mm[Hg] eCW1 ([facility]) Body weight 192 [lb_av] 192 [lb_av] eCW1 (Formerly [facility]) Body height 67.5 [in_i] 67.5 [in_i] eCW1 (Formerly [facility]) Body mass index (BMI) [Ratio] 29.62 kg/m2 29.62 kg/m2 eCW1 ([facility]) Heart rate 74 /min 74 /min eCW1 (Formerly [facility]) Respiratory rate 18 /min 18 /min eCW1 ([facility]) Body temperature 97.6 [degF] 97.6 [degF] eCW1 ( [facility]) Systolic blood pressure 170 mm[Hg] 170 mm[Hg] e CW1 ([facility]) Diastolic blood pressure 100 mm[Hg] 100 mm[Hg] eCW1 ([facility]) Body weight 192 [lb_av] 192 [lb_av] eCW1 ([facility]ly [facility]) Body weight kg eCW1 ([facility]) Body height 67.5 [in_i] 67.5 [in_i] eCW1 ([facility]ly [facility]) Body mass index (BMI) [Ratio] 29.62 kg/m2 29.62 kg/m2 eCW1 ([facility]) Heart rate 74 /min 74 /min eCW1 ([facility]ly [facility]) Respiratory rate 18 /min 18 /min eCW1 ([facility]) Body temperature 97.6 [degF] 97.6 [degF] eCW1 ( [facility]) Systolic blood pressure 140 mm[Hg] 140 mm[Hg] e CW1 ([facility]) Diastolic blood pressure 90 mm[Hg] 90 mm[Hg] eCW1 ([facility]) Body weight 192 [lb_av] 192 [lb_av] eCW1 ([facility]ly [facility]) Body height 67.5 [in_i] 67.5 [in_i] eCW1 ([facility]ly [facility]) Body mass index (BMI) [Ratio] 29.62 kg/m2 29.62 kg/m2 eCW1 ([facility]) Heart rate 67 /min 67 /min eCW1 ([facility]ly [facility]) Respiratory rate 16 /min 16 /min eCW1 ([facility]) Body temperature 97.9 [degF] 97.9 [degF] eCW1 ( [facility]) Systolic blood pressure 112 mm[Hg] 112 mm[Hg] e CW1 ([facility]) Diastolic blood pressure 66 mm[Hg] 66 mm[Hg] eCW1 ([facility]) Body weight 175.00 [lb_av] 175.00 [lb_av] MEDEN T ([facility]) Body height 69 [in_i] 69 [in_i] MEDENT ([facility]) 5'9" Body mass index (BMI) [Ratio] 25.8 kg/m2 25.8 k g/m2 MEDENT ([facility]) Systolic blood pressure 159 mm[Hg] 159 mm[Hg] M EDENT ([facility]) Diastolic blood pressure 106 mm[Hg] 106 mm[Hg] MEDENT ([facility]) Heart rate 77 /min 77 /min MEDENT ([facility]) Oxygen saturation in Arterial blood by Pulse oximetry 97 % 97 % MEDENT ([facility]) Body temperature 98.1 [degF] 98.1 [degF] MEDENT ([facility]) Patient Treatment Plan of Care Planned Activity Planned Date Details Description Data Source (s) NITROFURANTOIN, MACROCRYSTALS 25 MG / Ni trofurantoin, Monohydrate 75 MG Oral Capsule [Macrobid] 03/18/2021 12:00:00 AM EDT eC W1 ([facility]) NITROFURANTOIN, MACROCRYSTALS 25 MG / Ni trofurantoin, Monohydrate 75 MG Oral Capsule [Macrobid] 03/18/2021 12:00:00 AM EDT eC W1 ([facility]) NITROFURANTOIN, MACROCRYSTALS 25 MG / Ni trofurantoin, Monohydrate 75 MG Oral Capsule [Macrobid] 03/18/2021 12:00:00 AM EDT eC W1 ([facility]) NITROFURANTOIN, MACROCRYSTALS 25 MG / Ni trofurantoin, Monohydrate 75 MG Oral Capsule [Macrobid] 03/18/2021 12:00:00 AM EDT eC W1 ([facility]) NITROFURANTOIN, MACROCRYSTALS 25 MG / Ni trofurantoin, Monohydrate 75 MG Oral Capsule [Macrobid] 03/18/2021 12:00:00 AM EDT eC W1 ([facility]) NITROFURANTOIN, MACROCRYSTALS 25 MG / Ni trofurantoin, Monohydrate 75 MG Oral Capsule [Macrobid] 03/18/2021 12:00:00 AM EDT eC W1 ([facility]) Oxybutynin chloride 5 MG Oral Tablet 03/14/2021 12:00:00 AM EDT eCW1 ([facility]) Oxybutynin chloride 5 MG Oral Tablet 03/14/2021 12:00:00 AM EDT eCW1 ([facility]) Oxybutynin chloride 5 MG Oral Tablet 03/14/2021 12:00:00 AM EDT eCW1 ([facility]) Oxybutynin chloride 5 MG Oral Tablet 03/14/2021 12:00:00 AM EDT eCW1 ([facility]) Oxybutynin chloride 5 MG Oral Tablet 03/14/2021 12:00:00 AM EDT eCW1 ([facility]) Sulfamethoxazole 800 MG / Trimethoprim 160 MG Oral Tab let [Bactrim] 03/03/2021 12:00:00 AM EDT eCW1 (Formerly [facility], 1928[facility]1983) Sulfamethoxazole 800 MG / Trimethoprim 160 MG Oral Tab let [Bactrim] 03/03/2021 12:00:00 AM EDT eCW1 (Formerly [facility], [facility]1983) Sulfamethoxazole 800 MG / Trimethoprim 160 MG Oral Tab let [Bactrim] 03/03/2021 12:00:00 AM EDT eCW1 (Formerly [facility], [facility])
--- OUTSIDE RECORDS SUMMARY | 2021-07-05 14:07 | CCD ---
Author Author [facility] Organization [facility] Address Unknown Phone Unavailable Care Team Providers Care Art Appraiser Name Role Phone Emely Morales Unavailable Unavailable [...] L Emma PA Unavailable Unavailable Campos, Valerie CONCRETE BUSTER OPERATOR Unavailable Unavailable Campos, Valerie CONCRETE BUSTER OPERATOR Unavailable Unavailable Campos, Valerie CONCRETE BUSTER OPERATOR Unavailable Unavailable Campos, Valerie CONCRETE BUSTER OPERATOR Unavailable Unavailable Campos, Valerie CONCRETE BUSTER OPERATOR Unavailable Unavailable Campos, Valerie CONCRETE BUSTER OPERATOR Unavailable Unavailable Campos, Valerie CONCRETE BUSTER OPERATOR Unavailable Unavailable Campos, Valerie CONCRETE BUSTER OPERATOR Unavailable Unavailable Campos, Valerie CONCRETE BUSTER OPERATOR Unavailable Unavailable Campos, Valerie CONCRETE BUSTER OPERATOR Unavailable Unavailable Campos, Valerie CONCRETE BUSTER OPERATOR Unavailable Unavailable Campos, Valerie CONCRETE BUSTER OPERATOR Unavailable Unavailable Campos, Valerie CONCRETE BUSTER OPERATOR Unavailable Unavailable LETTIERE, A DIONNE PA Unavailable [...] is protected by Article 27-F of the [facility] Public Health law. If you continue you may have access to information: Regarding HIV / AIDS; Provided by facilities licensed or operated by the [facility] Office of Mental Health; or Provided by the [facility] Office for People With Developmental Disabilities. If such information is present, then the following [facility] mandated warning applies: This information has [...] law may result in a fine or alf sentence or both. A general authorization for [...] DIONNE maldonado 07/02/2021 11:50:00 AM EDT [facility] ([facility]) [place] [address] [place] [address] 07/02/2021 12:00:00 AM EDT eCW1 ([facility]) Unknown [address] [place] [address] 06/23/2021 12:00:00 AM EDT eCW1 ([facility]) Outpatient [address] [facility] Y [address] 06/19/2021 12:00:00 AM EDT eCW1 ([facility]) Postop visit [address] [place] [address] 05/20/2021 12:00:00 AM EDT eCW1 ([facility]) Outpatient [address] [facility] [place] [address] 05/05/2021 12:00:00 AM EDT eCW1 ([facility]) Unknown [address] [place] [address] 05/05/2021 12:00:00 AM EDT eCW1 ([facility]) Unknown [address] [place] [address] 04/17/2021 12:00:00 AM EDT eCW1 ([facility]) Unknown [address] [facility] [place] [address] 04/03/2021 12:00:00 AM EDT eCW1 ([facility]) Outpatient [address] [place] [address] 04/01/2021 12:00:00 AM EDT eCW1 ([facility]) Unknown [address] [place] [address] 03/27/2021 12:00:00 AM EDT eCW1 ([facility]) Unknown [address] [facility] [place] [address] 03/18/2021 12:00:00 AM EDT eCW1 ([facility]) Outpatient [address] [facility] [place] [address] 03/14/2021 12:00:00 AM EDT eCW1 ([facility]) Unknown [address] [facility] [place] [address] 03/06/2021 12:00:00 AM EDT eCW1 ([facility]) (Cysto2) Urology [address] [place] [address] 03/03/2021 12:00:00 AM EDT eCW1 ([facility]) Unknown [address] [facility] [place] [address] 03/03/2021 12:00:00 AM EDT eCW1 ([facility]) Unknown [address] [facility] [address] 02/27/2021 12:00:00 AM EDT eCW1 ([facility]) Unknown [address] [facility] [place] [address] 02/27/2021 12:00:00 AM EDT eCW1 ([facility]) Unknown [address] [facility] [address] 02/12/2021 12:00:00 AM EDT eCW1 ([facility]) Unknown [address] [facility] [place] [address] 02/07/2021 12:00:00 AM EDT eCW1 ([facility]) Unknown [address] [facility] [place] [address] 02/04/2021 12:00:00 AM EDT eCW1 ([facility]) Outpatient [address] [facility] [place] [address] 01/29/2021 12:00:00 AM EDT eCW1 ([facility]) Unknown [address] [facility] [place] [address] 01/24/2021 12:00:00 AM EDT eCW1 ([facility]) Outpatient Attender: KARYN SCHMITZ Main Office 01/13/2021 0 3:30:00 PM EDT [facility] ([facility]) Outpatient [address] [facility] [place] [address] 01/13/2021 12:00:00 AM EDT eCW1 ([facility]) Unknown [address] [facility] [place] [address] 01/13/2021 12:00:00 AM EDT eCW1 ([facility]) Unknown [address] [facility], [place] [address] 01/10/2021 12:00:00 AM EDT eCW1 ([facility]) Unknown [address] [facility] Y [address] 01/08/2021 12:00:00 AM EDT eCW1 ([facility]) Outpatient [address] [facility] [place] [address] 01/08/2021 12:00:00 AM EDT eCW1 ([facility]) Unknown [address] [facility], [place] [address] 01/06/2021 12:00:00 AM EDT eCW1 ([facility]) Unknown [address] [facility] Y [address] 12/27/2020 12:00:00 AM EDT [facility]CW1 [facility] (Cysto1) Urology [address] [place] [address] 12/25/2020 12:00:00 AM EDT eCW1 ([facility]) Outpatient Attender: JESUS Mcallister/ [facility] 12/20/2020 03:00:00 PM EDT MEDENT ([facility]) Outpatient [address] [facility], [place] [address] 12/20/2020 12:00:00 AM EDT eCW1 ([facility]) Outpatient [address] [facility] [place] [address] 12/12/2020 12:00:00 AM EDT eCW1 ([facility]) Unknown [address] [facility] [place] [address] 12/10/2020 12:00:00 AM EDT eCW1 ([facility]) Outpatient Attender: DIEGO Duffy Primary 11/25/2020 04:50:00 PM EDT [facility] ([facility] Outpatient [address] [facility], [place] [address] 11/12/2020 12:00:00 AM EST eCW1 ([facility]) Outpatient Attender: DIEGO Duffy Primary 11/07/2020 07:50:00 AM EST [facility] Unknown [address] [facility] [place] [address] 11/06/2020 12:00:00 AM EST eCW1 ([facility]) Outpatient [address] [facility] [place] [address] 10/17/2020 12:00:00 AM EST eCW1 ([facility]) Unknown [address] [facility] [place] [address] 10/16/2020 12:00:00 AM EST eCW1 ([facility]) Outpatient [address] [facility] [place] [address] 10/02/2020 12:00:00 AM EST eCW1 ([facility]) Outpatient [address] [facility] [place] [address] 10/02/2020 12:00:00 AM EST eCW1 ([facility]) Unknown [address] [facility] [place] [address] 09/26/2020 12:00:00 AM EST eCW1 ([facility]) Outpatient [address] [facility] [place] [address] 09/19/2020 12:00:00 AM EST eCW1 ([facility]) Outpatient [address] [facility] [place] [address] 09/18/2020 12:00:00 AM EST eCW1 ([facility]) Unknown [address] [facility] [place] [address] 09/17/2020 12:00:00 AM EST eCW1 ([facility]) Outpatient [address] [facility] [place] [address] 09/16/2020 12:00:00 AM EST eCW1 ([facility]) Outpatient [address] [facility] [place] [address] 09/16/2020 12:00:00 AM EST eCW1 ([facility]) Outpatient [address] [facility] [place] [address] 09/12/2020 12:00:00 AM EST eCW1 ([facility]) Outpatient [address] [facility] [place] [address] 09/11/2020 12:00:00 AM EST eCW1 ([facility]) Unknown [address] [facility] [place] [address] 09/10/2020 12:00:00 AM EST eCW1 ([facility]) Outpatient [address] [facility] [place] [address] 09/09/2020 12:00:00 AM EST eCW1 ([facility]) Outpatient [address] [facility] [place] [address] 09/05/2020 12:00:00 AM EST eCW1 ([facility]) Outpatient [address] [facility] [place] [address] 09/04/2020 12:00:00 AM EST eCW1 ([facility]) Unknown [address] [facility] [place] [address] 09/03/2020 12:00:00 AM EST eCW1 ([facility]) Outpatient [address] [facility] [place] [address] 09/03/2020 12:00:00 AM EST eCW1 ([facility]) Outpatient [address] [facility], [place] [address] 09/02/2020 12:00:00 AM EST eCW1 ([facility]) Unknown [address] [facility] Y [address] 08/30/2020 12:00:00 AM EST eCW1 ([facility]) Outpatient [address] [facility] Y [address] 08/29/2020 12:00:00 AM EST eCW1 ([facility]) Outpatient [address] [facility] Y [address] 08/28/2020 12:00:00 AM EST eCW1 ([facility]) Outpatient [address] [facility] [address] 08/27/2020 12:00:00 AM EST eCW1 ([facility]) ([id number]) For [employer] [address] [place] [address] 08/26/2020 12:00:00 AM EST eCW1 ([facility] Outpatient [address] [facility] [address] 08/26/2020 12:00:00 AM EST eCW1 ([facility]) Outpatient [address] [facility] Y [address] 08/23/2020 12:00:00 AM EST eCW1 ([facility]) (Cysto1) Urology [address] [place] [address] 08/23/2020 12:00:00 AM EST eCW1 ([facility]) Outpatient [address] [facility] Y [address] 08/22/2020 12:00:00 AM EST eCW1 ([facility]) Outpatient [address] [facility] Y [address] 08/21/2020 12:00:00 AM EST eCW1 ([facility]) Outpatient [address] [facility], [place] [address] 08/20/2020 12:00:00 AM EST eCW1 ([facility]) Outpatient [address] [facility] Y [address] 08/19/2020 12:00:00 AM EST eCW1 ([facility]) Unknown [address] [facility] [address] 08/16/2020 12:00:00 AM EST eCW1 ([facility]) Outpatient [address] [facility] [address] 08/15/2020 12:00:00 AM EST eCW1 ([facility]) Outpatient [address] [facility] [address] 08/14/2020 12:00:00 AM EST eCW1 ([facility]) [facility] [address] [place] [address] 08/14/2020 12:00:00 AM EST eCW1 ([facility]) Outpatient [address] [facility] [address] 08/13/2020 12:00:00 AM EST eCW1 ([facility]) ([id number]) [facility] [address] [place] [address] 08/12/2020 12:00:00 AM EST eCW1 ([facility]) Outpatient [address] [facility] [address] 08/12/2020 12:00:00 AM EST eCW1 ([facility]) Outpatient [address] [facility] [address] 08/05/2020 12:00:00 AM EST eCW1 ([facility]) Unknown [address] [facility] Y [address] 08/02/2020 12:00:00 AM EST eCW1 ([facility]) Outpatient [address] [facility] [address] 08/02/2020 12:00:00 AM EST eCW1 ([facility]) Unknown [address] [facility] [place] [address] 08/01/2020 12:00:00 AM EST eCW1 ([facility]) Outpatient [address] [facility] [place] [address] 07/31/2020 12:00:00 AM EST eCW1 ([facility]) Outpatient [address] [facility] [place] [address] 07/30/2020 12:00:00 AM EST eCW1 ([facility]) Outpatient [address] [facility] [place] [address] 07/30/2020 12:00:00 AM EST eCW1 ([facility]) Outpatient [address] [facility] [place] [address] 07/29/2020 12:00:00 AM EST eCW1 ([facility]) Unknown [address] [facility] [place] [address] 07/26/2020 12:00:00 AM EST [facility]CW1 [facility] [place] [address] [facility] [place] [address] 07/26/2020 12:00:00 AM EST [facility]CW1 [facility] Outpatient [address] [facility] [place] [address] 07/25/2020 12:00:00 AM EST [facility]CW1 [facility] Outpatient [address] [facility] [place] [address] 07/25/2020 12:00:00 AM EST eCW1 [facility]) Outpatient Attender: Emma SCHMITZ Main Office 07/24/2020 10:45:0 0 AM EST [facility]ENT ([facility]) Outpatient [address] [facility] [place] [address] 07/24/2020 12:00:00 AM EST eCW1 [facility]) Outpatient [address] [facility] [place] [address] 07/24/2020 12:00:00 AM EST eCW1 ([facility]) Outpatient [address] [facility] [place] [address] 07/23/2020 12:00:00 AM EST eCW1 ([facility]) Unknown [address] [facility] [place] [address] 07/23/2020 12:00:00 AM EST eCW1 ([facility]) Unknown [address] [facility] [place] [address] 07/22/2020 12:00:00 AM EST eCW1 ([facility]) Outpatient [address] [facility] [place] [address] 07/22/2020 12:00:00 AM EST eCW1 ([facility]) Outpatient [address] [facility] [place] [address] 07/19/2020 12:00:00 AM EST eCW1 ([facility]) Unknown [address] [facility] [place] [address] 07/18/2020 12:00:00 AM EST eCW1 ([facility]) Outpatient [address] [facility] [place] [address] 07/18/2020 12:00:00 AM EST eCW1 ([facility]) Outpatient [address] [facility] [place] [address] 07/17/2020 12:00:00 AM EST eCW1 ([facility]) Outpatient [address] [facility] [place] [address] 07/16/2020 12:00:00 AM EST eCW1 ([facility]) Outpatient [address] [facility] [place] [address] 07/15/2020 12:00:00 AM EST eCW1 ([facility]) Unknown [address] [facility] [place] [address] 07/15/2020 12:00:00 AM EST eCW1 ([facility]) Outpatient [address] [facility] [place] [address] 07/15/2020 12:00:00 AM EST [facility] [place] [address] [facility] [place] [address] 07/12/2020 12:00:00 AM EDT [facility]CW[facility] [address] [facility] [place] [address] 07/05/2020 12:00:00 AM EDT eCW1 ([facility]) Outpatient [address] [facility] [place] [address] 06/27/2020 12:00:00 AM EDT eCW1 ([facility]) Unknown [address] [facility] [place] [address] 06/18/2020 12:00:00 AM EDT eCW1 ([facility]) Outpatient [address] [facility] [place] [address] 06/13/2020 12:00:00 AM EDT eCW1 ([facility]) Unknown [address] [facility] [place] [address] 06/13/2020 12:00:00 AM EDT eCW1 ([facility]) Outpatient Attender: Valerie de la rosa 05/17/2020 12:30:00 PM EDT [facility] Immunizations Vaccine Date Status Description Data Source(s) COVID-19 VACCINE Pfizer 11/15/2020 12:00:00 AM EST completed [facility] Vaccine Series Complete: YESThis Data wa s Submitted to [facility] Via [employer]. COVID-19 VACCINE Pfizer 10/25/2020 12:00:00 AM EST completed [facility] Vaccine Series Complete: NOThis Data was Submitted to [facility] [employer]. IIV3. This is one of two codes replacing CVX 15, which is being retired. 07/30/2020 10:08:00 AM EST completed eCW1 ([facility]) IIV3. This is one of two codes replacing CVX 15, which is being retired. 07/30/2020 10:08:00 AM EST completed eCW1 ([facility]) IIV3. This is one of two codes replacing CVX 15, which is being retired. 07/30/2020 10:08:00 AM EST completed eCW1 ([facility]) IIV3. This is one of two codes replacing CVX 15, which is being retired. 07/30/2020 10:08:00 AM EST completed eCW1 ([facility]) IIV3. This is one of two codes replacing CVX 15, which is being retired. 07/30/2020 10:08:00 AM EST completed eCW1 ([facility]) IIV3. This is one of two codes replacing CVX 15, which is being retired. 07/30/2020 10:08:00 AM EST completed eCW1 ([facility]) IIV3. This is one of two codes replacing CVX 15, which is being retired. 07/30/2020 10:08:00 AM EST completed eCW1 ([facility]) IIV3. This is one of two codes replacing CVX 15, which is being retired. 07/30/2020 10:08:00 AM EST completed eCW1 ([facility]) IIV3. This is one of two codes replacing CVX 15, which is being retired. 07/30/2020 10:08:00 AM EST completed eCW1 ([facility]) IIV3. This is one of two codes replacing CVX 15, which is being retired. 07/30/2020 10:08:00 AM EST completed eCW1 ([facility]) IIV3. This is one of two codes replacing CVX 15, which is being retired. 07/30/2020 10:08:00 AM EST completed eCW1 ([facility]) IIV3. This is one of two codes replacing CVX 15, which is being retired. 07/30/2020 10:08:00 AM EST completed eCW1 ([facility]) IIV3. This is one of two codes replacing CVX 15, which is being retired. 07/30/2020 10:08:00 AM EST completed eCW1 ([facility]) IIV3. This is one of two codes replacing CVX 15, which is being retired. 07/30/2020 10:08:00 AM EST completed eCW1 ([facility]) IIV3. This is one of two codes replacing CVX 15, which is being retired. 07/30/2020 10:08:00 AM EST completed eCW1 ([facility]) IIV3. This is one of two codes replacing CVX 15, which is being retired. 07/30/2020 10:08:00 AM EST completed eCW1 ([facility]) IIV3. This is one of two codes replacing CVX 15, which is being retired. 07/30/2020 10:08:00 AM EST completed eCW1 ([facility]) IIV3. This is one of two codes replacing CVX 15, which is being retired. 07/30/2020 10:08:00 AM EST completed eCW1 ([facility]) IIV3. This is one of two codes replacing CVX 15, which is being retired. 07/30/2020 10:08:00 AM EST completed eCW1 ([facility]) IIV3. This is one of two codes replacing CVX 15, which is being retired. 07/30/2020 10:08:00 AM EST completed eCW1 ([facility]) IIV3. This is one of two codes replacing CVX 15, which is being retired. 07/30/2020 10:08:00 AM EST completed eCW1 ([facility]) IIV3. This is one of two codes replacing CVX 15, which is being retired. 07/30/2020 10:08:00 AM EST completed eCW1 ([facility]) IIV3. This is one of two codes replacing CVX 15, which is being retired. 07/30/2020 10:08:00 AM EST completed eCW1 ([facility]) IIV3. This is one of two codes replacing CVX 15, which is being retired. 07/30/2020 10:08:00 AM EST completed eCW1 ([facility]) IIV3. This is one of two codes replacing CVX 15, which is being retired. 07/30/2020 10:08:00 AM EST completed eCW1 ([facility]) IIV3. This is one of two codes replacing CVX 15, which is being retired. 07/30/2020 10:08:00 AM EST completed eCW1 ([facility]) IIV3. This is one of two codes replacing CVX 15, which is being retired. 07/30/2020 10:08:00 AM EST completed eCW1 ([facility]) IIV3. This is one of two codes replacing CVX 15, which is being retired. 07/30/2020 10:08:00 AM EST completed eCW1 ([facility]) IIV3. This is one of two codes replacing CVX 15, which is being retired. 07/30/2020 10:08:00 AM EST completed eCW1 ([facility]) IIV3. This is one of two codes replacing CVX 15, which is being retired. 07/30/2020 10:08:00 AM EST completed eCW1 ([facility]) IIV3. This is one of two codes replacing CVX 15, which is being retired. 07/30/2020 10:08:00 AM EST completed eCW1 ([facility]) IIV3. This is one of two codes replacing CVX 15, which is being retired. 07/30/2020 10:08:00 AM EST completed eCW1 ([facility]) IIV3. This is one of two codes replacing CVX 15, which is being retired. 07/30/2020 10:08:00 AM EST completed eCW1 ([facility]) IIV3. This is one of two codes replacing CVX 15, which is being retired. 07/30/2020 10:08:00 AM EST completed eCW1 ([facility]) IIV3. This is one of two codes replacing CVX 15, which is being retired. 07/30/2020 10:08:00 AM EST completed eCW1 ([facility]) IIV3. This is one of two codes replacing CVX 15, which is being retired. 07/30/2020 10:08:00 AM EST completed eCW1 ([facility]) IIV3. This is one of two codes replacing CVX 15, which is being retired. 07/30/2020 10:08:00 AM EST completed eCW1 ([facility]) IIV3. This is one of two codes replacing CVX 15, which is being retired. 07/30/2020 10:08:00 AM EST completed eCW1 ([facility]) IIV3. This is one of two codes replacing CVX 15, which is being retired. 07/30/2020 10:08:00 AM EST completed eCW1 ([facility]) IIV3. This is one of two codes replacing CVX 15, which is being retired. 07/30/2020 10:08:00 AM EST completed eCW1 ([facility]) IIV3. This is one of two codes replacing CVX 15, which is being retired. 07/30/2020 10:08:00 AM EST completed eCW1 ([facility]) IIV3. This is one of two codes replacing CVX 15, which is being retired. 07/30/2020 10:08:00 AM EST completed eCW1 ([facility]) IIV3. This is one of two codes replacing CVX 15, which is being retired. 07/30/2020 10:08:00 AM EST completed eCW1 ([facility]) IIV3. This is one of two codes replacing CVX 15, which is being retired. 07/30/2020 10:08:00 AM EST completed eCW1 ([facility]) IIV3. This is one of two codes replacing CVX 15, which is being retired. 07/30/2020 10:08:00 AM EST completed eCW1 ([facility]) IIV3. This is one of two codes replacing CVX 15, which is being retired. 07/30/2020 10:08:00 AM EST completed eCW1 ([facility]) IIV3. This is one of two codes replacing CVX 15, which is being retired. 07/30/2020 10:08:00 AM EST completed eCW1 ([facility]) IIV3. This is one of two codes replacing CVX 15, which is being retired. 07/30/2020 10:08:00 AM EST completed eCW1 ([facility]) IIV3. This is one of two codes replacing CVX 15, which is being retired. 07/30/2020 10:08:00 AM EST completed eCW1 ([facility]) IIV3. This is one of two codes replacing CVX 15, which is being retired. 07/30/2020 10:08:00 AM EST completed eCW1 ([facility]) IIV3. This is one of two codes replacing CVX 15, which is being retired. 07/30/2020 10:08:00 AM EST completed eCW1 ([facility]) IIV3. This is one of two codes replacing CVX 15, which is being retired. 07/30/2020 10:08:00 AM EST completed eCW1 ([facility]) IIV3. This is one of two codes replacing CVX 15, which is being retired. 07/30/2020 10:08:00 AM EST completed eCW1 ([facility]) IIV3. This is one of two codes replacing CVX 15, which is being retired. 07/30/2020 10:08:00 AM EST completed eCW1 ([facility]) IIV3. This is one of two codes replacing CVX 15, which is being retired. 07/30/2020 10:08:00 AM EST completed eCW1 ([facility]) IIV3. This is one of two codes replacing CVX 15, which is being retired. 07/30/2020 10:08:00 AM EST completed eCW1 ([facility]) IIV3. This is one of two codes replacing CVX 15, which is being retired. 07/30/2020 10:08:00 AM EST completed eCW1 ([facility] [facility] IIV[facility]. This is one of two codes replacing CVX 15, which is being retired. 07/30/2020 10:08:00 AM EST completed eCW1 ([facility]) IIV3. This is one of two codes replacing CVX 15, which is being retired. 07/30/2020 10:08:00 AM EST completed eCW1 ([facility]) IIV3. This is one of two codes replacing CVX 15, which is being retired. 07/30/2020 10:08:00 AM EST completed eCW1 ([facility]) IIV3. This is one of two codes replacing CVX 15, which is being retired. 07/30/2020 10:08:00 AM EST completed eCW1 ([facility]) IIV3. This is one of two codes replacing CVX 15, which is being retired. 07/30/2020 10:08:00 AM EST completed eCW1 ([facility]) IIV3. This is one of two codes replacing CVX 15, which is being retired. 07/30/2020 10:08:00 AM EST completed eCW1 ([facility]) IIV3. This is one of two codes replacing CVX 15, which is being retired. 07/30/2020 10:08:00 AM EST completed eCW1 ([facility]) IIV3. This is one of two codes replacing CVX 15, which is being retired. 07/30/2020 10:08:00 AM EST completed eCW1 ([facility]) IIV3. This is one of two codes replacing CVX 15, which is being retired. 07/30/2020 10:08:00 AM EST completed eCW1 ([facility]) IIV3. This is one of two codes replacing CVX 15, which is being retired. 07/30/2020 10:08:00 AM EST completed eCW1 ([facility]) IIV3. This is one of two codes replacing CVX 15, which is being retired. 07/30/2020 10:08:00 AM EST completed eCW1 ([facility]) IIV3. This is one of two codes replacing CVX 15, which is being retired. 07/30/2020 10:08:00 AM EST completed eCW1 ([facility]) IIV3. This is one of two codes replacing CVX 15, which is being retired. 07/30/2020 10:08:00 AM EST completed eCW1 ([facility]) IIV3. This is one of two codes replacing CVX 15, which is being retired. 07/30/2020 10:08:00 AM EST completed eCW1 ([facility]) IIV3. This is one of two codes replacing CVX 15, which is being retired. 07/30/2020 10:08:00 AM EST completed eCW1 ([facility]) IIV3. This is one of two codes replacing CVX 15, which is being retired. 07/30/2020 10:08:00 AM EST completed eCW1 ([facility]) IIV3. This is one of two codes replacing CVX 15, which is being retired. 07/30/2020 10:08:00 AM EST completed eCW1 ([facility]) IIV3. This is one of two codes replacing CVX 15, which is being retired. 07/30/2020 10:08:00 AM EST completed eCW1 ([facility]) IIV3. This is one of two codes replacing CVX 15, which is being retired. 07/30/2020 10:08:00 AM EST completed eCW1 ([facility]) IIV3. This is one of two codes replacing CVX 15, which is being retired. 07/30/2020 10:08:00 AM EST completed eCW1 ([facility]) IIV3. This is one of two codes replacing CVX 15, which is being retired. 07/30/2020 10:08:00 AM EST completed eCW1 ([facility]) IIV3. This is one of two codes replacing CVX 15, which is being retired. 07/30/2020 10:08:00 AM EST completed eCW1 ([facility]) IIV3. This is one of two codes replacing CVX 15, which is being retired. 07/30/2020 10:08:00 AM EST completed eCW1 ([facility]) IIV3. This is one of two codes replacing CVX 15, which is being retired. 07/30/2020 10:08:00 AM EST completed eCW1 ([facility]) Medications Medication Brand Name Start Date Product [...] 1.0 {capsule_with_food} active Macrobid 100 MG eCW1 ([facility]) NITROFURANTOIN, MACROCRYSTALS 25 MG / Ni trofurantoin, Monohydrate 75 MG Oral Capsule [Macrobid] Macrobid 100 MG Macrobid 100 MG 03/18/2021 12:00:00 AM EDT 1.0 {capsule_with_food} active Macrobid 100 MG eCW1 ([facility]) NITROFURANTOIN, MACROCRYSTALS 25 MG / Ni trofurantoin, Monohydrate 75 MG Oral Capsule [Macrobid] Macrobid 100 MG Macrobid 100 MG 03/18/2021 12:00:00 AM EDT 1.0 {capsule_with_food} active Macrobid 100 MG eCW1 ([facility]) NITROFURANTOIN, MACROCRYSTALS 25 MG / Ni trofurantoin, Monohydrate 75 MG Oral Capsule [Macrobid] Macrobid 100 MG Macrobid 100 MG 03/18/2021 12:00:00 AM EDT 1.0 {capsule_with_food} suspended Macrob id 100 MG eCW1 ([facility]) NITROFURANTOIN, MACROCRYSTALS 25 MG / Ni trofurantoin, Monohydrate 75 MG Oral Capsule [Macrobid] Macrobid 100 MG Macrobid 100 MG 03/18/2021 12:00:00 AM EDT 1.0 {capsule_with_food} active Macrobid 100 MG eCW1 ([facility]) NITROFURANTOIN, MACROCRYSTALS 25 MG / Ni trofurantoin, Monohydrate 75 MG Oral Capsule [Macrobid] Macrobid 100 MG Macrobid 100 MG 03/18/2021 12:00:00 AM EDT 1.0 {capsule_with_food} active Macrobid 100 MG eCW1 ([facility]) NITROFURANTOIN, MACROCRYSTALS 25 MG / Ni trofurantoin, [...] 1.0 {capsule_with_food} active Macrobid 100 MG eCW1 ([facility]) NITROFURANTOIN, MACROCRYSTALS 25 MG / Ni trofurantoin, Monohydrate 75 MG Oral Capsule [Macrobid] Macrobid 100 MG Macrobid 100 MG 03/18/2021 12:00:00 AM EDT 1.0 {capsule_with_food} active Macrobid 100 MG eCW1 ([facility]) NITROFURANTOIN, MACROCRYSTALS 25 MG / Ni trofurantoin, Monohydrate 75 MG Oral Capsule [Macrobid] Macrobid 100 MG Macrobid 100 MG 03/18/2021 12:00:00 AM EDT 1.0 {capsule_with_food} suspended Macrob id 100 MG eCW1 ([facility]) NITROFURANTOIN, MACROCRYSTALS 25 MG / Ni trofurantoin, Monohydrate 75 MG Oral Capsule [Macrobid] Macrobid 100 MG Macrobid 100 MG 03/18/2021 12:00:00 AM EDT 1.0 {capsule_with_food} active Macrobid 100 MG eCW1 ([facility]) NITROFURANTOIN, MACROCRYSTALS 25 MG / Ni trofurantoin, Monohydrate 75 MG Oral Capsule [Macrobid] Macrobid 100 MG Macrobid 100 MG 03/18/2021 12:00:00 AM EDT 1.0 {capsule_with_food} active Macrobid 100 MG eCW1 ([facility]) NITROFURANTOIN, MACROCRYSTALS 25 MG / Ni trofurantoin, Monohydrate 75 MG Oral Capsule [Macrobid] Macrobid 100 MG Macrobid 100 MG 03/18/2021 12:00:00 AM EDT 1.0 {capsule_with_food} active Macrobid 100 MG eCW1 ([facility]) NITROFURANTOIN, MACROCRYSTALS 25 MG / Ni trofurantoin, Monohydrate 75 MG Oral Capsule [Macrobid] Macrobid 100 MG Macrobid 100 MG 03/18/2021 12:00:00 AM EDT 1.0 {capsule_with_food} active Macrobid 100 MG eCW1 ([facility]) 5 mg 03/14/2021 12:00:00 AM EDT tablet 60 TAKE ONE TABLET BY MOUTH TWICE A DAY TAKE ONE TABLET BY MOUTH TWICE A DAY SOLD: 04/13/2021 [facility] Oxybutynin chloride 5 MG Oral Tablet Oxybutynin Chlori de 5 MG Oxybutynin Chloride 5 MG 03/14/2021 12:00:00 AM EDT 1.0 {tablet} active Oxybutynin Chloride 5 MG eCW1 ([facility]) Oxybutynin chloride 5 MG Oral Tablet Oxybutynin Chlori de 5 MG Oxybutynin Chloride 5 MG 03/14/2021 12:00:00 AM EDT 1.0 {tablet} active Oxybutynin Chloride 5 MG eCW1 ([facility]) 5 mg 03/14/2021 12:00:00 AM EDT tablet 60 TAKE ONE TABLET BY MOUTH TWICE A DAY TAKE ONE TABLET BY MOUTH TWICE A DAY SOLD: 03/14/2021 [facility] Oxybutynin chloride 5 MG Oral Tablet Oxybutynin Chlori de 5 MG Oxybutynin Chloride 5 MG 03/14/2021 12:00:00 AM EDT 1.0 {tablet} active Oxybutynin Chloride 5 MG eCW1 ([facility]) Oxybutynin chloride 5 MG Oral Tablet Oxybutynin Chlori de 5 MG Oxybutynin Chloride 5 MG 03/14/2021 12:00:00 AM EDT 1.0 {tablet} active Oxybutynin Chloride 5 MG eCW1 ([facility]) Oxybutynin chloride 5 MG Oral Tablet Oxybutynin Chlori de 5 MG Oxybutynin Chloride 5 MG 03/14/2021 12:00:00 AM EDT 1.0 {tablet} active Oxybutynin Chloride 5 MG eCW1 ([facility]) Oxybutynin chloride 5 MG Oral Tablet Oxybutynin Chlori de 5 MG Oxybutynin Chloride 5 MG 03/14/2021 12:00:00 AM EDT 1.0 {tablet} active Oxybutynin Chloride 5 MG eCW1 ([facility]) Oxybutynin chloride 5 MG Oral Tablet Oxybutynin Chlori de 5 MG Oxybutynin Chloride 5 MG 03/14/2021 12:00:00 AM EDT 1.0 {tablet} active Oxybutynin Chloride 5 MG eCW1 ([facility]) Oxybutynin chloride 5 MG Oral Tablet Oxybutynin Chlori de 5 MG Oxybutynin Chloride 5 MG 03/14/2021 12:00:00 AM EDT 1.0 {tablet} active Oxybutynin Chloride 5 MG eCW1 ([facility]) Oxybutynin chloride 5 MG Oral Tablet Oxybutynin Chlori de 5 MG Oxybutynin Chloride 5 MG 03/14/2021 12:00:00 AM EDT 1.0 {tablet} active Oxybutynin Chloride 5 MG eCW1 ([facility]) Oxybutynin chloride 5 MG Oral Tablet Oxybutynin Chlori de 5 MG Oxybutynin Chloride 5 MG 03/14/2021 12:00:00 AM EDT 1.0 {tablet} active Oxybutynin Chloride 5 MG eCW1 ([facility]) Oxybutynin chloride 5 MG Oral Tablet Oxybutynin Chlori de 5 MG Oxybutynin Chloride 5 MG 03/14/2021 12:00:00 AM EDT 1.0 {tablet} active Oxybutynin Chloride 5 MG eCW1 ([facility]) Sulfamethoxazole 800 MG / Trimethoprim 1 60 MG Oral Tablet [Bactrim] Bactrim DS 800-160 MG Bactrim DS 800-160 MG 03/03/2021 12:00:00 AM EDT 1.0 {table t} suspended Bactrim DS 800-160 MG eCW1 ( [facility]) Sulfamethoxazole 800 MG / Trimethoprim 1 60 MG Oral Tablet [Bactrim] Bactrim DS 800-160 MG Bactrim DS 800-160 MG 03/03/2021 12:00:00 AM EDT 1.0 {table t} suspended Bactrim DS 800-160 MG eCW1 ( [facility]) Sulfamethoxazole 800 MG / Trimethoprim 1 60 MG Oral Tablet [Bactrim] Bactrim DS 800-160 MG Bactrim DS 800-160 MG 03/03/2021 12:00:00 AM EDT 1.0 {table t} suspended Bactrim DS 800-160 MG eCW1 ( [facility]) Sulfamethoxazole 800 MG / Trimethoprim 1 60 MG Oral Tablet [Bactrim] Bactrim DS 800-160 MG Bactrim DS 800-160 MG 03/03/2021 12:00:00 AM EDT 1.0 {table t} suspended Bactrim DS 800-160 MG eCW1 ( [facility]) Sulfamethoxazole 800 MG / Trimethoprim 1 60 MG Oral Tablet [Bactrim] Bactrim DS 800-160 MG Bactrim DS 800-160 MG 03/03/2021 12:00:00 AM EDT 1.0 {table t} suspended Bactrim DS 800-160 MG eCW1 ( [facility]) Sulfamethoxazole 800 MG / Trimethoprim 1 60 MG Oral Tablet [Bactrim] Bactrim DS 800-160 MG Bactrim DS 800-160 MG 03/03/2021 12:00:00 AM EDT 1.0 {table t} active Bactrim DS 800-160 MG eCW1 ( [facility]) Sulfamethoxazole 800 MG / Trimethoprim 1 60 MG Oral Tablet [Bactrim] Bactrim DS 800-160 MG Bactrim DS 800-160 MG 03/03/2021 12:00:00 AM EDT 1.0 {table t} suspended Bactrim DS 800-160 MG eCW1 ( [facility]) Sulfamethoxazole 800 MG / Trimethoprim 1 60 MG Oral Tablet [Bactrim] Bactrim DS 800-160 MG Bactrim DS 800-160 MG 03/03/2021 12:00:00 AM EDT 1.0 {table t} active Bactrim DS 800-160 MG eCW1 ( [facility]) Sulfamethoxazole 800 MG / Trimethoprim 1 60 MG Oral Tablet [Bactrim] Bactrim DS 800-160 MG Bactrim DS 800-160 MG 03/03/2021 12:00:00 AM EDT 1.0 {table t} suspended Bactrim DS 800-160 MG eCW1 ( [facility]) Sulfamethoxazole 800 MG / Trimethoprim 1 60 MG Oral Tablet [Bactrim] Bactrim DS 800-160 MG Bactrim DS 800-160 MG 03/03/2021 12:00:00 AM EDT 1.0 {table t} suspended Bactrim DS 800-160 MG eCW1 ( [facility]) Sulfamethoxazole 800 MG / Trimethoprim 1 60 MG Oral Tablet [Bactrim] Bactrim DS 800-160 MG Bactrim DS 800-160 MG 03/03/2021 12:00:00 AM EDT 1.0 {table t} suspended Bactrim DS 800-160 MG eCW1 ( [facility]) Sulfamethoxazole 800 MG / Trimethoprim 1 60 MG Oral Tablet [Bactrim] Bactrim DS 800-160 MG Bactrim DS 800-160 MG 03/03/2021 12:00:00 AM EDT 1.0 {table t} suspended Bactrim DS 800-160 MG eCW1 ( [facility]) Sulfamethoxazole 800 MG / Trimethoprim 1 60 MG Oral Tablet [Bactrim] Bactrim DS 800-160 MG Bactrim DS 800-160 MG 03/03/2021 12:00:00 AM EDT 1.0 {table t} suspended Bactrim DS 800-160 MG eCW1 ( [facility]) Sulfamethoxazole 800 MG / Trimethoprim 1 60 MG Oral Tablet [Bactrim] Bactrim DS 800-160 MG Bactrim DS 800-160 MG 03/03/2021 12:00:00 AM EDT 1.0 {table t} active Bactrim DS 800-160 MG eCW1 ( [facility]) Sulfamethoxazole 800 MG / Trimethoprim 1 60 MG Oral Tablet [Bactrim] Bactrim DS 800-160 MG Bactrim DS 800-160 MG 03/03/2021 12:00:00 AM EDT 1.0 {table t} suspended Bactrim DS 800-160 MG eCW1 ( [facility]) 800-160 mg 03/03/2021 12:00:00 AM EDT tablet [...] {tablet} suspende d levoFLOXacin 500 MG eCW1 ([facility]) Levofloxacin 500 MG Oral Tablet Levofloxacin 500 MG 01/13/2021 1 2:00:00 AM EDT 1.0 {tablet} active Levofloxaci n 500 MG eCW1 ([facility]) Levofloxacin 500 MG Oral Tablet levoFLOXacin 500 MG levoFLOX acin 500 MG 01/13/2021 12:00:00 AM EDT 1.0 {tablet} suspende d levoFLOXacin 500 MG eCW1 ([facility]) Levofloxacin 500 MG Oral Tablet levoFLOXacin 500 MG levoFLOX acin 500 MG 01/13/2021 12:00:00 AM EDT 1.0 {tablet} suspende d levoFLOXacin 500 MG eCW1 ([facility]) Levofloxacin 500 MG Oral Tablet levoFLOXacin 500 MG levoFLOX acin 500 MG 01/13/2021 12:00:00 AM EDT 1.0 {tablet} suspende d levoFLOXacin 500 MG eCW1 ([facility]) Levofloxacin 500 MG Oral Tablet Levofloxacin 500 MG 01/13/2021 1 2:00:00 AM EDT 1.0 {tablet} active Levofloxaci n 500 MG eCW1 ([facility]) Levofloxacin 500 MG Oral Tablet Levofloxacin 500 MG 01/13/2021 1 2:00:00 AM EDT 1.0 {tablet} suspended Levofloxa orquidea 500 MG eCW1 ([facility]) Levofloxacin 500 MG Oral Tablet Levofloxacin 500 MG 01/13/2021 1 2:00:00 AM EDT 1.0 {tablet} suspended Levofloxa orquidea 500 MG eCW1 ([facility]) Levofloxacin 500 MG Oral Tablet levoFLOXacin 500 MG levoFLOX acin 500 MG 01/13/2021 12:00:00 AM EDT 1.0 {tablet} suspende d levoFLOXacin 500 MG eCW1 ([facility]) Levofloxacin 500 MG Oral Tablet levoFLOXacin 500 MG levoFLOX acin 500 MG 01/13/2021 12:00:00 AM EDT 1.0 {tablet} suspende d levoFLOXacin 500 MG eCW1 ([facility]) Levofloxacin 500 MG Oral Tablet levoFLOXacin 500 MG levoFLOX acin 500 MG 01/13/2021 12:00:00 AM EDT 1.0 {tablet} suspende d levoFLOXacin 500 MG eCW1 ([facility]) 500 mg 01/13/2021 12:00:00 AM EDT tablet 7 TAKE ONE TABLET BY MOUTH EVERY DAY TAKE ONE TABLET BY MOUTH EVERY DAY SOLD: 01/17/2021 [facility] Levofloxacin 500 MG Oral Tablet levoFLOXacin 500 MG levoFLOX acin 500 MG 01/13/2021 12:00:00 AM EDT 1.0 {tablet} suspende d levoFLOXacin 500 MG eCW1 ([facility]) Levofloxacin 500 MG Oral Tablet levoFLOXacin 500 MG levoFLOX acin 500 MG 01/13/2021 12:00:00 AM EDT 1.0 {tablet} suspende d levoFLOXacin 500 MG eCW1 ([facility]) Levofloxacin 500 MG Oral Tablet Levofloxacin 500 MG 01/13/2021 1 2:00:00 AM EDT 1.0 {tablet} active Levofloxaci n 500 MG eCW1 ([facility]) Levofloxacin 500 MG Oral Tablet levoFLOXacin 500 MG levoFLOX acin 500 MG 01/13/2021 12:00:00 AM EDT 1.0 {tablet} suspende d levoFLOXacin 500 MG eCW1 ([facility]) Levofloxacin 500 MG Oral Tablet levoFLOXacin 500 MG levoFLOX acin 500 MG 01/13/2021 12:00:00 AM EDT 1.0 {tablet} suspende d levoFLOXacin 500 MG eCW1 ([facility]) Levofloxacin 500 MG Oral Tablet levoFLOXacin 500 MG levoFLOX acin 500 MG 01/13/2021 12:00:00 AM EDT 1.0 {tablet} suspende d levoFLOXacin 500 MG eCW1 ([facility]) Levofloxacin 500 MG Oral Tablet Levofloxacin 500 MG 01/13/2021 1 2:00:00 AM EDT 1.0 {tablet} active Levofloxaci n 500 MG eCW1 ([facility]) Levofloxacin 500 MG Oral Tablet levoFLOXacin 500 MG levoFLOX acin 500 MG 01/13/2021 12:00:00 AM EDT 1.0 {tablet} suspende d levoFLOXacin 500 MG eCW1 ([facility]) Levofloxacin 500 MG Oral Tablet levoFLOXacin 500 MG levoFLOX acin 500 MG 01/13/2021 12:00:00 AM EDT 1.0 {tablet} suspende d levoFLOXacin 500 MG eCW1 ([facility]) Levofloxacin 500 MG Oral Tablet Levofloxacin 500 MG 01/13/2021 1 2:00:00 AM EDT 1.0 {tablet} suspended e CW1 ([facility]) Levofloxacin 500 MG Oral Tablet levoFLOXacin 500 MG levoFLOX acin 500 MG 01/13/2021 12:00:00 AM EDT 1.0 {tablet} suspende d levoFLOXacin 500 MG eCW1 ([facility]) Levofloxacin 500 MG Oral Tablet levoFLOXacin 500 MG levoFLOX acin 500 MG 01/13/2021 12:00:00 AM EDT 1.0 {tablet} suspende d levoFLOXacin 500 MG eCW1 ([facility]) Levofloxacin 500 MG Oral Tablet levoFLOXacin 500 MG levoFLOX acin 500 MG 01/13/2021 12:00:00 AM EDT 1.0 {tablet} suspende d levoFLOXacin 500 MG eCW1 ([facility]) Levofloxacin 500 MG Oral Tablet Levofloxacin 500 MG 01/13/2021 1 2:00:00 AM EDT 1.0 {tablet} suspended Levofloxa orquidea 500 MG eCW1 ([facility]) Ciprofloxacin 500 MG Oral Tablet [Cipro] Cipro 11/25/2020 12:00: 00 AM EDT ORAL active MEDENT ([facility]) 500 mg 11/25/2020 12:00:00 AM EDT tablet 14 TAKE ONE TABLET BY MOUTH EVERY 12 HOURS FOR 7 DAYS TAKE ONE TABLET BY MOUTH EVERY 12 HOURS FOR 7 DAYS [facility] Ciprofloxacin 500 MG Oral Tablet [Cipro] Cipro 11/07/2020 12:00: 00 AM EST ORAL completed MEDENT ([facility]) 500 mg 11/07/2020 12:00:00 AM EST [...] 1.0 {tablet} suspended Levaquin 500 MG eCW1 ([facility]) Levofloxacin 500 MG Oral Tablet Levaquin 500 MG Levaquin 500 MG 07/29/2020 12:00:00 AM EST 1.0 {tablet} suspended Levaquin 500 MG eCW1 ([facility]) Levofloxacin 500 MG Oral Tablet Levaquin 500 MG Levaquin 500 MG 07/29/2020 12:00:00 AM EST 1.0 {tablet} suspended Levaquin 500 MG eCW1 ([facility]) Levofloxacin 500 MG Oral Tablet Levaquin 500 MG Levaquin 500 MG 07/29/2020 12:00:00 AM EST 1.0 {tablet} suspended Levaquin 500 MG eCW1 ([facility]) Levofloxacin 500 MG Oral Tablet Levaquin 500 MG Levaquin 500 MG 07/29/2020 12:00:00 AM EST 1.0 {tablet} suspended Levaquin 500 MG eCW1 ([facility]) Levofloxacin 500 MG Oral Tablet Levaquin 500 MG Levaquin 500 MG 07/29/2020 12:00:00 AM EST 1.0 {tablet} suspended Levaquin 500 MG eCW1 ([facility]) Levofloxacin 500 MG Oral Tablet Levaquin 500 MG Levaquin 500 MG 07/29/2020 12:00:00 AM EST 1.0 {tablet} suspended Levaquin 500 MG eCW1 ([facility]) Levofloxacin 500 MG Oral Tablet Levaquin 500 MG Levaquin 500 MG 07/29/2020 12:00:00 AM EST 1.0 {tablet} suspended Levaquin 500 MG eCW1 ([facility]) Levofloxacin 500 MG Oral Tablet Levaquin 500 MG Levaquin 500 MG 07/29/2020 12:00:00 AM EST 1.0 {tablet} active Le vaquin 500 MG eCW1 ([facility]) Levofloxacin 500 MG Oral Tablet Levaquin 500 MG Levaquin 500 MG 07/29/2020 12:00:00 AM EST 1.0 {tablet} suspended Levaquin 500 MG eCW1 ([facility]) Levofloxacin 500 MG Oral Tablet Levaquin 500 MG Levaquin 500 MG 07/29/2020 12:00:00 AM EST 1.0 {tablet} active Le vaquin 500 MG eCW1 ([facility]) Levofloxacin 500 MG Oral Tablet Levaquin 500 MG Levaquin 500 MG 07/29/2020 12:00:00 AM EST 1.0 {tablet} suspended Levaquin 500 MG eCW1 ([facility]) Levofloxacin 500 MG Oral Tablet Levaquin 500 MG Levaquin 500 MG 07/29/2020 12:00:00 AM EST 1.0 {tablet} suspended Levaquin 500 MG eCW1 ([facility]) Levofloxacin 500 MG Oral Tablet Levaquin 500 MG Levaquin 500 MG 07/29/2020 12:00:00 AM EST 1.0 {tablet} suspended Levaquin 500 MG eCW1 ([facility]) Levofloxacin 500 MG Oral Tablet Levaquin 500 MG Levaquin 500 MG 07/29/2020 12:00:00 AM EST 1.0 {tablet} suspended Levaquin 500 MG eCW1 ([facility]) Levofloxacin 500 MG Oral Tablet Levaquin 500 MG Levaquin 500 MG 07/29/2020 12:00:00 AM EST 1.0 {tablet} suspended Levaquin 500 MG eCW1 ([facility]) Levofloxacin 500 MG Oral Tablet Levaquin 500 MG Levaquin 500 MG 07/29/2020 12:00:00 AM EST 1.0 {tablet} suspended Levaquin 500 MG eCW1 ([facility]) Levofloxacin 500 MG Oral Tablet Levaquin 500 MG Levaquin 500 MG 07/29/2020 12:00:00 AM EST 1.0 {tablet} suspended Levaquin 500 MG eCW1 ([facility]) Levofloxacin 500 MG Oral Tablet Levaquin 500 MG Levaquin 500 MG 07/29/2020 12:00:00 AM EST 1.0 {tablet} suspended Levaquin 500 MG eCW1 ([facility]) Levofloxacin 500 MG Oral Tablet Levaquin 500 MG Levaquin 500 MG 07/29/2020 12:00:00 AM EST 1.0 {tablet} suspended Levaquin 500 MG eCW1 ([facility]) Levofloxacin 500 MG Oral Tablet Levaquin 500 MG Levaquin 500 MG 07/29/2020 12:00:00 AM EST 1.0 {tablet} active Le vaquin 500 MG eCW1 ([facility]) Levofloxacin 500 MG Oral Tablet Levaquin 500 MG Levaquin 500 MG 07/29/2020 12:00:00 AM EST 1.0 {tablet} suspended Levaquin 500 MG eCW1 ([facility]) Levofloxacin 500 MG Oral Tablet Levaquin 500 MG Levaquin 500 MG 07/29/2020 12:00:00 AM EST 1.0 {tablet} active Le vaquin 500 MG eCW1 ([facility]) Levofloxacin 500 MG Oral Tablet Levaquin 500 MG Levaquin 500 MG 07/29/2020 12:00:00 AM EST 1.0 {tablet} suspended Levaquin 500 MG eCW1 ([facility]) Levofloxacin 500 MG Oral Tablet Levaquin 500 MG Levaquin 500 MG 07/29/2020 12:00:00 AM EST 1.0 {tablet} active Le vaquin 500 MG eCW1 ([facility]) Levofloxacin 500 MG Oral Tablet Levaquin 500 MG Levaquin 500 MG 07/29/2020 12:00:00 AM EST 1.0 {tablet} suspended Levaquin 500 MG eCW1 ([facility]) Levofloxacin 500 MG Oral Tablet Levaquin 500 MG Levaquin 500 MG 07/29/2020 12:00:00 AM EST 1.0 {tablet} suspended Levaquin 500 MG eCW1 ([facility]) Levofloxacin 500 MG Oral Tablet Levaquin 500 MG Levaquin 500 MG 07/29/2020 12:00:00 AM EST 1.0 {tablet} suspended Levaquin 500 MG eCW1 ([facility]) Levofloxacin 500 MG Oral Tablet Levaquin 500 MG Levaquin 500 MG 07/29/2020 12:00:00 AM EST 1.0 {tablet} suspended Levaquin 500 MG eCW1 ([facility]) Levofloxacin 500 MG Oral Tablet Levaquin 500 MG Levaquin 500 MG 07/29/2020 12:00:00 AM EST 1.0 {tablet} suspended Levaquin 500 MG eCW1 ([facility]) Levofloxacin 500 MG Oral Tablet Levaquin 500 MG Levaquin 500 MG 07/29/2020 12:00:00 AM EST 1.0 {tablet} suspended Levaquin 500 MG eCW1 ([facility]) Levofloxacin 500 MG Oral Tablet Levaquin 500 MG Levaquin 500 MG 07/29/2020 12:00:00 AM EST 1.0 {tablet} suspended Levaquin 500 MG eCW1 ([facility]) Levofloxacin 500 MG Oral Tablet Levaquin 500 MG Levaquin 500 MG 07/29/2020 12:00:00 AM EST 1.0 {tablet} suspended Levaquin 500 MG eCW1 ([facility]) Levofloxacin 500 MG Oral Tablet Levaquin 500 MG Levaquin 500 MG 07/29/2020 12:00:00 AM EST 1.0 {tablet} suspended Levaquin 500 MG eCW1 ([facility]) Levofloxacin 500 MG Oral Tablet Levaquin 500 MG Levaquin 500 MG 07/29/2020 12:00:00 AM EST 1.0 {tablet} suspended Levaquin 500 MG eCW1 ([facility]) Levofloxacin 500 MG Oral Tablet Levaquin 500 MG Levaquin 500 MG 07/29/2020 12:00:00 AM EST 1.0 {tablet} active Le vaquin 500 MG eCW1 ([facility]) Levofloxacin 500 MG Oral Tablet Levaquin 500 MG Levaquin 500 MG 07/29/2020 12:00:00 AM EST 1.0 {tablet} active Le vaquin 500 MG eCW1 ([facility]) Levofloxacin 500 MG Oral Tablet Levaquin 500 MG Levaquin 500 MG 07/29/2020 12:00:00 AM EST 1.0 {tablet} suspended Levaquin 500 MG eCW1 ([facility]) Levofloxacin 500 MG Oral Tablet Levaquin 500 MG Levaquin 500 MG 07/29/2020 12:00:00 AM EST 1.0 {tablet} suspended Levaquin 500 MG eCW1 ([facility]) Levofloxacin 500 MG Oral Tablet Levaquin 500 MG Levaquin 500 MG 07/29/2020 12:00:00 AM EST 1.0 {tablet} suspended Levaquin 500 MG eCW1 ([facility]) Levofloxacin 500 MG Oral Tablet Levaquin 500 MG Levaquin 500 MG 07/29/2020 12:00:00 AM EST 1.0 {tablet} suspended Levaquin 500 MG eCW1 ([facility]) Levofloxacin 500 MG Oral Tablet Levaquin 500 MG Levaquin 500 MG 07/29/2020 12:00:00 AM EST 1.0 {tablet} suspended Levaquin 500 MG eCW1 ([facility]) Levofloxacin 500 MG Oral Tablet Levaquin 500 MG Levaquin 500 MG 07/29/2020 12:00:00 AM EST 1.0 {tablet} suspended Levaquin 500 MG eCW1 ([facility]) Levofloxacin 500 MG Oral Tablet Levaquin 500 MG Levaquin 500 MG 07/29/2020 12:00:00 AM EST 1.0 {tablet} suspended Levaquin 500 MG eCW1 ([facility]) Levofloxacin 500 MG Oral Tablet Levaquin 500 MG Levaquin 500 MG 07/29/2020 12:00:00 AM EST 1.0 {tablet} suspended Levaquin 500 MG eCW1 ([facility]) 500 mg 07/29/2020 12:00:00 AM EST tablet 10 TAKE ONE TABLET BY MOUTH EVERY DAY FOR 10 DAYS TAKE ONE TABLET BY MOUTH EVERY DAY FOR 10 DAYS SOLD: [employer] Levofloxacin 500 MG Oral Tablet Levaquin 500 MG Levaquin 500 MG 07/29/2020 12:00:00 AM EST 1.0 {tablet} suspended Levaquin 500 MG eCW1 ([facility]) Levofloxacin 500 MG Oral Tablet Levaquin 500 MG Levaquin 500 MG 07/29/2020 12:00:00 AM EST 1.0 {tablet} suspended Levaquin 500 MG eCW1 ([facility]) Levofloxacin 500 MG Oral Tablet Levaquin 500 MG Levaquin 500 MG 07/29/2020 12:00:00 AM EST 1.0 {tablet} active Le vaquin 500 MG eCW1 ([facility]) Levofloxacin 500 MG Oral Tablet Levaquin 500 MG Levaquin 500 MG 07/29/2020 12:00:00 AM EST 1.0 {tablet} suspended Levaquin 500 MG eCW1 ([facility]) Levofloxacin 500 MG Oral Tablet Levaquin 500 MG Levaquin 500 MG 07/29/2020 12:00:00 AM EST 1.0 {tablet} suspended Levaquin 500 MG eCW1 ([facility]) Levofloxacin 500 MG Oral Tablet Levaquin 500 MG Levaquin 500 MG 07/29/2020 12:00:00 AM EST 1.0 {tablet} suspended Levaquin 500 MG eCW1 ([facility]) Levofloxacin 500 MG Oral Tablet Levaquin 500 MG Levaquin 500 MG 07/29/2020 12:00:00 AM EST 1.0 {tablet} active Le vaquin 500 MG eCW1 ([facility]) Levofloxacin 500 MG Oral Tablet Levaquin 500 MG Levaquin 500 MG 07/29/2020 12:00:00 AM EST 1.0 {tablet} active Le vaquin 500 MG eCW1 ([facility]) Levofloxacin 500 MG Oral Tablet Levaquin 500 MG Levaquin 500 MG 07/29/2020 12:00:00 AM EST 1.0 {tablet} suspended Levaquin 500 MG eCW1 ([facility]) Levofloxacin 500 MG Oral Tablet Levaquin 500 MG Levaquin 500 MG 07/29/2020 12:00:00 AM EST 1.0 {tablet} suspended Levaquin 500 MG eCW1 ([facility]) Levofloxacin 500 MG Oral Tablet Levaquin 500 MG Levaquin 500 MG 07/29/2020 12:00:00 AM EST 1.0 {tablet} suspended Levaquin 500 MG eCW1 ([facility]) 10 mg 07/24/2020 12:00:00 AM EST tablet 90 TAKE ONE TABLET BY MOUTH EVERY DAY TAKE ONE TABLET BY MOUTH EVERY DAY SOLD: 07/29/2020 [facility] Lisinopril 10 MG Oral Tablet Lisinopril 07/24/2020 12:00:00 AM EST ORAL completed [facility] ([facility]) 3.5-10,000-1 mg/mL-unit/mL-% 05/17/2020 12:00:00 AM EDT solu tion 10 INSTILL 4 DROPS INTO THE AFFECTED EAR 3 TIMES A DAY FOR 7 DAYS INSTILL 4 DROPS INTO THE AFFECTED EAR 3 TIMES A DAY FOR 7 DAYS SOLD: 05/17/2020 [facility] Hydrocortisone 10 MG/ML / Neomycin 3.5 M G/ML / Polymyxin B 21848 UNT/ML Otic Solution Neomycin/Polymyxin/Hydrocortisone (Otic) 05/17/2020 12:00:00 AM EDT completed MEDENT ([facility]) Insurance Providers Payer name Policy type / Coverage type Policy ID Covered alliance party ID Covered alliance party's relationship to gustafson Policy [place] Plan Information [id number] GROVER PPO 302/307 [id number] SP [id number] [place]/307 [id number] SP [id number] BLUE CARD C [id number] Self [id number] [employer]PO 302/307 [id number] SP [id number] [place]PO 302/307 [id number] SP [id number] [place] PPO 302/307 [id number] SP [id number] [employer]PO 302/307 [id number] SP [id number] BS [address] Commercial [id number] Self V [id number] [place]PO 302/307 [id number] SP [id number] [place]PO 302/307 [id number] SP [id number] [place]PO 302/307 [id number] SP [id number] [place] PPO 302/307 [id number] SP [id number] [place]PO 302/307 [id number] SP [id number] ANSI-Commercial [id number] ANSI-Commercial [id number] ANSI-Commercial [id number] ANSI-Commercial [id number] ANSI-Commercial [id number]-[id number] BCBS [employer] [id number] Self [id number] [employer] [id number] Self [id number] ANSI-Commercial [id number] ANSI-Commercial [id number]-[id number]-[id number] ANSI-Commercial [id number]-[id number]-pizu-[id number] ANSI-Commercial [id number]-o07f-[id number]-[id number] ANSI-Commercial [id number] ANSI-Commercial 43c9zs5i-74it-[id number]-91gp-9k06-[id number] ANSI-Commercial 240e34wz-821s-5xw7-[id number] 856v86ev-957i-6ck5-cm04-2938322be51o ANSI-Commercial [id number]-[id number] 500d56ub-26c1-3492-99p7-65cgq17660p3 ANSI-Commercial [id number]-7067-[id number] 142n0yq0-2i64-59hs-1289-[id number] ANSI-Commercial 9j17mopt-3x18-36wa-5t11-g98z4c764rja 3s83ajvf-3m77-41tn-2n29-w84h1l982uko ANSI-Commercial [id number]-[id number] 65rd6o54-93a1-2887-33r0-jap75qh76265 ANSI-Commercial [id number]-uvhg-409i-[id number] 4sk2416z-znjf-673v-dg02-53071b65ka3x ANSI-Commercial [id number]-8zx5-3v6g-a13j-n76714kz2jc6 [id number]-2ka4-3b5g-t48q-z42850gq0tc2 ANSI-Commercial gpc874v5-862u-4560-0001-98m0id8j1fw2 ycs016m4-964k-4948-4232-21c8dc7l2wx0 ANSI-Commercial 742oc46u-4x9f-3w62-3e4c-hrk273f6zwu4 628mg82e-0k8i-6y35-4y1o-zdd742a8qqg1 ANSI-Commercial vwuj9xe4-44m8-4itx-q047-c0b31ge89z1i wzsb8el6-32n2-4apu-c757-x2a68ra71o2r ANSI-Commercial qdo49t0g-[id number]-[id number] ulv59o1s-4739-1194-14nj-[id number] BLUE CROSS BLUE SHIELD -RECURRING [id number] ANSI-Commercial [id number]-m1kf-[id number] [id number]-k6bx-7h30l4u593zy [facility] B [id number] S VYS [id number] ANSI-Commercial [id number]-[id number] 0x180i32-p814-4vd8-4vp0-3yf63o0u8209 ANSI-Commercial gqivqqls-[id number]-o2p19rdx3j91 gkwdjavy-3444-1329-33y0-f2h42vpw4s80 ANSI-Commercial 2xh6xry6-314h-8636-zsa4-9r58e14kc880 1ex8tua0-710u-9729-duk8-4q50b95ki697 ANSI-Commercial 93dv0013-w66z-97rs-p8i7-cnqpkv3384ug 70es8494-t32d-07oj-n3f8-zqnphu2279iu ANSI-Commercial [id number]-b7b0-6a86-78p7-z60o36b49z0e [id number]-m0r6-2n00-99t9-[id number] ANSI-Commercial 24qg3h3b-5v17-2wv2-h6ru-ojd3w753u67q 09kn3k8x-1f77-7lg6-v7ab-nar0n261z95g ANSI-Commercial c607w52g-4kb2-059x-2518-q5h42d6j3q45 [id number]-1ad7-361d-1788-c3u38v3c8d32 ANSI-Commercial v3486cd3-8qc0-20sv-z5om-hgm3ptmn8064 q7216rk2-8ri7-07rj-m7lh-ihp5iqup1755 ANSI-Commercial a1l75021-[id number] [id number]-[id number] ANSI-Commercial [id number]-[id number]-3172-205o-3103-d2qj9l371856 ANSI-Commercial [id number]-62a5-8gfx-al21w2203idr [id number]-83i0-3msg-cw74y5975gch [facility] (pr[facility] Part B [id number] Self [id number] [address] Commercial [id number] Self [id number] [facility] [id number] SP [id number] SELF PAY 5 UNAVAILABLE 1 UNAVAILA BLE [employer]BS [place] PPO 302/307 [id number] SP [id number] [employer] [place] PPO 302/307 [id number] SP [id number] [employer] [place] PPO 302/307 [id number] SP [id number] BC[employer] [place] PPO 302/307 [id number] SP [id number] BC[employer] [place] PPO 302/307 [id number] SP [id number] [employer] BCBS B [id number] S VYE [id number] [employer] [place] PPO 302/307 [id number] SP [id number] ANSI-Commercial [id number]-[id number] ANSI-Commercial g80y80ej-3u6e-0i5n-4n4w-dk7au3rt7n8v [id number]-[id number]-0v1i-0w5g-kk8of5zm6b7n ANSI-Commercial [id number]-[id number] ANSI-Commercial 41so5r76-[id number]-[id number] ANSI-Commercial [id number] Problems, Conditions, and Diagnoses Code Display Name Description Problem Type Effective Dates Data Source(s) N32.89 Bladder spasm Bladder spasm Problem 06/19/2021 12:00:00 AM EDT eCW1 ([facility]) Z85.828 [id number] History of basal cell carcinoma Problem 05/05/2021 12:00:00 AM EDT eCW1 ([facility]) Z12.83 559397903 Screening, malignant neoplasm, skin Probl em 01/23/2021 12:00:00 AM EDT eCW1 ([facility]) Z01.810 Preoperative cardiovascular examination Preoperative cardiovascular examination Problem 01/13/2021 12:00:00 AM EDT [facility] ([facility]) I10 Essential hypertension Essential hypertension Problem 01/13/2021 12:00:00 AM EDT [facility] ([facility]) R94.31 Electrocardiogram abnormal Electrocardiogram abnormal Problem 01/13/2021 12:00:00 AM EDT [facility] ([facility]) Z01.818 Pre-procedure evaluation check Preop testing Problem 12/25/2020 12:00:00 AM EDT eCW1 ([facility]) N39.0 Urinary tract infectious disease UTI (urinary tract in fection) Problem 12/25/2020 12:00:00 AM EDT eCW1 ([facility]) C61 Malignant tumor of prostate Malignant tumor of prostat e Problem 12/20/2020 12:00:00 AM EDT [facility] ([facility]) N52.9 Erectile dysfunction Erectile dysfunction Problem 12/20/2020 12:00:00 AM EDT [facility] ([facility]) C44.519 [id number] Basal cell carcinoma of lower back Proble m 11/12/2020 12:00:00 AM EST eCW1 ([facility]) C44.519 528977391 Basal cell carcinoma (BCC) of sk in of other part of torso Problem 10/17/2020 12:00:00 AM EST eCW1 ([facility]) I11.9 43410271 Hypertensive heart disease without heart failure Problem 10/17/2020 12:00:00 AM EST eCW1 ([facility]) I49.5 05943124 Sick sinus syndrome Problem 10/17/2020 12:00 :00 AM EST eCW1 ([facility]) C61 Prostate cancer Prostate cancer Problem 10/02/2020 12:0 0:00 AM EST eCW1 ([facility]) D22.61 925892856 Melanocytic nevi of right upper limb, including shoulder Problem 10/02/2020 12:00:00 AM EST eCW1 ([facility]) D22.5 450269443 Melanocytic nevi of trunk Problem 10/02/2020 12:00:00 AM EST eCW1 ([facility]) D22.71 221761153 Melanocytic nevi of right lower limb, inc luding hip Problem 10/02/2020 12:00:00 AM EST eCW1 ([facility]) D22.62 647014104 Melanocytic nevi of left upper l imb, including shoulder Problem 10/02/2020 12:00:00 AM EST eCW1 ([facility]) L81.4 492956451 Lentigines Problem 10/02/2020 12:00:00 AM ES T eCW1 ([facility]) D22.72 [id number] Melanocytic nevi of left lower l imb, including hip Problem 10/02/2020 12:00:00 AM EST eCW1 ([facility]) L57.0 429246552 Actinic keratoses Problem 10/02/2020 12:00:0 0 AM EST eCW1 ([facility]) L82.1 [id number] Seborrheic keratoses Problem 10/02/2020 12:0 0:00 AM EST eCW1 ([facility]) D22.30 579350954 Melanocytic nevi of face Problem 10/02/2020 12:00:00 AM EST eCW1 ([facility]) L85.3 95321130 Dry skin Problem 10/02/2020 12:00:00 AM ES T eCW1 ([facility]) I10 29821189 HTN (hypertension), benign Problem 0 12:00:00 AM EST eCW1 ([facility]) N13.30 Hydronephrosis Hydronephrosis Problem 07/22/2020 12:00: 00 AM EST eCW1 ([facility]) N30.41 39281259 Irradiation cystitis with hematuria Probl em 07/12/2020 12:00:00 AM EDT eCW1 ([facility]) Surgeries/Procedures Procedure Description Date Indications Data Source(s) OFFICE OUTPATIENT VISIT 15 MINUTES 07/02/2021 12:00:00 AM EDT [facility] ([facility]) Insert Supra Pubic Catheter 20F, Simple 05/20/2021 12: 00:00 AM EDT eCW1 ([facility]) Med: Lidocaine Jelly 2% 6ml Intravesically (Glydo) 04/01/2021 12:00:00 AM EDT eCW1 ([facility]) Drake Catheter Coude Insertion 18F 04/01/2021 12:00:00 AM EDT eCW1 ([facility]) Med: Lidocaine Jelly 2% 6ml Intravesically (Glydo) 03/14/2021 12:00:00 AM EDT eCW1 ([facility]) Drake Catheter Coude Insertion 16F 03/14/2021 12:00:00 AM EDT eCW1 ([facility]) Med: Lidocaine Jelly 2% 6ml Intravesically (Glydo) 03/03/2021 12:00:00 AM EDT eCW1 ([facility]) Drake Catheter Coude Insertion 16F 03/03/2021 12:00:00 AM EDT eCW1 ([facility]) ECG ROUTINE ECG W/LEAST 12 LDS W/I&R 01/13/2021 12:00: 00 AM EDT [facility] ([facility]) Medication: Lidocaine HCl 2% Jelly 5mL Intravesically 12/25/2020 12:00:00 AM EDT eCW1 ([facility]) TOBACCO USE ASSESSED 12/25/2020 12:00:00 AM EDT eCW1 ([facility]) Leuprolide acetate (for depot suspension), 7.5 mg 12/12/2020 12:00:00 AM EDT eCW1 ([facility]) Med: Derm Lidocaine with Epinephrine Inj ection 1% with 2 ml sodium bicarbonate Intradermally to marked areas 11/12/2020 12:00:00 AM EST eCW1 ([facility]) Leuprolide acetate (for depot suspension), 7.5 mg 10/02/2020 12:00:00 AM EST eCW1 ([facility]) ASTHMA SYMPTOMS EVALUATED 10/02/2020 12:00:00 AM EST eCW1 ([facility]) XTRNL ECG < 48 HR RECORDING 09/20/2020 12:00:00 AM EST [facility] ([facility]) XTRNL ECG CONTINUOUS RHYTHM PHYS REVIEW&INTERPJ 2020 12:00:00 AM EST [facility] ([facility]) HBO Protocol 2.0 ALISSON for 90 Minutes without Air Breaks 09/19/2020 12:00:00 AM EST eCW1 ([facility]) HBO Protocol 2.0 ALISSON for 90 Minutes without Air Breaks 09/18/2020 12:00:00 AM EST eCW1 ([facility]) HBO Protocol 2.0 ALISSON for 90 Minutes without Air Breaks 09/16/2020 12:00:00 AM EST eCW1 ([facility]) HBO Protocol 2.0 ALISSON for 90 Minutes without Air Breaks 09/11/2020 12:00:00 AM EST eCW1 ([facility]) HBO Protocol 2.0 ALISSON for 90 Minutes without Air Breaks 09/09/2020 12:00:00 AM EST eCW1 ([facility]) HBO Protocol 2.0 ALISSON for 90 Minutes without Air Breaks 09/05/2020 12:00:00 AM EST eCW1 ([facility]) HBO Protocol 2.0 ALISSON for 90 Minutes without Air Breaks 09/04/2020 12:00:00 AM EST eCW1 ([facility]) HBO Protocol 2.0 ALISSON for 90 Minutes without Air Breaks 09/03/2020 12:00:00 AM EST eCW1 ([facility]) HBO Protocol 2.0 ALISSON for 90 Minutes without Air Breaks 09/02/2020 12:00:00 AM EST eCW1 ([facility]) HBO Protocol 2.0 ALISSON for 90 Minutes without Air Breaks 08/29/2020 12:00:00 AM EST eCW1 ([facility]) HBO Protocol 2.0 ALISSON for 90 Minutes without Air Breaks 08/28/2020 12:00:00 AM EST eCW1 ([facility]) HBO Protocol 2.0 ALISSON for 90 Minutes without Air Breaks 08/27/2020 12:00:00 AM EST eCW1 ([facility]) HBO Protocol 2.0 ALISSON for 90 Minutes without Air Breaks 08/26/2020 12:00:00 AM EST eCW1 ([facility]) HBO Protocol 2.0 ALISSON for 90 Minutes without Air Breaks 08/23/2020 12:00:00 AM EST eCW1 ([facility]) Leuprolide acetate (for depot suspension), 7.5 mg 08/23/2020 12:00:00 AM EST eCW1 ([facility]) HBO Protocol 2.0 ALISSON for 90 Minutes without Air Breaks 08/22/2020 12:00:00 AM EST eCW1 ([facility]) HBO Protocol 2.0 ALISSON for 90 Minutes without Air Breaks 08/21/2020 12:00:00 AM EST eCW1 ([facility]) HBO Protocol 2.0 ALISSON for 90 Minutes without Air Breaks 08/20/2020 12:00:00 AM EST eCW1 ([facility]) HBO Protocol 2.0 ALISSON for 90 Minutes without Air Breaks 08/19/2020 12:00:00 AM EST eCW1 ([facility]) HBO Protocol 2.0 ALISSON for 90 Minutes without Air Breaks 08/15/2020 12:00:00 AM EST eCW1 ([facility]) HBO Protocol 2.0 ALISSON for 90 Minutes without Air Breaks 08/14/2020 12:00:00 AM EST eCW1 ([facility]) HBO Protocol 2.0 ALISSON for 90 Minutes without Air Breaks 08/13/2020 12:00:00 AM EST eCW1 ([facility]) HBO Protocol 2.0 ALISSON for 90 Minutes without Air Breaks 08/12/2020 12:00:00 AM EST eCW1 ([facility]) HBO Protocol 2.0 ALISSON for 90 Minutes without Air Breaks 08/05/2020 12:00:00 AM EST eCW1 ([facility]) HBO Protocol 2.0 ALISSON for 90 Minutes without Air Breaks 08/02/2020 12:00:00 AM EST eCW1 ([facility]) HBO Protocol 2.0 ALISSON for 90 Minutes without Air Breaks 07/31/2020 12:00:00 AM EST eCW1 ([facility]) HBO Protocol 2.0 ALISSON for 90 Minutes without Air Breaks 07/30/2020 12:00:00 AM EST eCW1 ([facility]) HBO Protocol 2.0 ALISSON for 90 Minutes without Air Breaks 07/29/2020 12:00:00 AM EST eCW1 ([facility]) HBO Protocol 2.0 ALISSON for 90 Minutes without Air Breaks 07/26/2020 12:00:00 AM EST eCW1 ([facility]) HBO Protocol 2.0 ALISSON for 90 Minutes without Air Breaks 07/25/2020 12:00:00 AM EST eCW1 ([facility]) ECG ROUTINE ECG W/LEAST 12 LDS W/I&R 07/24/2020 12:00: 00 AM EST [facility] ([facility]) Leuprolide acetate (for depot suspension), 7.5 mg 07/24/2020 12:00:00 AM EST eCW1 ([facility]) HBO Protocol 2.0 ALISSON for 90 Minutes without Air Breaks 07/24/2020 12:00:00 AM EST eCW1 ([facility]) HBO Protocol 2.0 ALISSON for 90 Minutes without Air Breaks 07/23/2020 12:00:00 AM EST eCW1 ([facility]) HBO Protocol 2.0 [place] for 90 Minutes without Air Breaks 07/22/2020 12:00:00 AM EST eCW1 ([facility]) HBO Protocol 2.0 ALISSON for 90 Minutes without Air Breaks 07/19/2020 12:00:00 AM EST eCW1 ([facility]) HBO Protocol 2.0 ALISSON for 90 Minutes without Air Breaks 07/18/2020 12:00:00 AM EST eCW1 ([facility]) HBO Protocol 2.0 ALISSON for 90 Minutes without Air Breaks 07/17/2020 12:00:00 AM EST eCW1 ([facility]) HBO Protocol 2.0 ALISSON for 90 Minutes without Air Breaks 07/16/2020 12:00:00 AM EST eCW1 ([facility]) Leuprolide acetate (for depot suspension), 7.5 mg 06/13/2020 12:00:00 AM EDT eCW1 ([facility]) Results ID Date Data Source [id number] 05/02/2021 12:00:00 AM EDT [facility] Name Value Range Interpretation Code Description Data Annmarie rce(s) Supporting Document(s) pcr negative [facility] This lab was ordered by [facility] and reported by [facility]. ID Date Data Source [id number] 04/09/2021 10:50:00 AM EDT [facility] Name Value Range Interpretation Code Description Data Annmarie rce(s) Supporting Document(s) SARS coronavirus 2 RNA [Presence] in Res piratory specimen by JOSE with probe detection NEGATIVE [facility] This lab was ordered by [facility] a nd reported by [facility]. ID Date Data Source [id number] 01/31/2021 04:30:00 AM EDT [facility] Name Value Range Interpretation Code Description Data Annmarie rce(s) Supporting Document(s) SARS-CoV-2 (COVID 19) NEGATIVE - SARS-CoV-2 (COVID19) [facility] This lab was ordered by [facility] a nd reported by [facility]. ID Date Data Source [id number] 01/14/2021 11:55:00 AM EDT [facility] Name Value Range Interpretation Code Description Data Annmarie rce(s) Supporting Document(s) SARS coronavirus 2 RNA [Presence] in Res piratory specimen by OJSE with probe detection NEGATIVE [facility] This lab was ordered by [facility] a nd reported by [facility]. ID Date Data Source [id number] 01/08/2021 12:00:00 PM EDT [facility] Name Value Range Interpretation Code Description Data Annmarie rce(s) Supporting Document(s) SARS-CoV-2 (COVID-19) RNA [Presence] in Respiratory specimen by JOSE with probe detection Not Detected [facility] This lab was ordered by [facility] and reported by [email or web address]. ID Date Data Source ERMA CHEST 2 VIEW 01/08/2021 12:00:00 AM EDT eCW1 ([facility]) Name Value Range Interpretation Code Description Data Annmarie rce(s) Supporting Document(s) ERMA CHEST 2 VIEW eCW1 ([facility]) ID Date Data Source [id number] 11/25/2020 05:43:00 PM EDT [facility] ([facility]) Name Value Range Interpretation Code Description Data Annmarie rce(s) Supporting Document(s) Bacteria identified in Urine by Culture Laboratory test result [facility] ([facility]) ID Date Data Source [id number] 11/07/2020 10:15:00 AM EST [facility] ([facility]) Name Value Range Interpretation Code Description Data Annmarie rce(s) Supporting Document(s) Bacteria identified in Urine by Culture Laboratory test result [facility] ([facility]) <content>FULL REPORT IN LAB NOTES (eCW [...] <=0.12 S</content>
<content></content> ID Date Data Source [id number] 10/14/2020 12:27:00 PM EST [facility] ([facility] [place]) Name Value Range Interpretation Code Description Data Annmarie rce(s) Supporting Document(s) Prostate specific Ag [Mass/volume] in Serum or Plasma Laboratory test result [facility] ([facility]) ID Date Data Source [id number] 08/15/2020 02:00:00 PM EST [facility] Name Value Range Interpretation Code Description Data Annmarie rce(s) Supporting Document(s) SARS coronavirus 2 RNA [facility] This lab was ordered by [facility] and reported by [facility]. ID Date Data Source [id number] 07/12/2020 04:12:00 PM EDT [facility] ([facility]) Name Value Range Interpretation Code Description Data Annmarie rce(s) Supporting Document(s) White Blood Count 7.0 4.0-10.0 [facility] ([facility]) Hemoglobin 14.6 [facility] ([facility]) Platelets 287 150-450 [facility] Red Blood Count 4.78 4.30-6.10 [facility]) Hematocrit 43.9 [facility] ([facility]) Procedure Social History Code Duration Value Status Description Data Source(s ) Smoking 06/19/2021 12:00:00 AM EDT Former Smoker completed Former Smoker eCW1 ([facility]) Smoking 06/19/2021 12:00:00 AM EDT Former Smoker completed Former Smoker eCW1 ([facility]) Smoking 06/19/2021 12:00:00 AM EDT Former Smoker completed Former Smoker eCW1 ([facility]) Smoking 05/20/2021 12:00:00 AM EDT Former Smoker completed Former Smoker eCW1 ([facility]) Smoking 05/05/2021 12:00:00 AM EDT Former Smoker completed Former Smoker eCW1 ([facility]) Smoking 05/05/2021 12:00:00 AM EDT Former Smoker completed Former Smoker eCW1 ([facility]) Smoking 04/01/2021 12:00:00 AM EDT Former Smoker completed Former Smoker eCW1 ([facility]) Smoking 04/01/2021 12:00:00 AM EDT Former Smoker completed Former Smoker eCW1 ([facility]) Smoking 04/01/2021 12:00:00 AM EDT Former Smoker completed Former Smoker eCW1 ([facility]) Smoking 03/14/2021 12:00:00 AM EDT Former Smoker completed Former Smoker eCW1 ([facility]) Smoking 03/14/2021 12:00:00 AM EDT Former Smoker completed Former Smoker eCW1 ([facility]) Smoking 03/14/2021 12:00:00 AM EDT Former Smoker completed Former Smoker eCW1 ([facility]) Smoking 03/14/2021 12:00:00 AM EDT Former Smoker completed Former Smoker eCW1 ([facility]) Smoking 03/14/2021 12:00:00 AM EDT Former Smoker completed Former Smoker eCW1 ([facility]) Smoking 03/03/2021 12:00:00 AM EDT Former Smoker completed Former Smoker eCW1 ([facility]) Smoking 01/29/2021 12:00:00 AM EDT Former Smoker completed Former Smoker eCW1 ([facility]) Smoking 01/29/2021 12:00:00 AM EDT Former Smoker completed Former Smoker eCW1 ([facility]) Smoking 01/29/2021 12:00:00 AM EDT Former Smoker completed Former Smoker eCW1 ([facility]) Smoking 01/29/2021 12:00:00 AM EDT Former Smoker completed Former Smoker eCW1 ([facility]) Smoking 01/29/2021 12:00:00 AM EDT Former Smoker completed Former Smoker eCW1 ([facility]) Smoking 01/29/2021 12:00:00 AM EDT Former Smoker completed Former Smoker eCW1 ([facility]) Smoking 01/13/2021 12:00:00 AM EDT Former Smoker completed Former Smoker eCW1 ([facility]) Smoking 01/13/2021 12:00:00 AM EDT Former Smoker completed Former Smoker eCW1 ([facility]) Smoking 01/13/2021 12:00:00 AM EDT Patient is a former smoker completed Patient is a former smoker MEDENT ([facility]) Smoking 01/13/2021 12:00:00 AM EDT Former Smoker completed Former Smoker eCW1 ([facility]) Smoking 01/13/2021 12:00:00 AM EDT Former Smoker completed Former Smoker eCW1 ([facility]) Smoking 01/08/2021 12:00:00 AM EDT Former Smoker completed Former Smoker eCW1 ([facility]) Smoking 01/08/2021 12:00:00 AM EDT Former Smoker completed Former Smoker eCW1 ([facility]) Smoking 01/08/2021 12:00:00 AM EDT Former Smoker completed Former Smoker eCW1 ([facility]) Smoking 12/25/2020 12:00:00 AM EDT Former Smoker completed Former Smoker eCW1 ([facility]) Smoking 12/25/2020 12:00:00 AM EDT Former Smoker completed Former Smoker eCW1 ([facility]) Smoking 12/20/2020 12:00:00 AM EDT Former Smoker completed Former Smoker eCW1 ([facility]) Smoking 12/20/2020 12:00:00 AM EDT Former Smoker completed Former Smoker eCW1 ([facility]) Smoking 12/20/2020 12:00:00 AM EDT Former Cigarette Smoker com pleted Former Cigarette Smoker MEDENT ([facility] [place]) Smoking 12/12/2020 12:00:00 AM EDT Former Smoker completed Former Smoker eCW1 ([facility]) Smoking 11/25/2020 12:00:00 AM EDT Patient has never smoked co mpleted Patient has never smoked MEDENT ([facility]) Smoking 11/12/2020 12:00:00 AM EST Former Smoker completed Former Smoker eCW1 ([facility]) Smoking 11/12/2020 12:00:00 AM EST Former Smoker completed Former Smoker eCW1 ([facility]) Smoking 11/12/2020 12:00:00 AM EST Former Smoker completed Former Smoker eCW1 ([facility]) Smoking 10/17/2020 12:00:00 AM EST Former Smoker completed Former Smoker eCW1 ([facility]) Smoking 10/17/2020 12:00:00 AM EST Former Smoker completed Former Smoker eCW1 ([facility]) Smoking 10/02/2020 12:00:00 AM EST Former Smoker completed Former Smoker eCW1 ([facility]) Smoking 09/19/2020 12:00:00 AM EST Former Smoker completed Former Smoker eCW1 ([facility]) Smoking 09/19/2020 12:00:00 AM EST Former Smoker completed Former Smoker eCW1 ([facility]) Smoking 09/19/2020 12:00:00 AM EST Former Smoker completed Former Smoker eCW1 ([facility]) Smoking 09/19/2020 12:00:00 AM EST Former Smoker completed Former Smoker eCW1 ([facility]) Smoking 09/19/2020 12:00:00 AM EST Former Smoker completed Former Smoker eCW1 ([facility]) Smoking 09/19/2020 12:00:00 AM EST Former Smoker completed Former Smoker eCW1 ([facility]) Smoking 09/18/2020 12:00:00 AM EST Former Smoker completed Former Smoker eCW1 ([facility]) Smoking 09/18/2020 12:00:00 AM EST Former Smoker completed Former Smoker eCW1 ([facility]) Smoking 09/16/2020 12:00:00 AM EST Former Smoker completed Former Smoker eCW1 ([facility]) Smoking 09/12/2020 12:00:00 AM EST Former Smoker completed Former Smoker eCW1 ([facility]) Smoking 09/09/2020 12:00:00 AM EST Former Smoker completed Former Smoker eCW1 ([facility]) Smoking 09/09/2020 12:00:00 AM EST Former Smoker completed Former Smoker eCW1 ([facility]) Smoking 09/03/2020 12:00:00 AM EST Former Smoker completed Former Smoker eCW1 ([facility]) Smoking 09/03/2020 12:00:00 AM EST Former Smoker completed Former Smoker eCW1 ([facility]) Smoking 09/03/2020 12:00:00 AM EST Former Smoker completed Former Smoker eCW1 ([facility]) Smoking 09/03/2020 12:00:00 AM EST Former Smoker completed Former Smoker eCW1 ([facility]) Smoking 08/29/2020 12:00:00 AM EST Former Smoker completed Former Smoker eCW1 ([facility]) Smoking 08/29/2020 12:00:00 AM EST Former Smoker completed Former Smoker eCW1 ([facility]) Smoking 08/29/2020 12:00:00 AM EST Former Smoker completed Former Smoker eCW1 ([facility]) Smoking 08/29/2020 12:00:00 AM EST Former Smoker completed Former Smoker eCW1 ([facility]) Smoking 08/29/2020 12:00:00 AM EST Former Smoker completed Former Smoker eCW1 ([facility]) Smoking 08/29/2020 12:00:00 AM EST Former Smoker completed Former Smoker eCW1 ([facility]) Smoking 08/29/2020 12:00:00 AM EST Former Smoker completed Former Smoker eCW1 ([facility]) Smoking 08/27/2020 12:00:00 AM EST Former Smoker completed Former Smoker eCW1 ([facility]) Smoking 08/23/2020 12:00:00 AM EST Former Smoker completed Former Smoker eCW1 ([facility]) Smoking 08/23/2020 12:00:00 AM EST Former Smoker completed Former Smoker eCW1 ([facility]) Smoking 08/23/2020 12:00:00 AM EST Former Smoker completed Former Smoker eCW1 ([facility]) Smoking 08/23/2020 12:00:00 AM EST Former Smoker completed Former Smoker eCW1 ([facility]) Smoking 08/23/2020 12:00:00 AM EST Former Smoker completed Former Smoker eCW1 ([facility]) Smoking 08/23/2020 12:00:00 AM EST Former Smoker completed Former Smoker eCW1 ([facility]) Smoking 08/15/2020 12:00:00 AM EST Former Smoker completed Former Smoker eCW1 ([facility]) Smoking 08/15/2020 12:00:00 AM EST Former Smoker completed Former Smoker eCW1 ([facility]) Smoking 08/15/2020 12:00:00 AM EST Former Smoker completed Former Smoker eCW1 ([facility]) Smoking 08/15/2020 12:00:00 AM EST Former Smoker completed Former Smoker eCW1 ([facility]) Smoking 08/07/2020 12:00:00 AM EST Former Smoker completed Former Smoker eCW1 ([facility]) Smoking 08/06/2020 12:00:00 AM EST Former Smoker completed Former Smoker eCW1 ([facility]) Smoking 08/02/2020 12:00:00 AM EST Former Smoker completed Former Smoker eCW1 ([facility]) Smoking 08/02/2020 12:00:00 AM EST Former Smoker completed Former Smoker eCW1 ([facility]) Smoking 08/02/2020 12:00:00 AM EST Former Smoker completed Former Smoker eCW1 ([facility]) Smoking 07/31/2020 12:00:00 AM EST Former Smoker completed Former Smoker eCW1 ([facility]) Smoking 07/31/2020 12:00:00 AM EST Former Smoker completed Former Smoker eCW1 ([facility]) Smoking 07/30/2020 12:00:00 AM EST Former Smoker completed Former Smoker eCW1 ([facility]) Smoking 07/29/2020 12:00:00 AM EST Former Smoker completed Former Smoker eCW1 ([facility]) Smoking 07/29/2020 12:00:00 AM EST Former Smoker completed Former Smoker eCW1 ([facility]) Smoking 07/29/2020 12:00:00 AM EST Former Smoker completed Former Smoker eCW1 ([facility]) Smoking 07/26/2020 12:00:00 AM EST Former Smoker completed Former Smoker eCW1 ([facility]) Smoking 07/26/2020 12:00:00 AM EST Former Smoker completed Former Smoker eCW1 ([facility]) Smoking 07/26/2020 12:00:00 AM EST Former Smoker completed Former Smoker eCW1 ([facility]) Smoking 07/24/2020 12:00:00 AM EST Former Smoker completed Former Smoker eCW1 ([facility]) Smoking 07/24/2020 12:00:00 AM EST Former Smoker completed Former Smoker eCW1 ([facility]) Smoking 07/24/2020 12:00:00 AM EST Former Smoker completed Former Smoker eCW1 ([facility]) Smoking 07/22/2020 12:00:00 AM EST Former Smoker completed Former Smoker eCW1 ([facility]) Smoking 07/22/2020 12:00:00 AM EST Former Smoker completed Former Smoker eCW1 ([facility]) Smoking 07/22/2020 12:00:00 AM EST Former Smoker completed Former Smoker eCW1 ([facility]) Smoking 07/19/2020 12:00:00 AM EST Former Smoker completed Former Smoker eCW1 ([facility]) Smoking 07/19/2020 12:00:00 AM EST Former Smoker completed Former Smoker eCW1 ([facility]) Smoking 07/18/2020 12:00:00 AM EST Former Smoker completed Former Smoker eCW1 ([facility]) Smoking 07/18/2020 12:00:00 AM EST Former Smoker completed Former Smoker eCW1 ([facility]) Smoking 07/17/2020 12:00:00 AM EST Former Smoker completed Former Smoker eCW1 ([facility]) Smoking 07/17/2020 12:00:00 AM EST Former Smoker completed Former Smoker eCW1 ([facility]) Smoking 07/16/2020 12:00:00 AM EST Former Smoker completed Former Smoker eCW1 ([facility]) Smoking 06/13/2020 12:00:00 AM EDT Former Smoker completed Former Smoker eCW1 ([facility]) Smoking 06/13/2020 12:00:00 AM EDT Former Smoker completed Former Smoker eCW1 ([facility]) Smoking 06/13/2020 12:00:00 AM EDT Former Smoker completed Former Smoker eCW1 ([facility]) Vital Signs ID Date Data Source UNK Name Value Range Interpretation Code Description Data Source(s) Systolic blood pressure 139 mm[Hg] 139 mm[Hg] M EDENT ([facility]) Diastolic blood pressure 94 mm[Hg] 94 mm[Hg] MEDENT ([facility]) Heart rate 72 /min 72 /min MEDENT ([facility], [facility]) Respiratory rate 15 /min 15 /min MEDENT ( [facility]) Oxygen saturation in Arterial blood by Pulse oximetry 97 % 97 % MEDENT ([facility]) Body temperature 97.1 [degF] 97.1 [degF] MEDENT ([facility]) Body weight 193 [lb_av] 193 [lb_av] eCW1 ([facility]) Body weight 87.54 kg 87.54 kg W1 ([facility]) Body height 67.5 [in_i] 67.5 [in_i] eCW1 ([facility]) Body mass index (BMI) [Ratio] 29.78 kg/m2 29.78 kg/m2 W1 ([facility]) Heart rate 75 /min 75 /min eCW1 ([facility]) Respiratory rate 18 /min 18 /min eCW1 ([facility]) Body temperature 95.7 [degF] 95.7 [degF] eCW1 ( [facility]) Systolic blood pressure 144 mm[Hg] 144 mm[Hg] e CW1 ([facility]) Diastolic blood pressure 96 mm[Hg] 96 mm[Hg] eCW1 ([facility]) Body weight 193 [lb_av] 193 [lb_av] eCW1 ([facility]) Body weight 87.54 kg 87.54 kg eCW1 ([facility]) Body height 67.5 [in_i] 67.5 [in_i] eCW1 ([facility]) Body mass index (BMI) [Ratio] 29.78 kg/m2 29.78 kg/m2 W1 ([facility]) Heart rate 67 /min 67 /min eCW1 ([facility]) Respiratory rate 18 /min 18 /min eCW1 ([facility]) Body temperature 96.0 [degF] 96.0 [degF] eCW1 ( [facility]) Systolic blood pressure 152 mm[Hg] 152 mm[Hg] e CW1 ([facility]) Diastolic blood pressure 88 mm[Hg] 88 mm[Hg] eCW1 ([facility]) Body weight 193 [lb_av] 193 [lb_av] eCW1 ([facility]) Body weight 87.54 kg 87.54 kg eCW1 ([facility]) Body height 67.5 [in_i] 67.5 [in_i] eCW1 ([facility]) Body mass index (BMI) [Ratio] 29.78 kg/m2 29.78 kg/m2 eCW1 ([facility]) Systolic blood pressure 130 mm[Hg] 130 mm[Hg] e CW1 ([facility]) Diastolic blood pressure 78 mm[Hg] 78 mm[Hg] eCW1 ([facility]) Body temperature 97 [degF] 97 [degF] eCW1 ([facility]) Heart rate 76 /min 76 /min eCW1 ([facility]) Respiratory rate 18 /min 18 /min eCW1 ([facility]) Body weight 198 [lb_av] 198 [lb_av] eCW1 ([facility]) Body height 67.5 [in_i] 67.5 [in_i] eCW1 ([facility]) Body mass index (BMI) [Ratio] 30.55 kg/m2 30.55 kg/m2 eCW1 ([facility]) Systolic blood pressure 144 mm[Hg] 144 mm[Hg] e CW1 ([facility]) Diastolic blood pressure 76 mm[Hg] 76 mm[Hg] eCW1 ([facility]) Body weight 198 [lb_av] 198 [lb_av] eCW1 ([facility]) Heart rate 73 /min 73 /min eCW1 ([facility]) Body height 67.5 [in_i] 67.5 [in_i] eCW1 ([facility]) Body mass index (BMI) [Ratio] 30.55 kg/m2 30.55 kg/m2 eCW1 ([facility]) Respiratory rate 18 /min 18 /min eCW1 ([facility]) Body temperature 96.6 [degF] 96.6 [degF] eCW1 ( [facility]) Systolic blood pressure 142 mm[Hg] 142 mm[Hg] e CW1 ([facility]) Diastolic blood pressure 78 mm[Hg] 78 mm[Hg] eCW1 ([facility]) Body weight 195 [lb_av] 195 [lb_av] eCW1 ([facility]) Body height 67.5 [in_i] 67.5 [in_i] eCW1 ([facility]) Body mass index (BMI) [Ratio] 30.09 kg/m2 30.09 kg/m2 eCW1 ([facility]) Heart rate 71 /min 71 /min eCW1 ([facility]) Respiratory rate 18 /min 18 /min eCW1 ([facility]) Body temperature 97.5 [degF] 97.5 [degF] eCW1 ( [facility]) Systolic blood pressure 148 mm[Hg] 148 mm[Hg] e CW1 ([facility]) Diastolic blood pressure 84 mm[Hg] 84 mm[Hg] eCW1 ([facility]) Body weight 195 [lb_av] 195 [lb_av] eCW1 ([facility]) Body height 67.5 [in_i] 67.5 [in_i] eCW1 ([facility]) Body mass index (BMI) [Ratio] 30.09 kg/m2 30.09 kg/m2 eCW1 ([facility]) Heart rate 79 /min 79 /min eCW1 ([facility]) Respiratory rate 18 /min 18 /min eCW1 ([facility]) Body temperature 97.1 [degF] 97.1 [degF] eCW1 ( [facility]) Systolic blood pressure 128 mm[Hg] 128 mm[Hg] e CW1 ([facility]) Diastolic blood pressure 76 mm[Hg] 76 mm[Hg] eCW1 ([facility]) Body weight 197 [lb_av] 197 [lb_av] eCW1 ([facility]) Body height 67.5 [in_i] 67.5 [in_i] eCW1 ([facility]) Body mass index (BMI) [Ratio] 30.40 kg/m2 30.40 kg/m2 eCW1 ([facility]) Heart rate 76 /min 76 /min eCW1 ([facility]) Respiratory rate 18 /min 18 /min eCW1 ([facility]) Body temperature 97.0 [degF] 97.0 [degF] eCW1 ( [facility]) Systolic blood pressure 124 mm[Hg] 124 mm[Hg] e CW1 ([facility]) Diastolic blood pressure 78 mm[Hg] 78 mm[Hg] eCW1 ([facility]) Body mass index (BMI) [Ratio] 28.8 kg/m2 28.8 k g/m2 MEDENT ([facility]) Body weight 195.00 [lb_av] 195.00 [lb_av] MEDEN T ([facility]) Heart rate 67 /min 67 /min MEDENT ([facility]) Systolic blood pressure--sitting 138 mm[Hg] 138 mm[Hg] MEDENT ([facility]) Ra, large cuff Body height 69 [in_i] 69 [in_i] MEDENT ([facility]) 5'9" Diastolic blood pressure--sitting 84 mm[Hg] 84 mm[Hg] MEDENT ([facility]) Ra, large cuff Body weight 198.12 [lb_av] 198.12 [lb_av] eCW1 ([facility]) Body height 67.5 [in_i] 67.5 [in_i] eCW1 ([facility]) Body mass index (BMI) [Ratio] 30.57 kg/m2 30.57 kg/m2 eCW1 ([facility]) Heart rate 78 /min 78 /min eCW1 ([facility]) Respiratory rate 17 /min 17 /min eCW1 ([facility]) Body temperature 97.2 [degF] 97.2 [degF] eCW1 ( [facility]) Systolic blood pressure 134 mm[Hg] 134 mm[Hg] e CW1 ([facility]) Diastolic blood pressure 85 mm[Hg] 85 mm[Hg] eCW1 ([facility]) Body weight 188 [lb_av] 188 [lb_av] eCW1 ([facility]) Body height 67.5 [in_i] 67.5 [in_i] eCW1 ([facility]) Body mass index (BMI) [Ratio] 29.01 kg/m2 29.01 kg/m2 eCW1 ([facility]) Heart rate 73 /min 73 /min eCW1 ([facility]) Respiratory rate 18 /min 18 /min eCW1 ([facility]) Body temperature 97.3 [degF] 97.3 [degF] eCW1 ( [facility]) Systolic blood pressure 136 mm[Hg] 136 mm[Hg] e CW1 ([facility]) Diastolic blood pressure 84 mm[Hg] 84 mm[Hg] eCW1 ([facility]) Systolic blood pressure 142 mm[Hg] 142 mm[Hg] e CW1 ([facility]) Respiratory rate 18 /min 18 /min eCW1 ([facility]) Body temperature 97.7 [degF] 97.7 [degF] eCW1 ( [facility]) Diastolic blood pressure 84 mm[Hg] 84 mm[Hg] eCW1 ([facility]) Body weight 195 [lb_av] 195 [lb_av] eCW1 ([facility]) Body height 67.5 [in_i] 67.5 [in_i] eCW1 ([facility]) Body mass index (BMI) [Ratio] 30.09 kg/m2 30.09 kg/m2 eCW1 ([facility]) Heart rate 66 /min 66 /min eCW1 ([facility]) Body height 69 [in_i] 69 [in_i] MEDENT ([facility] [place] 5'9" Body weight 189.00 [lb_av] 189.00 [lb_av] MEDEN T ([facility]) Body weight 85.730 kg 85.730 kg MEDENT ([facility]) Body mass index (BMI) [Ratio] 27.9 kg/m2 27.9 k g/m2 MEDENT ([facility] [place]) Body weight 190 [lb_av] 190 [lb_av] eCW1 ([facility]) Body height 67.5 [in_i] 67.5 [in_i] eCW1 ([facility]) Body mass index (BMI) [Ratio] 29.32 kg/m2 29.32 kg/m2 eCW1 ([facility]) Heart rate 76 /min 76 /min eCW1 ([facility]) Respiratory rate 18 /min 18 /min eCW1 ([facility]) Body temperature 96.8 [degF] 96.8 [degF] eCW1 ( [facility]) Systolic blood pressure 122 mm[Hg] 122 mm[Hg] e CW1 ([facility]) Diastolic blood pressure 74 mm[Hg] 74 mm[Hg] eCW1 ([facility]) Respiratory rate 16 /min 16 /min MEDENT ( [facility]) Oxygen saturation in Arterial blood by Pulse oximetry 98 % 98 % MEDENT ([facility]) Body temperature 97.7 [degF] 97.7 [degF] MEDENT ([facility]) Body weight 185.00 [lb_av] 185.00 [lb_av] MEDEN T ([facility], [facility]) Body height 69 [in_i] 69 [in_i] MEDENT ([facility], [facility]) 5'9" Body mass index (BMI) [Ratio] 27.3 kg/m2 27.3 k g/m2 MEDENT ([facility]) Heart rate 63 /min 63 /min MEDENT ([facility], [facility]) Body weight 196 [lb_av] 196 [lb_av] eCW1 ([facility]) Body height 67.5 [in_i] 67.5 [in_i] eCW1 ([facility]) Body mass index (BMI) [Ratio] 30.24 kg/m2 30.24 kg/m2 eCW1 ([facility]) Systolic blood pressure 146 mm[Hg] 146 mm[Hg] e CW1 ([facility]) Diastolic blood pressure 82 mm[Hg] 82 mm[Hg] eCW1 ([facility]) Systolic blood pressure 148 mm[Hg] 148 mm[Hg] M EDENT ([facility], [facility]) Body mass index (BMI) [Ratio] 27.3 kg/m2 27.3 k g/m2 MEDENT ([facility], [facility]) Diastolic blood pressure 98 mm[Hg] 98 mm[Hg] MEDENT ([facility]) Heart rate 72 /min 72 /min MEDENT ([facility], [facility]) Respiratory rate 12 /min 12 /min MEDENT ( [facility]) Oxygen saturation in Arterial blood by Pulse oximetry 97 % 97 % MEDENT ([facility]) Body temperature 96.1 [degF] 96.1 [degF] MEDENT ([facility]) Body weight 185.00 [lb_av] 185.00 [lb_av] MEDEN T ([facility]) Body height 69 [in_i] 69 [in_i] MEDENT ([facility], [facility]) 5'9" Body weight 199 [lb_av] 199 [lb_av] eCW1 ([facility]) Respiratory rate 18 /min 18 /min eCW1 ([facility]) Body temperature 97.9 [degF] 97.9 [degF] eCW1 ( [facility]) Systolic blood pressure 135 mm[Hg] 135 mm[Hg] e CW1 ([facility]) Diastolic blood pressure 86 mm[Hg] 86 mm[Hg] eCW1 ([facility]) Body height 67.5 [in_i] 67.5 [in_i] eCW1 ([facility]) Body mass index (BMI) [Ratio] 30.70 kg/m2 30.70 kg/m2 eCW1 ([facility]) Heart rate 68 /min 68 /min eCW1 ([facility]) Body weight 197.3 [lb_av] 197.3 [lb_av] eCW1 ([facility]) Body height 67.5 [in_i] 67.5 [in_i] eCW1 ([facility]) Body mass index (BMI) [Ratio] 30.44 kg/m2 30.44 kg/m2 eCW1 ([facility]) Heart rate 70 /min 70 /min eCW1 ([facility]) Respiratory rate 18 /min 18 /min eCW1 ([facility]) Body temperature 97.1 [degF] 97.1 [degF] eCW1 ( [facility]) Systolic blood pressure 143 mm[Hg] 143 mm[Hg] e CW1 ([facility]) Diastolic blood pressure 88 mm[Hg] 88 mm[Hg] eCW1 ([facility]) Body weight 197.0 [lb_av] 197.0 [lb_av] eCW1 ([facility]) Body height 67.5 [in_i] 67.5 [in_i] eCW1 ([facility]) Body mass index (BMI) [Ratio] 30.40 kg/m2 30.40 kg/m2 eCW1 ([facility]) Systolic blood pressure 138 mm[Hg] 138 mm[Hg] e CW1 ([facility]) Diastolic blood pressure 82 mm[Hg] 82 mm[Hg] eCW1 ([facility]) Body temperature 96.5 [degF] 96.5 [degF] eCW1 ( [facility]) Systolic blood pressure 142 mm[Hg] 142 mm[Hg] e CW1 ([facility]) Diastolic blood pressure 88 mm[Hg] 88 mm[Hg] eCW1 ([facility]) Body weight 193 [lb_av] 193 [lb_av] eCW1 ([facility]) Body weight kg eCW1 ([facility]) Body height 67.5 [in_i] 67.5 [in_i] eCW1 ([facility]) Body mass index (BMI) [Ratio] 29.78 kg/m2 29.78 kg/m2 eCW1 ([facility]) Heart rate 71 /min 71 /min [facility]CW[facility] ([facility] [facility] Respiratory rate 18 /min 18 /min eCW1 ([facility]) Body weight 193 [lb_av] 193 [lb_av] eCW1 ([facility]) Body weight kg eCW1 ([facility]) Body height 67.5 [in_i] 67.5 [in_i] eCW1 ([facility]) Body mass index (BMI) [Ratio] 29.78 kg/m2 29.78 kg/m2 eCW1 ([facility]) Heart rate 72 /min 72 /min eCW1 ([facility]) Respiratory rate 18 /min 18 /min eCW1 ([facility]) Body temperature 96.3 [degF] 96.3 [degF] eCW1 ( [facility]) Systolic blood pressure 140 mm[Hg] 140 mm[Hg] e CW1 ([facility]) Diastolic blood pressure 88 mm[Hg] 88 mm[Hg] eCW1 ([facility]) Body weight 193 [lb_av] 193 [lb_av] eCW1 ([facility]) Body weight kg eCW1 ([facility]) Body height 67.5 [in_i] 67.5 [in_i] eCW1 ([facility]) Body mass index (BMI) [Ratio] 29.78 kg/m2 29.78 kg/m2 eCW1 ([facility]) Heart rate 77 /min 77 /min eCW1 ([facility]) Respiratory rate 18 /min 18 /min eCW1 ([facility]) Body temperature 95.5 [degF] 95.5 [degF] eCW1 ( [facility]) Systolic blood pressure 136 mm[Hg] 136 mm[Hg] e CW1 ([facility]) Diastolic blood pressure 86 mm[Hg] 86 mm[Hg] eCW1 ([facility]) Body weight 193 [lb_av] 193 [lb_av] eCW1 ([facility]) Body weight kg eCW1 ([facility]) Body height 67.5 [in_i] 67.5 [in_i] eCW1 ([facility]) Body mass index (BMI) [Ratio] 29.78 kg/m2 29.78 kg/m2 eCW1 ([facility]) Heart rate 77 /min 77 /min eCW1 ([facility]) Respiratory rate 18 /min 18 /min eCW1 ([facility]) Body temperature 95.5 [degF] 95.5 [degF] eCW1 ( [facility]) Systolic blood pressure 136 mm[Hg] 136 mm[Hg] e CW1 ([facility]) Diastolic blood pressure 86 mm[Hg] 86 mm[Hg] eCW1 ([facility]) Body mass index (BMI) [Ratio] 29.78 kg/m2 29.78 kg/m2 eCW1 ([facility]) Body weight 193 [lb_av] 193 [lb_av] eCW1 ([facility]) Body height 67.5 [in_i] 67.5 [in_i] eCW1 ([facility]) Heart rate 72 /min 72 /min eCW1 ([facility]) Respiratory rate 18 /min 18 /min eCW1 ([facility]) Body temperature 96.8 [degF] 96.8 [degF] eCW1 ( [facility]) Systolic blood pressure 150 mm[Hg] 150 mm[Hg] e CW1 ([facility]) Diastolic blood pressure 92 mm[Hg] 92 mm[Hg] eCW1 ([facility]) Systolic blood pressure 140 mm[Hg] 140 mm[Hg] e CW1 ([facility]) Diastolic blood pressure 80 mm[Hg] 80 mm[Hg] eCW1 ([facility]) Body weight 193 [lb_av] 193 [lb_av] eCW1 ([facility]) Body weight kg eCW1 ([facility]) Body height 67.5 [in_i] 67.5 [in_i] eCW1 ([facility]) Body mass index (BMI) [Ratio] 29.78 kg/m2 29.78 kg/m2 W1 ([facility]) Heart rate 74 /min 74 /min eCW1 ([facility]) Respiratory rate 18 /min 18 /min eCW1 ([facility]) Body temperature 96.2 [degF] 96.2 [degF] eCW1 ( [facility]) Body weight 193 [lb_av] 193 [lb_av] eCW1 ([facility]) Respiratory rate 18 /min 18 /min eCW1 ([facility]) Body temperature 97.5 [degF] 97.5 [degF] eCW1 ( [facility]) Systolic blood pressure 160 mm[Hg] 160 mm[Hg] e CW1 ([facility]) Diastolic blood pressure 90 mm[Hg] 90 mm[Hg] eCW1 ([facility]) Body height 67.5 [in_i] 67.5 [in_i] eCW1 ([facility]) Body mass index (BMI) [Ratio] 29.78 kg/m2 29.78 kg/m2 eCW1 ([facility]) Heart rate 70 /min 70 /min eCW1 ([facility]) Body weight 193 [lb_av] 193 [lb_av] eCW1 ([facility]) Body weight kg eCW1 ([facility]) Body height 67.5 [in_i] 67.5 [in_i] eCW1 ([facility]) Body mass index (BMI) [Ratio] 29.78 kg/m2 29.78 kg/m2 eCW1 ([facility]) Heart rate 79 /min 79 /min eCW1 ([facility]) Respiratory rate 18 /min 18 /min eCW1 ([facility]) Body temperature 96.6 [degF] 96.6 [degF] eCW1 ( [facility]) Systolic blood pressure 130 mm[Hg] 130 mm[Hg] e CW1 ([facility]) Diastolic blood pressure 88 mm[Hg] 88 mm[Hg] eCW1 ([facility]) Body weight 193 [lb_av] 193 [lb_av] eCW1 ([facility]) Body weight kg eCW1 ([facility]) Body height 67.5 [in_i] 67.5 [in_i] eCW1 ([facility]) Body mass index (BMI) [Ratio] 29.78 kg/m2 29.78 kg/m2 eCW1 ([facility]) Heart rate 69 /min 69 /min eCW1 ([facility]) Respiratory rate 18 /min 18 /min eCW1 ([facility]) Body temperature 96.2 [degF] 96.2 [degF] eCW1 ( [facility]) Systolic blood pressure 132 mm[Hg] 132 mm[Hg] e CW1 ([facility]) Diastolic blood pressure 82 mm[Hg] 82 mm[Hg] eCW1 ([facility]) Heart rate 78 /min 78 /min eCW1 ([facility]) Body weight 193 [lb_av] 193 [lb_av] eCW1 ([facility]) Body weight kg eCW1 ([facility]) Body height 67.5 [in_i] 67.5 [in_i] eCW1 ([facility]) Body mass index (BMI) [Ratio] 29.78 kg/m2 29.78 kg/m2 eCW1 ([facility]) Body temperature 96.8 [degF] 96.8 [degF] eCW1 ( [facility]) Systolic blood pressure 138 mm[Hg] 138 mm[Hg] e CW1 ([facility]) Diastolic blood pressure 86 mm[Hg] 86 mm[Hg] eCW1 ([facility]) Respiratory rate 18 /min 18 /min eCW1 ([facility]) Body weight 193 [lb_av] 193 [lb_av] eCW1 ([facility]) Body weight kg eCW1 ([facility]) Body height 67.5 [in_i] 67.5 [in_i] eCW1 ([facility]) Body mass index (BMI) [Ratio] 29.78 kg/m2 29.78 kg/m2 W1 ([facility]) Heart rate 78 /min 78 /min eCW1 ([facility]) Respiratory rate 18 /min 18 /min eCW1 ([facility]) Body temperature 96.4 [degF] 96.4 [degF] eCW1 ( [facility]) Systolic blood pressure 136 mm[Hg] 136 mm[Hg] e CW1 ([facility]) Diastolic blood pressure 88 mm[Hg] 88 mm[Hg] eCW1 ([facility]) Body mass index (BMI) [Ratio] 29.78 kg/m2 29.78 kg/m2 eCW1 ([facility]) Body weight kg eCW1 ([facility]) Body height 67.5 [in_i] 67.5 [in_i] eCW1 ([facility]) Body weight 193 [lb_av] 193 [lb_av] eCW1 ([facility]) Heart rate 70 /min 70 /min eCW1 ([facility]) Respiratory rate 18 /min 18 /min eCW1 ([facility]) Body temperature 97.2 [degF] 97.2 [degF] eCW1 ( [facility]) Systolic blood pressure 134 mm[Hg] 134 mm[Hg] e CW1 ([facility]) Diastolic blood pressure 86 mm[Hg] 86 mm[Hg] eCW1 ([facility]) Body weight 193 [lb_av] 193 [lb_av] eCW1 ([facility]) Body height 67.5 [in_i] 67.5 [in_i] eCW1 ([facility]) Body mass index (BMI) [Ratio] 29.78 kg/m2 29.78 kg/m2 eCW1 ([facility]) Diastolic blood pressure 88 mm[Hg] 88 mm[Hg] eCW1 ([facility]) Heart rate 72 /min 72 /min eCW1 ([facility]) Respiratory rate 18 /min 18 /min eCW1 ([facility]) Body temperature 96.5 [degF] 96.5 [degF] eCW1 ( [facility]) Systolic blood pressure 140 mm[Hg] 140 mm[Hg] e CW1 ([facility]) Body weight kg eCW1 ([facility]) Body weight 193 [lb_av] 193 [lb_av] eCW1 ([facility]) Body weight kg eCW1 ([facility]) Body height 67.5 [in_i] 67.5 [in_i] eCW1 ([facility]) Body mass index (BMI) [Ratio] 29.78 kg/m2 29.78 kg/m2 eCW1 ([facility]) Heart rate 70 /min 70 /min eCW1 ([facility]) Respiratory rate 18 /min 18 /min eCW1 ([facility]) Body temperature 96.5 [degF] 96.5 [degF] eCW1 ( [facility]) Systolic blood pressure 126 mm[Hg] 126 mm[Hg] e CW1 ([facility]) Diastolic blood pressure 72 mm[Hg] 72 mm[Hg] eCW1 ([facility]) Body weight 193 [lb_av] 193 [lb_av] eCW1 ([facility]) Body weight kg eCW1 ([facility]) Body height 67.5 [in_i] 67.5 [in_i] eCW1 ([facility]) Body mass index (BMI) [Ratio] 29.78 kg/m2 29.78 kg/m2 eCW1 ([facility]) Heart rate 64 /min 64 /min eCW1 ([facility]) Respiratory rate 18 /min 18 /min eCW1 ([facility]) Body temperature 97.8 [degF] 97.8 [degF] eCW1 ( [facility]) Systolic blood pressure 160 mm[Hg] 160 mm[Hg] e CW1 ([facility]) Diastolic blood pressure 105 mm[Hg] 105 mm[Hg] eCW1 ([facility]) Diastolic blood pressure 100 mm[Hg] 100 mm[Hg] eCW1 ([facility]) Body weight 193 [lb_av] 193 [lb_av] eCW1 ([facility]) Body height 67.5 [in_i] 67.5 [in_i] eCW1 ([facility]) Body mass index (BMI) [Ratio] 29.78 kg/m2 29.78 kg/m2 eCW1 ([facility]) Heart rate 67 /min 67 /min eCW1 ([facility]) Respiratory rate 18 /min 18 /min eCW1 ([facility]) Body temperature 96.1 [degF] 96.1 [degF] eCW1 ( [facility]) Systolic blood pressure 180 mm[Hg] 180 mm[Hg] e CW1 ([facility]) Body height 67.5 [in_i] 67.5 [in_i] eCW1 ([facility]) Body mass index (BMI) [Ratio] 29.78 kg/m2 29.78 kg/m2 eCW1 ([facility]) Body weight 193 [lb_av] 193 [lb_av] eCW1 ([facility]) Systolic blood pressure 118 mm[Hg] 118 mm[Hg] e CW1 ([facility]) Diastolic blood pressure 70 mm[Hg] 70 mm[Hg] eCW1 ([facility]) Heart rate 66 /min 66 /min eCW1 ([facility]) Respiratory rate 18 /min 18 /min eCW1 ([facility]) Body temperature 96.8 [degF] 96.8 [degF] eCW1 ( [facility]) Body weight 192 [lb_av] 192 [lb_av] eCW1 ([facility]) Heart rate 70 /min 70 /min eCW1 ([facility]) Body weight kg eCW1 ([facility]) Body height 67.5 [in_i] 67.5 [in_i] eCW1 ([facility]) Body mass index (BMI) [Ratio] 29.62 kg/m2 29.62 kg/m2 eCW1 ([facility]) Respiratory rate 18 /min 18 /min eCW1 ([facility]) Diastolic blood pressure 88 mm[Hg] 88 mm[Hg] eCW1 ([facility]) Body temperature 96.8 [degF] 96.8 [degF] eCW1 ( [facility]) Systolic blood pressure 132 mm[Hg] 132 mm[Hg] e CW1 ([facility]) Body weight 192 [lb_av] 192 [lb_av] eCW1 ([facility]) Body weight kg eCW1 ([facility]) Body height 67.5 [in_i] 67.5 [in_i] eCW1 ([facility]) Body mass index (BMI) [Ratio] 29.62 kg/m2 29.62 kg/m2 eCW1 ([facility]) Heart rate 65 /min 65 /min eCW1 ([facility]) Respiratory rate 18 /min 18 /min eCW1 ([facility]) Body temperature 96.5 [degF] 96.5 [degF] eCW1 ( [facility]) Systolic blood pressure 140 mm[Hg] 140 mm[Hg] e CW1 ([facility]) Diastolic blood pressure 78 mm[Hg] 78 mm[Hg] eCW1 ([facility]) Body weight 192 [lb_av] 192 [lb_av] eCW1 ([facility]) Body weight kg eCW1 ([facility]) Body height 67.5 [in_i] 67.5 [in_i] eCW1 ([facility]) Body mass index (BMI) [Ratio] 29.62 kg/m2 29.62 kg/m2 eCW1 ([facility]) Heart rate 70 /min 70 /min eCW1 ([facility]) Respiratory rate 18 /min 18 /min eCW1 ([facility]) Body temperature 98.5 [degF] 98.5 [degF] eCW1 ( [facility]) Systolic blood pressure 130 mm[Hg] 130 mm[Hg] e CW1 ([facility]) Diastolic blood pressure 88 mm[Hg] 88 mm[Hg] eCW1 ([facility]) Body weight 192 [lb_av] 192 [lb_av] eCW1 ([facility]) Body weight kg eCW1 ([facility]) Body height 67.5 [in_i] 67.5 [in_i] eCW1 ([facility]) Respiratory rate 18 /min 18 /min eCW1 ([facility]) Body mass index (BMI) [Ratio] 29.62 kg/m2 29.62 kg/m2 eCW1 ([facility]) Heart rate 64 /min 64 /min eCW1 ([facility]) Body temperature 97.6 [degF] 97.6 [degF] eCW1 ( [facility]) Diastolic blood pressure 88 mm[Hg] 88 mm[Hg] eCW1 ([facility]) Systolic blood pressure 128 mm[Hg] 128 mm[Hg] e CW1 ([facility]) Systolic blood pressure 136 mm[Hg] 136 mm[Hg] e CW1 ([facility]) Body temperature 96.8 [degF] 96.8 [degF] eCW1 ( [facility]) Respiratory rate 18 /min 18 /min eCW1 ([facility]) Diastolic blood pressure 88 mm[Hg] 88 mm[Hg] eCW1 ([facility]) Heart rate 69 /min 69 /min eCW1 ([facility]) Body weight 192 [lb_av] 192 [lb_av] eCW1 ([facility]) Body weight kg eCW1 ([facility]) Body height 67.5 [in_i] 67.5 [in_i] eCW1 ([facility]) Body mass index (BMI) [Ratio] 29.62 kg/m2 29.62 kg/m2 eCW1 ([facility]) Respiratory rate 18 /min 18 /min eCW1 ([facility]) Body weight 192 [lb_av] 192 [lb_av] eCW1 ([facility]) Body height 67.5 [in_i] 67.5 [in_i] eCW1 ([facility]) Body temperature 96.9 [degF] 96.9 [degF] eCW1 ( [facility]) Body mass index (BMI) [Ratio] 29.62 kg/m2 29.62 kg/m2 eCW1 ([facility]) Heart rate 68 /min 68 /min eCW1 ([facility]) Body weight kg eCW1 ([facility]) Systolic blood pressure 128 mm[Hg] 128 mm[Hg] e CW1 ([facility]) Diastolic blood pressure 88 mm[Hg] 88 mm[Hg] eCW1 ([facility]) Body weight 192 [lb_av] 192 [lb_av] eCW1 ([facility]) Body weight kg eCW1 ([facility]) Body height 67.5 [in_i] 67.5 [in_i] eCW1 ([facility]) Body mass index (BMI) [Ratio] 29.62 kg/m2 29.62 kg/m2 eCW1 ([facility]) Heart rate 72 /min 72 /min eCW1 ([facility]) Respiratory rate 18 /min 18 /min eCW1 ([facility]) Body temperature 96.9 [degF] 96.9 [degF] eCW1 ( [facility]) Systolic blood pressure 130 mm[Hg] 130 mm[Hg] e CW1 ([facility]) Diastolic blood pressure 84 mm[Hg] 84 mm[Hg] eCW1 ([facility]) Body weight 192 [lb_av] 192 [lb_av] eCW1 ([facility]) Body weight kg eCW1 ([facility]) Body height 67.5 [in_i] 67.5 [in_i] eCW1 ([facility]) Body mass index (BMI) [Ratio] 29.62 kg/m2 29.62 kg/m2 eCW1 ([facility]) Heart rate 74 /min 74 /min eCW1 ([facility]) Respiratory rate 18 /min 18 /min eCW1 ([facility]) Body temperature 96.5 [degF] 96.5 [degF] eCW1 ( [facility]) Systolic blood pressure 126 mm[Hg] 126 mm[Hg] e CW1 ([facility]) Diastolic blood pressure mm[Hg] eCW1 ([facility]) Body weight 192 [lb_av] 192 [lb_av] eCW1 ([facility]) Body mass index (BMI) [Ratio] 29.62 kg/m2 29.62 kg/m2 eCW1 ([facility]) Heart rate 66 /min 66 /min eCW1 ([facility]) Respiratory rate 18 /min 18 /min eCW1 ([facility]) Body temperature 96.4 [degF] 96.4 [degF] eCW1 ( [facility]) Systolic blood pressure 126 mm[Hg] 126 mm[Hg] e CW1 ([facility]) Diastolic blood pressure 88 mm[Hg] 88 mm[Hg] eCW1 ([facility]) Body weight kg eCW1 ([facility]) Body height 67.5 [in_i] 67.5 [in_i] eCW1 ([facility]) Body weight 192 [lb_av] 192 [lb_av] eCW1 ([facility]) Body weight kg eCW1 ([facility]) Body height 67.5 [in_i] 67.5 [in_i] eCW1 ([facility]) Body mass index (BMI) [Ratio] 29.62 kg/m2 29.62 kg/m2 eCW1 ([facility]) Heart rate 67 /min 67 /min eCW1 ([facility]) Respiratory rate 18 /min 18 /min eCW1 ([facility]) Body temperature 96.6 [degF] 96.6 [degF] eCW1 ( [facility]) Systolic blood pressure 130 mm[Hg] 130 mm[Hg] e CW1 ([facility]) Diastolic blood pressure mm[Hg] eCW1 ([facility]) Body weight 192 [lb_av] 192 [lb_av] eCW1 ([facility]) Body weight kg eCW1 ([facility]) Body height 67.5 [in_i] 67.5 [in_i] eCW1 ([facility]) Body mass index (BMI) [Ratio] 29.62 kg/m2 29.62 kg/m2 eCW1 ([facility]) Heart rate 76 /min 76 /min eCW1 ([facility]) Respiratory rate 18 /min 18 /min eCW1 ([facility]) Body temperature 96.5 [degF] 96.5 [degF] eCW1 ( [facility]) Systolic blood pressure 160 mm[Hg] 160 mm[Hg] e CW1 ([facility]) Diastolic blood pressure 88 mm[Hg] 88 mm[Hg] eCW1 ([facility]) Body weight 192 [lb_av] 192 [lb_av] eCW1 ([facility]) Body weight kg eCW1 ([facility]) Body height 67.5 [in_i] 67.5 [in_i] eCW1 ([facility]) Body mass index (BMI) [Ratio] 29.62 kg/m2 29.62 kg/m2 eCW1 ([facility]) Heart rate 74 /min 74 /min eCW1 ([facility]) Respiratory rate 18 /min 18 /min eCW1 ([facility]) Body temperature 96.7 [degF] 96.7 [degF] eCW1 ( [facility]) Systolic blood pressure 124 mm[Hg] 124 mm[Hg] e CW1 ([facility]) Diastolic blood pressure 88 mm[Hg] 88 mm[Hg] eCW1 ([facility]) Body weight 192 [lb_av] 192 [lb_av] eCW1 ([facility]) Body weight kg eCW1 ([facility]) Body height 67.5 [in_i] 67.5 [in_i] eCW1 ([facility]) Body mass index (BMI) [Ratio] 29.62 kg/m2 29.62 kg/m2 eCW1 ([facility]) Heart rate 68 /min 68 /min eCW1 ([facility]) Respiratory rate 18 /min 18 /min eCW1 ([facility]) Body temperature 96.9 [degF] 96.9 [degF] eCW1 ( [facility]) Systolic blood pressure 124 mm[Hg] 124 mm[Hg] e CW1 ([facility]) Diastolic blood pressure mm[Hg] eCW1 ([facility]) Body weight 192 [lb_av] 192 [lb_av] eCW1 ([facility]) Body weight kg eCW1 ([facility]) Body height 67.5 [in_i] 67.5 [in_i] eCW1 ([facility]) Body mass index (BMI) [Ratio] 29.62 kg/m2 29.62 kg/m2 eCW1 ([facility]) Heart rate 50 /min 50 /min eCW1 ([facility]) Respiratory rate 18 /min 18 /min eCW1 ([facility]) Body temperature 96.7 [degF] 96.7 [degF] eCW1 ( [facility]) Systolic blood pressure 132 mm[Hg] 132 mm[Hg] e CW1 ([facility]) Diastolic blood pressure 90 mm[Hg] 90 mm[Hg] eCW1 ([facility]) Body weight 192 [lb_av] 192 [lb_av] eCW1 ([facility]) Body weight kg eCW1 ([facility]) Body height 67.5 [in_i] 67.5 [in_i] eCW1 ([facility]) Body mass index (BMI) [Ratio] 29.62 kg/m2 29.62 kg/m2 eCW1 ([facility]) Heart rate 74 /min 74 /min eCW1 ([facility]) Respiratory rate 18 /min 18 /min eCW1 ([facility]) Body temperature 96.3 [degF] 96.3 [degF] eCW1 ( [facility]) Systolic blood pressure 130 mm[Hg] 130 mm[Hg] e CW1 ([facility]) Diastolic blood pressure mm[Hg] eCW1 ([facility]) Body weight 192 [lb_av] 192 [lb_av] eCW1 ([facility]) Body weight kg eCW1 ([facility]) Body height 67.5 [in_i] 67.5 [in_i] eCW1 ([facility]) Body mass index (BMI) [Ratio] 29.62 kg/m2 29.62 kg/m2 eCW1 ([facility]) Heart rate 75 /min 75 /min eCW1 ([facility]) Respiratory rate 18 /min 18 /min eCW1 ([facility]) Body temperature 96.8 [degF] 96.8 [degF] eCW1 ( [facility]) Systolic blood pressure 128 mm[Hg] 128 mm[Hg] e CW1 ([facility]) Diastolic blood pressure mm[Hg] eCW1 ([facility]) Body weight 192 [lb_av] 192 [lb_av] eCW1 ([facility]) Body weight kg eCW1 ([facility]) Body height 67.5 [in_i] 67.5 [in_i] eCW1 ([facility]) Body mass index (BMI) [Ratio] 29.62 kg/m2 29.62 kg/m2 eCW1 ([facility]) Heart rate 61 /min 61 /min eCW1 ([facility]) Respiratory rate 18 /min 18 /min eCW1 ([facility]) Body temperature 96.4 [degF] 96.4 [degF] eCW1 ( [facility]) Systolic blood pressure 138 mm[Hg] 138 mm[Hg] e CW1 ([facility]) Diastolic blood pressure mm[Hg] eCW1 ([facility]) Body weight 192.4 [lb_av] 192.4 [lb_av] eCW1 ([facility]) Body height 67.5 [in_i] 67.5 [in_i] eCW1 ([facility]) Body mass index (BMI) [Ratio] 29.69 kg/m2 29.69 kg/m2 eCW1 ([facility]) Heart rate 72 /min 72 /min eCW1 ([facility]) Respiratory rate 18 /min 18 /min eCW1 ([facility]) Body temperature 98.4 [degF] 98.4 [degF] eCW1 ( [facility]) Systolic blood pressure 124 mm[Hg] 124 mm[Hg] e CW1 ([facility]) Diastolic blood pressure 76 mm[Hg] 76 mm[Hg] eCW1 ([facility]) Body weight 192 [lb_av] 192 [lb_av] eCW1 ([facility]) Body weight kg eCW1 ([facility]) Body height 67.5 [in_i] 67.5 [in_i] eCW1 ([facility]) Body mass index (BMI) [Ratio] 29.62 kg/m2 29.62 kg/m2 eCW1 ([facility]) Heart rate 62 /min 62 /min eCW1 ([facility]) Respiratory rate 18 /min 18 /min eCW1 ([facility]) Body temperature 97.3 [degF] 97.3 [degF] eCW1 ( [facility]) Systolic blood pressure 130 mm[Hg] 130 mm[Hg] e CW1 ([facility]) Diastolic blood pressure mm[Hg] eCW1 ([facility]) Body weight 192 [lb_av] 192 [lb_av] eCW1 ([facility]) Body temperature 97.2 [degF] 97.2 [degF] eCW1 ( [facility]) Systolic blood pressure 128 mm[Hg] 128 mm[Hg] e CW1 ([facility]) Diastolic blood pressure mm[Hg] eCW1 ([facility]) Body height 67.5 [in_i] 67.5 [in_i] eCW1 ([facility]) Body mass index (BMI) [Ratio] 29.62 kg/m2 29.62 kg/m2 eCW1 ([facility]) Heart rate 59 /min 59 /min eCW1 ([facility]) Respiratory rate 17 /min 17 /min eCW1 ([facility]) Body height 69 [in_i] 69 [in_i] MEDENT ([facility] 5'9" Body mass index (BMI) [Ratio] 28.1 kg/m2 28.1 k g/m2 MED[facility] ([facility]) Heart rate 66 /min 66 /min [facility] ([facility]) Systolic blood pressure--sitting 138 mm[Hg] 138 mm[Hg] MEDENT ([facility]) large cuff, Ra Diastolic blood pressure--sitting 82 mm[Hg] 82 mm[Hg] MEDENT ([facility]) large cuff, Ra Body weight 190.00 [lb_av] 190.00 [lb_av] ISAIAS T ([facility]) Body weight 192 [lb_av] 192 [lb_av] eCW1 ([facility]) Body weight kg eCW1 ([facility]) Body height 67.5 [in_i] 67.5 [in_i] eCW1 ([facility]) Body mass index (BMI) [Ratio] 29.62 kg/m2 29.62 kg/m2 eCW1 ([facility]) Heart rate 67 /min 67 /min eCW1 ([facility]) Respiratory rate 18 /min 18 /min eCW1 ([facility]) Body temperature 96.3 [degF] 96.3 [degF] eCW1 ( [facility]) Systolic blood pressure 165 mm[Hg] 165 mm[Hg] e CW1 ([facility]) Diastolic blood pressure 89 mm[Hg] 89 mm[Hg] eCW1 ([facility]) Body mass index (BMI) [Ratio] 29.62 kg/m2 29.62 kg/m2 eCW1 ([facility]) Heart rate 71 /min 71 /min eCW1 ([facility]) Body weight 192 [lb_av] 192 [lb_av] eCW1 ([facility]) Body weight kg eCW1 ([facility]) Body height 67.5 [in_i] 67.5 [in_i] eCW1 ([facility]) Respiratory rate 18 /min 18 /min eCW1 ([facility]) Diastolic blood pressure 90 mm[Hg] 90 mm[Hg] eCW1 ([facility]) Body temperature 97.6 [degF] 97.6 [degF] eCW1 ( [facility]) Systolic blood pressure 155 mm[Hg] 155 mm[Hg] e CW1 ([facility]) Body weight 192 [lb_av] 192 [lb_av] eCW1 ([facility]) Body weight kg eCW1 ([facility]) Body height 67.5 [in_i] 67.5 [in_i] eCW1 ([facility]) Body mass index (BMI) [Ratio] 29.62 kg/m2 29.62 kg/m2 eCW1 ([facility]) Heart rate 56 /min 56 /min eCW1 ([facility]) Respiratory rate 18 /min 18 /min eCW1 ([facility]) Body temperature 98.1 [degF] 98.1 [degF] eCW1 ( [facility]) Systolic blood pressure 145 mm[Hg] 145 mm[Hg] e CW1 ([facility]) Diastolic blood pressure 94 mm[Hg] 94 mm[Hg] eCW1 ([facility]) Body weight 192 [lb_av] 192 [lb_av] eCW1 ([facility]) Body weight kg eCW1 ([facility]) Body height 67.5 [in_i] 67.5 [in_i] eCW1 ([facility]) Body mass index (BMI) [Ratio] 29.62 kg/m2 29.62 kg/m2 eCW1 ([facility]) Heart rate 72 /min 72 /min eCW1 ([facility]) Respiratory rate 18 /min 18 /min eCW1 ([facility]) Body temperature 97.2 [degF] 97.2 [degF] eCW1 ( [facility]) Systolic blood pressure 139 mm[Hg] 139 mm[Hg] e CW1 ([facility]) Diastolic blood pressure 88 mm[Hg] 88 mm[Hg] eCW1 ([facility]) Body weight 192 [lb_av] 192 [lb_av] eCW1 ([facility]) Body weight kg eCW1 ([facility]) Body height 67.5 [in_i] 67.5 [in_i] eCW1 ([facility]) Body mass index (BMI) [Ratio] 29.62 kg/m2 29.62 kg/m2 eCW1 ([facility]) Heart rate 68 /min 68 /min eCW1 ([facility]) Respiratory rate 18 /min 18 /min eCW1 ([facility]) Body temperature 96.0 [degF] 96.0 [degF] eCW1 ( [facility]) Systolic blood pressure 137 mm[Hg] 137 mm[Hg] e CW1 ([facility]) Diastolic blood pressure 88 mm[Hg] 88 mm[Hg] eCW1 ([facility]) Body weight 192 [lb_av] 192 [lb_av] eCW1 ([facility]) Body weight kg eCW1 ([facility]) Body height 67.5 [in_i] 67.5 [in_i] eCW1 ([facility]) Body mass index (BMI) [Ratio] 29.62 kg/m2 29.62 kg/m2 eCW1 ([facility]) Heart rate 76 /min 76 /min eCW1 ([facility]) Respiratory rate 18 /min 18 /min eCW1 ([facility]) Body temperature 96.7 [degF] 96.7 [degF] eCW1 ( [facility]) Systolic blood pressure 173 mm[Hg] 173 mm[Hg] e CW1 ([facility]) Diastolic blood pressure 81 mm[Hg] 81 mm[Hg] eCW1 ([facility]) Respiratory rate 18 /min 18 /min eCW1 ([facility]) Body weight 192 [lb_av] 192 [lb_av] eCW1 ([facility]) Body weight kg eCW1 ([facility]) Body height 67.5 [in_i] 67.5 [in_i] eCW1 ([facility]) Body mass index (BMI) [Ratio] 29.62 kg/m2 29.62 kg/m2 W1 ([facility]) Heart rate 75 /min 75 /min eCW1 ([facility]) Body temperature 96.5 [degF] 96.5 [degF] eCW1 ( [facility]) Systolic blood pressure 147 mm[Hg] 147 mm[Hg] e CW1 ([facility]) Diastolic blood pressure 82 mm[Hg] 82 mm[Hg] eCW1 ([facility]) Body weight 192 [lb_av] 192 [lb_av] eCW1 ([facility]) Body height 67.5 [in_i] 67.5 [in_i] eCW1 ([facility]) Body mass index (BMI) [Ratio] 29.62 kg/m2 29.62 kg/m2 eCW1 ([facility]) Heart rate 74 /min 74 /min eCW1 ([facility]) Respiratory rate 18 /min 18 /min eCW1 ([facility]) Body temperature 97.6 [degF] 97.6 [degF] eCW1 ( [facility]) Systolic blood pressure 170 mm[Hg] 170 mm[Hg] e CW1 ([facility]) Diastolic blood pressure 100 mm[Hg] 100 mm[Hg] eCW1 ([facility]) Body weight 192 [lb_av] 192 [lb_av] eCW1 ([facility]) Body weight kg eCW1 ([facility]) Body height 67.5 [in_i] 67.5 [in_i] eCW1 ([facility]) Body mass index (BMI) [Ratio] 29.62 kg/m2 29.62 kg/m2 eCW1 ([facility]) Heart rate 74 /min 74 /min eCW1 ([facility]) Respiratory rate 18 /min 18 /min eCW1 ([facility]) Body temperature 97.6 [degF] 97.6 [degF] eCW1 ( [facility]) Systolic blood pressure 140 mm[Hg] 140 mm[Hg] e CW1 ([facility]) Diastolic blood pressure 90 mm[Hg] 90 mm[Hg] eCW1 ([facility]) Body weight 192 [lb_av] 192 [lb_av] eCW1 ([facility]) Diastolic blood pressure 66 mm[Hg] 66 mm[Hg] eCW1 ([facility]) Body height 67.5 [in_i] 67.5 [in_i] eCW1 ([facility]) Body mass index (BMI) [Ratio] 29.62 kg/m2 29.62 kg/m2 eCW1 ([facility]) Heart rate 67 /min 67 /min eCW1 ([facility]) Respiratory rate 16 /min 16 /min eCW1 ([facility]) Body temperature 97.9 [degF] 97.9 [degF] eCW1 ( [facility]) Systolic blood pressure 112 mm[Hg] 112 mm[Hg] e CW1 ([facility]) Body weight 175.00 [lb_av] 175.00 [lb_av] MEDEN T ([facility]) Body height 69 [in_i] 69 [in_i] MEDENT ([facility]) 5'9" Body mass index (BMI) [Ratio] 25.8 kg/m2 25.8 k g/m2 MEDENT ([facility]) Systolic blood pressure 159 mm[Hg] 159 mm[Hg] M EDENT ([facility]) Diastolic blood pressure 106 mm[Hg] 106 mm[Hg] MEDENT ([facility]) Heart rate 77 /min 77 /min MEDENT ([facility]) Oxygen saturation in Arterial blood by Pulse oximetry 97 % 97 % MEDENT ([facility]) Body temperature 98.1 [degF] 98.1 [degF] MEDENT ([facility]) Patient Treatment Plan of Care Planned Activity Planned Date Details Description Data Source (s) NITROFURANTOIN, MACROCRYSTALS 25 MG / Ni trofurantoin, Monohydrate 75 MG Oral Capsule [Macrobid] 03/18/2021 12:00:00 AM EDT eC W1 ([facility]) NITROFURANTOIN, MACROCRYSTALS 25 MG / Ni trofurantoin, Monohydrate 75 MG Oral Capsule [Macrobid] 03/18/2021 12:00:00 AM EDT eC W1 ([facility]) NITROFURANTOIN, MACROCRYSTALS 25 MG / Ni trofurantoin, Monohydrate 75 MG Oral Capsule [Macrobid] 03/18/2021 12:00:00 AM EDT eC W1 ([facility]) NITROFURANTOIN, MACROCRYSTALS 25 MG / Ni trofurantoin, Monohydrate 75 MG Oral Capsule [Macrobid] 03/18/2021 12:00:00 AM EDT eC W1 ([facility]) NITROFURANTOIN, MACROCRYSTALS 25 MG / Ni trofurantoin, Monohydrate 75 MG Oral Capsule [Macrobid] 03/18/2021 12:00:00 AM EDT eC W1 ([facility]) NITROFURANTOIN, MACROCRYSTALS 25 MG / Ni trofurantoin, Monohydrate 75 MG Oral Capsule [Macrobid] 03/18/2021 12:00:00 AM EDT eC W1 ([facility]) Oxybutynin chloride 5 MG Oral Tablet 03/14/2021 12:00:00 AM EDT eCW1 ([facility]) Oxybutynin chloride 5 MG Oral Tablet 03/14/2021 12:00:00 AM EDT eCW1 ([facility]) Oxybutynin chloride 5 MG Oral Tablet 03/14/2021 12:00:00 AM EDT eCW1 ([facility]) Oxybutynin chloride 5 MG Oral Tablet 03/14/2021 12:00:00 AM EDT eCW1 ([facility]) Oxybutynin chloride 5 MG Oral Tablet 03/14/2021 12:00:00 AM EDT eCW1 ([facility]) Sulfamethoxazole 800 MG / Trimethoprim 160 MG Oral Tab let [Bactrim] 03/03/2021 12:00:00 AM EDT eCW1 ([facility]) Sulfamethoxazole 800 MG / Trimethoprim 160 MG Oral Tab let [Bactrim] 03/03/2021 12:00:00 AM EDT eCW1 ([facility]) Sulfamethoxazole 800 MG / Trimethoprim 160 MG Oral Tab let [Bactrim] 03/03/2021 12:00:00 AM EDT eCW1 ([facility])
[2021-07-05] MEDS ORDERED: NS 1,000 ML IV ONE ×2 (14:35→15:35)
[2021-07-05 15:05] LABS: BASO % 0.3 % (0.0-1.0); EOS # 0.1 10^3/uL (0.0-0.5); EOS % 0.9 % (0.0-3.0); HEMATOCRIT 46.6 % (42.0-52.0); HEMOGLOBIN 16.1 g/dl (13.5-17.5); LYMPH # 1.3 10^3/uL (1.5-5.0); LYMPH % 10.9 % (24.0-44.0); MEAN CORPUSCULAR HGB CONC 34.5 g/dl (32.0-36.5); MEAN CORPUSCULAR VOLUME 86.9 fl (80.0-96.0); MONO # 1.9 10^3/uL (0.0-0.8); MONO % 15.8 % (2.0-8.0); NEUTROPHILS # 8.5 10^3/uL (1.5-8.5); NEUTROPHILS % 71.7 % (36.0-66.0); PLATELET COUNT, AUTOMATED 309 10^3/uL (150-450); RED BLOOD COUNT 5.36 10^6/uL (4.30-6.10); WHITE BLOOD COUNT 11.8 10^3/uL (4.0-10.0)
[2021-07-05 15:26] LABS: ERYTHROCYTE SEDIMENTATION RATE 47 mm/hr (0-20)
[2021-07-05] MEDS ORDERED: ONDANSETRON 4MG/2ML VIAL IV ONE (15:35)
[2021-07-05 15:37] LABS: ALBUMIN 3.7 GM/DL (3.2-5.2); BILIRUBIN,DIRECT 0.1 MG/DL (0.0-0.2); BILIRUBIN,TOTAL 0.7 MG/DL (0.2-1.0); RSV AMPLIFICATION NEGATIVE (NEGATIVE)
--- NOTE | 2021-07-05 15:45 | REP ---
INDICATION: cough, SOB. COMPARISON: 01/08/2021 FINDINGS: The technique utilized in obtaining the radiograph has magnified the cardiac silhouette and accentuated the interstitial markings. The superior mediastinal structures are midline. The cardiac silhouette is unremarkable in size, shape, and position. The diaphragmatic surfaces of the lungs are regular, and the costophrenic angles are clear. The pulmonary etienne are clear. The imaged osseous structures are intact. IMPRESSION: There is no acute cardiopulmonary disease. <Electronically signed by Omari Schwartz > 07/05/21 [id number]
[2021-07-05 17:06] LABS: APPEARANCE, URINE MANUAL CLOUDY (CLEAR); COLOR, URINE MANUAL BROWN (YELLOW)
[2021-07-05 17:07] LABS: BILIRUBIN, URINE MANUAL NEGATIVE (NEGATIVE); BLOOD URINE MANUAL POSITIVE (NEGATIVE); GLUCOSE, URINE (UA) MANUAL NEGATIVE (NEGATIVE); KETONE, URINE MANUAL 1+ mg/dL (NEGATIVE); LEUKOCYTE ESTERASE, URINE MAN POSITIVE (NEGATIVE); NITRITE, URINE MANUAL POSITIVE (NEGATIVE); PROTEIN, URINE MANUAL 3+ mg/dL (NEGATIVE); SPECIFIC GRAVITY,URINE MANUAL 1.015 (1.002-1.035); UROBILINOGEN, URINE MANUAL NORMAL (NORMAL)
[2021-07-05 17:08] LABS: BACTERIA, URINE LARGE AMOUNT; HYALINE CAST, URINE NONE SEEN /lpf (0-1); RBC, URINE TNTC /hpf (0-3); SQUAMOUS EPITHELIAL CELL URINE NONE SEEN /hpf (SMALL AMT); WBC, URINE TNTC /hpf (0-3)
[2021-07-05] MEDS ORDERED: cefTRIAXone SOD 1 GM in D5W MINI-BAG PLUS 50 ML IV ONE (18:30)
[2021-07-05] MEDS ORDERED: HOME MED LIST COMPLETE! XX SCH (19:25)
[2021-07-05] MEDS ORDERED: ACETAMINOPHEN TAB 650MG DOSE (2X325MG) PO ONE (20:40)
[2021-07-05] MEDS ORDERED: MOM 30ML SUSPENSION UDC PO PRN (20:40)
[2021-07-05] MEDS ORDERED: MAALOX 30 ML SUSP *UDC PO PRN (20:40)
[2021-07-05] MEDS ORDERED: oxyBUTYnin 5 MG TAB PO PRN (20:50)
[2021-07-05 21:08] LABS: MAGNESIUM LEVEL 2.1 MG/DL (1.8-2.4)
--- NOTE | 2021-07-05 21:16 | HPEPDOC ---
General Date of Admission 07/05/21 Date of Service: Jul 05, 2021 Attending Physician: WINDY LOCKETT MD Chief Complaint The patient is a 66-year-old male admitted with a reason for visit of Weakness. History of Present Illness History of present illness: Mr. Silva is a 66 year old male who presented to the emergency department for 4 days of subjective fevers, nausea, vomiting, fatigue, diarrhea, and loss of appetite. He was diagnosed with a UTI on 06/20/[address] James office and was started on Bactrim. He states that he started feeling "ill" on Day 7 of and decided to present to the ER today after finishing his course of antibiotics yesterday and still feeling "ill". He is s/p suprapubic catheter placement in March 2021 and has noticed his urine has appear ed brown for the last month. He denies any abdominal pain, chest pain, shortness of breath, chills, or changes in weight. He follows up at Dr. James office every 3 months and has his catheter changed monthly. In the ED he was found to have a UTI (positive leukocyte esterase, urine bacteria, WBC), an acute kidney injury (Cr. 1.6 from baseline 1.2), and hyponatremia (127). He was given 2L NS and 1 dose of IV cefriaxone before being admitted. Patient is a FULL CODE. Past medical history: Ductal carcinoma of prostate s/p TURP treated with EBRT and ADT Hyperlipidemia BPH Elevated blood pressure Urinary retention Past surgical history: Suprapubic catheter placement 03/2021 TURP 2015, 2019 Bladder neck incision 2016, 2017 Social history: Former smoker: quit in 1976 Drinks 2 glasses of wine per night Patient smokes marijuana occasionally but denies other drug use Patient lives with his . Family history: Father: 63, Colon cancer Mother: 93, chronic renal failure Children: healthy Allergies: No known allergies to medications Review of systems: General: patient admits to having subjective fevers, night sweats of two days duration, fatigue, weakness, and loss of appetite. HEENT: denies changes in vision, swollen glands, difficulty swallowing. Cardiovascular: patient denies chest pain or palpitations Pulmonary: patient denies shortness of breath, cough, or wheezing Abdomen: admits to nausea, vomiting, and diarrhea. He denies seeing blood in vomit or diarrhea. Patient denies abdominal pain Back: patient admits to having back pain from lying on the bed in the ER. GI: admits to dark brown urine of 1 months duration and suprapubic catheter Extremities: denies swelling, loss of sensation, or muscle weakness. Physical examination: General: Mr. Langley is sitting on side of bed and appears to be uncomfortable. He is well nourished and is not in acute distress HEENT: PERRLA, EOMI, mucous membranes appear mildly dry, no lymphadenopathy noted, neck is supple Cardiovascular: Regular rate and rhythm, a 2/6 systolic ejection murmur is heard best in 2 ICS on the right. Pulses 2+ throughout, capillar refill <2 seconds Pulmonary: lungs clear to auscultation bilaterally, no rhonchi, wheezes, or rales noted Abdomen: soft, hyperactive bowel sounds present, nontender to palpation in 4 quadrants, a suprapubic catheter is appreciated, the area around catheter appears clean, non erythematous, nonedematous, and without discharge. Extremities: no cyanosis or edema appreciated. 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 Psych: patient is alert and oriented x 4. He is pleasant to speak to. Imaging: Chest x-ray: 07/05/21: no acute cardiopulmonary disease noted. Assessment: Mr. Silva is a 66 year old male with past medical history of Ductal carcinoma of prostate s/p TURP treated with EBRT and ADT, Hyperlipidemia, BPH, Elevated blood pressure, and Urinary retention who presented to the emergency department for 4 days of subjective fevers, nausea, vomiting, fatigue, diarrhea, and loss of appetite. In the ED he was found to have a UTI (positive leukocyte esterase, urine bacteria, WBC), an acute kidney injury (Cr. 1.8 from baseline 1.2), and hyponatremia (127). He is being admitted for treatment and further monitoring. Plan: Acute kidney injury -likely secondary to poor oral intake -Cr: 1.6 from baseline 1.2 -patient given 2L NS in the ED, will continue patient on maintenance fluids at a rate of 120ml/hr x 2 bags -will follow renal function and reassess in the AM -started renal diet -ordered renal ultrasound Urinary tract infection: -patient is s/p suprapubic catheter placement March 2021, monthly catheter changes -Area around catheter appears clean and dry -patient was diagnosed with a UTI on 06/20/21 started on Bactrim and finished 10 day course on 07/04/21 -UA positive from leukocyte esterase, WBC TNTC, large amount of bacteria -There is a urinal with 700ml of aquilino colored urine next to his bed. -started patient on ceftriaxone -urine cultures pending -blood cultures pending Hyponatremia -Sodium 127 upon presentation -patient is asymptomatic -patient given 2L NS in ED, continue maintenance fluids -Ordered repeat BMP for 22:00 -Will also reassess in AM Low back pain -secondary to ED bed -continue prn Tylenol for pain Ductal carcinoma of prostate s/p TURP treated with EBRT and ADT -Patient follows with Dr. Thomas q 3 months -Last PSA 0.12 06/20/21 Hyperlipidemia -patient not currently on any medications -continue outpatient follow up with PCP History of BPH -continue oxybutinin 5mg Elevated blood pressure -patient currently normotensive -will continue to monitor and treat as necessary DVT prophylaxis: -continue heparin Disposition: Patient is currently stable. Will continue to treat patient for UTI and NICHOLAS with ceftriaxone and maintenance fluids. Will continue to monitor BMP to ensure sodium returns to a normal range. Pending clinical improvement patient will be discharged home. Home Medications Scheduled Chlorthalidone (Chlorthalidone) 25 Mg Tablet, 25 MG PO DAILY, (Reported) Potassium Chloride (Potassium Chloride) 20 Meq Tablet.er, 20 MEQ PO DAILY, (Reported) Scheduled PRN Oxybutynin Chloride (Oxybutynin Chloride) 5 Mg Tablet, 5 MG PO BID PRN for BLADDER SPASM, (Reported) Allergies Coded Allergies: No Known Allergies (Unverified , 03/26/21) A-FIB/CHADSVASC A-FIB History Current/History of A-Fib/PAF?: No Current PO Anticoag Therapy: No Vital Signs Vital Signs Date Time Temp Pulse Resp B/P (MAP) Pulse Ox O2 Delivery O2 Flow Rate FiO2 07/05/21 18:07 99.6 85 20 165/86 (112) 96 07/05/21 12:13 Room Air Laboratory Data Labs 24H Laboratory Tests 2 07/05/21 14:52: Immature Granulocyte % (Auto) 0.4, Neutrophils (%) (Auto) 71.7H, Lymphocytes (%) (Auto) 10.9L, Monocytes (%) (Auto) 15.8H, Eosinophils (%) (Auto) 0.9, Basophils (%) (Auto) 0.3, Neutrophils # (Auto) 8.5, Lymphocytes # (Auto) 1.3L, Monocytes # (Auto) 1.9H, Eosinophils # (Auto) 0.1, Basophils # (Auto) 0.0, Nucleated Red Blood Cells % (auto) 0.0, Erythrocyte Sedimentation Rate 47H, POC Glucose (Misc Panel) 117H, POC Sodium (Misc Panel) 127L, POC Potassium (Misc Panel) 3.6, POC Chloride (Misc Panel) 90L, POC Total CO2 (Misc Panel) 23.0, POC Blood Urea Nitrogen (Misc Panel 24, POC Ionized Calcium (Misc Panel) 4.3L, POC Creatinine (Misc Panel) 1.6H, POC Hematocrit (Misc Panel) 51.0, Lactic Acid Level 1.5, Magnesium Level 2.1, Total Bilirubin 0.7, Direct Bilirubin 0.1, Aspartate Amino Transf (AST/SGOT) 27, Alanine Aminotransferase (ALT/SGPT) 18, Alkaline Phosphatase 91, Total Protein 8.0, Albumin 3.7, Albumin/Globulin Ratio 0.9, Coronavirus (COVID-19)(PCR) NEGATIVE, Influenza Type A (RT-PCR) NEGATIVE, Influenza Type B (RT-PCR) NEGATIVE, Respiratory Syncytial Virus (PCR) NEGATIVE 07/05/21 16:06: Bedside Urine Color (LAB) BROWNH, Bedside Urine Appearance (LAB) CLOUDYH, Bedside Urine pH (LAB) 6.0, Bedside Urine Specific [place] (LAB 1.015, Bedside Urine Protein (LAB) 3+H, Bedside Urine Glucose (UA) NEGATIVE, Bedside Urine Ketones (LAB) 1+H, Bedside Urine Blood POSITIVEH, Bedside Urine Nitrite (LAB) POSITIVEH, Bedside Urine Bilirubin (LAB) NEGATIVE, Bedside Urine Urobilinogen (LAB) NORMAL, Bedside Urine Leukocyte Esterase (L POSITIVEH, Urine Sediment Examination PERFORMED, Urine RBC TNTCH, Urine WBC TNTCH, Urine Squamous Epithelial Cells NONE SEEN, Urine Bacteria LARGE AMOUNTH, Urine Hyaline Casts NONE SEEN CBC/BMP Laboratory Tests 07/05/21 14:52 Microbiology Microbiology 07/05/21 Blood Culture, Received Pending 07/05/21 Blood Culture, Received Pending 07/05/21 Urine Culture, Received Pending Plan / VTE VTE Prophylaxis Ordered?: Yes GME ATTESTATION GME ATTESTATION My faculty preceptor for this patient encounter was physically present during the encounter and was fully available. All aspects of the patient interview, examination, medical decision making process, and medical care plan development were reviewed and approved by the faculty preceptor. The faculty preceptor is aware and concurs with the plan as stated in the body of this note and will attest to such by his/her cosignature. ATTENDING NOTE IKatharine, have independently examined this patient and performed my own physical exam, as well as reviewed the documentation and edited where necessary. I have discussed in detail with the resident / student the findings and plan of treatment as documented by the resident / student and edited their note. I agree with their findings and treatment plan and have edited their documentation. I will continue to follow the patient during this hospital stay. NESTOR MADDEN DO Jul 05, 2021 21:16 WINDY LOCKETT MD Jul 09, 2021 06:33
--- OUTSIDE RECORDS SUMMARY | 2021-07-05 22:03 | CCD ---
Author Author [facility] Organization [facility] Address Unknown Phone Unavailable Care Team Providers Care Pathology Teacher Name Role Phone Emely Morales Unavailable Unavailable [...] L Emma PA Unavailable Unavailable Campos, Valerie STATISTICAL METHODS PROFESSOR Unavailable Unavailable Campos, Valerie STATISTICAL METHODS PROFESSOR Unavailable Unavailable Campos, Valerie STATISTICAL METHODS PROFESSOR Unavailable Unavailable Campos, Valerie STATISTICAL METHODS PROFESSOR Unavailable Unavailable Campos, Valerie STATISTICAL METHODS PROFESSOR Unavailable Unavailable Campos, Valerie STATISTICAL METHODS PROFESSOR Unavailable Unavailable Campos, Valerie STATISTICAL METHODS PROFESSOR Unavailable Unavailable Campos, Valerie STATISTICAL METHODS PROFESSOR Unavailable Unavailable Campos, Valerie STATISTICAL METHODS PROFESSOR Unavailable Unavailable Campos, Valerie STATISTICAL METHODS PROFESSOR Unavailable Unavailable Campos, Valerie STATISTICAL METHODS PROFESSOR Unavailable Unavailable Campos, Valerie STATISTICAL METHODS PROFESSOR Unavailable Unavailable Campos, Valerie STATISTICAL METHODS PROFESSOR Unavailable Unavailable LETTIERE, A DIONNE PA Unavailable [...] ALBALA, Cheli LEE MD Unavailable Unavailable ALBALA, Cehli LEE MD Unavailable Unavailable ALBALA, Cheli LEE [...] is protected by Article 27-F of the [facility] Public Health law. If you continue you may have access to information: Regarding HIV / AIDS; Provided by facilities licensed or operated by the [facility] Office of Mental Health; or Provided by the [facility] Office for People With Developmental Disabilities. If such information is present, then the following [facility] mandated warning applies: This information has [...] law may result in a fine or nursing home sentence or both. A general authorization for [...] DIONNE maldonado 07/02/2021 11:50:00 AM EDT MEDENT ([facility]) Unknown [address] [facility] [place] [address] 07/02/2021 12:00:00 AM EDT eCW1 ([facility]) Unknown [address] [facility] [place] [address] 06/23/2021 12:00:00 AM EDT eCW1 ([facility]) Outpatient [address] [facility] Y [address] 06/19/2021 12:00:00 AM EDT eCW1 ([facility]) Postop visit [address] [facility] [place] [address] 05/20/2021 12:00:00 AM EDT eCW1 ([facility]) Outpatient [address] [facility] [address] 05/05/2021 12:00:00 AM EDT eCW1 ([facility]) Unknown [address] [facility] [place] [address] 05/05/2021 12:00:00 AM EDT eCW1 ([facility]) Unknown [address] [facility] [place] [address] 04/17/2021 12:00:00 AM EDT eCW1 ([facility]) Unknown [address] [facility] [address] 04/03/2021 12:00:00 AM EDT eCW1 ([facility]) Outpatient [address] [facility] [place] [address] 04/01/2021 12:00:00 AM EDT eCW1 ([facility]) Unknown [address] [facility] [place] [address] 03/27/2021 12:00:00 AM EDT eCW1 ([facility]) Unknown [address] [facility] [address] 03/18/2021 12:00:00 AM EDT eCW1 ([facility]) Outpatient [address] [facility] [address] 03/14/2021 12:00:00 AM EDT eCW1 ([facility]) Unknown [address] [facility] [address] 03/06/2021 12:00:00 AM EDT eCW1 ([facility]) (Cysto2) Urology [address] [place] [address] 03/03/2021 12:00:00 AM EDT eCW1 ([facility]) Unknown [address] [facility] [address] 03/03/2021 12:00:00 AM EDT eCW1 ([facility]) Unknown [address] [facility] [address] 02/27/2021 12:00:00 AM EDT eCW1 ([facility]) Unknown [address] [facility] [address] 02/27/2021 12:00:00 AM EDT eCW1 ([facility]) Unknown [address] [facility] [address] 02/12/2021 12:00:00 AM EDT eCW1 ([facility]) Unknown [address] [facility] [address] 02/07/2021 12:00:00 AM EDT eCW1 ([facility]) Unknown [address] [facility] [address] 02/04/2021 12:00:00 AM EDT eCW1 ([facility]) Outpatient [address] [facility] [address] 01/29/2021 12:00:00 AM EDT eCW1 ([facility]) Unknown [address] [facility] [address] 01/24/2021 12:00:00 AM EDT eCW1 ([facility]) Outpatient Attender: KARYN SCHMITZ Main Office 01/13/2021 0 3:30:00 PM EDT MEDENT ([facility]) Outpatient [address] [facility] [address] 01/13/2021 12:00:00 AM EDT eCW1 ([facility]) Unknown [address] [facility] [address] 01/13/2021 12:00:00 AM EDT eCW1 ([facility]) Unknown [address] [facility], [place] [address] 01/10/2021 12:00:00 AM EDT eCW1 ([facility]) Unknown [address] [facility] Y [address] 01/08/2021 12:00:00 AM EDT eCW1 ([facility]) Outpatient [address] [facility] [place] [address] 01/08/2021 12:00:00 AM EDT eCW1 ([facility]) Unknown [address] [facility], [place] [address] 01/06/2021 12:00:00 AM EDT eCW1 ([facility]) Unknown [address] [facility] Y [address] 12/27/2020 12:00:00 AM EDT eCW1 [facility]) (Cysto1) Urology [address] [place] [address] 12/25/2020 12:00:00 AM EDT eCW1 ([facility]) Outpatient Attender: JESUS Mcallister/ [facility] 12/20/2020 03:00:00 PM EDT MEDENT ([facility]) Outpatient [address] [facility], [place] [address] 12/20/2020 12:00:00 AM EDT eCW1 ([facility]) Outpatient [address] [facility] [address] 12/12/2020 12:00:00 AM EDT eCW1 ([facility]) Unknown [address] [facility] [address] 12/10/2020 12:00:00 AM EDT eCW1 ([facility]) Outpatient Attender: DIEGO Duffy Primary 11/25/2020 04:50:00 PM EDT MEDENT ([facility]) Outpatient [address] [facility], [place] [address] 11/12/2020 12:00:00 AM EST eCW1 ([facility]) Outpatient Attender: DIEGO Duffy Primary 11/07/2020 07:50:00 AM EST [facility]ENT ([facility]) Unknown [address] [facility] [place] [address] 11/06/2020 12:00:00 AM EST eCW1 ([facility]) Outpatient [address] [facility] [address] 10/17/2020 12:00:00 AM EST eCW1 ([facility]) Unknown [address] [facility] [place] [address] 10/16/2020 12:00:00 AM EST eCW1 ([facility]) Outpatient [address] [facility] [address] 10/02/2020 12:00:00 AM EST eCW1 ([facility]) Outpatient [address] [facility] [place] [address] 10/02/2020 12:00:00 AM EST eCW1 ([facility]) Unknown [address] [facility] [place] [address] 09/26/2020 12:00:00 AM EST eCW1 ([facility]) Outpatient [address] [facility] [place] [address] 09/19/2020 12:00:00 AM EST eCW1 ([facility]) Outpatient [address] [facility] [place] [address] 09/18/2020 12:00:00 AM EST eCW1 ([facility]) Unknown [address] [facility] [place] [address] 09/17/2020 12:00:00 AM EST eCW1 ([facility]) Outpatient [address] [facility] [place] [address] 09/16/2020 12:00:00 AM EST eCW1 ([facility]) Outpatient [address] [facility] [place] [address] 09/16/2020 12:00:00 AM EST eCW1 ([facility]) Outpatient [address] [facility] [place] [address] 09/12/2020 12:00:00 AM EST eCW1 ([facility]) Outpatient [address] [facility] [place] [address] 09/11/2020 12:00:00 AM EST eCW1 ([facility]) Unknown [address] [facility] [place] [address] 09/10/2020 12:00:00 AM EST eCW1 ([facility]) Outpatient [address] [facility] [place] [address] 09/09/2020 12:00:00 AM EST eCW1 ([facility]) Outpatient [address] [facility] [address] 09/05/2020 12:00:00 AM EST eCW1 ([facility]) Outpatient [address] [facility] [place] [address] 09/04/2020 12:00:00 AM EST eCW1 ([facility]) Unknown [address] [facility] [address] 09/03/2020 12:00:00 AM EST eCW1 ([facility]) Outpatient [address] [facility] [place] [address] 09/03/2020 12:00:00 AM EST eCW1 ([facility]) Outpatient [address] [facility], [place] [address] 09/02/2020 12:00:00 AM EST eCW1 ([facility]) Unknown [address] [facility] Y [address] 08/30/2020 12:00:00 AM EST eCW1 ([facility]) Outpatient [address] [facility] Y [address] 08/29/2020 12:00:00 AM EST eCW1 ([facility]) Outpatient [address] [facility] Y [address] 08/28/2020 12:00:00 AM EST eCW1 ([facility]) Outpatient [address] [facility] [address] 08/27/2020 12:00:00 AM EST eCW1 ([facility]) ([id number]) For [employer] [address] [place] [address] 08/26/2020 12:00:00 AM EST eCW1 ([facility]) Outpatient [address] [facility] [address] 08/26/2020 12:00:00 AM EST eCW1 ([facility]) Outpatient [address] [facility] Y [address] 08/23/2020 12:00:00 AM EST eCW1 ([facility]) (Cysto1) Urology [address] [place] [address] 08/23/2020 12:00:00 AM EST eCW1 ([facility]) Outpatient [address] [facility] Y [address] 08/22/2020 12:00:00 AM EST eCW1 ([facility]) Outpatient [address] [facility] Y [address] 08/21/2020 12:00:00 AM EST eCW1 ([facility]) Outpatient [address] [facility], [place] [address] 08/20/2020 12:00:00 AM EST eCW1 ([facility]) Outpatient [address] [facility] Y [address] 08/19/2020 12:00:00 AM EST eCW1 ([facility]) Unknown [address] [facility] [address] 08/16/2020 12:00:00 AM EST eCW1 ([facility]) Outpatient [address] [facility] [address] 08/15/2020 12:00:00 AM EST eCW1 ([facility]) Outpatient [address] [facility] [address] 08/14/2020 12:00:00 AM EST eCW1 ([facility]) [facility] [address] [place] [address] 08/14/2020 12:00:00 AM EST eCW1 ([facility]) Outpatient [address] [facility] [address] 08/13/2020 12:00:00 AM EST eCW1 ([facility]) ([id number]) [facility] [employer] [address] [place] [address] 08/12/2020 12:00:00 AM EST eCW1 ([facility]) Outpatient [address] [facility] [address] 08/12/2020 12:00:00 AM EST eCW1 ([facility]) Outpatient [address] [facility] [address] 08/05/2020 12:00:00 AM EST eCW1 ([facility]) Unknown [address] [facility] Y [address] 08/02/2020 12:00:00 AM EST eCW1 ([facility]) Outpatient [address] [facility] [address] 08/02/2020 12:00:00 AM EST eCW1 ([facility]) Unknown [address] [facility] [place] [address] 08/01/2020 12:00:00 AM EST eCW1 ([facility]) Outpatient [address] [facility] [place] [address] 07/31/2020 12:00:00 AM EST eCW1 ([facility]) Outpatient [address] [facility] [place] [address] 07/30/2020 12:00:00 AM EST eCW1 ([facility]) Outpatient [address] [facility] [place] [address] 07/30/2020 12:00:00 AM EST eCW1 ([facility]) Outpatient [address] [facility] [place] [address] 07/29/2020 12:00:00 AM EST eCW1 ([facility]) Unknown [address] [facility] [place] [address] 07/26/2020 12:00:00 AM EST eCW1 ([facility]) Outpatient [address] [facility] [place] [address] 07/26/2020 12:00:00 AM EST eCW1 ([facility]) Outpatient [address] [facility] [place] [address] 07/25/2020 12:00:00 AM EST eCW1 ([facility]) Outpatient [address] [facility] [place] [address] 07/25/2020 12:00:00 AM EST eCW1 ([facility]) Outpatient Attender: Emma SCHMITZ Main Office 07/24/2020 10:45:0 0 AM EST MEDENT ([facility]) Outpatient [address] [facility] [place] [address] 07/24/2020 12:00:00 AM EST eCW1 ([facility]) Outpatient [address] [facility] [place] [address] 07/24/2020 12:00:00 AM EST eCW1 ([facility]) Outpatient [address] [facility] [place] [address] 07/23/2020 12:00:00 AM EST eCW1 ([facility]) Unknown [address] [facility] [place] [address] 07/23/2020 12:00:00 AM EST eCW1 ([facility]) Unknown [address] [facility] [place] [address] 07/22/2020 12:00:00 AM EST eCW1 ([facility]) Outpatient [address] [facility], [place] [address] 07/22/2020 12:00:00 AM EST eCW1 ([facility]) Outpatient [address] [facility] [place] [address] 07/19/2020 12:00:00 AM EST eCW1 ([facility]) Unknown [address] [facility] [place] [address] 07/18/2020 12:00:00 AM EST eCW1 ([facility]) Outpatient [address] [facility] [place] [address] 07/18/2020 12:00:00 AM EST eCW1 ([facility]) Outpatient [address] [facility] [place] [address] 07/17/2020 12:00:00 AM EST eCW1 ([facility]) Outpatient [address] [facility] [place] [address] 07/16/2020 12:00:00 AM EST eCW1 ([facility]) Outpatient [address] [facility] [place] [address] 07/15/2020 12:00:00 AM EST eCW1 ([facility]) Unknown [address] [facility] [address] 07/15/2020 12:00:00 AM EST eCW1 ([facility]) Outpatient [address] [facility] [place] [address] 07/15/2020 12:00:00 AM EST [facility]CW1 [facility] Unknown [address] [facility] [address] 07/12/2020 12:00:00 AM EDT eCW1 ([facility]) [facility] [address] [facility] [place] [address] 07/05/2020 12:00:00 AM EDT eCW1 ([facility]) Outpatient [address] [facility] [place] [address] 06/27/2020 12:00:00 AM EDT eCW1 ([facility]) Unknown [address] [facility] [place] [address] 06/18/2020 12:00:00 AM EDT eCW1 ([facility]) Outpatient [address] [facility] [place] [address] 06/13/2020 12:00:00 AM EDT eCW1 ([facility]) Unknown [address] [facility] [place] [address] 06/13/2020 12:00:00 AM EDT eCW1 ([facility]) Outpatient Attender: Valerie de la rosa 05/17/2020 12:30:00 PM EDT MEDENT ([facility]) Immunizations Vaccine Date Status Description Data Source(s) COVID-19 VACCINE Pfizer 11/15/2020 12:00:00 AM EST completed [facility] Vaccine Series Complete: YESThis Data wa s Submitted to [facility] Via [employer]. COVID-19 VACCINE Pfizer 10/25/2020 12:00:00 AM EST completed [facility] Vaccine Series Complete: NOThis Data was Submitted to [facility] Via [employer]. IIV3. This is one of two codes replacing CVX 15, which is being retired. 07/30/2020 10:08:00 AM EST [facility] IIV3. This is one of two codes replacing CVX 15, which is being retired. 07/30/2020 10:08:00 AM EST completed [facility] IIV3. This is one of two codes replacing CVX 15, which is being retired. 07/30/2020 10:08:00 AM EST completed [facility]CW[facility] IIV3. This is one of two codes replacing CVX 15, which is being retired. 07/30/2020 10:08:00 AM EST completed [facility]CW1 [facility] IIV3. This is one of two codes replacing CVX 15, which is being retired. 07/30/2020 10:08:00 AM EST completed [facility]CW[facility] IIV3. This is one of two codes replacing CVX 15, which is being retired. 07/30/2020 10:08:00 AM EST completed [facility]CW1 [facility] IIV3. This is one of two codes replacing CVX 15, which is being retired. 07/30/2020 10:08:00 AM EST completed [facility]CW1 [facility] IIV3. This is one of two codes replacing CVX 15, which is being retired. 07/30/2020 10:08:00 AM EST completed [facility]CW1 [facility] IIV3. This is one of two codes replacing CVX 15, which is being retired. 07/30/2020 10:08:00 AM EST completed [facility]CW1 [facility] IIV3. This is one of two codes replacing CVX 15, which is being retired. 07/30/2020 10:08:00 AM EST completed eCW1 [facility] IIV3. This is one of two codes replacing CVX 15, which is being retired. 07/30/2020 10:08:00 AM EST completed eCW1 [facility] IIV3. This is one of two codes replacing CVX 15, which is being retired. 07/30/2020 10:08:00 AM EST completed eCW1 [facility] IIV3. This is one of two codes replacing CVX 15, which is being retired. 07/30/2020 10:08:00 AM EST completed eCW1 [facility] IIV3. This is one of two codes replacing CVX 15, which is being retired. 07/30/2020 10:08:00 AM EST completed eCW1 [facility] IIV3. This is one of two codes replacing CVX 15, which is being retired. 07/30/2020 10:08:00 AM EST completed eCW1 [facility] IIV3. This is one of two codes replacing CVX 15, which is being retired. 07/30/2020 10:08:00 AM EST completed eCW1 [facility] IIV3. This is one of two codes replacing CVX 15, which is being retired. 07/30/2020 10:08:00 AM EST completed eCW1 [facility] IIV3. This is one of two codes replacing CVX 15, which is being retired. 07/30/2020 10:08:00 AM EST completed eCW1 [facility] IIV3. This is one of two codes replacing CVX 15, which is being retired. 07/30/2020 10:08:00 AM EST completed eCW1 [facility] IIV3. This is one of two codes replacing CVX 15, which is being retired. 07/30/2020 10:08:00 AM EST completed eCW1 [facility] IIV3. This is one of two codes replacing CVX 15, which is being retired. 07/30/2020 10:08:00 AM EST completed eCW1 [facility] IIV3. This is one of two codes replacing CVX 15, which is being retired. 07/30/2020 10:08:00 AM EST completed eCW1 [facility] IIV3. This is one of two codes replacing CVX 15, which is being retired. 07/30/2020 10:08:00 AM EST completed eCW1 [facility] IIV3. This is one of two codes replacing CVX 15, which is being retired. 07/30/2020 10:08:00 AM EST completed eCW1 [facility] IIV3. This is one of two codes replacing CVX 15, which is being retired. 07/30/2020 10:08:00 AM EST completed eCW1 [facility] IIV3. This is one of two codes replacing CVX 15, which is being retired. 07/30/2020 10:08:00 AM EST completed eCW1 [facility] IIV3. This is one of two codes replacing CVX 15, which is being retired. 07/30/2020 10:08:00 AM EST completed eCW1 [facility] IIV3. This is one of two codes replacing CVX 15, which is being retired. 07/30/2020 10:08:00 AM EST completed eCW1 [facility] IIV3. This is one of two codes replacing CVX 15, which is being retired. 07/30/2020 10:08:00 AM EST completed eCW1 [facility] IIV3. This is one of two codes replacing CVX 15, which is being retired. 07/30/2020 10:08:00 AM EST completed eCW1 [facility] IIV3. This is one of two codes replacing CVX 15, which is being retired. 07/30/2020 10:08:00 AM EST completed eCW1 [facility] IIV3. This is one of two codes replacing CVX 15, which is being retired. 07/30/2020 10:08:00 AM EST completed eCW1 [facility] IIV3. This is one of two codes replacing CVX 15, which is being retired. 07/30/2020 10:08:00 AM EST completed eCW1 [facility] IIV3. This is one of two codes replacing CVX 15, which is being retired. 07/30/2020 10:08:00 AM EST completed eCW1 [facility] IIV3. This is one of two codes replacing CVX 15, which is being retired. 07/30/2020 10:08:00 AM EST completed eCW1 [facility] IIV3. This is one of two codes replacing CVX 15, which is being retired. 07/30/2020 10:08:00 AM EST completed eCW1 [facility] IIV3. This is one of two codes replacing CVX 15, which is being retired. 07/30/2020 10:08:00 AM EST completed eCW1 [facility] IIV3. This is one of two codes replacing CVX 15, which is being retired. 07/30/2020 10:08:00 AM EST completed eCW1 [facility] IIV3. This is one of two codes replacing CVX 15, which is being retired. 07/30/2020 10:08:00 AM EST completed eCW1 [facility] IIV3. This is one of two codes replacing CVX 15, which is being retired. 07/30/2020 10:08:00 AM EST completed eCW1 [facility] IIV3. This is one of two codes replacing CVX 15, which is being retired. 07/30/2020 10:08:00 AM EST completed eCW1 [facility] IIV3. This is one of two codes replacing CVX 15, which is being retired. 07/30/2020 10:08:00 AM EST completed eCW1 [facility] IIV3. This is one of two codes replacing CVX 15, which is being retired. 07/30/2020 10:08:00 AM EST completed eCW1 [facility] IIV3. This is one of two codes replacing CVX 15, which is being retired. 07/30/2020 10:08:00 AM EST completed eCW1 [facility] IIV3. This is one of two codes replacing CVX 15, which is being retired. 07/30/2020 10:08:00 AM EST completed eCW1 [facility] IIV3. This is one of two codes replacing CVX 15, which is being retired. 07/30/2020 10:08:00 AM EST completed eCW1 [facility] IIV3. This is one of two codes replacing CVX 15, which is being retired. 07/30/2020 10:08:00 AM EST completed eCW1 [facility] IIV3. This is one of two codes replacing CVX 15, which is being retired. 07/30/2020 10:08:00 AM EST completed eCW1 [facility] IIV3. This is one of two codes replacing CVX 15, which is being retired. 07/30/2020 10:08:00 AM EST completed eCW1 [facility] IIV3. This is one of two codes replacing CVX 15, which is being retired. 07/30/2020 10:08:00 AM EST completed eCW1 [facility] IIV3. This is one of two codes replacing CVX 15, which is being retired. 07/30/2020 10:08:00 AM EST completed eCW1 [facility] IIV3. This is one of two codes replacing CVX 15, which is being retired. 07/30/2020 10:08:00 AM EST completed eCW1 [facility] IIV3. This is one of two codes replacing CVX 15, which is being retired. 07/30/2020 10:08:00 AM EST completed eCW1 [facility] IIV3. This is one of two codes replacing CVX 15, which is being retired. 07/30/2020 10:08:00 AM EST completed eCW1 [facility] IIV3. This is one of two codes replacing CVX 15, which is being retired. 07/30/2020 10:08:00 AM EST completed eCW1 [facility] IIV3. This is one of two codes replacing CVX 15, which is being retired. 07/30/2020 10:08:00 AM EST [facility] This is one of two codes replacing CVX 15, which is being retired. 07/30/2020 10:08:00 AM EST completed [facility] IIV[facility]. This is one of two codes replacing CVX 15, which is being retired. 07/30/2020 10:08:00 AM EST completed [facility] IIV3. This is one of two codes replacing CVX 15, which is being retired. 07/30/2020 10:08:00 AM EST completed [facility] IIV3. This is one of two codes replacing CVX 15, which is being retired. 07/30/2020 10:08:00 AM EST completed [facility]CW[facility] IIV3. This is one of two codes replacing CVX 15, which is being retired. 07/30/2020 10:08:00 AM EST completed [facility]CW[facility] IIV3. This is one of two codes replacing CVX 15, which is being retired. 07/30/2020 10:08:00 AM EST completed [facility]CW[facility] IIV3. This is one of two codes replacing CVX 15, which is being retired. 07/30/2020 10:08:00 AM EST completed [facility]CW[facility] IIV3. This is one of two codes replacing CVX 15, which is being retired. 07/30/2020 10:08:00 AM EST completed [facility]CW[facility] IIV3. This is one of two codes replacing CVX 15, which is being retired. 07/30/2020 10:08:00 AM EST completed [facility]CW[facility] IIV3. This is one of two codes replacing CVX 15, which is being retired. 07/30/2020 10:08:00 AM EST completed [facility]CW[facility] IIV3. This is one of two codes replacing CVX 15, which is being retired. 07/30/2020 10:08:00 AM EST completed eCW1 [facility] IIV3. This is one of two codes replacing CVX 15, which is being retired. 07/30/2020 10:08:00 AM EST completed [facility]CW[facility] IIV3. This is one of two codes replacing CVX 15, which is being retired. 07/30/2020 10:08:00 AM EST completed eCW1 [facility] IIV3. This is one of two codes replacing CVX 15, which is being retired. 07/30/2020 10:08:00 AM EST completed eCW1 [facility] IIV3. This is one of two codes replacing CVX 15, which is being retired. 07/30/2020 10:08:00 AM EST completed eCW1 [facility] IIV3. This is one of two codes replacing CVX 15, which is being retired. 07/30/2020 10:08:00 AM EST completed eCW1 [facility] IIV3. This is one of two codes replacing CVX 15, which is being retired. 07/30/2020 10:08:00 AM EST completed eCW1 [facility] IIV3. This is one of two codes replacing CVX 15, which is being retired. 07/30/2020 10:08:00 AM EST completed eCW1 [facility] IIV3. This is one of two codes replacing CVX 15, which is being retired. 07/30/2020 10:08:00 AM EST completed eCW1 [facility] IIV3. This is one of two codes replacing CVX 15, which is being retired. 07/30/2020 10:08:00 AM EST completed eCW1 [facility] IIV3. This is one of two codes replacing CVX 15, which is being retired. 07/30/2020 10:08:00 AM EST completed eCW1 [facility] IIV3. This is one of two codes replacing CVX 15, which is being retired. 07/30/2020 10:08:00 AM EST completed eCW1 [facility] IIV3. This is one of two codes replacing CVX 15, which is being retired. 07/30/2020 10:08:00 AM EST completed eCW1 [facility] IIV3. This is one of two codes replacing CVX 15, which is being retired. 07/30/2020 10:08:00 AM EST completed eCW1 [facility] IIV3. This is one of two codes replacing CVX 15, which is being retired. 07/30/2020 10:08:00 AM EST completed [facility]CW[facility] Medications Medication Brand Name Start Date Product [...] 1.0 {capsule_with_food} active Macrobid 100 MG eCW1 ([facility]) NITROFURANTOIN, MACROCRYSTALS 25 MG / Ni trofurantoin, Monohydrate 75 MG Oral Capsule [Macrobid] Macrobid 100 MG Macrobid 100 MG 03/18/2021 12:00:00 AM EDT 1.0 {capsule_with_food} active Macrobid 100 MG eCW1 ([facility]) NITROFURANTOIN, MACROCRYSTALS 25 MG / Ni trofurantoin, Monohydrate 75 MG Oral Capsule [Macrobid] Macrobid 100 MG Macrobid 100 MG 03/18/2021 12:00:00 AM EDT 1.0 {capsule_with_food} active Macrobid 100 MG eCW1 ([facility]) NITROFURANTOIN, MACROCRYSTALS 25 MG / Ni trofurantoin, Monohydrate 75 MG Oral Capsule [Macrobid] Macrobid 100 MG Macrobid 100 MG 03/18/2021 12:00:00 AM EDT 1.0 {capsule_with_food} suspended Macrob id 100 MG eCW1 ([facility]) NITROFURANTOIN, MACROCRYSTALS 25 MG / Ni trofurantoin, Monohydrate 75 MG Oral Capsule [Macrobid] Macrobid 100 MG Macrobid 100 MG 03/18/2021 12:00:00 AM EDT 1.0 {capsule_with_food} active Macrobid 100 MG eCW1 ([facility]) NITROFURANTOIN, MACROCRYSTALS 25 MG / Ni trofurantoin, Monohydrate 75 MG Oral Capsule [Macrobid] Macrobid 100 MG Macrobid 100 MG 03/18/2021 12:00:00 AM EDT 1.0 {capsule_with_food} active Macrobid 100 MG eCW1 ([facility]) NITROFURANTOIN, MACROCRYSTALS 25 MG / Ni trofurantoin, [...] 1.0 {capsule_with_food} active Macrobid 100 MG eCW1 ([facility]) NITROFURANTOIN, MACROCRYSTALS 25 MG / Ni trofurantoin, Monohydrate 75 MG Oral Capsule [Macrobid] Macrobid 100 MG Macrobid 100 MG 03/18/2021 12:00:00 AM EDT 1.0 {capsule_with_food} active Macrobid 100 MG eCW1 ([facility]) NITROFURANTOIN, MACROCRYSTALS 25 MG / Ni trofurantoin, Monohydrate 75 MG Oral Capsule [Macrobid] Macrobid 100 MG Macrobid 100 MG 03/18/2021 12:00:00 AM EDT 1.0 {capsule_with_food} suspended Macrob id 100 MG eCW1 ([facility]) NITROFURANTOIN, MACROCRYSTALS 25 MG / Ni trofurantoin, Monohydrate 75 MG Oral Capsule [Macrobid] Macrobid 100 MG Macrobid 100 MG 03/18/2021 12:00:00 AM EDT 1.0 {capsule_with_food} active Macrobid 100 MG eCW1 ([facility]) NITROFURANTOIN, MACROCRYSTALS 25 MG / Ni trofurantoin, Monohydrate 75 MG Oral Capsule [Macrobid] Macrobid 100 MG Macrobid 100 MG 03/18/2021 12:00:00 AM EDT 1.0 {capsule_with_food} active Macrobid 100 MG eCW1 ([facility]) NITROFURANTOIN, MACROCRYSTALS 25 MG / Ni trofurantoin, Monohydrate 75 MG Oral Capsule [Macrobid] Macrobid 100 MG Macrobid 100 MG 03/18/2021 12:00:00 AM EDT 1.0 {capsule_with_food} active Macrobid 100 MG eCW1 ([facility]) NITROFURANTOIN, MACROCRYSTALS 25 MG / Ni trofurantoin, Monohydrate 75 MG Oral Capsule [Macrobid] Macrobid 100 MG Macrobid 100 MG 03/18/2021 12:00:00 AM EDT 1.0 {capsule_with_food} active Macrobid 100 MG eCW1 ([facility]) 5 mg 03/14/2021 12:00:00 AM EDT tablet 60 TAKE ONE TABLET BY MOUTH TWICE A DAY TAKE ONE TABLET BY MOUTH TWICE A DAY SOLD: 04/13/2021 [facility] Oxybutynin chloride 5 MG Oral Tablet Oxybutynin Chlori de 5 MG Oxybutynin Chloride 5 MG 03/14/2021 12:00:00 AM EDT 1.0 {tablet} active Oxybutynin Chloride 5 MG eCW1 ([facility]) Oxybutynin chloride 5 MG Oral Tablet Oxybutynin Chlori de 5 MG Oxybutynin Chloride 5 MG 03/14/2021 12:00:00 AM EDT 1.0 {tablet} active Oxybutynin Chloride 5 MG eCW1 ([facility]) 5 mg 03/14/2021 12:00:00 AM EDT tablet 60 TAKE ONE TABLET BY MOUTH TWICE A DAY TAKE ONE TABLET BY MOUTH TWICE A DAY SOLD: 03/14/2021 [facility] Oxybutynin chloride 5 MG Oral Tablet Oxybutynin Chlori de 5 MG Oxybutynin Chloride 5 MG 03/14/2021 12:00:00 AM EDT 1.0 {tablet} active Oxybutynin Chloride 5 MG eCW1 ([facility]) Oxybutynin chloride 5 MG Oral Tablet Oxybutynin Chlori de 5 MG Oxybutynin Chloride 5 MG 03/14/2021 12:00:00 AM EDT 1.0 {tablet} active Oxybutynin Chloride 5 MG eCW1 ([facility]) Oxybutynin chloride 5 MG Oral Tablet Oxybutynin Chlori de 5 MG Oxybutynin Chloride 5 MG 03/14/2021 12:00:00 AM EDT 1.0 {tablet} active Oxybutynin Chloride 5 MG eCW1 ([facility]) Oxybutynin chloride 5 MG Oral Tablet Oxybutynin Chlori de 5 MG Oxybutynin Chloride 5 MG 03/14/2021 12:00:00 AM EDT 1.0 {tablet} active Oxybutynin Chloride 5 MG eCW1 ([facility]) Oxybutynin chloride 5 MG Oral Tablet Oxybutynin Chlori de 5 MG Oxybutynin Chloride 5 MG 03/14/2021 12:00:00 AM EDT 1.0 {tablet} active Oxybutynin Chloride 5 MG eCW1 ([facility]) Oxybutynin chloride 5 MG Oral Tablet Oxybutynin Chlori de 5 MG Oxybutynin Chloride 5 MG 03/14/2021 12:00:00 AM EDT 1.0 {tablet} active Oxybutynin Chloride 5 MG eCW1 ([facility]) Oxybutynin chloride 5 MG Oral Tablet Oxybutynin Chlori de 5 MG Oxybutynin Chloride 5 MG 03/14/2021 12:00:00 AM EDT 1.0 {tablet} active Oxybutynin Chloride 5 MG eCW1 ([facility]) Oxybutynin chloride 5 MG Oral Tablet Oxybutynin Chlori de 5 MG Oxybutynin Chloride 5 MG 03/14/2021 12:00:00 AM EDT 1.0 {tablet} active Oxybutynin Chloride 5 MG eCW1 ([facility]) Oxybutynin chloride 5 MG Oral Tablet Oxybutynin Chlori de 5 MG Oxybutynin Chloride 5 MG 03/14/2021 12:00:00 AM EDT 1.0 {tablet} active Oxybutynin Chloride 5 MG eCW1 ([facility]) Sulfamethoxazole 800 MG / Trimethoprim 1 60 MG Oral Tablet [Bactrim] Bactrim DS 800-160 MG Bactrim DS 800-160 MG 03/03/2021 12:00:00 AM EDT 1.0 {table t} suspended Bactrim DS 800-160 MG eCW1 ( [facility]) Sulfamethoxazole 800 MG / Trimethoprim 1 60 MG Oral Tablet [Bactrim] Bactrim DS 800-160 MG Bactrim DS 800-160 MG 03/03/2021 12:00:00 AM EDT 1.0 {table t} suspended Bactrim DS 800-160 MG eCW1 ( [facility]) Sulfamethoxazole 800 MG / Trimethoprim 1 60 MG Oral Tablet [Bactrim] Bactrim DS 800-160 MG Bactrim DS 800-160 MG 03/03/2021 12:00:00 AM EDT 1.0 {table t} suspended Bactrim DS 800-160 MG eCW1 ( [facility]) Sulfamethoxazole 800 MG / Trimethoprim 1 60 MG Oral Tablet [Bactrim] Bactrim DS 800-160 MG Bactrim DS 800-160 MG 03/03/2021 12:00:00 AM EDT 1.0 {table t} suspended Bactrim DS 800-160 MG eCW1 ( [facility]) Sulfamethoxazole 800 MG / Trimethoprim 1 60 MG Oral Tablet [Bactrim] Bactrim DS 800-160 MG Bactrim DS 800-160 MG 03/03/2021 12:00:00 AM EDT 1.0 {table t} suspended Bactrim DS 800-160 MG eCW1 ( [facility]) Sulfamethoxazole 800 MG / Trimethoprim 1 60 MG Oral Tablet [Bactrim] Bactrim DS 800-160 MG Bactrim DS 800-160 MG 03/03/2021 12:00:00 AM EDT 1.0 {table t} active Bactrim DS 800-160 MG eCW1 ( [facility]) Sulfamethoxazole 800 MG / Trimethoprim 1 60 MG Oral Tablet [Bactrim] Bactrim DS 800-160 MG Bactrim DS 800-160 MG 03/03/2021 12:00:00 AM EDT 1.0 {table t} suspended Bactrim DS 800-160 MG eCW1 ( [facility]) Sulfamethoxazole 800 MG / Trimethoprim 1 60 MG Oral Tablet [Bactrim] Bactrim DS 800-160 MG Bactrim DS 800-160 MG 03/03/2021 12:00:00 AM EDT 1.0 {table t} active Bactrim DS 800-160 MG eCW1 ( [facility]) Sulfamethoxazole 800 MG / Trimethoprim 1 60 MG Oral Tablet [Bactrim] Bactrim DS 800-160 MG Bactrim DS 800-160 MG 03/03/2021 12:00:00 AM EDT 1.0 {table t} suspended Bactrim DS 800-160 MG eCW1 ( [facility]) Sulfamethoxazole 800 MG / Trimethoprim 1 60 MG Oral Tablet [Bactrim] Bactrim DS 800-160 MG Bactrim DS 800-160 MG 03/03/2021 12:00:00 AM EDT 1.0 {table t} suspended Bactrim DS 800-160 MG eCW1 ( [facility]) Sulfamethoxazole 800 MG / Trimethoprim 1 60 MG Oral Tablet [Bactrim] Bactrim DS 800-160 MG Bactrim DS 800-160 MG 03/03/2021 12:00:00 AM EDT 1.0 {table t} suspended Bactrim DS 800-160 MG eCW1 ( [facility]) Sulfamethoxazole 800 MG / Trimethoprim 1 60 MG Oral Tablet [Bactrim] Bactrim DS 800-160 MG Bactrim DS 800-160 MG 03/03/2021 12:00:00 AM EDT 1.0 {table t} suspended Bactrim DS 800-160 MG eCW1 ( [facility]) Sulfamethoxazole 800 MG / Trimethoprim 1 60 MG Oral Tablet [Bactrim] Bactrim DS 800-160 MG Bactrim DS 800-160 MG 03/03/2021 12:00:00 AM EDT 1.0 {table t} suspended Bactrim DS 800-160 MG eCW1 ( [facility]) Sulfamethoxazole 800 MG / Trimethoprim 1 60 MG Oral Tablet [Bactrim] Bactrim DS 800-160 MG Bactrim DS 800-160 MG 03/03/2021 12:00:00 AM EDT 1.0 {table t} active Bactrim DS 800-160 MG eCW1 ( [facility]) Sulfamethoxazole 800 MG / Trimethoprim 1 60 MG Oral Tablet [Bactrim] Bactrim DS 800-160 MG Bactrim DS 800-160 MG 03/03/2021 12:00:00 AM EDT 1.0 {table t} suspended Bactrim DS 800-160 MG eCW1 ( [facility]) 800-160 mg 03/03/2021 12:00:00 AM EDT tablet [...] {tablet} suspende d levoFLOXacin 500 MG eCW1 ([facility]) Levofloxacin 500 MG Oral Tablet Levofloxacin 500 MG 01/13/2021 1 2:00:00 AM EDT 1.0 {tablet} active Levofloxaci n 500 MG eCW1 ([facility]) Levofloxacin 500 MG Oral Tablet levoFLOXacin 500 MG levoFLOX acin 500 MG 01/13/2021 12:00:00 AM EDT 1.0 {tablet} suspende d levoFLOXacin 500 MG eCW1 ([facility]) Levofloxacin 500 MG Oral Tablet levoFLOXacin 500 MG levoFLOX acin 500 MG 01/13/2021 12:00:00 AM EDT 1.0 {tablet} suspende d levoFLOXacin 500 MG eCW1 ([facility]) Levofloxacin 500 MG Oral Tablet levoFLOXacin 500 MG levoFLOX acin 500 MG 01/13/2021 12:00:00 AM EDT 1.0 {tablet} suspende d levoFLOXacin 500 MG eCW1 ([facility]) Levofloxacin 500 MG Oral Tablet Levofloxacin 500 MG 01/13/2021 1 2:00:00 AM EDT 1.0 {tablet} active Levofloxaci n 500 MG eCW1 ([facility]) Levofloxacin 500 MG Oral Tablet Levofloxacin 500 MG 01/13/2021 1 2:00:00 AM EDT 1.0 {tablet} suspended Levofloxa orquidea 500 MG eCW1 ([facility]) Levofloxacin 500 MG Oral Tablet Levofloxacin 500 MG 01/13/2021 1 2:00:00 AM EDT 1.0 {tablet} suspended Levofloxa orquidea 500 MG eCW1 ([facility]) Levofloxacin 500 MG Oral Tablet levoFLOXacin 500 MG levoFLOX acin 500 MG 01/13/2021 12:00:00 AM EDT 1.0 {tablet} suspende d levoFLOXacin 500 MG eCW1 ([facility]) Levofloxacin 500 MG Oral Tablet levoFLOXacin 500 MG levoFLOX acin 500 MG 01/13/2021 12:00:00 AM EDT 1.0 {tablet} suspende d levoFLOXacin 500 MG eCW1 ([facility]) Levofloxacin 500 MG Oral Tablet levoFLOXacin 500 MG levoFLOX acin 500 MG 01/13/2021 12:00:00 AM EDT 1.0 {tablet} suspende d levoFLOXacin 500 MG eCW1 ([facility]) 500 mg 01/13/2021 12:00:00 AM EDT tablet 7 TAKE ONE TABLET BY MOUTH EVERY DAY TAKE ONE TABLET BY MOUTH EVERY DAY SOLD: 01/17/2021 [facility] Levofloxacin 500 MG Oral Tablet levoFLOXacin 500 MG levoFLOX acin 500 MG 01/13/2021 12:00:00 AM EDT 1.0 {tablet} suspende d levoFLOXacin 500 MG eCW1 ([facility]) Levofloxacin 500 MG Oral Tablet levoFLOXacin 500 MG levoFLOX acin 500 MG 01/13/2021 12:00:00 AM EDT 1.0 {tablet} suspende d levoFLOXacin 500 MG eCW1 ([facility]) Levofloxacin 500 MG Oral Tablet Levofloxacin 500 MG 01/13/2021 1 2:00:00 AM EDT 1.0 {tablet} active Levofloxaci n 500 MG eCW1 ([facility]) Levofloxacin 500 MG Oral Tablet levoFLOXacin 500 MG levoFLOX acin 500 MG 01/13/2021 12:00:00 AM EDT 1.0 {tablet} suspende d levoFLOXacin 500 MG eCW1 ([facility]) Levofloxacin 500 MG Oral Tablet levoFLOXacin 500 MG levoFLOX acin 500 MG 01/13/2021 12:00:00 AM EDT 1.0 {tablet} suspende d levoFLOXacin 500 MG eCW1 ([facility]) Levofloxacin 500 MG Oral Tablet levoFLOXacin 500 MG levoFLOX acin 500 MG 01/13/2021 12:00:00 AM EDT 1.0 {tablet} suspende d levoFLOXacin 500 MG eCW1 ([facility]) Levofloxacin 500 MG Oral Tablet Levofloxacin 500 MG 01/13/2021 1 2:00:00 AM EDT 1.0 {tablet} active Levofloxaci n 500 MG eCW1 ([facility]) Levofloxacin 500 MG Oral Tablet levoFLOXacin 500 MG levoFLOX acin 500 MG 01/13/2021 12:00:00 AM EDT 1.0 {tablet} suspende d levoFLOXacin 500 MG eCW1 ([facility]) Levofloxacin 500 MG Oral Tablet levoFLOXacin 500 MG levoFLOX acin 500 MG 01/13/2021 12:00:00 AM EDT 1.0 {tablet} suspende d levoFLOXacin 500 MG eCW1 ([facility]) Levofloxacin 500 MG Oral Tablet Levofloxacin 500 MG 01/13/2021 1 2:00:00 AM EDT 1.0 {tablet} suspended e CW1 ([facility]) Levofloxacin 500 MG Oral Tablet levoFLOXacin 500 MG levoFLOX acin 500 MG 01/13/2021 12:00:00 AM EDT 1.0 {tablet} suspende d levoFLOXacin 500 MG eCW1 ([facility]) Levofloxacin 500 MG Oral Tablet levoFLOXacin 500 MG levoFLOX acin 500 MG 01/13/2021 12:00:00 AM EDT 1.0 {tablet} suspende d levoFLOXacin 500 MG eCW1 ([facility]) Levofloxacin 500 MG Oral Tablet levoFLOXacin 500 MG levoFLOX acin 500 MG 01/13/2021 12:00:00 AM EDT 1.0 {tablet} suspende d levoFLOXacin 500 MG eCW1 ([facility]) Levofloxacin 500 MG Oral Tablet Levofloxacin 500 MG 01/13/2021 1 2:00:00 AM EDT 1.0 {tablet} suspended Levofloxa orquidea 500 MG eCW1 ([facility]) Ciprofloxacin 500 MG Oral Tablet [Cipro] Cipro 11/25/2020 12:00: 00 AM EDT ORAL active MEDENT ([facility]) 500 mg 11/25/2020 12:00:00 AM EDT tablet 14 TAKE ONE TABLET BY MOUTH EVERY 12 HOURS FOR 7 DAYS TAKE ONE TABLET BY MOUTH EVERY 12 HOURS FOR 7 DAYS [facility] Ciprofloxacin 500 MG Oral Tablet [Cipro] Cipro 11/07/2020 12:00: 00 AM EST ORAL completed MEDENT ([facility]) 500 mg 11/07/2020 12:00:00 AM EST tablet [...] 1.0 {tablet} suspended Levaquin 500 MG eCW1 ([facility]) Levofloxacin 500 MG Oral Tablet Levaquin 500 MG Levaquin 500 MG 07/29/2020 12:00:00 AM EST 1.0 {tablet} suspended Levaquin 500 MG eCW1 ([facility]) Levofloxacin 500 MG Oral Tablet Levaquin 500 MG Levaquin 500 MG 07/29/2020 12:00:00 AM EST 1.0 {tablet} suspended Levaquin 500 MG eCW1 ([facility]) Levofloxacin 500 MG Oral Tablet Levaquin 500 MG Levaquin 500 MG 07/29/2020 12:00:00 AM EST 1.0 {tablet} suspended Levaquin 500 MG eCW1 ([facility]) Levofloxacin 500 MG Oral Tablet Levaquin 500 MG Levaquin 500 MG 07/29/2020 12:00:00 AM EST 1.0 {tablet} suspended Levaquin 500 MG eCW1 ([facility]) Levofloxacin 500 MG Oral Tablet Levaquin 500 MG Levaquin 500 MG 07/29/2020 12:00:00 AM EST 1.0 {tablet} suspended Levaquin 500 MG eCW1 ([facility]) Levofloxacin 500 MG Oral Tablet Levaquin 500 MG Levaquin 500 MG 07/29/2020 12:00:00 AM EST 1.0 {tablet} suspended Levaquin 500 MG eCW1 ([facility]) Levofloxacin 500 MG Oral Tablet Levaquin 500 MG Levaquin 500 MG 07/29/2020 12:00:00 AM EST 1.0 {tablet} suspended Levaquin 500 MG eCW1 ([facility]) Levofloxacin 500 MG Oral Tablet Levaquin 500 MG Levaquin 500 MG 07/29/2020 12:00:00 AM EST 1.0 {tablet} active Le vaquin 500 MG eCW1 ([facility]) Levofloxacin 500 MG Oral Tablet Levaquin 500 MG Levaquin 500 MG 07/29/2020 12:00:00 AM EST 1.0 {tablet} suspended Levaquin 500 MG eCW1 ([facility]) Levofloxacin 500 MG Oral Tablet Levaquin 500 MG Levaquin 500 MG 07/29/2020 12:00:00 AM EST 1.0 {tablet} active Le vaquin 500 MG eCW1 ([facility]) Levofloxacin 500 MG Oral Tablet Levaquin 500 MG Levaquin 500 MG 07/29/2020 12:00:00 AM EST 1.0 {tablet} suspended Levaquin 500 MG eCW1 ([facility]) Levofloxacin 500 MG Oral Tablet Levaquin 500 MG Levaquin 500 MG 07/29/2020 12:00:00 AM EST 1.0 {tablet} suspended Levaquin 500 MG eCW1 ([facility]) Levofloxacin 500 MG Oral Tablet Levaquin 500 MG Levaquin 500 MG 07/29/2020 12:00:00 AM EST 1.0 {tablet} suspended Levaquin 500 MG eCW1 ([facility]) Levofloxacin 500 MG Oral Tablet Levaquin 500 MG Levaquin 500 MG 07/29/2020 12:00:00 AM EST 1.0 {tablet} suspended Levaquin 500 MG eCW1 ([facility]) Levofloxacin 500 MG Oral Tablet Levaquin 500 MG Levaquin 500 MG 07/29/2020 12:00:00 AM EST 1.0 {tablet} suspended Levaquin 500 MG eCW1 ([facility]) Levofloxacin 500 MG Oral Tablet Levaquin 500 MG Levaquin 500 MG 07/29/2020 12:00:00 AM EST 1.0 {tablet} suspended Levaquin 500 MG eCW1 ([facility]) Levofloxacin 500 MG Oral Tablet Levaquin 500 MG Levaquin 500 MG 07/29/2020 12:00:00 AM EST 1.0 {tablet} suspended Levaquin 500 MG eCW1 ([facility]) Levofloxacin 500 MG Oral Tablet Levaquin 500 MG Levaquin 500 MG 07/29/2020 12:00:00 AM EST 1.0 {tablet} suspended Levaquin 500 MG eCW1 ([facility]) Levofloxacin 500 MG Oral Tablet Levaquin 500 MG Levaquin 500 MG 07/29/2020 12:00:00 AM EST 1.0 {tablet} suspended Levaquin 500 MG eCW1 ([facility]) Levofloxacin 500 MG Oral Tablet Levaquin 500 MG Levaquin 500 MG 07/29/2020 12:00:00 AM EST 1.0 {tablet} active Le vaquin 500 MG eCW1 ([facility]) Levofloxacin 500 MG Oral Tablet Levaquin 500 MG Levaquin 500 MG 07/29/2020 12:00:00 AM EST 1.0 {tablet} suspended Levaquin 500 MG eCW1 ([facility]) Levofloxacin 500 MG Oral Tablet Levaquin 500 MG Levaquin 500 MG 07/29/2020 12:00:00 AM EST 1.0 {tablet} active Le vaquin 500 MG eCW1 ([facility]) Levofloxacin 500 MG Oral Tablet Levaquin 500 MG Levaquin 500 MG 07/29/2020 12:00:00 AM EST 1.0 {tablet} suspended Levaquin 500 MG eCW1 ([facility]) Levofloxacin 500 MG Oral Tablet Levaquin 500 MG Levaquin 500 MG 07/29/2020 12:00:00 AM EST 1.0 {tablet} active Le vaquin 500 MG eCW1 ([facility]) Levofloxacin 500 MG Oral Tablet Levaquin 500 MG Levaquin 500 MG 07/29/2020 12:00:00 AM EST 1.0 {tablet} suspended Levaquin 500 MG eCW1 ([facility]) Levofloxacin 500 MG Oral Tablet Levaquin 500 MG Levaquin 500 MG 07/29/2020 12:00:00 AM EST 1.0 {tablet} suspended Levaquin 500 MG eCW1 ([facility]) Levofloxacin 500 MG Oral Tablet Levaquin 500 MG Levaquin 500 MG 07/29/2020 12:00:00 AM EST 1.0 {tablet} suspended Levaquin 500 MG eCW1 ([facility]) Levofloxacin 500 MG Oral Tablet Levaquin 500 MG Levaquin 500 MG 07/29/2020 12:00:00 AM EST 1.0 {tablet} suspended Levaquin 500 MG eCW1 ([facility]) Levofloxacin 500 MG Oral Tablet Levaquin 500 MG Levaquin 500 MG 07/29/2020 12:00:00 AM EST 1.0 {tablet} suspended Levaquin 500 MG eCW1 ([facility]) Levofloxacin 500 MG Oral Tablet Levaquin 500 MG Levaquin 500 MG 07/29/2020 12:00:00 AM EST 1.0 {tablet} suspended Levaquin 500 MG eCW1 ([facility]) Levofloxacin 500 MG Oral Tablet Levaquin 500 MG Levaquin 500 MG 07/29/2020 12:00:00 AM EST 1.0 {tablet} suspended Levaquin 500 MG eCW1 ([facility]) Levofloxacin 500 MG Oral Tablet Levaquin 500 MG Levaquin 500 MG 07/29/2020 12:00:00 AM EST 1.0 {tablet} suspended Levaquin 500 MG eCW1 ([facility]) Levofloxacin 500 MG Oral Tablet Levaquin 500 MG Levaquin 500 MG 07/29/2020 12:00:00 AM EST 1.0 {tablet} suspended Levaquin 500 MG eCW1 ([facility]) Levofloxacin 500 MG Oral Tablet Levaquin 500 MG Levaquin 500 MG 07/29/2020 12:00:00 AM EST 1.0 {tablet} suspended Levaquin 500 MG eCW1 ([facility]) Levofloxacin 500 MG Oral Tablet Levaquin 500 MG Levaquin 500 MG 07/29/2020 12:00:00 AM EST 1.0 {tablet} active Le vaquin 500 MG eCW1 ([facility]) Levofloxacin 500 MG Oral Tablet Levaquin 500 MG Levaquin 500 MG 07/29/2020 12:00:00 AM EST 1.0 {tablet} active Le vaquin 500 MG eCW1 ([facility]) Levofloxacin 500 MG Oral Tablet Levaquin 500 MG Levaquin 500 MG 07/29/2020 12:00:00 AM EST 1.0 {tablet} suspended Levaquin 500 MG eCW1 ([facility]) Levofloxacin 500 MG Oral Tablet Levaquin 500 MG Levaquin 500 MG 07/29/2020 12:00:00 AM EST 1.0 {tablet} suspended Levaquin 500 MG eCW1 ([facility]) Levofloxacin 500 MG Oral Tablet Levaquin 500 MG Levaquin 500 MG 07/29/2020 12:00:00 AM EST 1.0 {tablet} suspended Levaquin 500 MG eCW1 ([facility]) Levofloxacin 500 MG Oral Tablet Levaquin 500 MG Levaquin 500 MG 07/29/2020 12:00:00 AM EST 1.0 {tablet} suspended Levaquin 500 MG eCW1 ([facility]) Levofloxacin 500 MG Oral Tablet Levaquin 500 MG Levaquin 500 MG 07/29/2020 12:00:00 AM EST 1.0 {tablet} suspended Levaquin [facility] [facility]) Levofloxacin 500 MG Oral Tablet Levaquin 500 MG Levaquin 500 MG 07/29/2020 12:00:00 AM EST 1.0 {tablet} suspended Levaquin 500 MG eCW1 ([facility]) Levofloxacin 500 MG Oral Tablet Levaquin 500 MG Levaquin 500 MG 07/29/2020 12:00:00 AM EST 1.0 {tablet} suspended Levaquin 500 MG eCW1 ([facility]) Levofloxacin 500 MG Oral Tablet Levaquin 500 MG Levaquin 500 MG 07/29/2020 12:00:00 AM EST 1.0 {tablet} suspended Levaquin 500 MG eCW1 ([facility]) 500 mg 07/29/2020 12:00:00 AM EST tablet 10 TAKE ONE TABLET BY MOUTH EVERY DAY FOR 10 DAYS TAKE ONE TABLET BY MOUTH EVERY DAY FOR 10 DAYS SOLD: [employer] Levofloxacin 500 MG Oral Tablet Levaquin 500 MG Levaquin 500 MG 07/29/2020 12:00:00 AM EST 1.0 {tablet} suspended Levaquin 500 MG eCW1 ([facility]) Levofloxacin 500 MG Oral Tablet Levaquin 500 MG Levaquin 500 MG 07/29/2020 12:00:00 AM EST 1.0 {tablet} suspended Levaquin 500 MG eCW1 ([facility]) Levofloxacin 500 MG Oral Tablet Levaquin 500 MG Levaquin 500 MG 07/29/2020 12:00:00 AM EST 1.0 {tablet} active Le vaquin 500 MG eCW1 ([facility]) Levofloxacin 500 MG Oral Tablet Levaquin 500 MG Levaquin 500 MG 07/29/2020 12:00:00 AM EST 1.0 {tablet} suspended Levaquin 500 MG eCW1 ([facility]) Levofloxacin 500 MG Oral Tablet Levaquin 500 MG Levaquin 500 MG 07/29/2020 12:00:00 AM EST 1.0 {tablet} suspended Levaquin 500 MG eCW1 ([facility]) Levofloxacin 500 MG Oral Tablet Levaquin 500 MG Levaquin 500 MG 07/29/2020 12:00:00 AM EST 1.0 {tablet} suspended Levaquin 500 MG eCW1 ([facility]) Levofloxacin 500 MG Oral Tablet Levaquin 500 MG Levaquin 500 MG 07/29/2020 12:00:00 AM EST 1.0 {tablet} active Le vaquin 500 MG eCW1 ([facility]) Levofloxacin 500 MG Oral Tablet Levaquin 500 MG Levaquin 500 MG 07/29/2020 12:00:00 AM EST 1.0 {tablet} active Le vaquin 500 MG eCW1 ([facility]) Levofloxacin 500 MG Oral Tablet Levaquin 500 MG Levaquin 500 MG 07/29/2020 12:00:00 AM EST 1.0 {tablet} suspended Levaquin 500 MG eCW1 ([facility]) Levofloxacin 500 MG Oral Tablet Levaquin 500 MG Levaquin 500 MG 07/29/2020 12:00:00 AM EST 1.0 {tablet} suspended Levaquin 500 MG eCW1 ([facility]) Levofloxacin 500 MG Oral Tablet Levaquin 500 MG Levaquin 500 MG 07/29/2020 12:00:00 AM EST 1.0 {tablet} suspended Levaquin 500 MG eCW1 ([facility]) 10 mg 07/24/2020 12:00:00 AM EST tablet 90 TAKE ONE TABLET BY MOUTH EVERY DAY TAKE ONE TABLET BY MOUTH EVERY DAY SOLD: 07/29/2020 [facility] Lisinopril 10 MG Oral Tablet Lisinopril 07/24/2020 12:00:00 AM EST ORAL completed [facility] ([facility]) 3.5-10,000-1 mg/mL-unit/mL-% 05/17/2020 12:00:00 AM EDT solu tion 10 INSTILL 4 DROPS INTO THE AFFECTED EAR 3 TIMES A DAY FOR 7 DAYS INSTILL 4 DROPS INTO THE AFFECTED EAR 3 TIMES A DAY FOR 7 DAYS SOLD: 05/17/2020 [facility] Hydrocortisone 10 MG/ML / Neomycin 3.5 M G/ML / Polymyxin B 58726 UNT/ML Otic Solution Neomycin/Polymyxin/Hydrocortisone (Otic) 05/17/2020 12:00:00 AM EDT completed MEDENT ([facility]) Insurance Providers Payer name Policy type / Coverage type Policy ID Covered constitution party ID Covered constitution party's relationship to gustafson Policy [place] Plan Information BCCHIDI [employer]OVER PPO 302/307 [id number] SP [id number] [place]/307 [id number] SP [id number] BLUE CARD C [id number] Self [id number] [place]PO 302/307 [id number] SP [id number] [place]PO 302/307 [id number] SP [id number] [place]PO 302/307 [id number] SP [id number] [place] 302/307 [id number] SP [id number] [place] [employer] [id number] Self V [id number] [place]/307 [id number] SP [id number] [place] 302/307 [id number] SP [id number] [place]PO 302/307 [id number] SP [id number] [place]PO 302/307 [id number] SP [id number] [place] [place]PO 302/307 [id number] SP [id number] ANSI-Commercial [id number] ANSI-Commercial [id number] ANSI-Commercial [id number] ANSI-Commercial [id number] ANSI-Commercial [id number] [employer]BS [employer] [id number] Self [id number] [employer] [id number] Self [id number] ANSI-Commercial [id number] ANSI-Commercial [id number]-[id number]-xl72-0ki5-[id number] ANSI-Commercial [id number]-jlzo-[id number] ANSI-Commercial [id number] ANSI-Commercial [id number] ANSI-Commercial [id number]-[id number]-95ds-[id number]-[id number] ANSI-Commercial [id number]-[id number]-[id number]-198e-4bc6-[id number] ANSI-Commercial [id number]-[id number] [id number]-[id number] ANSI-Commercial 458m7tn9-8w36-03rz-[id number] [id number]-[id number] ANSI-Commercial 5s77krsq-1z41-70kc-7t64-y21e0k249nmc 3c73thev-9c49-90wy-8b54-y55b4w701lbw ANSI-Commercial [id number]-[id number] 66pp1l15-72d6-8644-56p7-pki99cz69982 ANSI-Commercial 5qz7488j-zhlj-917m-au20-78161f31bb6m [id number]-gcas-348v-[id number] ANSI-Commercial [id number]-6sv2-1k4x-l68u-[id number]-8hm0-5r3w-d71w-u09651dw3tf0 ANSI-Commercial jpb480g9-547g-4807-3971-22n1mg7c0la3 rcq633i0-115t-3313-8685-30n4bz6z9oj4 ANSI-Commercial 438yl96c-9c3p-1p75-2x4r-ede740l9dcn1 022wv81m-3m3a-2o38-2c5l-knx317r8ier0 ANSI-Commercial ubwq2hz7-48y7-9ysd-w088-m8j42sj31q0v xcde3cn5-58p3-7das-t403-u1e82pw90y6y ANSI-Commercial cji03k7q-5967-7038-87lb-[id number] atr95c0d-3724-2276-58gp-[id number] BLUE CROSS BLUE SHIELD -RECURRING [id number] ANSI-Commercial [id number]-k8br-[id number] [id number]-h6of-0d77m5u701dv [facility] B [id number] S VYS [id number] ANSI-Commercial [id number] [id number]-z078-4fl7-2dl1-6gm56o8r1299 ANSI-Commercial mcjfqsrd-8549-7102-63f6-q8t27yeo1a65 dhgfttvb-0080-7637-76q3-u3l72hus5m42 ANSI-Commercial 7cc6eob0-214c-3843-[id number] 0wk4gke6-927q-1485-dkk2-2t51a47oc069 ANSI-Commercial 27wn2916-z75u-45bf-j6q1-zyrvpe9800ix [id number]-s58r-55qz-o3g9-enfcxt9961gs ANSI-Commercial [id number]-j2z1-3o90-30f8-u74l79t11w3s [id number]-b1e7-3e09-32v1-[id number] ANSI-Commercial 82rr6t3w-1n31-9at4-m6ol-ntt7t409f92d 96hf8g1j-2x94-6pk2-p1si-okm5a517h11a ANSI-Commercial [id number]-4bw2-734y-8726-i3i12g3i7o17 e970y78m-7el9-717k-0639-y8n68l8a3n87 ANSI-Commercial [id number]-c9fd-vyj1ranj5532 [id number]-t8ju-qxi7gudl0990 ANSI-Commercial [id number]-u1u0-9925-5391-30w8725o927o ANSI-Commercial [id number]-[id number]-[id number] ANSI-Commercial 8fy211k5-7l4o-02i0-9haj-me79c2953ysb [id number]-07i1-6cjx-zo35h5817kge [facility] (pr[facility] Part B [id number] Self [id number] [facility] [employer] [place] Commercial [id number] Self [id number] [facility] [id number] SP [id number] SELF PAY 5 UNAVAILABLE 1 UNAVAILA BLE BC[employer] [place] PPO 302/307 [id number] SP [id number] [employer] PPO 302/307 [id number] SP [id number] [employer] [place] PPO 302/307 [id number] SP [id number] [employer] [place] PPO 302/307 [id number] SP [id number] [employer] [place] PPO 302/307 [id number] SP [id number] [employer] BCBS B [id number] S [id number] [id number] [employer] [place] PPO 302/307 [id number] SP [id number] ANSI-Commercial [id number] ANSI-Commercial [id number]-9a3f-[id number]-4b8w-zj5ua3gg5z6g [id number]-[id number]-4p0u-7s9b-[id number] ANSI-Commercial [id number] ANSI-Commercial [id number]-[id number]-[id number] ANSI-Commercial [id number] Problems, Conditions, and Diagnoses Code Display Name Description Problem Type Effective Dates Data Source(s) N32.89 Bladder spasm Bladder spasm Problem 06/19/2021 12:00:00 AM EDT eCW1 ([facility]) Z85.828 [id number] History of basal cell carcinoma Problem 05/05/2021 12:00:00 AM EDT eCW1 ([facility]) Z12.83 [id number] Screening, malignant neoplasm, skin Probl em 01/23/2021 12:00:00 AM EDT eCW1 ([facility]) Z01.810 Preoperative cardiovascular examination Preoperative cardiovascular examination Problem 01/13/2021 12:00:00 AM EDT [facility] ([facility]) I10 Essential hypertension Essential hypertension Problem 01/13/2021 12:00:00 AM EDT [facility] ([facility]) R94.31 Electrocardiogram abnormal Electrocardiogram abnormal Problem 01/13/2021 12:00:00 AM EDT [facility] ([facility]) Z01.818 Pre-procedure evaluation check Preop testing Problem 12/25/2020 12:00:00 AM EDT eCW1 ([facility]) N39.0 Urinary tract infectious disease UTI (urinary tract in fection) Problem 12/25/2020 12:00:00 AM EDT eCW1 ([facility]) C61 Malignant tumor of prostate Malignant tumor of prostat e Problem 12/20/2020 12:00:00 AM EDT [facility] ([facility]) N52.9 Erectile dysfunction Erectile dysfunction Problem 12/20/2020 12:00:00 AM EDT [facility] ([facility]) C44.519 [id number] Basal cell carcinoma of lower back Proble m 11/12/2020 12:00:00 AM EST eCW1 ([facility]) C44.519 447859901 Basal cell carcinoma (BCC) of sk in of other part of torso Problem 10/17/2020 12:00:00 AM EST eCW1 ([facility]) I11.9 22340677 Hypertensive heart disease without heart failure Problem 10/17/2020 12:00:00 AM EST eCW1 ([facility]) I49.5 [id number] Sick sinus syndrome Problem 10/17/2020 12:00 :00 AM EST eCW1 ([facility]) C61 Prostate cancer Prostate cancer Problem 10/02/2020 12:0 0:00 AM EST eCW1 ([facility]) D22.61 [id number] Melanocytic nevi of right upper limb, including shoulder Problem 10/02/2020 12:00:00 AM EST eCW1 ([facility]) D22.5 125602557 Melanocytic nevi of trunk Problem 10/02/2020 12:00:00 AM EST eCW1 ([facility]) D22.71 421482286 Melanocytic nevi of right lower limb, inc luding hip Problem 10/02/2020 12:00:00 AM EST eCW1 ([facility]) D22.62 301036696 Melanocytic nevi of left upper l imb, including shoulder Problem 10/02/2020 12:00:00 AM EST eCW1 ([facility]) L81.4 172209105 Lentigines Problem 10/02/2020 12:00:00 AM ES T eCW1 ([facility]) D22.72 [id number] Melanocytic nevi of left lower l imb, including hip Problem 10/02/2020 12:00:00 AM EST eCW1 ([facility]) L57.0 224530588 Actinic keratoses Problem 10/02/2020 12:00:0 0 AM EST eCW1 ([facility]) L82.1 [id number] Seborrheic keratoses Problem 10/02/2020 12:0 0:00 AM EST eCW1 ([facility]) D22.30 993414401 Melanocytic nevi of face Problem 10/02/2020 12:00:00 AM EST eCW1 ([facility]) L85.3 94066260 Dry skin Problem 10/02/2020 12:00:00 AM ES T eCW1 ([facility]) I10 [id number] HTN (hypertension), benign Problem 0 12:00:00 AM EST eCW1 ([facility]) N13.30 Hydronephrosis Hydronephrosis Problem 07/22/2020 12:00: 00 AM EST eCW1 ([facility]) N30.41 [id number] Irradiation cystitis with hematuria Probl em 07/12/2020 12:00:00 AM EDT eCW1 ([facility]) Surgeries/Procedures Procedure Description Date Indications Data Source(s) OFFICE OUTPATIENT VISIT 15 MINUTES 07/02/2021 12:00:00 AM EDT MEDENT ([facility]) Insert Supra Pubic Catheter 20F, Simple 05/20/2021 12: 00:00 AM EDT eCW1 ([facility]) Med: Lidocaine Jelly 2% 6ml Intravesically (Glydo) 04/01/2021 12:00:00 AM EDT eCW1 ([facility]) Drake Catheter Coude Insertion 18F 04/01/2021 12:00:00 AM EDT eCW1 ([facility]) Med: Lidocaine Jelly 2% 6ml Intravesically (Glydo) 03/14/2021 12:00:00 AM EDT eCW1 ([facility]) Drake Catheter Coude Insertion 16F 03/14/2021 12:00:00 AM EDT eCW1 ([facility]) Med: Lidocaine Jelly 2% 6ml Intravesically (Glydo) 03/03/2021 12:00:00 AM EDT eCW1 ([facility]) Drake Catheter Coude Insertion 16F 03/03/2021 12:00:00 AM EDT eCW1 ([facility]) ECG ROUTINE ECG W/LEAST 12 LDS W/I&R 01/13/2021 12:00: 00 AM EDT MEDENT ([facility]) Medication: Lidocaine HCl 2% Jelly 5mL Intravesically 12/25/2020 12:00:00 AM EDT eCW1 ([facility]) TOBACCO USE ASSESSED 12/25/2020 12:00:00 AM EDT eCW1 ([facility]) Leuprolide acetate (for depot suspension), 7.5 mg 12/12/2020 12:00:00 AM EDT eCW1 ([facility]) Med: Derm Lidocaine with Epinephrine Inj ection 1% with 2 ml sodium bicarbonate Intradermally to marked areas 11/12/2020 12:00:00 AM EST eCW1 ([facility]) Leuprolide acetate (for depot suspension), 7.5 mg 10/02/2020 12:00:00 AM EST eCW1 ([facility]) ASTHMA SYMPTOMS EVALUATED 10/02/2020 12:00:00 AM EST eCW1 ([facility]) XTRNL ECG < 48 HR RECORDING 09/20/2020 12:00:00 AM EST MEDENT ([facility]) XTRNL ECG CONTINUOUS RHYTHM PHYS REVIEW&INTERPJ 2020 12:00:00 AM EST [facility] ([facility]) HBO Protocol 2.0 ALISSON for 90 Minutes without Air Breaks 09/19/2020 12:00:00 AM EST eCW1 ([facility]) HBO Protocol 2.0 ALISSON for 90 Minutes without Air Breaks 09/18/2020 12:00:00 AM EST eCW1 ([facility]) HBO Protocol 2.0 ALISSON for 90 Minutes without Air Breaks 09/16/2020 12:00:00 AM EST eCW1 ([facility]) HBO Protocol 2.0 ALISSON for 90 Minutes without Air Breaks 09/11/2020 12:00:00 AM EST eCW1 ([facility]) HBO Protocol 2.0 ALISSON for 90 Minutes without Air Breaks 09/09/2020 12:00:00 AM EST eCW1 ([facility]) HBO Protocol 2.0 ALISSON for 90 Minutes without Air Breaks 09/05/2020 12:00:00 AM EST eCW1 ([facility]) HBO Protocol 2.0 ALISSON for 90 Minutes without Air Breaks 09/04/2020 12:00:00 AM EST eCW1 ([facility]) HBO Protocol 2.0 ALISSON for 90 Minutes without Air Breaks 09/03/2020 12:00:00 AM EST eCW1 ([facility]) HBO Protocol 2.0 ALISSON for 90 Minutes without Air Breaks 09/02/2020 12:00:00 AM EST eCW1 ([facility]) HBO Protocol 2.0 ALISSON for 90 Minutes without Air Breaks 08/29/2020 12:00:00 AM EST eCW1 ([facility]) HBO Protocol 2.0 ALISSON for 90 Minutes without Air Breaks 08/28/2020 12:00:00 AM EST eCW1 ([facility]) HBO Protocol 2.0 ALISSON for 90 Minutes without Air Breaks 08/27/2020 12:00:00 AM EST eCW1 ([facility]) HBO Protocol 2.0 ALISSON for 90 Minutes without Air Breaks 08/26/2020 12:00:00 AM EST eCW1 ([facility]) HBO Protocol 2.0 ALISSON for 90 Minutes without Air Breaks 08/23/2020 12:00:00 AM EST eCW1 ([facility]) Leuprolide acetate (for depot suspension), 7.5 mg 08/23/2020 12:00:00 AM EST eCW1 ([facility]) HBO Protocol 2.0 ALISSON for 90 Minutes without Air Breaks 08/22/2020 12:00:00 AM EST eCW1 ([facility]) HBO Protocol 2.0 ALISSON for 90 Minutes without Air Breaks 08/21/2020 12:00:00 AM EST eCW1 ([facility]) HBO Protocol 2.0 ALISSON for 90 Minutes without Air Breaks 08/20/2020 12:00:00 AM EST eCW1 ([facility]) HBO Protocol 2.0 ALISSON for 90 Minutes without Air Breaks 08/19/2020 12:00:00 AM EST eCW1 ([facility]) HBO Protocol 2.0 ALISSON for 90 Minutes without Air Breaks 08/15/2020 12:00:00 AM EST eCW1 ([facility]) HBO Protocol 2.0 ALISSON for 90 Minutes without Air Breaks 08/14/2020 12:00:00 AM EST eCW1 ([facility]) HBO Protocol 2.0 ALISSON for 90 Minutes without Air Breaks 08/13/2020 12:00:00 AM EST eCW1 ([facility]) HBO Protocol 2.0 ALISSON for 90 Minutes without Air Breaks 08/12/2020 12:00:00 AM EST eCW1 ([facility]) HBO Protocol 2.0 ALISSON for 90 Minutes without Air Breaks 08/05/2020 12:00:00 AM EST eCW1 ([facility]) HBO Protocol 2.0 ALISSON for 90 Minutes without Air Breaks 08/02/2020 12:00:00 AM EST eCW1 ([facility]) HBO Protocol 2.0 ALISSON for 90 Minutes without Air Breaks 07/31/2020 12:00:00 AM EST eCW1 ([facility]) HBO Protocol 2.0 ALISSON for 90 Minutes without Air Breaks 07/30/2020 12:00:00 AM EST eCW1 ([facility]) HBO Protocol 2.0 ALISSON for 90 Minutes without Air Breaks 07/29/2020 12:00:00 AM EST eCW1 ([facility]) HBO Protocol 2.0 ALISSON for 90 Minutes without Air Breaks 07/26/2020 12:00:00 AM EST eCW1 ([facility]) HBO Protocol 2.0 ALISSON for 90 Minutes without Air Breaks 07/25/2020 12:00:00 AM EST eCW1 ([facility]) ECG ROUTINE ECG W/LEAST 12 LDS W/I&R 07/24/2020 12:00: 00 AM EST MED[facility] ([facility]) Leuprolide acetate (for depot suspension), 7.5 mg 07/24/2020 12:00:00 AM EST eCW1 ([facility]) HBO Protocol 2.0 ALISSON for 90 Minutes without Air Breaks 07/24/2020 12:00:00 AM EST eCW1 ([facility]) HBO Protocol 2.0 ALISSON for 90 Minutes without Air Breaks 07/23/2020 12:00:00 AM EST eCW1 ([facility]) HBO Protocol 2.0 ALISSON for 90 Minutes without Air Breaks 07/22/2020 12:00:00 AM EST eCW1 ([facility]) HBO Protocol 2.0 ALISSON for 90 Minutes without Air Breaks 07/19/2020 12:00:00 AM EST eCW1 ([facility]) HBO Protocol 2.0 ALISSON for 90 Minutes without Air Breaks 07/18/2020 12:00:00 AM EST eCW1 ([facility]) HBO Protocol 2.0 ALISSON for 90 Minutes without Air Breaks 07/17/2020 12:00:00 AM EST eCW1 ([facility]) HBO Protocol 2.0 ALISSON for 90 Minutes without Air Breaks 07/16/2020 12:00:00 AM EST eCW1 ([facility]) Leuprolide acetate (for depot suspension), 7.5 mg 06/13/2020 12:00:00 AM EDT eCW1 ([facility]) Results ID Date Data Source [id number] 05/02/2021 12:00:00 AM EDT [facility] Name Value Range Interpretation Code Description Data Annmarie rce(s) Supporting Document(s) pcr negative [facility] This lab was ordered by [facility] and reported by [facility]. ID Date Data Source [id number] 04/09/2021 10:50:00 AM EDT [facility] Name Value Range Interpretation Code Description Data Annmarie rce(s) Supporting Document(s) SARS coronavirus 2 RNA [Presence] in Res piratory specimen by JOSE with probe detection NEGATIVE [facility] This lab was ordered by [facility] a nd reported by [facility]. ID Date Data Source [id number] 01/31/2021 04:30:00 AM EDT [facility] Name Value Range Interpretation Code Description Data Annmarie rce(s) Supporting Document(s) SARS-CoV-2 (COVID 19) NEGATIVE - SARS-CoV-2 (COVID19) [facility] This lab was ordered by [facility] a nd reported by [facility]. ID Date Data Source [id number] 01/14/2021 11:55:00 AM EDT [facility] Name Value Range Interpretation Code Description Data Annmarie rce(s) Supporting Document(s) SARS coronavirus 2 RNA [Presence] in Res piratory specimen by JOSE with probe detection NEGATIVE [facility] This lab was ordered by [facility] a nd reported by [facility]. ID Date Data Source [id number] 01/08/2021 12:00:00 PM EDT [facility] Name Value Range Interpretation Code Description Data Annmarie rce(s) Supporting Document(s) SARS-CoV-2 (COVID-19) RNA [Presence] in Respiratory specimen by JOSE with probe detection Not Detected [facility] This lab was ordered by [facility] and reported by [facility]. ID Date Data Source ERMA CHEST 2 VIEW 01/08/2021 12:00:00 AM EDT [facility]1 ([facility] Name Value Range Interpretation Code Description Data Annmarie rce(s) Supporting Document(s) ERMA CHEST 2 VIEW eCW1 ([facility]) ID Date Data Source [id number] 11/25/2020 05:43:00 PM EDT [facility] ([facility]) Name Value Range Interpretation Code Description Data Annmarie rce(s) Supporting Document(s) Bacteria identified in Urine by Culture Laboratory test result [facility] ([facility], [facility]) ID Date Data Source [id number] 11/07/2020 10:15:00 AM EST [facility] ([facility], [facility]) Name Value Range Interpretation Code Description Data Annmarie rce(s) Supporting Document(s) Bacteria identified in Urine by Culture Laboratory test result [facility] ([facility], [facility]) <content>FULL REPORT IN LAB NOTES (eCW a [...] <=0.12 S</content>
<content></content> ID Date Data Source [id number] 10/14/2020 12:27:00 PM EST [facility] ([facility]) Name Value Range Interpretation Code Description Data Annmarie rce(s) Supporting Document(s) Prostate specific Ag [Mass/volume] in Serum or Plasma Laboratory test result [facility] ([facility]) ID Date Data Source [id number] 08/15/2020 02:00:00 PM EST [facility] Name Value Range Interpretation Code Description Data Annmarie rce(s) Supporting Document(s) SARS coronavirus 2 RNA [facility] This lab was ordered by [facility] and reported by [facility]. ID Date Data Source [id number] 07/12/2020 04:12:00 PM EDT [facility] ([facility] Name Value Range Interpretation Code Description Data Annmarie rce(s) Supporting Document(s) White Blood Count 7.0 4.0-10.0 MEDENT ([facility]) Hemoglobin 14.6 MEDENT ([facility]) Platelets 287 150-450 [facility] Red Blood Count 4.78 4.30-6.10 MED[facility] ([facility]) Hematocrit 43.9 MEDENT ([facility]) Procedure Social History Code Duration Value Status Description Data Source(s ) Smoking 06/19/2021 12:00:00 AM EDT Former Smoker completed Former Smoker eCW1 ([facility]) Smoking 06/19/2021 12:00:00 AM EDT Former Smoker completed Former Smoker eCW1 ([facility]) Smoking 06/19/2021 12:00:00 AM EDT Former Smoker completed Former Smoker eCW1 ([facility]) Smoking 05/20/2021 12:00:00 AM EDT Former Smoker completed Former Smoker eCW1 ([facility]) Smoking 05/05/2021 12:00:00 AM EDT Former Smoker completed Former Smoker eCW1 ([facility]) Smoking 05/05/2021 12:00:00 AM EDT Former Smoker completed Former Smoker eCW1 ([facility]) Smoking 04/01/2021 12:00:00 AM EDT Former Smoker completed Former Smoker eCW1 ([facility]) Smoking 04/01/2021 12:00:00 AM EDT Former Smoker completed Former Smoker eCW1 ([facility]) Smoking 04/01/2021 12:00:00 AM EDT Former Smoker completed Former Smoker eCW1 ([facility]) Smoking 03/14/2021 12:00:00 AM EDT Former Smoker completed Former Smoker eCW1 ([facility]) Smoking 03/14/2021 12:00:00 AM EDT Former Smoker completed Former Smoker eCW1 ([facility]) Smoking 03/14/2021 12:00:00 AM EDT Former Smoker completed Former Smoker eCW1 ([facility]) Smoking 03/14/2021 12:00:00 AM EDT Former Smoker completed Former Smoker eCW1 ([facility]) Smoking 03/14/2021 12:00:00 AM EDT Former Smoker completed Former Smoker eCW1 ([facility]) Smoking 03/03/2021 12:00:00 AM EDT Former Smoker completed Former Smoker eCW1 ([facility]) Smoking 01/29/2021 12:00:00 AM EDT Former Smoker completed Former Smoker eCW1 ([facility]) Smoking 01/29/2021 12:00:00 AM EDT Former Smoker completed Former Smoker eCW1 ([facility]) Smoking 01/29/2021 12:00:00 AM EDT Former Smoker completed Former Smoker eCW1 ([facility]) Smoking 01/29/2021 12:00:00 AM EDT Former Smoker completed Former Smoker eCW1 ([facility]) Smoking 01/29/2021 12:00:00 AM EDT Former Smoker completed Former Smoker eCW1 ([facility]) Smoking 01/29/2021 12:00:00 AM EDT Former Smoker completed Former Smoker eCW1 ([facility]) Smoking 01/13/2021 12:00:00 AM EDT Former Smoker completed Former Smoker eCW1 ([facility]) Smoking 01/13/2021 12:00:00 AM EDT Former Smoker completed Former Smoker eCW1 ([facility]) Smoking 01/13/2021 12:00:00 AM EDT Patient is a former smoker completed Patient is a former smoker MEDENT ([facility]) Smoking 01/13/2021 12:00:00 AM EDT Former Smoker completed Former Smoker eCW1 ([facility]) Smoking 01/13/2021 12:00:00 AM EDT Former Smoker completed Former Smoker eCW1 ([facility]) Smoking 01/08/2021 12:00:00 AM EDT Former Smoker completed Former Smoker eCW1 ([facility]) Smoking 01/08/2021 12:00:00 AM EDT Former Smoker completed Former Smoker eCW1 ([facility]) Smoking 01/08/2021 12:00:00 AM EDT Former Smoker completed Former Smoker eCW1 ([facility]) Smoking 12/25/2020 12:00:00 AM EDT Former Smoker completed Former Smoker eCW1 ([facility]) Smoking 12/25/2020 12:00:00 AM EDT Former Smoker completed Former Smoker eCW1 ([facility]) Smoking 12/20/2020 12:00:00 AM EDT Former Smoker completed Former Smoker eCW1 ([facility]) Smoking 12/20/2020 12:00:00 AM EDT Former Smoker completed Former Smoker eCW1 ([facility]) Smoking 12/20/2020 12:00:00 AM EDT Former Cigarette Smoker com pleted Former Cigarette Smoker [facility] ([facility]) Smoking 12/12/2020 12:00:00 AM EDT Former Smoker completed Former Smoker eCW1 ([facility]) Smoking 11/25/2020 12:00:00 AM EDT Patient has never smoked co mpleted Patient has never smoked MEDENT ([facility]) Smoking 11/12/2020 12:00:00 AM EST Former Smoker completed Former Smoker eCW1 ([facility]) Smoking 11/12/2020 12:00:00 AM EST Former Smoker completed Former Smoker eCW1 ([facility]) Smoking 11/12/2020 12:00:00 AM EST Former Smoker completed Former Smoker eCW1 ([facility]) Smoking 10/17/2020 12:00:00 AM EST Former Smoker completed Former Smoker eCW1 ([facility]) Smoking 10/17/2020 12:00:00 AM EST Former Smoker completed Former Smoker eCW1 ([facility]) Smoking 10/02/2020 12:00:00 AM EST Former Smoker completed Former Smoker eCW1 ([facility]) Smoking 09/19/2020 12:00:00 AM EST Former Smoker completed Former Smoker eCW1 ([facility]) Smoking 09/19/2020 12:00:00 AM EST Former Smoker completed Former Smoker eCW1 ([facility]) Smoking 09/19/2020 12:00:00 AM EST Former Smoker completed Former Smoker eCW1 ([facility]) Smoking 09/19/2020 12:00:00 AM EST Former Smoker completed Former Smoker eCW1 ([facility]) Smoking 09/19/2020 12:00:00 AM EST Former Smoker completed Former Smoker eCW1 ([facility]) Smoking 09/19/2020 12:00:00 AM EST Former Smoker completed Former Smoker eCW1 ([facility]) Smoking 09/18/2020 12:00:00 AM EST Former Smoker completed Former Smoker eCW1 ([facility]) Smoking 09/18/2020 12:00:00 AM EST Former Smoker completed Former Smoker eCW1 ([facility]) Smoking 09/16/2020 12:00:00 AM EST Former Smoker completed Former Smoker eCW1 ([facility]) Smoking 09/12/2020 12:00:00 AM EST Former Smoker completed Former Smoker eCW1 ([facility]) Smoking 09/09/2020 12:00:00 AM EST Former Smoker completed Former Smoker eCW1 ([facility]) Smoking 09/09/2020 12:00:00 AM EST Former Smoker completed Former Smoker eCW1 ([facility]) Smoking 09/03/2020 12:00:00 AM EST Former Smoker completed Former Smoker eCW1 ([facility]) Smoking 09/03/2020 12:00:00 AM EST Former Smoker completed Former Smoker eCW1 ([facility]) Smoking 09/03/2020 12:00:00 AM EST Former Smoker completed Former Smoker eCW1 ([facility]) Smoking 09/03/2020 12:00:00 AM EST Former Smoker completed Former Smoker eCW1 ([facility]) Smoking 08/29/2020 12:00:00 AM EST Former Smoker completed Former Smoker eCW1 ([facility]) Smoking 08/29/2020 12:00:00 AM EST Former Smoker completed Former Smoker eCW1 ([facility]) Smoking 08/29/2020 12:00:00 AM EST Former Smoker completed Former Smoker eCW1 ([facility]) Smoking 08/29/2020 12:00:00 AM EST Former Smoker completed Former Smoker eCW1 ([facility]) Smoking 08/29/2020 12:00:00 AM EST Former Smoker completed Former Smoker eCW1 ([facility]) Smoking 08/29/2020 12:00:00 AM EST Former Smoker completed Former Smoker eCW1 ([facility]) Smoking 08/29/2020 12:00:00 AM EST Former Smoker completed Former Smoker eCW1 ([facility]) Smoking 08/27/2020 12:00:00 AM EST Former Smoker completed Former Smoker eCW1 ([facility]) Smoking 08/23/2020 12:00:00 AM EST Former Smoker completed Former Smoker eCW1 ([facility]) Smoking 08/23/2020 12:00:00 AM EST Former Smoker completed Former Smoker eCW1 ([facility]) Smoking 08/23/2020 12:00:00 AM EST Former Smoker completed Former Smoker eCW1 ([facility]) Smoking 08/23/2020 12:00:00 AM EST Former Smoker completed Former Smoker eCW1 ([facility]) Smoking 08/23/2020 12:00:00 AM EST Former Smoker completed Former Smoker eCW1 ([facility]) Smoking 08/23/2020 12:00:00 AM EST Former Smoker completed Former Smoker eCW1 ([facility]) Smoking 08/15/2020 12:00:00 AM EST Former Smoker completed Former Smoker eCW1 ([facility]) Smoking 08/15/2020 12:00:00 AM EST Former Smoker completed Former Smoker eCW1 ([facility]) Smoking 08/15/2020 12:00:00 AM EST Former Smoker completed Former Smoker eCW1 ([facility]) Smoking 08/15/2020 12:00:00 AM EST Former Smoker completed Former Smoker eCW1 ([facility]) Smoking 08/07/2020 12:00:00 AM EST Former Smoker completed Former Smoker eCW1 ([facility]) Smoking 08/06/2020 12:00:00 AM EST Former Smoker completed Former Smoker eCW1 ([facility]) Smoking 08/02/2020 12:00:00 AM EST Former Smoker completed Former Smoker eCW1 ([facility]) Smoking 08/02/2020 12:00:00 AM EST Former Smoker completed Former Smoker eCW1 ([facility]) Smoking 08/02/2020 12:00:00 AM EST Former Smoker completed Former Smoker eCW1 ([facility]) Smoking 07/31/2020 12:00:00 AM EST Former Smoker completed Former Smoker eCW1 ([facility]) Smoking 07/31/2020 12:00:00 AM EST Former Smoker completed Former Smoker eCW1 ([facility]) Smoking 07/30/2020 12:00:00 AM EST Former Smoker completed Former Smoker eCW1 ([facility]) Smoking 07/29/2020 12:00:00 AM EST Former Smoker completed Former Smoker eCW1 ([facility]) Smoking 07/29/2020 12:00:00 AM EST Former Smoker completed Former Smoker eCW1 ([facility]) Smoking 07/29/2020 12:00:00 AM EST Former Smoker completed Former Smoker eCW1 ([facility]) Smoking 07/26/2020 12:00:00 AM EST Former Smoker completed Former Smoker eCW1 ([facility]) Smoking 07/26/2020 12:00:00 AM EST Former Smoker completed Former Smoker eCW1 ([facility]) Smoking 07/26/2020 12:00:00 AM EST Former Smoker completed Former Smoker eCW1 ([facility]) Smoking 07/24/2020 12:00:00 AM EST Former Smoker completed Former Smoker eCW1 ([facility]) Smoking 07/24/2020 12:00:00 AM EST Former Smoker completed Former Smoker eCW1 ([facility]) Smoking 07/24/2020 12:00:00 AM EST Former Smoker completed Former Smoker eCW1 ([facility]) Smoking 07/22/2020 12:00:00 AM EST Former Smoker completed Former Smoker eCW1 ([facility]) Smoking 07/22/2020 12:00:00 AM EST Former Smoker completed Former Smoker eCW1 ([facility]) Smoking 07/22/2020 12:00:00 AM EST Former Smoker completed Former Smoker eCW1 ([facility]) Smoking 07/19/2020 12:00:00 AM EST Former Smoker completed Former Smoker eCW1 ([facility]) Smoking 07/19/2020 12:00:00 AM EST Former Smoker completed Former Smoker eCW1 ([facility]) Smoking 07/18/2020 12:00:00 AM EST Former Smoker completed Former Smoker eCW1 ([facility]) Smoking 07/18/2020 12:00:00 AM EST Former Smoker completed Former Smoker eCW1 ([facility]) Smoking 07/17/2020 12:00:00 AM EST Former Smoker completed Former Smoker eCW1 ([facility]) Smoking 07/17/2020 12:00:00 AM EST Former Smoker completed Former Smoker eCW1 ([facility]) Smoking 07/16/2020 12:00:00 AM EST Former Smoker completed Former Smoker eCW1 ([facility]) Smoking 06/13/2020 12:00:00 AM EDT Former Smoker completed Former Smoker eCW1 ([facility]) Smoking 06/13/2020 12:00:00 AM EDT Former Smoker completed Former Smoker eCW1 ([facility]) Smoking 06/13/2020 12:00:00 AM EDT Former Smoker completed Former Smoker eCW1 ([facility]) Vital Signs ID Date Data Source UNK Name Value Range Interpretation Code Description Data Source(s) Systolic blood pressure 139 mm[Hg] 139 mm[Hg] M EDENT ([facility], [facility]) Diastolic blood pressure 94 mm[Hg] 94 mm[Hg] MEDENT ([facility], [facility]) Heart rate 72 /min 72 /min MEDENT ([facility], [facility]) Respiratory rate 15 /min 15 /min MEDENT ( [facility], [facility]) Oxygen saturation in Arterial blood by Pulse oximetry 97 % 97 % MEDENT ([facility], [facility]) Body temperature 97.1 [degF] 97.1 [degF] MEDENT ([facility], [facility]) Body weight 193 [lb_av] 193 [lb_av] eCW1 ([facility]) Body weight 87.54 kg 87.54 kg W1 [facility] Body height 67.5 [in_i] 67.5 [in_i] eCW1 ([facility]) Body mass index (BMI) [Ratio] 29.78 kg/m2 29.78 kg/m2 W1 ([facility]) Heart rate 75 /min 75 /min eCW1 ([facility] Respiratory rate 18 /min 18 /min eCW1 ([facility]) Body temperature 95.7 [degF] 95.7 [degF] eCW1 ( [facility]) Systolic blood pressure 144 mm[Hg] 144 mm[Hg] e CW1 ([facility]) Diastolic blood pressure 96 mm[Hg] 96 mm[Hg] eCW1 ([facility]) Body weight 193 [lb_av] 193 [lb_av] eCW1 ([facility]) Body weight 87.54 kg 87.54 kg eCW1 [facility] Body height 67.5 [in_i] 67.5 [in_i] eCW1 ([facility]) Body mass index (BMI) [Ratio] 29.78 kg/m2 29.78 kg/m2 W1 ([facility]) Heart rate 67 /min 67 /min eCW1 ([facility]) Respiratory rate 18 /min 18 /min eCW1 ([facility]) Body temperature 96.0 [degF] 96.0 [degF] eCW1 ( [facility]) Systolic blood pressure 152 mm[Hg] 152 mm[Hg] e CW1 ([facility]) Diastolic blood pressure 88 mm[Hg] 88 mm[Hg] eCW1 ([facility]) Body weight 193 [lb_av] 193 [lb_av] eCW1 ([facility]) Body weight 87.54 kg 87.54 kg eCW1 [facility] Body height 67.5 [in_i] 67.5 [in_i] eCW1 ([facility]) Body mass index (BMI) [Ratio] 29.78 kg/m2 29.78 kg/m2 eCW1 ([facility]) Systolic blood pressure 130 mm[Hg] 130 mm[Hg] e CW1 ([facility]) Diastolic blood pressure 78 mm[Hg] 78 mm[Hg] eCW1 ([facility]) Body weight 198 [lb_av] 198 [lb_av] eCW1 ([facility]) Body height 67.5 [in_i] 67.5 [in_i] eCW1 ([facility]) Body mass index (BMI) [Ratio] 30.55 kg/m2 30.55 kg/m2 W1 ([facility]) Heart rate 76 /min 76 /min eCW1 ([facility]) Respiratory rate 18 /min 18 /min eCW1 ([facility]) Body temperature 97 [degF] 97 [degF] eCW1 ([facility]) Systolic blood pressure 144 mm[Hg] 144 mm[Hg] e CW1 ([facility]) Diastolic blood pressure 76 mm[Hg] 76 mm[Hg] eCW1 ([facility]) Body weight 198 [lb_av] 198 [lb_av] eCW1 ([facility]) Body height 67.5 [in_i] 67.5 [in_i] eCW1 ([facility]) Body mass index (BMI) [Ratio] 30.55 kg/m2 30.55 kg/m2 eCW1 ([facility]) Heart rate 73 /min 73 /min eCW1 ([facility]) Respiratory rate 18 /min 18 /min eCW1 ([facility]) Body temperature 96.6 [degF] 96.6 [degF] eCW1 ( [facility]) Systolic blood pressure 142 mm[Hg] 142 mm[Hg] e CW1 ([facility]) Diastolic blood pressure 78 mm[Hg] 78 mm[Hg] eCW1 ([facility]) Body weight 195 [lb_av] 195 [lb_av] eCW1 ([facility]) Body height 67.5 [in_i] 67.5 [in_i] eCW1 ([facility]) Body mass index (BMI) [Ratio] 30.09 kg/m2 30.09 kg/m2 eCW1 ([facility]) Heart rate 71 /min 71 /min eCW1 ([facility]) Respiratory rate 18 /min 18 /min eCW1 ([facility]) Body temperature 97.5 [degF] 97.5 [degF] eCW1 ( [facility]) Systolic blood pressure 148 mm[Hg] 148 mm[Hg] e CW1 ([facility]) Diastolic blood pressure 84 mm[Hg] 84 mm[Hg] eCW1 ([facility]) Body weight 195 [lb_av] 195 [lb_av] eCW1 ([facility]) Body height 67.5 [in_i] 67.5 [in_i] eCW1 ([facility]) Body mass index (BMI) [Ratio] 30.09 kg/m2 30.09 kg/m2 eCW1 ([facility]) Heart rate 79 /min 79 /min eCW1 ([facility]) Respiratory rate 18 /min 18 /min eCW1 ([facility]) Body temperature 97.1 [degF] 97.1 [degF] eCW1 ( [facility]) Systolic blood pressure 128 mm[Hg] 128 mm[Hg] e CW1 ([facility]) Diastolic blood pressure 76 mm[Hg] 76 mm[Hg] eCW1 ([facility]) Body weight 197 [lb_av] 197 [lb_av] eCW1 ([facility]) Body height 67.5 [in_i] 67.5 [in_i] eCW1 ([facility]) Body mass index (BMI) [Ratio] 30.40 kg/m2 30.40 kg/m2 eCW1 ([facility]) Heart rate 76 /min 76 /min eCW1 ([facility]) Respiratory rate 18 /min 18 /min eCW1 ([facility]) Body temperature 97.0 [degF] 97.0 [degF] eCW1 ( [facility]) Systolic blood pressure 124 mm[Hg] 124 mm[Hg] e CW1 ([facility]) Diastolic blood pressure 78 mm[Hg] 78 mm[Hg] eCW1 ([facility]) Body weight 195.00 [lb_av] 195.00 [lb_av] MEDEN T ([facility]) Body mass index (BMI) [Ratio] 28.8 kg/m2 28.8 k g/m2 MEDENT ([facility]) Heart rate 67 /min 67 /min MED[facility] ([facility]) Systolic blood pressure--sitting 138 mm[Hg] 138 mm[Hg] MEDENT ([facility]) Ra, large cuff Diastolic blood pressure--sitting 84 mm[Hg] 84 mm[Hg] MEDENT ([facility]) Ra, large cuff Body height 69 [in_i] 69 [in_i] MED[facility] ([facility] 5'9" Body weight 198.12 [lb_av] 198.12 [lb_av] eCW1 ([facility]) Body height 67.5 [in_i] 67.5 [in_i] eCW1 ([facility]) Body mass index (BMI) [Ratio] 30.57 kg/m2 30.57 kg/m2 eCW1 ([facility]) Heart rate 78 /min 78 /min eCW1 ([facility]) Respiratory rate 17 /min 17 /min eCW1 ([facility]) Body temperature 97.2 [degF] 97.2 [degF] eCW1 ( [facility]) Systolic blood pressure 134 mm[Hg] 134 mm[Hg] e CW1 ([facility]) Diastolic blood pressure 85 mm[Hg] 85 mm[Hg] eCW1 ([facility]) Body weight 188 [lb_av] 188 [lb_av] eCW1 ([facility]) Body height 67.5 [in_i] 67.5 [in_i] eCW1 ([facility]) Body mass index (BMI) [Ratio] 29.01 kg/m2 29.01 kg/m2 eCW1 ([facility]) Heart rate 73 /min 73 /min eCW1 ([facility]) Respiratory rate 18 /min 18 /min eCW1 ([facility]) Body temperature 97.3 [degF] 97.3 [degF] eCW1 ( [facility]) Systolic blood pressure 136 mm[Hg] 136 mm[Hg] e CW1 ([facility]) Diastolic blood pressure 84 mm[Hg] 84 mm[Hg] eCW1 ([facility]) Respiratory rate 18 /min 18 /min eCW1 ([facility]) Body temperature 97.7 [degF] 97.7 [degF] eCW1 ( [facility]) Systolic blood pressure 142 mm[Hg] 142 mm[Hg] e CW1 ([facility]) Diastolic blood pressure 84 mm[Hg] 84 mm[Hg] eCW1 ([facility]) Body weight 195 [lb_av] 195 [lb_av] eCW1 ([facility]) Body height 67.5 [in_i] 67.5 [in_i] eCW1 ([facility]) Body mass index (BMI) [Ratio] 30.09 kg/m2 30.09 kg/m2 eCW1 ([facility]) Heart rate 66 /min 66 /min eCW1 ([facility]) Body height 69 [in_i] 69 [in_i] MED[facility] ([facility] 5'9" Body weight 189.00 [lb_av] 189.00 [lb_av] MEDEN T ([facility]) Body weight 85.730 kg 85.730 kg MED[facility] ([facility] Body mass index (BMI) [Ratio] 27.9 kg/m2 27.9 k g/m2 MEDENT ([facility]) Body weight 190 [lb_av] 190 [lb_av] eCW1 ([facility]) Body height 67.5 [in_i] 67.5 [in_i] eCW1 ([facility]) Body mass index (BMI) [Ratio] 29.32 kg/m2 29.32 kg/m2 eCW1 ([facility]) Heart rate 76 /min 76 /min eCW1 ([facility]) Respiratory rate 18 /min 18 /min eCW1 ([facility]) Body temperature 96.8 [degF] 96.8 [degF] eCW1 ( [facility]) Systolic blood pressure 122 mm[Hg] 122 mm[Hg] e CW1 ([facility]) Diastolic blood pressure 74 mm[Hg] 74 mm[Hg] eCW1 ([facility]) Heart rate 63 /min 63 /min MEDENT ([facility], [facility]) Respiratory rate 16 /min 16 /min MEDENT ( [facility], [facility]) Oxygen saturation in Arterial blood by Pulse oximetry 98 % 98 % MEDENT ([facility], [facility]) Body temperature 97.7 [degF] 97.7 [degF] MEDENT ([facility], [facility]) Body weight 185.00 [lb_av] 185.00 [lb_av] MEDEN T ([facility], [facility]) Body height 69 [in_i] 69 [in_i] MEDENT ([facility], [facility]) 5'9" Body mass index (BMI) [Ratio] 27.3 kg/m2 27.3 k g/m2 MEDENT ([facility], [facility]) Body weight 196 [lb_av] 196 [lb_av] eCW1 ([facility]) Body height 67.5 [in_i] 67.5 [in_i] W1 ([facility]) Body mass index (BMI) [Ratio] 30.24 kg/m2 30.24 kg/m2 eCW1 ([facility]) Systolic blood pressure 146 mm[Hg] 146 mm[Hg] e CW1 ([facility]) Diastolic blood pressure 82 mm[Hg] 82 mm[Hg] eCW1 ([facility]) Body mass index (BMI) [Ratio] 27.3 kg/m2 27.3 k g/m2 MEDENT ([facility], [facility]) Systolic blood pressure 148 mm[Hg] 148 mm[Hg] M EDENT ([facility], [facility]) Diastolic blood pressure 98 mm[Hg] 98 mm[Hg] MEDENT ([facility], [facility]) Heart rate 72 /min 72 /min MEDENT ([facility], [facility]) Respiratory rate 12 /min 12 /min MEDENT ( [facility], [facility]) Oxygen saturation in Arterial blood by Pulse oximetry 97 % 97 % MEDENT ([facility], [facility]) Body temperature 96.1 [degF] 96.1 [degF] MEDENT ([facility], [facility]) Body weight 185.00 [lb_av] 185.00 [lb_av] MEDEN T ([facility], [facility]) Body height 69 [in_i] 69 [in_i] MEDENT ([facility], [facility]) 5'9" Body weight 199 [lb_av] 199 [lb_av] eCW1 ([facility]) Body height 67.5 [in_i] 67.5 [in_i] W1 ([facility]) Body mass index (BMI) [Ratio] 30.70 kg/m2 30.70 kg/m2 W1 ([facility]) Heart rate 68 /min 68 /min eCW1 ([facility]) Respiratory rate 18 /min 18 /min eCW1 ([facility]) Body temperature 97.9 [degF] 97.9 [degF] eCW1 ( [facility]) Systolic blood pressure 135 mm[Hg] 135 mm[Hg] e CW1 ([facility]) Diastolic blood pressure 86 mm[Hg] 86 mm[Hg] eCW1 ([facility]) Body weight 197.3 [lb_av] 197.3 [lb_av] eCW1 ([facility]) Body height 67.5 [in_i] 67.5 [in_i] eCW1 ([facility]) Body mass index (BMI) [Ratio] 30.44 kg/m2 30.44 kg/m2 eCW1 ([facility]) Heart rate 70 /min 70 /min eCW1 ([facility]) Respiratory rate 18 /min 18 /min eCW1 ([facility] access [facility]) Body temperature 97.1 [degF] 97.1 [degF] eCW1 ( [facility]) Systolic blood pressure 143 mm[Hg] 143 mm[Hg] e CW1 ([facility]) Diastolic blood pressure 88 mm[Hg] 88 mm[Hg] eCW1 ([facility]) Body weight 197.0 [lb_av] 197.0 [lb_av] eCW1 ([facility]) Body height 67.5 [in_i] 67.5 [in_i] eCW1 ([facility]) Body mass index (BMI) [Ratio] 30.40 kg/m2 30.40 kg/m2 eCW1 ([facility]) Systolic blood pressure 138 mm[Hg] 138 mm[Hg] e CW1 ([facility]) Diastolic blood pressure 82 mm[Hg] 82 mm[Hg] eCW1 ([facility]) Body weight 193 [lb_av] 193 [lb_av] eCW1 ([facility]) Body [facility] Body height 67.5 [in_i] 67.5 [in_i] eCW1 ([facility]) Body mass index (BMI) [Ratio] 29.78 kg/m2 29.78 kg/m2 W1 ([facility]) Heart rate 71 /min 71 /min eCW[facility] Respiratory rate 18 /min 18 /min eCW1 ([facility]) Body temperature 96.5 [degF] 96.5 [degF] eCW1 ( [facility]) Systolic blood pressure 142 mm[Hg] 142 mm[Hg] e CW1 ([facility]) Diastolic blood pressure 88 mm[Hg] 88 mm[Hg] eCW1 ([facility]) Body weight 193 [lb_av] 193 [lb_av] eCW1 ([facility]) Body weight kg eCW1 ([facility] Body height 67.5 [in_i] 67.5 [in_i] eCW1 ([facility]) Body mass index (BMI) [Ratio] 29.78 kg/m2 29.78 kg/m2 eCW1 ([facility]) Heart rate 72 /min 72 /min eCW1 ([facility] Respiratory rate 18 /min 18 /min eCW1 ([facility]) Body temperature 96.3 [degF] 96.3 [degF] eCW1 ( [facility]) Systolic blood pressure 140 mm[Hg] 140 mm[Hg] e CW1 ([facility]) Diastolic blood pressure 88 mm[Hg] 88 mm[Hg] eCW1 ([facility]) Body weight 193 [lb_av] 193 [lb_av] eCW1 ([facility]) Body weight kg eCW1 ([facility] Body height 67.5 [in_i] 67.5 [in_i] eCW1 ([facility]) Body mass index (BMI) [Ratio] 29.78 kg/m2 29.78 kg/m2 eCW1 ([facility]) Heart rate 77 /min 77 /min eCW1 ([facility]) Respiratory rate 18 /min 18 /min eCW1 ([facility]) Body temperature 95.5 [degF] 95.5 [degF] eCW1 ( [facility]) Systolic blood pressure 136 mm[Hg] 136 mm[Hg] e CW1 ([facility]) Diastolic blood pressure 86 mm[Hg] 86 mm[Hg] eCW1 ([facility]) Body weight 193 [lb_av] 193 [lb_av] eCW1 ([facility]) Body weight kg eCW1 ([facility] Body height 67.5 [in_i] 67.5 [in_i] eCW1 ([facility]) Body mass index (BMI) [Ratio] 29.78 kg/m2 29.78 kg/m2 eCW1 ([facility]) Heart rate 77 /min 77 /min eCW1 ([facility]) Respiratory rate 18 /min 18 /min eCW1 ([facility]) Body temperature 95.5 [degF] 95.5 [degF] eCW1 ( [facility]) Systolic blood pressure 136 mm[Hg] 136 mm[Hg] e CW1 ([facility]) Diastolic blood pressure 86 mm[Hg] 86 mm[Hg] eCW1 ([facility]) Body weight 193 [lb_av] 193 [lb_av] eCW1 ([facility]) Body height 67.5 [in_i] 67.5 [in_i] eCW1 ([facility]) Body mass index (BMI) [Ratio] 29.78 kg/m2 29.78 kg/m2 eCW1 ([facility]) Heart rate 72 /min 72 /min eCW1 ([facility]) Respiratory rate 18 /min 18 /min eCW1 ([facility]) Body temperature 96.8 [degF] 96.8 [degF] eCW1 ( [facility]) Systolic blood pressure 150 mm[Hg] 150 mm[Hg] e CW1 ([facility]) Diastolic blood pressure 92 mm[Hg] 92 mm[Hg] eCW1 ([facility]) Body weight 193 [lb_av] 193 [lb_av] eCW1 ([facility]) Body weight kg eCW1 ([facility] Body height 67.5 [in_i] 67.5 [in_i] eCW1 ([facility]) Body mass index (BMI) [Ratio] 29.78 kg/m2 29.78 kg/m2 eCW1 ([facility]) Heart rate 74 /min 74 /min eCW1 ([facility]) Respiratory rate 18 /min 18 /min eCW1 ([facility]) Body temperature 96.2 [degF] 96.2 [degF] eCW1 ( [facility]) Systolic blood pressure 140 mm[Hg] 140 mm[Hg] e CW1 ([facility]) Diastolic blood pressure 80 mm[Hg] 80 mm[Hg] eCW1 ([facility]) Body weight 193 [lb_av] 193 [lb_av] eCW1 ([facility]) Body height 67.5 [in_i] 67.5 [in_i] eCW1 ([facility]) Body mass index (BMI) [Ratio] 29.78 kg/m2 29.78 kg/m2 eCW1 ([facility]) Heart rate 70 /min 70 /min eCW1 ([facility]) Respiratory rate 18 /min 18 /min eCW1 ([facility]) Body temperature 97.5 [degF] 97.5 [degF] eCW1 ( [facility]) Systolic blood pressure 160 mm[Hg] 160 mm[Hg] e CW1 ([facility]) Diastolic blood pressure 90 mm[Hg] 90 mm[Hg] eCW1 ([facility]) Body weight 193 [lb_av] 193 [lb_av] eCW1 ([facility]) Body weight kg eCW1 ([facility] Body height 67.5 [in_i] 67.5 [in_i] eCW1 ([facility]) Body mass index (BMI) [Ratio] 29.78 kg/m2 29.78 kg/m2 eCW1 ([facility]) Heart rate 79 /min 79 /min eCW1 ([facility]) Respiratory rate 18 /min 18 /min eCW1 ([facility]) Body temperature 96.6 [degF] 96.6 [degF] eCW1 ( [facility]) Systolic blood pressure 130 mm[Hg] 130 mm[Hg] e CW1 ([facility]) Diastolic blood pressure 88 mm[Hg] 88 mm[Hg] eCW1 ([facility]) Body weight 193 [lb_av] 193 [lb_av] eCW1 ([facility]) Body weight kg eCW1 ([facility] Body height 67.5 [in_i] 67.5 [in_i] eCW1 ([facility]) Body mass index (BMI) [Ratio] 29.78 kg/m2 29.78 kg/m2 eCW1 ([facility]) Heart rate 69 /min 69 /min eCW1 ([facility]) Respiratory rate 18 /min 18 /min eCW1 ([facility]) Body temperature 96.2 [degF] 96.2 [degF] eCW1 ( [facility]) Systolic blood pressure 132 mm[Hg] 132 mm[Hg] e CW1 ([facility]) Diastolic blood pressure 82 mm[Hg] 82 mm[Hg] eCW1 ([facility]) Body weight 193 [lb_av] 193 [lb_av] eCW1 ([facility]) Body weight kg eCW1 ([facility] Body height 67.5 [in_i] 67.5 [in_i] eCW1 ([facility]) Body mass index (BMI) [Ratio] 29.78 kg/m2 29.78 kg/m2 eCW1 ([facility]) Heart rate 78 /min 78 /min eCW1 ([facility]) Respiratory rate 18 /min 18 /min eCW1 ([facility]) Body temperature 96.8 [degF] 96.8 [degF] eCW1 ( [facility]) Systolic blood pressure 138 mm[Hg] 138 mm[Hg] e CW1 ([facility]) Diastolic blood pressure 86 mm[Hg] 86 mm[Hg] eCW1 ([facility]) Body weight 193 [lb_av] 193 [lb_av] eCW1 ([facility]) Body weight kg eCW1 ([facility] Body height 67.5 [in_i] 67.5 [in_i] eCW1 ([facility]) Body mass index (BMI) [Ratio] 29.78 kg/m2 29.78 kg/m2 eCW1 ([facility]) Heart rate 78 /min 78 /min eCW1 ([facility]) Respiratory rate 18 /min 18 /min eCW1 ([facility]) Body temperature 96.4 [degF] 96.4 [degF] eCW1 ( [facility]) Systolic blood pressure 136 mm[Hg] 136 mm[Hg] e CW1 ([facility]) Diastolic blood pressure 88 mm[Hg] 88 mm[Hg] eCW1 ([facility]) Body weight 193 [lb_av] 193 [lb_av] eCW1 ([facility]) Body weight kg eCW1 ([facility] Body height 67.5 [in_i] 67.5 [in_i] eCW1 ([facility]) Body mass index (BMI) [Ratio] 29.78 kg/m2 29.78 kg/m2 W1 ([facility]) Heart rate 70 /min 70 /min eCW1 ([facility]) Respiratory rate 18 /min 18 /min eCW1 ([facility]) Body temperature 97.2 [degF] 97.2 [degF] eCW1 ( [facility]) Systolic blood pressure 134 mm[Hg] 134 mm[Hg] e CW1 ([facility]) Diastolic blood pressure 86 mm[Hg] 86 mm[Hg] eCW1 ([facility]) Body weight 193 [lb_av] 193 [lb_av] eCW1 ([facility]) Body weight kg eCW1 ([facility] Body height 67.5 [in_i] 67.5 [in_i] eCW1 ([facility]) Body mass index (BMI) [Ratio] 29.78 kg/m2 29.78 kg/m2 eCW1 ([facility]) Heart rate 72 /min 72 /min eCW1 ([facility]) Respiratory rate 18 /min 18 /min eCW1 ([facility]) Body temperature 96.5 [degF] 96.5 [degF] eCW1 ( [facility]) Systolic blood pressure 140 mm[Hg] 140 mm[Hg] e CW1 ([facility]) Diastolic blood pressure 88 mm[Hg] 88 mm[Hg] eCW1 ([facility]) Body weight 193 [lb_av] 193 [lb_av] eCW1 ([facility]) Body weight kg eCW1 ([facility] Body height 67.5 [in_i] 67.5 [in_i] eCW1 ([facility]) Body mass index (BMI) [Ratio] 29.78 kg/m2 29.78 kg/m2 eCW1 ([facility]) Heart rate 70 /min 70 /min eCW1 ([facility]) Respiratory rate 18 /min 18 /min eCW1 ([facility]) Body temperature 96.5 [degF] 96.5 [degF] eCW1 ( [facility]) Systolic blood pressure 126 mm[Hg] 126 mm[Hg] e CW1 ([facility]) Diastolic blood pressure 72 mm[Hg] 72 mm[Hg] eCW1 ([facility]) Body weight 193 [lb_av] 193 [lb_av] eCW1 ([facility]) Body weight kg eCW1 ([facility] Body height 67.5 [in_i] 67.5 [in_i] eCW1 ([facility]) Body mass index (BMI) [Ratio] 29.78 kg/m2 29.78 kg/m2 eCW1 ([facility]) Heart rate 64 /min 64 /min eCW1 ([facility]) Respiratory rate 18 /min 18 /min eCW1 ([facility]) Body temperature 97.8 [degF] 97.8 [degF] eCW1 ( [facility]) Systolic blood pressure 160 mm[Hg] 160 mm[Hg] e CW1 ([facility]) Diastolic blood pressure 105 mm[Hg] 105 mm[Hg] eCW1 ([facility]) Body weight 193 [lb_av] 193 [lb_av] eCW1 ([facility]) Body height 67.5 [in_i] 67.5 [in_i] eCW1 ([facility]) Body mass index (BMI) [Ratio] 29.78 kg/m2 29.78 kg/m2 eCW1 ([facility]) Heart rate 67 /min 67 /min eCW1 ([facility]) Respiratory rate 18 /min 18 /min eCW1 ([facility]) Body temperature 96.1 [degF] 96.1 [degF] eCW1 ( [facility]) Systolic blood pressure 180 mm[Hg] 180 mm[Hg] e CW1 ([facility]) Diastolic blood pressure 100 mm[Hg] 100 mm[Hg] eCW1 ([facility]) Body weight 193 [lb_av] 193 [lb_av] eCW1 ([facility]) Body height 67.5 [in_i] 67.5 [in_i] eCW1 ([facility]) Body mass index (BMI) [Ratio] 29.78 kg/m2 29.78 kg/m2 eCW1 ([facility]) Heart rate 66 /min 66 /min eCW1 ([facility]) Respiratory rate 18 /min 18 /min eCW1 ([facility]) Body temperature 96.8 [degF] 96.8 [degF] eCW1 ( [facility]) Systolic blood pressure 118 mm[Hg] 118 mm[Hg] e CW1 ([facility]) Diastolic blood pressure 70 mm[Hg] 70 mm[Hg] eCW1 ([facility]) Body weight 192 [lb_av] 192 [lb_av] eCW1 ([facility]) Body weight kg eCW1 ([facility] Body height 67.5 [in_i] 67.5 [in_i] eCW1 ([facility]) Body mass index (BMI) [Ratio] 29.62 kg/m2 29.62 kg/m2 eCW1 ([facility]) Heart rate 70 /min 70 /min eCW1 ([facility]) Respiratory rate 18 /min 18 /min eCW1 ([facility]) Body temperature 96.8 [degF] 96.8 [degF] eCW1 ( [facility]) Systolic blood pressure 132 mm[Hg] 132 mm[Hg] e CW1 ([facility]) Diastolic blood pressure 88 mm[Hg] 88 mm[Hg] eCW1 ([facility]) Body weight 192 [lb_av] 192 [lb_av] eCW1 ([facility]) Body weight kg eCW1 ([facility] Body height 67.5 [in_i] 67.5 [in_i] eCW1 ([facility]) Body mass index (BMI) [Ratio] 29.62 kg/m2 29.62 kg/m2 eCW1 ([facility]) Heart rate 65 /min 65 /min eCW1 ([facility]) Respiratory rate 18 /min 18 /min eCW1 ([facility]) Body temperature 96.5 [degF] 96.5 [degF] eCW1 ( [facility]) Systolic blood pressure 140 mm[Hg] 140 mm[Hg] e CW1 ([facility]) Diastolic blood pressure 78 mm[Hg] 78 mm[Hg] eCW1 ([facility]) Body weight 192 [lb_av] 192 [lb_av] eCW1 ([facility]) Body weight kg eCW1 ([facility] Body height 67.5 [in_i] 67.5 [in_i] eCW1 ([facility]) Body mass index (BMI) [Ratio] 29.62 kg/m2 29.62 kg/m2 eCW1 ([facility]) Heart rate 70 /min 70 /min eCW1 ([facility]) Respiratory rate 18 /min 18 /min eCW1 ([facility]) Body temperature 98.5 [degF] 98.5 [degF] eCW1 ( [facility]) Systolic blood pressure 130 mm[Hg] 130 mm[Hg] e CW1 ([facility]) Diastolic blood pressure 88 mm[Hg] 88 mm[Hg] eCW1 ([facility]) Body weight 192 [lb_av] 192 [lb_av] eCW1 ([facility]) Body weight kg eCW1 ([facility] Body height 67.5 [in_i] 67.5 [in_i] eCW1 ([facility]) Body mass index (BMI) [Ratio] 29.62 kg/m2 29.62 kg/m2 eCW1 ([facility]) Heart rate 64 /min 64 /min eCW1 ([facility]) Respiratory rate 18 /min 18 /min eCW1 ([facility]) Body temperature 97.6 [degF] 97.6 [degF] eCW1 ( [facility]) Systolic blood pressure 128 mm[Hg] 128 mm[Hg] e CW1 ([facility]) Diastolic blood pressure 88 mm[Hg] 88 mm[Hg] eCW1 ([facility]) Respiratory rate 18 /min 18 /min eCW1 ([facility]) Body temperature 96.8 [degF] 96.8 [degF] eCW1 ( [facility]) Systolic blood pressure 136 mm[Hg] 136 mm[Hg] e CW1 ([facility]) Diastolic blood pressure 88 mm[Hg] 88 mm[Hg] eCW1 ([facility]) Body weight 192 [lb_av] 192 [lb_av] eCW1 ([facility]) Body weight kg eCW1 ([facility] Body height 67.5 [in_i] 67.5 [in_i] eCW1 ([facility]) Body mass index (BMI) [Ratio] 29.62 kg/m2 29.62 kg/m2 eCW1 ([facility]) Heart rate 69 /min 69 /min eCW1 ([facility]) Body weight 192 [lb_av] 192 [lb_av] eCW1 ([facility]) Body weight kg eCW1 ([facility] Body height 67.5 [in_i] 67.5 [in_i] eCW1 ([facility]) Body mass index (BMI) [Ratio] 29.62 kg/m2 29.62 kg/m2 eCW1 ([facility]) Heart rate 68 /min 68 /min eCW1 ([facility]) Respiratory rate 18 /min 18 /min eCW1 ([facility]) Body temperature 96.9 [degF] 96.9 [degF] eCW1 ( [facility]) Systolic blood pressure 128 mm[Hg] 128 mm[Hg] e CW1 ([facility]) Diastolic blood pressure 88 mm[Hg] 88 mm[Hg] eCW1 ([facility]) Body weight 192 [lb_av] 192 [lb_av] eCW1 ([facility]) Body weight kg eCW1 ([facility] Body height 67.5 [in_i] 67.5 [in_i] eCW1 ([facility]) Body mass index (BMI) [Ratio] 29.62 kg/m2 29.62 kg/m2 eCW1 ([facility]) Heart rate 72 /min 72 /min eCW1 ([facility]) Respiratory rate 18 /min 18 /min eCW1 ([facility]) Body temperature 96.9 [degF] 96.9 [degF] eCW1 ( [facility]) Systolic blood pressure 130 mm[Hg] 130 mm[Hg] e CW1 ([facility]) Diastolic blood pressure 84 mm[Hg] 84 mm[Hg] eCW1 ([facility]) Body weight 192 [lb_av] 192 [lb_av] eCW1 ([facility]) Body weight kg eCW1 ([facility] Body height 67.5 [in_i] 67.5 [in_i] eCW1 ([facility]) Body mass index (BMI) [Ratio] 29.62 kg/m2 29.62 kg/m2 eCW1 ([facility]) Heart rate 74 /min 74 /min eCW1 ([facility]) Respiratory rate 18 /min 18 /min eCW1 ([facility]) Body temperature 96.5 [degF] 96.5 [degF] eCW1 ( [facility]) Systolic blood pressure 126 mm[Hg] 126 mm[Hg] e CW1 ([facility]) Diastolic blood pressure mm[Hg] eCW1 ([facility]) Body weight 192 [lb_av] 192 [lb_av] eCW1 ([facility]) Body weight kg eCW1 ([facility] Body height 67.5 [in_i] 67.5 [in_i] eCW1 ([facility]) Body mass index (BMI) [Ratio] 29.62 kg/m2 29.62 kg/m2 eCW1 ([facility]) Heart rate 66 /min 66 /min eCW1 ([facility]) Respiratory rate 18 /min 18 /min eCW1 ([facility]) Body temperature 96.4 [degF] 96.4 [degF] eCW1 ( [facility]) Systolic blood pressure 126 mm[Hg] 126 mm[Hg] e CW1 ([facility]) Diastolic blood pressure 88 mm[Hg] 88 mm[Hg] eCW1 ([facility]) Body weight 192 [lb_av] 192 [lb_av] eCW1 ([facility]) Body weight kg eCW1 ([facility] Body height 67.5 [in_i] 67.5 [in_i] eCW1 ([facility]) Body mass index (BMI) [Ratio] 29.62 kg/m2 29.62 kg/m2 eCW1 ([facility]) Heart rate 67 /min 67 /min eCW1 ([facility]) Respiratory rate 18 /min 18 /min eCW1 ([facility]) Body temperature 96.6 [degF] 96.6 [degF] eCW1 ( [facility]) Systolic blood pressure 130 mm[Hg] 130 mm[Hg] e CW1 ([facility]) Diastolic blood pressure mm[Hg] eCW1 ([facility]) Body weight 192 [lb_av] 192 [lb_av] eCW1 ([facility]) Body weight kg eCW1 ([facility] Body height 67.5 [in_i] 67.5 [in_i] eCW1 ([facility]) Body mass index (BMI) [Ratio] 29.62 kg/m2 29.62 kg/m2 eCW1 ([facility]) Heart rate 76 /min 76 /min eCW1 ([facility]) Respiratory rate 18 /min 18 /min eCW1 ([facility]) Body temperature 96.5 [degF] 96.5 [degF] eCW1 ( [facility]) Systolic blood pressure 160 mm[Hg] 160 mm[Hg] e CW1 ([facility]) Diastolic blood pressure 88 mm[Hg] 88 mm[Hg] eCW1 ([facility]) Body weight 192 [lb_av] 192 [lb_av] eCW1 ([facility]) Body weight kg eCW1 ([facility] Body height 67.5 [in_i] 67.5 [in_i] eCW1 ([facility]) Body mass index (BMI) [Ratio] 29.62 kg/m2 29.62 kg/m2 eCW1 ([facility]) Heart rate 74 /min 74 /min eCW1 ([facility]) Respiratory rate 18 /min 18 /min eCW1 ([facility]) Body temperature 96.7 [degF] 96.7 [degF] eCW1 ( [facility]) Systolic blood pressure 124 mm[Hg] 124 mm[Hg] e CW1 ([facility]) Diastolic blood pressure 88 mm[Hg] 88 mm[Hg] eCW1 ([facility]) Body weight 192 [lb_av] 192 [lb_av] eCW1 ([facility]) Body weight kg eCW1 ([facility] Body height 67.5 [in_i] 67.5 [in_i] eCW1 ([facility]) Body mass index (BMI) [Ratio] 29.62 kg/m2 29.62 kg/m2 eCW1 ([facility]) Heart rate 68 /min 68 /min eCW1 ([facility]) Respiratory rate 18 /min 18 /min eCW1 ([facility]) Body temperature 96.9 [degF] 96.9 [degF] eCW1 ( [facility]) Systolic blood pressure 124 mm[Hg] 124 mm[Hg] e CW1 ([facility]) Diastolic blood pressure mm[Hg] eCW1 ([facility]) Body weight 192 [lb_av] 192 [lb_av] eCW1 ([facility]) Body weight kg eCW1 ([facility] Body height 67.5 [in_i] 67.5 [in_i] eCW1 ([facility]) Body mass index (BMI) [Ratio] 29.62 kg/m2 29.62 kg/m2 eCW1 ([facility]) Heart rate 50 /min 50 /min eCW1 ([facility]) Respiratory rate 18 /min 18 /min eCW1 ([facility]) Body temperature 96.7 [degF] 96.7 [degF] eCW1 ( [facility]) Systolic blood pressure 132 mm[Hg] 132 mm[Hg] e CW1 ([facility]) Diastolic blood pressure 90 mm[Hg] 90 mm[Hg] eCW1 ([facility]) Body weight 192 [lb_av] 192 [lb_av] eCW1 ([facility]) Body weight kg eCW1 ([facility] Body height 67.5 [in_i] 67.5 [in_i] eCW1 ([facility]) Body mass index (BMI) [Ratio] 29.62 kg/m2 29.62 kg/m2 eCW1 ([facility]) Heart rate 74 /min 74 /min eCW1 ([facility]) Respiratory rate 18 /min 18 /min eCW1 ([facility]) Body temperature 96.3 [degF] 96.3 [degF] eCW1 ( [facility]) Systolic blood pressure 130 mm[Hg] 130 mm[Hg] e CW1 ([facility]) Diastolic blood pressure mm[Hg] eCW1 ([facility]) Body weight 192 [lb_av] 192 [lb_av] eCW1 ([facility]) Body weight kg eCW1 ([facility] Body height 67.5 [in_i] 67.5 [in_i] eCW1 ([facility]) Body mass index (BMI) [Ratio] 29.62 kg/m2 29.62 kg/m2 eCW1 ([facility]) Heart rate 75 /min 75 /min eCW1 ([facility]) Respiratory rate 18 /min 18 /min eCW1 ([facility]) Body temperature 96.8 [degF] 96.8 [degF] eCW1 ( [facility]) Systolic blood pressure 128 mm[Hg] 128 mm[Hg] e CW1 ([facility]) Diastolic blood pressure mm[Hg] eCW1 ([facility]) Body weight 192 [lb_av] 192 [lb_av] eCW1 ([facility]) Body weight kg eCW1 ([facility] Body height 67.5 [in_i] 67.5 [in_i] eCW1 ([facility]) Body mass index (BMI) [Ratio] 29.62 kg/m2 29.62 kg/m2 eCW1 ([facility]) Heart rate 61 /min 61 /min eCW1 ([facility]) Respiratory rate 18 /min 18 /min eCW1 ([facility]) Body temperature 96.4 [degF] 96.4 [degF] eCW1 ( [facility]) Systolic blood pressure 138 mm[Hg] 138 mm[Hg] e CW1 ([facility]) Diastolic blood pressure mm[Hg] eCW1 ([facility]) Body weight 192.4 [lb_av] 192.4 [lb_av] eCW1 ([facility]) Body height 67.5 [in_i] 67.5 [in_i] eCW1 ([facility]) Body mass index (BMI) [Ratio] 29.69 kg/m2 29.69 kg/m2 eCW1 ([facility]) Heart rate 72 /min 72 /min eCW1 ([facility]) Respiratory rate 18 /min 18 /min eCW1 ([facility]) Body temperature 98.4 [degF] 98.4 [degF] eCW1 ( [facility]) Systolic blood pressure 124 mm[Hg] 124 mm[Hg] e CW1 ([facility]) Diastolic blood pressure 76 mm[Hg] 76 mm[Hg] eCW1 ([facility]) Body weight 192 [lb_av] 192 [lb_av] eCW1 ([facility]) Body weight kg eCW1 ([facility] Body height 67.5 [in_i] 67.5 [in_i] eCW1 ([facility]) Body mass index (BMI) [Ratio] 29.62 kg/m2 29.62 kg/m2 eCW1 ([facility]) Heart rate 62 /min 62 /min eCW1 ([facility]) Respiratory rate 18 /min 18 /min eCW1 ([facility]) Body temperature 97.3 [degF] 97.3 [degF] eCW1 ( [facility]) Systolic blood pressure 130 mm[Hg] 130 mm[Hg] e CW1 ([facility]) Diastolic blood pressure mm[Hg] eCW1 ([facility]) Body weight 192 [lb_av] 192 [lb_av] eCW1 ([facility]) Body height 67.5 [in_i] 67.5 [in_i] eCW1 ([facility]) Body mass index (BMI) [Ratio] 29.62 kg/m2 29.62 kg/m2 eCW1 ([facility]) Heart rate 59 /min 59 /min eCW1 ([facility]) Respiratory rate 17 /min 17 /min eCW1 ([facility]) Body temperature 97.2 [degF] 97.2 [degF] eCW1 ( [facility]) Systolic blood pressure 128 mm[Hg] 128 mm[Hg] e CW1 ([facility]) Diastolic blood pressure mm[Hg] eCW1 ([facility]) Body height 69 [in_i] 69 [in_i] MEDENT ([facility] 5'9" Body mass index (BMI) [Ratio] 28.1 kg/m2 28.1 k g/m2 [facility] ([facility]) Body weight 190.00 [lb_av] 190.00 [lb_av] MEDEN T ([facility]) Heart rate 66 /min 66 /min [facility] ([facility] Systolic blood pressure--sitting 138 mm[Hg] 138 mm[Hg] MEDENT ([facility]) large cuff, Ra Diastolic blood pressure--sitting 82 mm[Hg] 82 mm[Hg] MEDENT ([facility] [facility]) large cuff, Ra Body weight 192 [lb_av] 192 [lb_av] eCW1 ([facility]) [facility] Body height 67.5 [in_i] 67.5 [in_i] eCW1 ([facility]) Body mass index (BMI) [Ratio] 29.62 kg/m2 29.62 kg/m2 eCW1 ([facility]) Heart rate 67 /min 67 /min eCW1 [facility] Respiratory rate 18 /min 18 /min eCW1 ([facility]) Body temperature 96.3 [degF] 96.3 [degF] eCW1 ( [facility]) Systolic blood pressure 165 mm[Hg] 165 mm[Hg] e CW1 ([facility]) Diastolic blood pressure 89 mm[Hg] 89 mm[Hg] eCW1 ([facility]) Body weight 192 [lb_av] 192 [lb_av] eCW1 ([facility]) Body weight kg eCW1 [facility] Body height 67.5 [in_i] 67.5 [in_i] eCW1 ([facility]) Body mass index (BMI) [Ratio] 29.62 kg/m2 29.62 kg/m2 eCW1 ([facility]) Heart rate 71 /min 71 /min eCW1 ([facility]) Respiratory rate 18 /min 18 /min eCW1 ([facility]) Body temperature 97.6 [degF] 97.6 [degF] eCW1 ( [facility]) Systolic blood pressure 155 mm[Hg] 155 mm[Hg] e CW1 ([facility]) Diastolic blood pressure 90 mm[Hg] 90 mm[Hg] eCW1 ([facility]) Body weight 192 [lb_av] 192 [lb_av] eCW1 ([facility]) Body weight kg eCW1 [facility] Body height 67.5 [in_i] 67.5 [in_i] eCW1 ([facility]) Body mass index (BMI) [Ratio] 29.62 kg/m2 29.62 kg/m2 eCW1 ([facility]) Heart rate 56 /min 56 /min eCW1 ([facility]) Respiratory rate 18 /min 18 /min eCW1 ([facility]) Body temperature 98.1 [degF] 98.1 [degF] eCW1 ( [facility]) Systolic blood pressure 145 mm[Hg] 145 mm[Hg] e CW1 ([facility]) Diastolic blood pressure 94 mm[Hg] 94 mm[Hg] eCW1 ([facility]) Body weight 192 [lb_av] 192 [lb_av] eCW1 ([facility]) Body [facility] kg eCW1 [facility] Body height 67.5 [in_i] 67.5 [in_i] eCW1 ([facility]) Body mass index (BMI) [Ratio] 29.62 kg/m2 29.62 kg/m2 eCW1 ([facility]) Heart rate 72 /min 72 /min eCW1 ([facility]) Respiratory rate 18 /min 18 /min eCW1 ([facility]) Body temperature 97.2 [degF] 97.2 [degF] eCW1 ( [facility]) Systolic blood pressure 139 mm[Hg] 139 mm[Hg] e CW1 ([facility]) Diastolic blood pressure 88 mm[Hg] 88 mm[Hg] eCW1 ([facility]) Body weight 192 [lb_av] 192 [lb_av] eCW1 ([facility]) Body weight kg eCW1 [facility] Body height 67.5 [in_i] 67.5 [in_i] eCW1 ([facility]) Body mass index (BMI) [Ratio] 29.62 kg/m2 29.62 kg/m2 eCW1 ([facility]) Heart rate 68 /min 68 /min eCW1 ([facility]) Respiratory rate 18 /min 18 /min eCW1 ([facility]) Body temperature 96.0 [degF] 96.0 [degF] eCW1 ( [facility]) Systolic blood pressure 137 mm[Hg] 137 mm[Hg] e CW1 ([facility]) Diastolic blood pressure 88 mm[Hg] 88 mm[Hg] eCW1 ([facility]) Body weight 192 [lb_av] 192 [lb_av] eCW1 ([facility]) Body [facility] kg eCW1 [facility] Body height 67.5 [in_i] 67.5 [in_i] eCW1 ([facility]) Body mass index (BMI) [Ratio] 29.62 kg/m2 29.62 kg/m2 eCW1 ([facility]) Heart rate 76 /min 76 /min eCW1 ([facility]) Respiratory rate 18 /min 18 /min eCW1 ([facility]) Body temperature 96.7 [degF] 96.7 [degF] eCW1 ( [facility]) Systolic blood pressure 173 mm[Hg] 173 mm[Hg] e CW1 ([facility]) Diastolic blood pressure 81 mm[Hg] 81 mm[Hg] eCW1 ([facility]) Body weight 192 [lb_av] 192 [lb_av] eCW1 ([facility]) Body weight kg eCW1 [facility] Body height 67.5 [in_i] 67.5 [in_i] eCW1 ([facility]) Body mass index (BMI) [Ratio] 29.62 kg/m2 29.62 kg/m2 eCW1 ([facility]) Heart rate 75 /min 75 /min eCW1 ([facility]) Respiratory rate 18 /min 18 /min eCW1 ([facility]) Body temperature 96.5 [degF] 96.5 [degF] eCW1 ( [facility]) Systolic blood pressure 147 mm[Hg] 147 mm[Hg] e CW1 ([facility]) Diastolic blood pressure 82 mm[Hg] 82 mm[Hg] eCW1 ([facility]) Body weight 192 [lb_av] 192 [lb_av] eCW1 ([facility]) Body height 67.5 [in_i] 67.5 [in_i] eCW1 ([facility]) Body mass index (BMI) [Ratio] 29.62 kg/m2 29.62 kg/m2 eCW1 ([facility]) Heart rate 74 /min 74 /min eCW1 ([facility]) Respiratory rate 18 /min 18 /min eCW1 ([facility]) Body temperature 97.6 [degF] 97.6 [degF] eCW1 ( [facility]) Systolic blood pressure 170 mm[Hg] 170 mm[Hg] e CW1 ([facility]) Diastolic blood pressure 100 mm[Hg] 100 mm[Hg] eCW1 ([facility]) Body weight 192 [lb_av] 192 [lb_av] eCW1 ([facility]) Body [facility] kg eCW[facility] Body height 67.5 [in_i] 67.5 [in_i] eCW1 ([facility]) Body mass index (BMI) [Ratio] 29.62 kg/m2 29.62 kg/m2 eCW1 ([facility]) Heart rate 74 /min 74 /min eCW1 ([facility]) Respiratory rate 18 /min 18 /min eCW1 ([facility]) Body temperature 97.6 [degF] 97.6 [degF] eCW1 ( [facility]) Systolic blood pressure 140 mm[Hg] 140 mm[Hg] e CW1 ([facility]) Diastolic blood pressure 90 mm[Hg] 90 mm[Hg] eCW1 ([facility]) Body weight 192 [lb_av] 192 [lb_av] eCW1 ([facility]) Body height 67.5 [in_i] 67.5 [in_i] eCW1 ([facility]) Body mass index (BMI) [Ratio] 29.62 kg/m2 29.62 kg/m2 eCW1 ([facility]) Heart rate 67 /min 67 /min eCW1 ([facility]) Respiratory rate 16 /min 16 /min eCW1 ([facility]) Body temperature 97.9 [degF] 97.9 [degF] eCW1 ( [facility]) Systolic blood pressure 112 mm[Hg] 112 mm[Hg] e CW1 ([facility]) Diastolic blood pressure 66 mm[Hg] 66 mm[Hg] eCW1 ([facility]) Body weight 175.00 [lb_av] 175.00 [lb_av] MEDEN T ([facility]) Body height 69 [in_i] 69 [in_i] MEDENT ([facility]) 5'9" Body mass index (BMI) [Ratio] 25.8 kg/m2 25.8 k g/m2 MEDENT ([facility]) Systolic blood pressure 159 mm[Hg] 159 mm[Hg] M EDENT ([facility]) Diastolic blood pressure 106 mm[Hg] 106 mm[Hg] MEDENT ([facility]) Heart rate 77 /min 77 /min MEDENT ([facility]) Oxygen saturation in Arterial blood by Pulse oximetry 97 % 97 % MEDENT ([facility]) Body temperature 98.1 [degF] 98.1 [degF] MEDENT ([facility]) Patient Treatment Plan of Care Planned Activity Planned Date Details Description Data Source (s) NITROFURANTOIN, MACROCRYSTALS 25 MG / Ni trofurantoin, Monohydrate 75 MG Oral Capsule [Macrobid] 03/18/2021 12:00:00 AM EDT eC W1 ([facility]) NITROFURANTOIN, MACROCRYSTALS 25 MG / Ni trofurantoin, Monohydrate 75 MG Oral Capsule [Macrobid] 03/18/2021 12:00:00 AM EDT eC W1 ([facility]) NITROFURANTOIN, MACROCRYSTALS 25 MG / Ni trofurantoin, Monohydrate 75 MG Oral Capsule [Macrobid] 03/18/2021 12:00:00 AM EDT eC W1 ([facility]) NITROFURANTOIN, MACROCRYSTALS 25 MG / Ni trofurantoin, Monohydrate 75 MG Oral Capsule [Macrobid] 03/18/2021 12:00:00 AM EDT eC W1 ([facility]) NITROFURANTOIN, MACROCRYSTALS 25 MG / Ni trofurantoin, Monohydrate 75 MG Oral Capsule [Macrobid] 03/18/2021 12:00:00 AM EDT eC W1 ([facility]) NITROFURANTOIN, MACROCRYSTALS 25 MG / Ni trofurantoin, Monohydrate 75 MG Oral Capsule [Macrobid] 03/18/2021 12:00:00 AM EDT eC W1 ([facility]) Oxybutynin chloride 5 MG Oral Tablet 03/14/2021 12:00:00 AM EDT eCW1 ([facility]) Oxybutynin chloride 5 MG Oral Tablet 03/14/2021 12:00:00 AM EDT eCW1 ([facility]) Oxybutynin chloride 5 MG Oral Tablet 03/14/2021 12:00:00 AM EDT eCW1 ([facility]) Oxybutynin chloride 5 MG Oral Tablet 03/14/2021 12:00:00 AM EDT eCW1 ([facility]) Oxybutynin chloride 5 MG Oral Tablet 03/14/2021 12:00:00 AM EDT eCW1 ([facility]) Sulfamethoxazole 800 MG / Trimethoprim 160 MG Oral Tab let [Bactrim] 03/03/2021 12:00:00 AM EDT eCW1 ([facility]) Sulfamethoxazole 800 MG / Trimethoprim 160 MG Oral Tab let [Bactrim] 03/03/2021 12:00:00 AM EDT eCW1 ([facility]) Sulfamethoxazole 800 MG / Trimethoprim 160 MG Oral Tab let [Bactrim] 03/03/2021 12:00:00 AM EDT eCW1 ([facility])
[2021-07-05 23:30] VITALS: BP 143/85
[2021-07-06] MEDS: DOCUSATE SODIUM 100MG CAPSULE PO SCH ×3 (00:09→21:00)
[2021-07-06] MEDS: HEPARIN SOD (PORCINE) 5000UNITS/ML 1ML VIAL/SYRINGE SC SCH ×4 (00:10→21:00)
[2021-07-06] MEDS: NS 1,000 ML IV SCH ×3 (00:10→15:39)
[2021-07-06 01:08] LABS: CALCIUM LEVEL 8.2 MG/DL (8.8-10.2); CREATININE FOR GFR 1.45 MG/DL (0.70-1.30); POTASSIUM SERUM 3.4 MEQ/L (3.5-5.1)
[2021-07-06 06:00] VITALS: BP 126/72
[2021-07-06 07:19] LABS: BASO % 0.4 % (0.0-1.0); EOS # 0.2 10^3/uL (0.0-0.5); EOS % 1.6 % (0.0-3.0); HEMATOCRIT 41.4 % (42.0-52.0); HEMOGLOBIN 14.2 g/dl (13.5-17.5); LYMPH # 1.3 10^3/uL (1.5-5.0); LYMPH % 13.3 % (24.0-44.0); MEAN CORPUSCULAR HEMOGLOBIN 29.9 pg (27.0-33.0); MEAN CORPUSCULAR HGB CONC 34.3 g/dl (32.0-36.5); MEAN CORPUSCULAR VOLUME 87.2 fl (80.0-96.0); MONO # 1.8 10^3/uL (0.0-0.8); MONO % 18.1 % (2.0-8.0); NEUTROPHILS # 6.5 10^3/uL (1.5-8.5); PLATELET COUNT, AUTOMATED 305 10^3/uL (150-450); RED BLOOD COUNT 4.75 10^6/uL (4.30-6.10); WHITE BLOOD COUNT 9.9 10^3/uL (4.0-10.0)
[2021-07-06 07:30] LABS: BLOOD UREA NITROGEN 15 MG/DL (7-18); CALCIUM LEVEL 8.3 MG/DL (8.8-10.2); CARBON DIOXIDE LEVEL 25 MEQ/L (21-32); CHLORIDE LEVEL 98 MEQ/L (98-107); CREATININE FOR GFR 1.23 MG/DL (0.70-1.30); GLOMERULAR FILTRATION RATE > 60.0 (>49); GLUCOSE, FASTING 110 MG/DL (70-100); POTASSIUM SERUM 3.1 MEQ/L (3.5-5.1); SODIUM LEVEL 133 MEQ/L (136-145)
--- NOTE | 2021-07-06 08:22 | REP ---
INDICATION: NICHOLAS. COMPARISON: None. TECHNIQUE: Standard 2D ultrasound images of the kidneys were obtained. FINDINGS: The right kidney measures 9.5 x 5.3 x 4.9 cm and the left kidney measures 11.9 x 6.4 x 5.8 cm. There is a cortical scar in the upper pole of the right kidney. There is a cortical scar in the lower pole the left kidney. There is mild pelvicaliceal dilatation on the left. The renal cortical echogenicity is normal. IMPRESSION: 1. Cortical scars bilaterally of indeterminate etiology. 2. Mild pelvicaliceal dilatation on the left of indeterminate etiology. <Electronically signed by Hammad Morales > 07/06/21 0817
[2021-07-06] MEDS ORDERED: POTASSIUM CHLORIDE 10MEQ SR TABLET PO SCH (09:00)
[2021-07-06] MEDS: CHLORTHALIDONE 25 MG TAB PO SCH (09:50)
[2021-07-06 14:00] VITALS: BP 153/91
[2021-07-06] MEDS: ACETAMINOPHEN TAB 650MG DOSE (2X325MG) PO PRN ×2 (14:38→21:01)
--- NOTE | 2021-07-06 14:44 | IPNPDOC ---
Date Seen The patient was seen on 07/06/21. Progress Note SUBJECTIVE: Temperature today of 100.9 F, UCx pending. Blood culture x 1 growing Gram neg rods, other pending. Changed from ceftriaxone to cefepime to cover Pseudomonas. Denies nausea, vomiting, abdominal pain. OBJECTIVE: PE: VS: Please see below General: NAD, resting in bed. HEENT: PERRLA, EOMI, no lymphadenopathy noted NECK: supple Cardiovascular: Regular rate and rhythm, S1S2 +, no gallops Pulmonary: lungs clear to auscultation bilaterally, no rhonchi, wheezes, or rales noted Abdomen: soft, hyperactive bowel sounds present, nontender to palpation in 4 quadrants, a suprapubic catheter is appreciated, the area around catheter appears clean, non erythematous, nonedematous, and without discharge. Extremities: no cyanosis or edema appreciated. 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 Psych: mood and affect appropriate Imaging: Chest x-ray: 07/05/21: No acute cardiopulmonary findings Renal US: 1. Cortical scars bilaterally of indeterminate etiology. 2. Mild pelvicaliceal dilatation on the left of indeterminate etiology. Assessment: Mr. Silva is a 66 year old male with past medical history of Ductal carcinoma of prostate s/p TURP treated with EBRT and ADT, Hyperlipidemia, BPH, Elevated blood pressure, and Urinary retention who presented to the emergency department for 4 days of subjective fevers, nausea, vomiting, fatigue, diarrhea, and loss of appetite. In the ED he was found to have a UTI (positive leukocyte esterase, urine bacteria, WBC), an acute kidney injury (Cr. 1.8 from baseline 1.2), and hyponatremia (127) admitted for treatment and further monitoring. Plan: Urinary tract infection possibly 2/2 to suprapubic catheter -Placed March 2021, monthly catheter changes with last change 1 week ago per -Patient was diagnosed with a UTI on 06/20/21 started on Bactrim and finished 10 day course on 07/04/21 -Fu UCx, and official blood cultures. -Due to bacteremia discussed below, switched from Ceftriaxone to Cefepime -Tylenol PRN, IVFs -TB with Dr. Thomas on 07/07/21 to discuss further Gram neg lalo bacteremia likely 2/2 to UTI -1/2 sets +,f/u official results -Switched from Ceftriaxone to Cefepime to cover Pseudomonas -Will need repeat BCx likely 07/07/21 Acute kidney injury likely 2/2 to UTI and poor PO intake- resolved -Cr 1.23 today, at baseline. -IVFs continued, encourage PO intake with fluids also -Renal US: Please see above -Daily labs Hyponatremia likely 2/2 to decreased PO intake- improving slowly -Sodium improving to 133 today -patient is asymptomatic -C/w IVFs -Daily CMP Low back pain -continue prn Tylenol for pain Ductal carcinoma of prostate s/p TURP treated with EBRT and ADT -Patient follows with Dr. Thomas q 3 months -Last PSA 0.12 06/20/21 Hyperlipidemia -patient not currently on any medications -follow up with PCP History of BPH -continue oxybutynin 5mg DVT prophylaxis: -continue heparin Disposition: To TB with Dr. Thomas to discuss case on 07/07/21. Plan is home at discharge. VS, I&O, 24H, Fishbone Vital Signs/I&O Vital Signs Date Time Temp Pulse Resp B/P (MAP) Pulse Ox O2 Delivery O2 Flow Rate FiO2 07/06/21 06:00 98.2 74 20 126/72 (90) 98 Room Air I&O- Last 24 Hours up to 6 AM 07/06/21 06:00 Intake Total 2595 ml Output Total 450 ml Balance 2145 ml Laboratory Data 24H LABS Laboratory Tests 2 07/05/21 14:52: Immature Granulocyte % (Auto) 0.4, Neutrophils (%) (Auto) 71.7H, Lymphocytes (%) (Auto) 10.9L, Monocytes (%) (Auto) 15.8H, Eosinophils (%) (Auto) 0.9, Basophils (%) (Auto) 0.3, Neutrophils # (Auto) 8.5, Lymphocytes # (Auto) 1.3L, Monocytes # (Auto) 1.9H, Eosinophils # (Auto) 0.1, Basophils # (Auto) 0.0, Nucleated Red Blood Cells % (auto) 0.0, Erythrocyte Sedimentation Rate 47H, POC Glucose (Misc Panel) 117H, POC Sodium (Misc Panel) 127L, POC Potassium (Misc Panel) 3.6, POC Chloride (Misc Panel) 90L, POC Total CO2 (Misc Panel) 23.0, POC Blood Urea Ni trogen (Misc Panel 24, POC Ionized Calcium (Misc Panel) 4.3L, POC Creatinine (Misc Panel) 1.6H, POC Hematocrit (Misc Panel) 51.0, Lactic Acid Level 1.5, Magnesium Level 2.1, Total Bilirubin 0.7, Direct Bilirubin 0.1, Aspartate Amino Transf (AST/SGOT) 27, Alanine Aminotransferase (ALT/SGPT) 18, Alkaline Phosphatase 91, Total Protein 8.0, Albumin 3.7, Albumin/Globulin Ratio 0.9, Coronavirus (COVID-19)(PCR) NEGATIVE, Influenza Type A (RT-PCR) NEGATIVE, Influenza Type B (RT-PCR) NEGATIVE, Respiratory Syncytial Virus (PCR) NEGATIVE 07/05/21 16:06: Bedside Urine Color (LAB) BROWNH, Bedside Urine Appearance (LAB) CLOUDYH, Bedside Urine pH (LAB) 6.0, Bedside Urine Specific Matteson (LAB 1.015, Bedside Urine Protein (LAB) 3+H, Bedside Urine Glucose (UA) NEGATIVE, Bedside Urine Ketones (LAB) 1+H, Bedside Urine Blood POSITIVEH, Bedside Urine Nitrite (LAB) POSITIVEH, Bedside Urine Bilirubin (LAB) NEGATIVE, Bedside Urine Urobilinogen (LAB) NORMAL, Bedside Urine Leukocyte Esterase (L POSITIVEH, Urine Sediment Examination PERFORMED, Urine RBC TNTCH, Urine WBC TNTCH, Urine Squamous Epithelial Cells NONE SEEN, Urine Bacteria LARGE AMOUNTH, Urine Hyaline Casts NONE SEEN 07/06/21 00:30: Anion Gap 7L, Glomerular Filtration Rate 52.0, Calcium Level 8.2L 07/06/21 06:49: Immature Granulocyte % (Auto) 0.6, Neutrophils (%) (Auto) 66.0, Lymphocytes (%) (Auto) 13.3L, Monocytes (%) (Auto) 18.1H, Eosinophils (%) (Auto) 1.6, Basophils (%) (Auto) 0.4, Neutrophils # (Auto) 6.5, Lymphocytes # (Auto) 1.3L, Monocytes # (Auto) 1.8H, Eosinophils # (Auto) 0.2, Basophils # (Auto) 0.0, Nucleated Red Blood Cells % (auto) 0.0, Anion Gap 10, Glomerular Filtration Rate > 60.0, Calcium Level 8.3L CBC/BMP Laboratory Tests 07/05/21 14:52 10/24/21 00:30 07/06/21 06:49 Microbiology Microbiology 07/05/21 Blood Culture, Received Pending 07/05/21 Blood Culture - Preliminary, Resulted 07/05/21 Urine Culture, Received Pending Myranda Tapia MD Jul 06, 2021 14:44
[2021-07-06] MEDS ORDERED: POTASSIUM CHLORIDE 10MEQ SR TABLET PO ONE (15:30)
[2021-07-06 16:58] VITALS: BP 155/80
[2021-07-06] MEDS: cefTRIAXone SOD 1 GM in D5W MINI-BAG PLUS 50 ML IV SCH (17:24)
[2021-07-06 22:00] VITALS: BP 144/88
[2021-07-07] MEDS: NS 1,000 ML IV SCH ×2 (01:11→11:15)
[2021-07-07] MEDS: HEPARIN SOD (PORCINE) 5000UNITS/ML 1ML VIAL/SYRINGE SC SCH ×3 (05:49→20:19)
[2021-07-07 06:00] VITALS: BP 166/90
[2021-07-07 07:37] LABS: BASO % 0.6 % (0.0-1.0); EOS # 0.3 10^3/uL (0.0-0.5); EOS % 4.6 % (0.0-3.0); HEMATOCRIT 41.6 % (42.0-52.0); HEMOGLOBIN 13.9 g/dl (13.5-17.5); LYMPH # 1.1 10^3/uL (1.5-5.0); LYMPH % 15.8 % (24.0-44.0); MEAN CORPUSCULAR HEMOGLOBIN 29.8 pg (27.0-33.0); MEAN CORPUSCULAR HGB CONC 33.4 g/dl (32.0-36.5); MEAN CORPUSCULAR VOLUME 89.1 fl (80.0-96.0); MONO # 1.2 10^3/uL (0.0-0.8); MONO % 16.8 % (2.0-8.0); NEUTROPHILS # 4.4 10^3/uL (1.5-8.5); NEUTROPHILS % 61.8 % (36.0-66.0); PLATELET COUNT, AUTOMATED 295 10^3/uL (150-450); RED BLOOD COUNT 4.67 10^6/uL (4.30-6.10)
[2021-07-07 07:52] LABS: BLOOD UREA NITROGEN 13 MG/DL (7-18); CALCIUM LEVEL 8.7 MG/DL (8.8-10.2); CARBON DIOXIDE LEVEL 26 MEQ/L (21-32); CHLORIDE LEVEL 103 MEQ/L (98-107); CREATININE FOR GFR 1.19 MG/DL (0.70-1.30); GLOMERULAR FILTRATION RATE > 60.0 (>49); GLUCOSE, FASTING 112 MG/DL (70-100); POTASSIUM SERUM 3.4 MEQ/L (3.5-5.1); SODIUM LEVEL 134 MEQ/L (136-145)
[2021-07-07] MEDS: CHLORTHALIDONE 25 MG TAB PO SCH (08:06)
[2021-07-07] MEDS: DOCUSATE SODIUM 100MG CAPSULE PO SCH ×2 (08:06→20:19)
[2021-07-07] MEDS ORDERED: POTASSIUM CHLORIDE 10MEQ SR TABLET PO ONE (11:00)
[2021-07-07] MEDS: ACETAMINOPHEN TAB 650MG DOSE (2X325MG) PO PRN (13:01)
[2021-07-07 14:00] VITALS: BP 161/87
[2021-07-07] MEDS: cefTRIAXone SOD 1 GM in D5W MINI-BAG PLUS 50 ML IV SCH (17:09)
--- NOTE | 2021-07-07 18:32 | IPNPDOC ---
Date Seen The patient was seen on 07/07/21. Progress Note SUBJECTIVE: F/u official BCx results. D/w Dr. Thomas. Fever last evening but afebrile during today. Denies nausea, vomiting, abdominal pain. OBJECTIVE: PE: VS: Please see below General: NAD, resting in bed. HEENT: PERRLA, EOMI, no lymphadenopathy noted NECK: supple Cardiovascular: Regular rate and rhythm, S1S2 +, no gallops Pulmonary: lungs clear to auscultation bilaterally, no rhonchi, wheezes, or rales noted Abdomen: soft, hyperactive bowel sounds present, nontender to palpation in 4 quadrants, a suprapubic catheter is appreciated, the area around catheter appears clean, non erythematous, nonedematous, and without discharge. Extremities: no cyanosis or edema appreciated. 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 Psych: Mood and affect appropriate Imaging: Chest x-ray: 07/05/21: No acute cardiopulmonary findings Renal US: 1. Cortical scars bilaterally of indeterminate etiology. 2. Mild pelvicaliceal dilatation on the left of indeterminate etiology. Assessment: Mr. Silva is a 66 year old male with past medical history of Ductal carcinoma of prostate s/p TURP treated with EBRT and ADT, Hyperlipidemia, BPH, Elevated blood pressure, and Urinary retention who presented to the emergency department for 4 days of subjective fevers, nausea, vomiting, fatigue, diarrhea, and loss of appetite. In the ED he was found to have a UTI (positive leukocyte esterase, urine bacteria, WBC), an acute kidney injury (Cr. 1.8 from baseline 1.2), and hyponatremia (127) admitted for treatment and further monitoring. Plan: Urinary tract infection possibly 2/2 to suprapubic catheter -WBC wnl, afebrile today -Placed March 2021, monthly catheter changes with last change 1 week ago per -Patient was diagnosed with a UTI on 06/20/21 started on Bactrim and finished 10 day course on 07/04/21 -Fu UCx, and repeat blood cultures. -Due to bacteremia discussed below, switched from Ceftriaxone to Cefepime -Tylenol PRN, IVFs -TB with Dr. Thomas on 07/07/21- discussed current status. Recommended to c/w current care, to f/u with him as o/p. Does not recommend to take out current suprapubic catheter Gram neg lalo bacteremia likely 2/2 to UTI -1/2 sets +,f/u official results -Switched from Ceftriaxone to Cefepime to cover Pseudomonas -Will need repeat BCx likely 07/07/21 Acute kidney injury likely 2/2 to UTI and poor PO intake- resolved -Cr wnl today, at baseline. -IVFs continued but decreased, encourage PO intake with fluids also -Renal US: Please see above -Daily labs Hyponatremia likely 2/2 to decreased PO intake- improving slowly -Sodium improving to 133 today -patient is asymptomatic -C/w IVFs at decreasd rate -Daily CMP Chronic hypokalemia -replace PRN -F/u AM labs Low back pain -continue prn Tylenol for pain Ductal carcinoma of prostate s/p TURP treated with EBRT and ADT -Patient follows with Dr. Thomas q 3 months -Last PSA 0.12 06/20/21 Hyperlipidemia -patient not currently on any medications -follow up with PCP History of BPH -continue oxybutynin 5mg DVT prophylaxis: -continue heparin Disposition: Plan is home at discharge when medically improved VS, I&O, 24H, Fishbone Vital Signs/I&O Vital Signs Date Time Temp Pulse Resp B/P (MAP) Pulse Ox O2 Delivery O2 Flow Rate FiO2 07/07/21 14:00 98.5 65 18 161/87 (111) 98 Room Air I&O- Last 24 Hours up to 6 AM 07/07/21 06:00 Intake Total 3670 ml Output Total 1525 ml Balance 2145 ml Laboratory Data 24H LABS Laboratory Tests 2 07/07/21 07:11: Immature Granulocyte % (Auto) 0.4, Neutrophils (%) (Auto) 61.8, Lymphocytes (%) (Auto) 15.8L, Monocytes (%) (Auto) 16.8H, Eosinophils (%) (Auto) 4.6H, Basophils (%) (Auto) 0.6, Neutrophils # (Auto) 4.4, Lymphocytes # (Auto) 1.1L, Monocytes # (Auto) 1.2H, Eosinophils # (Auto) 0.3, Basophils # (Auto) 0.0, Nucleated Red Blo od Cells % (auto) 0.0, Anion Gap 5L, Glomerular Filtration Rate > 60.0, Calcium Level 8.7L CBC/BMP Laboratory Tests 07/07/21 07:11 Microbiology Microbiology 07/07/21 Blood Culture, Received Pending 07/07/21 Blood Culture, Received Pending 07/05/21 Blood Culture - Preliminary, Resulted No growth after 24 hours . All specim... 07/05/21 Blood Culture - Preliminary, Resulted 07/05/21 Urine Culture, Received Pending Myranda Tapia MD Jul 07, 2021 18:32
[2021-07-07 20:00] VITALS: BP 150/80
[2021-07-07 22:00] VITALS: BP 150/80
[2021-07-08] MEDS: NS 1,000 ML IV SCH ×2 (00:01→12:46)
[2021-07-08] MEDS: HEPARIN SOD (PORCINE) 5000UNITS/ML 1ML VIAL/SYRINGE SC SCH ×3 (05:02→21:08)
[2021-07-08 06:00] VITALS: BP 148/62
[2021-07-08 08:24] LABS: BASO # 0.1 10^3/uL (0.0-0.2); BASO % 0.7 % (0.0-1.0); EOS # 0.5 10^3/uL (0.0-0.5); HEMATOCRIT 42.7 % (42.0-52.0); HEMOGLOBIN 14.2 g/dl (13.5-17.5); LYMPH # 1.5 10^3/uL (1.5-5.0); LYMPH % 21.9 % (24.0-44.0); MEAN CORPUSCULAR HEMOGLOBIN 29.8 pg (27.0-33.0); MEAN CORPUSCULAR HGB CONC 33.3 g/dl (32.0-36.5); MEAN CORPUSCULAR VOLUME 89.5 fl (80.0-96.0); MONO % 14.8 % (2.0-8.0); NEUTROPHILS # 3.7 10^3/uL (1.5-8.5); NEUTROPHILS % 55.2 % (36.0-66.0); PLATELET COUNT, AUTOMATED 324 10^3/uL (150-450); RED BLOOD COUNT 4.77 10^6/uL (4.30-6.10); WHITE BLOOD COUNT 6.8 10^3/uL (4.0-10.0)
[2021-07-08] MEDS: CHLORTHALIDONE 25 MG TAB PO SCH (08:25)
[2021-07-08] MEDS: DOCUSATE SODIUM 100MG CAPSULE PO SCH ×2 (08:25→20:34)
[2021-07-08 08:42] LABS: BLOOD UREA NITROGEN 12 MG/DL (7-18); CALCIUM LEVEL 9.3 MG/DL (8.8-10.2); CARBON DIOXIDE LEVEL 26 MEQ/L (21-32); CHLORIDE LEVEL 104 MEQ/L (98-107); CREATININE FOR GFR 1.08 MG/DL (0.70-1.30); GLOMERULAR FILTRATION RATE > 60.0 (>49); GLUCOSE, FASTING 103 MG/DL (70-100); SODIUM LEVEL 137 MEQ/L (136-145)
[2021-07-08 14:00] VITALS: BP 170/80
--- NOTE | 2021-07-08 16:49 | IPNPDOC ---
Text Note Date of Service The patient was seen on 07/08/21. NOTE SUBJECTIVE: -Denies nausea, vomiting, abdominal pain. Afebrile. -Asking about potential discharge. Discussed switching IV to PO antibiotics and that it is best likely to tentatively plan for tomorrow. OBJECTIVE: VS: Please see below General: NAD, resting in bed. HEENT: PERRLA, EOMI, no lymphadenopathy noted NECK: supple Cardiovascular: Regular rate and rhythm, S1S2 +, no gallops Pulmonary: lungs clear to auscultation bilaterally, no rhonchi, wheezes, or rales noted Abdomen: soft, normoactive bowel sounds, nontender to palpation in 4 quadrants, has a suprapubic catheter, the area around catheter appears clean, non erythematous, nonedematous, and without discharge. Extremities: no cyanosis or edema appreciated. 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 Psych: Mood and affect appropriate Labs: reviewed Imaging: Chest x-ray: 07/05/21: No acute cardiopulmonary findings Renal US: 1. Cortical scars bilaterally of indeterminate etiology. 2. Mild pelvicaliceal dilatation on the left of indeterminate etiology. Assessment: 66 year old M with past medical history of Ductal carcinoma of prostate s/p TURP treated with EBRT and ADT, Hyperlipidemia, BPH, Elevated blood pressure, and Urinary retention w/ suprapubic catheter who presented to the emergency department for 4 days of subjective fevers, nausea, vomiting, fatigue, diarrhea, and loss of appetite and admitted with CAUTI with GNR bacteremia now resolved and doing well on antibiotics. Plan: Methicillin sensitive staph hominis and E.coli tract infection i/s/o suprapubic cath -WBC wnl, afebrile today -Placed March 2021, monthly catheter changes with last change 1 week prior to admission per -Tylenol PRN -Was discussed with Dr. Thomas on 07/07/21- recommended to c/w current care, to f/u with him as o/p. Does not recommend to take out current suprapubic catheter Gram neg lalo bacteremia likely 2/2 to E.coli UTI -1/2 sets +,f/u official results -switching from ceftriaxone to keflex now that bacteremia cleared Acute kidney injury likely 2/2 to UTI and poor PO intake- resolved -Cr wnl today, at baseline. -s/p fluids -Renal US: Please see above -Daily labs Hyponatremia likely 2/2 to decreased PO intake- resolved -patient is asymptomatic -s/p IVFs -Daily CMP Chronic hypokalemia -replace PRN -F/u AM labs Low back pain -continue prn Tylenol for pain Ductal carcinoma of prostate s/p TURP treated with EBRT and ADT -Patient follows with Dr. Thomas q 3 months -Last PSA 0.12 06/20/21 Hyperlipidemia -patient not currently on any medications -follow up with PCP History of BPH -continue oxybutynin 5mg DVT prophylaxis: -continue heparin HTN: -continue home meds Disposition: Plan is home at discharge when medically improved, likely tomorrow VS,Iris, I+O VS, Iris, I+O Laboratory Tests 07/08/21 07:54 Vital Signs Date Time Temp Pulse Resp B/P (MAP) Pulse Ox O2 Delivery O2 Flow Rate FiO2 07/08/21 14:00 98.1 65 16 170/80 (110) 98 Room Air I&O- Last 24 Hours up to 6 AM 07/08/21 06:00 Intake Total 2810 ml Output Total 1390 ml Balance 1420 ml JOHNNA PARKER MD Jul 08, 2021 16:49
[2021-07-08] MEDS: CEPHALEXIN 250MG CAPSULE PO SCH (17:16)
[2021-07-08] MEDS ORDERED: **hydrALAZINE** 50 MG TAB PO ONE (20:15)
[2021-07-08 20:35] VITALS: BP 175/98
[2021-07-08 22:00] VITALS: BP 178/100
[2021-07-09] MEDS: CEPHALEXIN 250MG CAPSULE PO SCH ×3 (00:16→12:28)
[2021-07-09 00:19] VITALS: BP 146/88
[2021-07-09] MEDS: HEPARIN SOD (PORCINE) 5000UNITS/ML 1ML VIAL/SYRINGE SC SCH ×2 (05:36→11:10)
[2021-07-09 06:36] VITALS: BP_SYST 133; BP_SYST 166; BP_DIAS 77; BP_DIAS 86
[2021-07-09 06:58] LABS: BASO # 0.1 10^3/uL (0.0-0.2); BASO % 0.6 % (0.0-1.0); EOS # 0.6 10^3/uL (0.0-0.5); EOS % 7.8 % (0.0-3.0); HEMATOCRIT 43.4 % (42.0-52.0); HEMOGLOBIN 14.5 g/dl (13.5-17.5); LYMPH # 1.8 10^3/uL (1.5-5.0); LYMPH % 23.1 % (24.0-44.0); MEAN CORPUSCULAR HEMOGLOBIN 29.7 pg (27.0-33.0); MEAN CORPUSCULAR HGB CONC 33.4 g/dl (32.0-36.5); MEAN CORPUSCULAR VOLUME 88.8 fl (80.0-96.0); MONO # 1.1 10^3/uL (0.0-0.8); MONO % 13.7 % (2.0-8.0); NEUTROPHILS # 4.2 10^3/uL (1.5-8.5); NEUTROPHILS % 54.3 % (36.0-66.0); PLATELET COUNT, AUTOMATED 371 10^3/uL (150-450); RED BLOOD COUNT 4.89 10^6/uL (4.30-6.10); WHITE BLOOD COUNT 7.7 10^3/uL (4.0-10.0)
[2021-07-09 07:11] LABS: CALCIUM LEVEL 9.5 MG/DL (8.8-10.2); CREATININE FOR GFR 1.28 MG/DL (0.70-1.30)
[2021-07-09] MEDS: DOCUSATE SODIUM 100MG CAPSULE PO SCH (08:36)
[2021-07-09] MEDS: CHLORTHALIDONE 25 MG TAB PO SCH (08:36)
[2021-07-09] MEDS ORDERED: AMLO1TAB25 PO (10:00)
[2021-07-09] MEDS ORDERED: PROB250C PO (10:00)
[2021-07-09] MEDS ORDERED: CEPH250T PO (10:00)
--- NOTE | 2021-07-09 20:07 | DS.PDOC ---
Discharge Summary General Date of Admission Jul 05, 2021 at 21:14 Date of Discharge 07/09/2021 Attending Physician: JOHNNA PARKER MD Discharge Summary PROCEDURES PERFORMED DURING STAY: None ADMITTING DIAGNOSES: CAUTI i/s/o chronic suprapubic catheter DISCHARGE DIAGNOSES: E.coli and methicillin sensitive Staph hominis CAUTI i/s/o chronic suprapubic catheter E.coli bacteremia 2/2/ UTI Sepsis Hypovolemic hyponatremia Dehydration Prerenal TAB Ductal carcinoma of prostate s/p TURP treated with EBRT and ADT Hyperlipidemia BPH HTN Chronic urinary retention s/p suprapubic catheter COMPLICATIONS/CHIEF COMPLAINT: Tab,Hyponatremia. HISTORY OF PRESENT ILLNESS: 66 year old M with a past medical history of Ductal carcinoma of prostate s/p TURP treated with EBRT and ADT, Hyperlipidemia, BPH, Elevated blood pressure, and Urinary retention w/ a chronic suprapubic catheter who presented to the emergency department for 4 days of subjective fevers, nausea, vomiting, fatigue, diarrhea, and loss of appetite. HOSPITAL COURSE: In the ED he was found to have a UTI (positive leukocyte esterase, urine bacteria, WBC), an acute kidney injury (Cr. 1.8 from baseline 1.2), and hyponatremia (127) admitted for treatment and further monitoring. 66 year old M who presented to the emergency department for 4 days of subjective fevers, nausea, vomiting, fatigue, diarrhea, and loss of appetite. He was diagnosed with a UTI on 06/20/[address] James office and was started on Ba ctrim. He states that he started feeling "ill" on Day 7 of and decided to present to the ER today after finishing his course of antibiotics yesterday and still feeling "ill". He is s/p suprapubic catheter placement in March 2021 and has noticed his urine has appeared brown for the last month. He denies any abdominal pain, chest pain, shortness of breath, chills, or changes in weight. He follows up at Dr. James office every 3 months and has his catheter changed monthly. HOSPITAL COURSE: In the ED he was found to have a UTI (positive leukocyte esterase, urine bacteria, WBC), an acute kidney injury (Cr. 1.6 from baseline 1.2), and hyponatremia (127). He was given 2L NS and 1 dose of IV cefriaxone before being admitted. He was ultimately found to be a polymicrobial UTI with E.coli and methicillin sensitive Staph hominis and had E.coli bacteremia that cleared with antibiotics. He was switched to keflex from ceftriaxone on 07/08. His TAB resolved after hydration and holding of his chlorthalidone. I have at this time, decided to stop the chlorthalidone and associated potassium supplementation and will place him on amlodipine 10mg daily until re-evaluation by PCP in the outpatient setting with repeat BMP. I am prescribing 9 more days of keflex for a total 14d of antibiotics. Per prior hospitalist, she had a conversation with Dr. Thomas who recommended medical management and no need for replacement/removal of suprapubic catheter at this time as it was just done 5d prior to admission. DISCHARGE MEDICATIONS: Please see below. ALLERGIES: Please see below. PHYSICAL EXAMINATION ON DISCHARGE: VITAL SIGNS: Please see below. VS: Please see below General: NAD, resting in bed. HEENT: PERRLA, EOMI, no lymphadenopathy noted NECK: supple Cardiovascular: Regular rate and rhythm, S1S2 +, no gallops Pulmonary: lungs clear to auscultation bilaterally, no rhonchi, wheezes, or rales noted Abdomen: soft, hyperactive bowel sounds present, nontender to palpation in 4 quadrants, a suprapubic catheter is appreciated, the area around catheter appears clean, non erythematous, nonedematous, and without discharge. Extremities: no cyanosis or edema appreciated. 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 Psych: Mood and affect appropriate LABORATORY DATA: Please see below. IMAGING: Chest x-ray: 07/05/21: No acute cardiopulmonary findings Renal US: 1. Cortical scars bilaterally of indeterminate etiology. 2. Mild pelvicaliceal dilatation on the left of indeterminate etiology. PROGNOSIS: Good ACTIVITY: As tolerated DIET: 2g sodium DISCHARGE PLAN: Home with 9d of keflex and amlodipine 10mg daily instead of chlorthalidone/potassium DISPOSITION: Home DISCHARGE INSTRUCTIONS: Home with 9d of keflex and amlodipine 10mg daily instead of chlorthalidone/potassium. To follow up with urology and PCP within 7d ITEMS TO FOLLOWUP ON ON OUTPATIENT: UTI TAB HTN DISCHARGE CONDITION: Stable TIME SPENT ON DISCHARGE: 45 minutes. Vital Signs/I&Os Vital Signs Date Time Temp Pulse Resp B/P (MAP) Pulse Ox O2 Delivery O2 Flow Rate FiO2 07/09/21 06:36 97.4 95 61 166/86 (112) 91 Room Air I&O- Last 24 Hours up to 6 AM 07/09/21 06:00 Intake Total 1195 ml Balance 1195 ml Laboratory Data Labs 24H Laboratory Tests 2 07/09/21 06:30: Immature Granulocyte % (Auto) 0.5, Neutrophils (%) (Auto) 54.3, Lymphocytes (%) (Auto) 23.1L, Monocytes (%) (Auto) 13.7H, Eosinophils (%) (Auto) 7.8H, Basophils (%) (Auto) 0.6, Neutrophils # (Auto) 4.2, Lymphocytes # (Auto) 1.8, Monocytes # (Auto) 1.1H, Eosinophils # (Auto) 0.6H, Basophils # (Auto) 0.1, Nucleated Red Blood Cells % (auto) 0.0, Anion Gap 6L, Glomerular Filtration Rate 60.0, Calcium Level 9.5 CBC/BMP Laboratory Tests 07/09/21 06:30 Microbiology Microbiology 07/07/21 Blood Culture - Preliminary, Resulted No Growth after 48 hours. All Specime... 07/07/21 Blood Culture - Preliminary, Resulted No Growth after 48 hours. All Specime... 07/05/21 Blood Culture - Preliminary, Resulted No Growth after 72 hours. All specime... 07/05/21 Blood Culture - Preliminary, Resulted Escherichia Coli 07/05/21 Urine Culture - Final, Complete Escherichia Coli Staphylococcus Hominis Ssp Candido Discharge Medications Scheduled Amlodipine Besylate (Amlodipine Besylate) 10 Mg Tablet, 10 MG PO DAILY Cephalexin (Cephalexin) 250 Mg Tablet, 1 TAB PO QID Saccharomyces Boulardii (Probiotic) 250 Mg Capsule, 1 CAP PO DAILY Scheduled PRN Oxybutynin Chloride (Oxybutynin Chloride) 5 Mg Tablet, 5 MG PO BID PRN for BLADDER SPASM, (Reported) Allergies Coded Allergies: No Known Allergies (Unverified , 03/26/21) JOHNNA PARKER MD Jul 09, 2021 10:21
== END 2021-07-09 13:43 | disposition home or self-care (01) | DRG 720 ==
LOC: M ED 12:11 → M ED INP 21:14 → ENRESERVTM 22:35 → ENRESERV 23:10 → M MSPAV 23:40
PROVIDERS: ADMIT Family Medicine; ATTEND Internal Medicine
DX: A41.51 Sepsis due to Escherichia coli [E. coli] (principal); N17.9 Acute kidney failure, unspecified; E87.1 Hypo-osmolality and hyponatremia; N39.0 Urinary tract infection, site not specified; E86.0 Dehydration; N40.0 Benign prostatic hyperplasia without lower urinary tract symptoms; I10 Essential (primary) hypertension; R33.9 Retention of urine, unspecified; Z85.46 Personal history of malignant neoplasm of prostate; E78.5 Hyperlipidemia, unspecified; Z79.899 Other long term (current) drug therapy; E87.6 Hypokalemia

== ENCOUNTER → 2021-09-25 | Outpatient (CLI) | payer BC ==
[~2021-09-25] MED LIST changes: +AMLO1TAB25 PO; +BACTDSTA PO; +CEPH250T PO; -LEVO500T3 PO; +LEVO500T4 PO; +PROB250C PO
== END ==
LOC: M RAD 10:18
DX: C61 Malignant neoplasm of prostate (principal); C44.90 Unspecified malignant neoplasm of skin, unspecified; I35.0 Nonrheumatic aortic (valve) stenosis; M19.011 Primary osteoarthritis, right shoulder; M19.012 Primary osteoarthritis, left shoulder; M17.0 Bilateral primary osteoarthritis of knee; M19.071 Primary osteoarthritis, right ankle and foot; M19.072 Primary osteoarthritis, left ankle and foot
CPT/HCPCS: 78306; A9503

== ENCOUNTER → 2021-09-29 | Outpatient (CLI) | payer BC ==
[2021-09-29 16:28] LABS: BASO # 0.1 10^3/uL (0.0-0.2); BASO % 0.8 % (0.0-1.0); EOS # 0.3 10^3/uL (0.0-0.5); EOS % 3.7 % (0.0-3.0); HEMATOCRIT 45.9 % (42.0-52.0); HEMOGLOBIN 15.4 g/dl (13.5-17.5); LYMPH # 2.1 10^3/uL (1.5-5.0); LYMPH % 24.5 % (24.0-44.0); MEAN CORPUSCULAR HEMOGLOBIN 29.9 pg (27.0-33.0); MEAN CORPUSCULAR HGB CONC 33.6 g/dl (32.0-36.5); MEAN CORPUSCULAR VOLUME 89.1 fl (80.0-96.0); MONO % 11.3 % (2.0-8.0); NEUTROPHILS % 59.3 % (36.0-66.0); PLATELET COUNT, AUTOMATED 298 10^3/uL (150-450); RED BLOOD COUNT 5.15 10^6/uL (4.30-6.10); WHITE BLOOD COUNT 8.4 10^3/uL (4.0-10.0)
[2021-09-29 16:42] LABS: ALBUMIN 4.1 GM/DL (3.2-5.2); ALT/SGPT 18 U/L (12-78); BILIRUBIN,TOTAL 0.7 MG/DL (0.2-1.0); BLOOD UREA NITROGEN 15 MG/DL (7-18); CALCIUM LEVEL 9.7 MG/DL (8.8-10.2); CARBON DIOXIDE LEVEL 27 MEQ/L (21-32); CHLORIDE LEVEL 105 MEQ/L (98-107); CREATININE FOR GFR 1.17 MG/DL (0.70-1.30); GLOMERULAR FILTRATION RATE > 60.0 (>49); GLUCOSE, FASTING 100 MG/DL (70-100); POTASSIUM SERUM 4.3 MEQ/L (3.5-5.1); SODIUM LEVEL 136 MEQ/L (136-145); TOTAL PROTEIN 7.4 GM/DL (6.4-8.2)
== END ==
LOC: M RAD 15:38
DX: C61 Malignant neoplasm of prostate (principal); C44.90 Unspecified malignant neoplasm of skin, unspecified; I35.0 Nonrheumatic aortic (valve) stenosis

== ENCOUNTER → 2021-09-30 | Outpatient (CLI) | payer BC ==
[~2021-09-30] MED LIST changes: +GASTROGRAFIN SOLUTION 30ML (Q9963) As Ordered ONE; +ISOVUE-370 76% 100ML VIAL As Ordered ONE
== END ==
LOC: M RAD 08:42
DX: C61 Malignant neoplasm of prostate (principal); K57.30 Diverticulosis of large intestine without perforation or abscess without bleeding; Z96.0 Presence of urogenital implants; K76.0 Fatty (change of) liver, not elsewhere classified
CPT/HCPCS: 71260; 74177; Q9963; Q9967

== ENCOUNTER → 2022-01-02 | Outpatient (REF) | payer BC ==
[~2022-01-02] MED LIST changes: -GASTROGRAFIN SOLUTION 30ML (Q9963) As Ordered ONE; -ISOVUE-370 76% 100ML VIAL As Ordered ONE
[2022-01-02 17:37] LABS: APPEARANCE, URINE MANUAL TURBID (CLEAR); COLOR, URINE MANUAL YELLOW (YELLOW); SPECIFIC GRAVITY,URINE MANUAL 1.025 (1.002-1.035)
[2022-01-02 17:38] LABS: BILIRUBIN, URINE MANUAL NEGATIVE (NEGATIVE); GLUCOSE, URINE (UA) MANUAL NEGATIVE (NEGATIVE); KETONE, URINE MANUAL NEGATIVE (NEGATIVE); PROTEIN, URINE MANUAL 3+ mg/dL (NEGATIVE); UROBILINOGEN, URINE MANUAL NORMAL (NORMAL)
[2022-01-02 17:39] LABS: BLOOD URINE MANUAL POSITIVE (NEGATIVE); LEUKOCYTE ESTERASE, URINE MAN POSITIVE (NEGATIVE); NITRITE, URINE MANUAL NEGATIVE (NEGATIVE)
[2022-01-02 17:42] LABS: SQUAMOUS EPITHELIAL CELL URINE SMALL AMOUNT /hpf (SMALL AMT); WBC, URINE 15-20 /hpf (0-3)
[2022-01-02 17:43] LABS: BACTERIA, URINE SMALL AMOUNT; HYALINE CAST, URINE NONE SEEN /lpf (0-1)
[2022-01-02 17:44] LABS: AMORPHOUS SEDIMENT, URINE SMALL AMOUNT (NEGATIVE)
== END ==
LOC: M SMT 17:23
PROVIDERS: ATTEND Physician Assistant
DX: R33.9 Retention of urine, unspecified (principal)

== ENCOUNTER → 2022-02-18 | Outpatient (REF) | payer OTHER | LOC: M WUC 20:09 | PROVIDERS: ATTEND Physician Assistant | DX: N39.0 Urinary tract infection, site not specified (principal) ==

== ENCOUNTER → 2022-02-19 | Outpatient (REF) | payer OTHER ==
[2022-02-19 14:00] LABS: APPEARANCE, URINE MANUAL TURBID (CLEAR); BILIRUBIN, URINE MANUAL NEGATIVE (NEGATIVE); BLOOD URINE MANUAL 3+ (NEGATIVE); COLOR, URINE MANUAL YELLOW (YELLOW); GLUCOSE, URINE (UA) MANUAL NEGATIVE (NEGATIVE); KETONE, URINE MANUAL NEGATIVE (NEGATIVE); LEUKOCYTE ESTERASE, URINE MAN 3+ (NEGATIVE); NITRITE, URINE MANUAL NEGATIVE (NEGATIVE); PH,URINE MAN 5.5 UNITS (5.0 - 7.0); PROTEIN, URINE MANUAL 3+ mg/dL (NEGATIVE); SPECIFIC GRAVITY,URINE MANUAL 1.025 (1.002-1.035); UROBILINOGEN, URINE MANUAL NORMAL (NORMAL)
[2022-02-19 14:10] LABS: SQUAMOUS EPITHELIAL CELL URINE SMALL AMOUNT /hpf (SMALL AMT); WBC, URINE 40-50 /hpf (0-3)
[2022-02-19 14:11] LABS: BACTERIA, URINE LARGE AMOUNT; HYALINE CAST, URINE NONE SEEN /lpf (0-1); MUCUS, URINE SMALL AMOUNT (NEGATIVE)
== END ==
LOC: M SMT 12:54
PROVIDERS: ATTEND Urology
DX: R82.90 Unspecified abnormal findings in urine (principal)

== ENCOUNTER → 2022-03-03 | Outpatient (REF) | payer OTHER | LOC: M LAB REF 19:26 | PROVIDERS: ATTEND Student in an Organized Health Care Education/Training Program | DX: N39.0 Urinary tract infection, site not specified (principal) ==

== ENCOUNTER → 2022-03-20 | Outpatient (CLI) | payer OTHER ==
[2022-03-20 13:40] LABS: BLOOD UREA NITROGEN 14 MG/DL (7-18); CALCIUM LEVEL 9.2 MG/DL (8.8-10.2); CARBON DIOXIDE LEVEL 28 MEQ/L (21-32); CHLORIDE LEVEL 106 MEQ/L (98-107); CHOLESTEROL LEVEL 278 MG/DL (<200); CHOLESTEROL RISK RATIO 5.346 (<5); CREATININE FOR GFR 1.17 MG/DL (0.70-1.30); GLOMERULAR FILTRATION RATE > 60.0 (>49); GLUCOSE, FASTING 113 MG/DL (70-100); HDL CHOLESTEROL 52 MG/DL (>40); LDL CHOLESTEROL 210 MG/DL (<100); NON-HDL-C 226 MG/DL; POTASSIUM SERUM 5.5 MEQ/L (3.5-5.1); SODIUM LEVEL 139 MEQ/L (136-145); TRIGLYCERIDES LEVEL 80 MG/DL (<150)
== END ==
LOC: M PLALAB 10:03
PROVIDERS: ATTEND Family Medicine
DX: I11.9 Hypertensive heart disease without heart failure (principal); Z13.220 Encounter for screening for lipoid disorders

== ENCOUNTER → 2022-03-20 | Outpatient (CLI) | payer OTHER ==
[2022-03-20 13:09] LABS: HEMATOCRIT 47.3 % (42.0-52.0); HEMOGLOBIN 15.3 g/dl (13.5-17.5); MEAN CORPUSCULAR HEMOGLOBIN 29.3 pg (27.0-33.0); MEAN CORPUSCULAR HGB CONC 32.3 g/dl (32.0-36.5); MEAN CORPUSCULAR VOLUME 90.4 fl (80.0-96.0); PLATELET COUNT, AUTOMATED 279 10^3/uL (150-450); RED BLOOD COUNT 5.23 10^6/uL (4.30-6.10); WHITE BLOOD COUNT 8.5 10^3/uL (4.0-10.0)
[2022-03-20 13:39] LABS: BLOOD UREA NITROGEN 15 MG/DL (7-18); CALCIUM LEVEL 9.2 MG/DL (8.8-10.2); CARBON DIOXIDE LEVEL 29 MEQ/L (21-32); CHLORIDE LEVEL 106 MEQ/L (98-107); CREATININE FOR GFR 1.18 MG/DL (0.70-1.30); GLOMERULAR FILTRATION RATE > 60.0 (>49); GLUCOSE, FASTING 119 MG/DL (70-100); POTASSIUM SERUM 5.6 MEQ/L (3.5-5.1); SODIUM LEVEL 138 MEQ/L (136-145)
== END ==
LOC: M PLALAB 10:02
PROVIDERS: ATTEND Urology
DX: N39.41 Urge incontinence (principal); N39.3 Stress incontinence (female) (male)

== ENCOUNTER → 2022-06-16 | Outpatient (REF) | payer OTHER, MEDICARE ==
[~2022-06-16] MED LIST changes: +LEVO1TAB39 PO; +LEVO1TAB40 PO; -LEVO500T4 PO; -LEVO750T13 PO
== END ==
LOC: M LAB REF 20:15
PROVIDERS: ATTEND Student in an Organized Health Care Education/Training Program
DX: R30.0 Dysuria (principal)

== ENCOUNTER → 2022-06-29 | Outpatient (REF) | payer MEDICARE, OTHER ==
[~2022-06-29] MED LIST changes: -DOXY-350 PO; +DOXY-444 PO
== END ==
LOC: M LABSMT 09:49
PROVIDERS: ATTEND Urology
DX: C61 Malignant neoplasm of prostate (principal)

== ENCOUNTER → 2022-07-14 | Outpatient (REF) | payer MEDICARE, OTHER | LOC: M SMT 17:44 | PROVIDERS: ATTEND Urology | DX: N39.0 Urinary tract infection, site not specified (principal) ==

== ENCOUNTER → 2022-07-17 | Outpatient (REF) | payer MEDICARE, OTHER ==
[2022-07-17 13:51] LABS: APPEARANCE, URINE MANUAL HAZY (CLEAR); BILIRUBIN, URINE MANUAL NEGATIVE (NEGATIVE); BLOOD URINE MANUAL POSITIVE (NEGATIVE); COLOR, URINE MANUAL YELLOW (YELLOW); GLUCOSE, URINE (UA) MANUAL NEGATIVE (NEGATIVE); KETONE, URINE MANUAL NEGATIVE (NEGATIVE); LEUKOCYTE ESTERASE, URINE MAN TRACE (NEGATIVE); NITRITE, URINE MANUAL NEGATIVE (NEGATIVE); PROTEIN, URINE MANUAL 1+ mg/dL (NEGATIVE); SPECIFIC GRAVITY,URINE MANUAL 1.004 (1.002-1.035); UROBILINOGEN, URINE MANUAL NORMAL (NORMAL)
[2022-07-17 14:32] LABS: SQUAMOUS EPITHELIAL CELL URINE SMALL AMOUNT /hpf (SMALL AMT)
[2022-07-17 14:33] LABS: AMORPHOUS SEDIMENT, URINE SMALL AMOUNT (NEGATIVE); BACTERIA, URINE NONE SEEN; HYALINE CAST, URINE NONE SEEN /lpf (0-1); MUCUS, URINE SMALL AMOUNT (NEGATIVE)
== END ==
LOC: M SMT 13:27
PROVIDERS: ATTEND Urology
DX: R30.0 Dysuria (principal)

== ENCOUNTER → 2022-07-24 | Outpatient (REF) | payer MEDICARE, OTHER ==
[2022-07-24 13:00] LABS: ALBUMIN 4.2 GM/DL (3.2-5.2); BILIRUBIN,TOTAL 0.5 MG/DL (0.2-1.0); CALCIUM LEVEL 9.1 MG/DL (8.8-10.2); CHOLESTEROL RISK RATIO 3.015 (<5); CREATININE FOR GFR 1.34 MG/DL (0.70-1.30); GLOMERULAR FILTRATION RATE 56.8 (>49); POTASSIUM SERUM 4.7 MEQ/L (3.5-5.1); TOTAL PROTEIN 7.8 GM/DL (6.4-8.2)
== END ==
LOC: M SFHCCLAY 09:12
PROVIDERS: ATTEND Nurse Practitioner Family
DX: E78.5 Hyperlipidemia, unspecified (principal); I10 Essential (primary) hypertension; R97.20 Elevated prostate specific antigen [PSA]

== ENCOUNTER → 2022-08-03 | Outpatient (REF) | payer MEDICARE, OTHER ==
[2022-08-04 14:49] LABS: APPEARANCE, URINE MANUAL HAZY (CLEAR); COLOR, URINE MANUAL YELLOW (YELLOW)
[2022-08-04 14:50] LABS: BILIRUBIN, URINE MANUAL NEGATIVE (NEGATIVE); BLOOD URINE MANUAL POSITIVE (NEGATIVE); GLUCOSE, URINE (UA) MANUAL NEGATIVE (NEGATIVE); KETONE, URINE MANUAL NEGATIVE (NEGATIVE); LEUKOCYTE ESTERASE, URINE MAN POSITIVE (NEGATIVE); NITRITE, URINE MANUAL POSITIVE (NEGATIVE); PH,URINE MAN 5.5 UNITS (5.0 - 7.0); PROTEIN, URINE MANUAL 1+ mg/dL (NEGATIVE); UROBILINOGEN, URINE MANUAL NORMAL (NORMAL)
[2022-08-04 15:11] LABS: BACTERIA, URINE LARGE AMOUNT; MUCUS, URINE SMALL AMOUNT (NEGATIVE); SQUAMOUS EPITHELIAL CELL URINE SMALL AMOUNT /hpf (SMALL AMT); WBC, URINE 40-50 /hpf (0-3)
[2022-08-04 15:12] LABS: HYALINE CAST, URINE NONE SEEN /lpf (0-1)
== END ==
LOC: M SMT 13:15
PROVIDERS: ATTEND Physician Assistant
DX: R30.0 Dysuria (principal)

== ENCOUNTER → 2022-08-14 | Outpatient (CLI) | payer OTHER, MEDICARE ==
[~2022-08-14] MED LIST changes: +PROHANCE 279.3MG/ML 15ML VIAL As Ordered ONE
== END ==
LOC: M RAD 09:41
PROVIDERS: ATTEND Urology
DX: C61 Malignant neoplasm of prostate (principal); K57.30 Diverticulosis of large intestine without perforation or abscess without bleeding; R59.0 Localized enlarged lymph nodes; N32.89 Other specified disorders of bladder; N28.82 Megaloureter
CPT/HCPCS: 72197; A9576

== ENCOUNTER → 2022-09-01 | Outpatient (REF) | payer OTHER, MEDICARE ==
[~2022-09-01] MED LIST changes: -PROHANCE 279.3MG/ML 15ML VIAL As Ordered ONE
[2022-09-01 20:44] LABS: APPEARANCE, URINE MANUAL HAZY (CLEAR); COLOR, URINE MANUAL YELLOW (YELLOW)
[2022-09-01 20:45] LABS: BILIRUBIN, URINE MANUAL NEGATIVE (NEGATIVE); GLUCOSE, URINE (UA) MANUAL NEGATIVE (NEGATIVE); KETONE, URINE MANUAL NEGATIVE (NEGATIVE); LEUKOCYTE ESTERASE, URINE MAN POSITIVE (NEGATIVE); NITRITE, URINE MANUAL POSITIVE (NEGATIVE); PROTEIN, URINE MANUAL 2+ mg/dL (NEGATIVE); SPECIFIC GRAVITY,URINE MANUAL 1.015 (1.002-1.035); UROBILINOGEN, URINE MANUAL NORMAL (NORMAL)
[2022-09-01 20:46] LABS: BLOOD URINE MANUAL POSITIVE (NEGATIVE)
[2022-09-01 21:00] LABS: BACTERIA, URINE LARGE AMOUNT; HYALINE CAST, URINE NONE SEEN /lpf (0-1); SQUAMOUS EPITHELIAL CELL URINE MOD AMOUNT /hpf (SMALL AMT); WBC, URINE 20-30 /hpf (0-3)
== END ==
LOC: M SMT 16:46
PROVIDERS: ATTEND Physician Assistant
DX: R30.0 Dysuria (principal)

== ENCOUNTER → 2022-09-18 | Outpatient (REF) | payer MEDICARE, OTHER ==
[2022-09-18 15:14] LABS: APPEARANCE, URINE MANUAL CLOUDY (CLEAR); BILIRUBIN, URINE MANUAL NEGATIVE (NEGATIVE); COLOR, URINE MANUAL LT YELLOW (YELLOW); GLUCOSE, URINE (UA) MANUAL NEGATIVE (NEGATIVE); KETONE, URINE MANUAL NEGATIVE (NEGATIVE); NITRITE, URINE MANUAL POSITIVE (NEGATIVE); PROTEIN, URINE MANUAL 2+ mg/dL (NEGATIVE); SPECIFIC GRAVITY,URINE MANUAL 1.015 (1.002-1.035); UROBILINOGEN, URINE MANUAL NORMAL (NORMAL)
[2022-09-18 15:15] LABS: BLOOD URINE MANUAL POSITIVE (NEGATIVE); LEUKOCYTE ESTERASE, URINE MAN POSITIVE (NEGATIVE)
[2022-09-18 15:31] LABS: BACTERIA, URINE LARGE AMOUNT; RBC, URINE TNTC /hpf (0-3); RENAL EPITHELIAL CELLS, URINE SMALL AMOUNT /hpf; SQUAMOUS EPITHELIAL CELL URINE MOD AMOUNT /hpf (SMALL AMT); WBC, URINE TNTC /hpf (0-3)
[2022-09-18 15:32] LABS: AMORPHOUS SEDIMENT, URINE SMALL AMOUNT (NEGATIVE); HYALINE CAST, URINE NONE SEEN /lpf (0-1); MUCUS, URINE SMALL AMOUNT (NEGATIVE)
== END ==
LOC: M SMT 12:59
PROVIDERS: ATTEND Urology
DX: N39.0 Urinary tract infection, site not specified (principal)

== ENCOUNTER → 2022-11-11 | Outpatient (REF) | payer MEDICARE, OTHER | LOC: M WUC 19:44 | PROVIDERS: ATTEND Student in an Organized Health Care Education/Training Program | DX: R30.0 Dysuria (principal) ==

== ENCOUNTER 2023-01-18 06:35 | Day surgery (SDC) | payer OTHER, BC ==
[~2023-01-18] VITALS: Ht 175.3 cm; Wt 83.0 kg
[~2023-01-18 06:35] MED LIST changes: +ASPI81TA26 PO; +NS 1,000 ML IV ONE; +POTA-298 PO; -POTA1TAB14 PO; +RELU120T PO; +ROSU10TA6 PO
[2023-01-18] MEDS ORDERED: SIMETHICONE 40MG/0.6ML DROPS 30ML As Ordered ONE (06:49)
[2023-01-18] MEDS ORDERED: propofoL 200 MG/20 ML VIAL As Ordered ONE (07:31)
[2023-01-18 07:51] VITALS: TEMP 97.1
[2023-01-18 08:10] VITALS: BP 160/82; O2SAT 97
== END 2023-01-18 08:18 | disposition home or self-care (01) ==
LOC: M OPP 06:35
PROVIDERS: ATTEND Internal Medicine Gastroenterology
DX: Z86.010 Personal history of colon polyps (principal); Z80.0 Family history of malignant neoplasm of digestive organs; D12.2 Benign neoplasm of ascending colon; K64.0 First degree hemorrhoids; K57.30 Diverticulosis of large intestine without perforation or abscess without bleeding; Z87.891 Personal history of nicotine dependence; Z79.02 Long term (current) use of antithrombotics/antiplatelets; Z79.82 Long term (current) use of aspirin; Z79.899 Other long term (current) drug therapy

== ENCOUNTER → 2023-01-19 | Outpatient (CLI) | payer OTHER ==
[~2023-01-19] MED LIST changes: -NS 1,000 ML IV ONE
== END ==
LOC: M WHC 13:20
PROVIDERS: ATTEND Internal Medicine
DX: Z13.820 Encounter for screening for osteoporosis (principal); C61 Malignant neoplasm of prostate

== ENCOUNTER → 2023-04-28 | Outpatient (REF) | payer OTHER, BC ==
[~2023-04-28] MED LIST changes: +FINA-48 PO; -PROS5TAB PO
== END ==
LOC: M LAB REF 11:27
PROVIDERS: ATTEND Nurse Practitioner Family
DX: R30.0 Dysuria (principal)

== ENCOUNTER → 2023-08-17 | Outpatient (REF) | payer OTHER, BC ==
[~2023-08-17] MED LIST changes: -OXYB5TAB10 PO; +OXYB5TAB11 PO
== END ==
LOC: M LAB REF 13:10
PROVIDERS: ATTEND Physician Assistant
DX: R30.0 Dysuria (principal)

== ENCOUNTER 2025-01-25 18:32 | Inpatient (IN) | payer OTHER, BC ==
[~2025-01-25] VITALS: Ht 175.3 cm; Wt 109.8 kg
[~2025-01-25 18:32] MED LIST changes: +ALFU10TA23; -ALFU10TA3; +DOXY-440 PO; -DOXY-444 PO; -FLOM0.4C39 PO; -OXYB5TAB11 PO; +OXYB5TAB14 PO; -ROSU10TA6 PO; +ROSU10TA61 PO; +TAMS-18 PO
[2025-01-25 20:27] LABS: BASO % 0.2 % (0.0-1.0); EOS % 0.1 % (0.0-3.0); HEMATOCRIT 47.7 % (42.0-52.0); HEMOGLOBIN 16.4 g/dl (13.5-17.5); LYMPH # 1.2 10^3/uL (1.5-5.0); LYMPH % 6.1 % (24.0-44.0); MEAN CORPUSCULAR HEMOGLOBIN 30.8 pg (27.0-33.0); MEAN CORPUSCULAR HGB CONC 34.4 g/dl (32.0-36.5); MEAN CORPUSCULAR VOLUME 89.5 fl (80.0-96.0); MONO # 1.5 10^3/uL (0.0-0.8); MONO % 7.9 % (2.0-8.0); NEUTROPHILS # 16.1 10^3/uL (1.5-8.5); NEUTROPHILS % 85.1 % (36.0-66.0); PLATELET COUNT, AUTOMATED 268 10^3/uL (150-450); RED BLOOD COUNT 5.33 10^6/uL (4.30-6.10); WHITE BLOOD COUNT 18.9 10^3/uL (4.0-10.0)
[2025-01-25 20:58] LABS: ALBUMIN 4.3 G/DL (3.2-5.2); BILIRUBIN,DIRECT 0.2 MG/DL (<0.4); BILIRUBIN,TOTAL 0.8 MG/DL (0.3-1.2); CALCIUM LEVEL 10.2 MG/DL (8.3-10.6); CREATININE FOR GFR 1.12 MG/DL (0.70-1.30); GLOMERULAR FILTRATION RATE 71.6 (>49); POTASSIUM SERUM 4.8 MMOL/L (3.5-5.1); TOTAL PROTEIN 7.6 G/DL (5.7-8.2)
[2025-01-25 22:17] LABS: KETONE, URINE AUTO RFX NEGATIVE (NEGATIVE); LEUKOCYTE ESTERASE UR AUTO RFX 2+ (NEGATIVE); MUCUS, URINE RFX SMALL (NEGATIVE); NITRITE, URINE AUTO RFX NEGATIVE (NEGATIVE); RBC, URINE AUTO RFX 47 /HPF (0-3); SQUAM EPITHELIAL CELL UR AURFX 0 /HPF (0-6); WBC, URINE AUTO RFX 118 /HPF (0-3)
[2025-01-25] MEDS: ONDANSETRON 4MG 2ML VIAL IV ONE (23:10)
[2025-01-25] MEDS: cefTRIAXone SOD 1 GM in DEXTROSE 5% (D5W) ADV/MINI-BAG 50 ML IV ONE (23:42)
[2025-01-26] VITALS (10 sets, daily range): BP systolic 143–175; BP diastolic 72–97; TEMP 97.5–99.1; O2SAT 92–97
[2025-01-26] MEDS: TAMSULOSIN 0.4 MG CAP PO ONE (01:59)
[2025-01-26] MEDS: NS (Normal Saline) 0.9% 1,000 ML IV ONE (01:59)
[2025-01-26] MEDS ORDERED: MAALOX 30 ML SUSP *UDC PO PRN (02:45)
[2025-01-26] MEDS ORDERED: ACETAMINOPHEN 325 MG TAB PO PRN (02:45)
[2025-01-26] MEDS ORDERED: MOM 30ML SUSPENSION UDC PO PRN (02:45)
[2025-01-26] MEDS: METOCLOPRAMIDE INJ 10MG/2ML VIAL IV STA (02:52)
[2025-01-26] MEDS ORDERED: LORazepam 2 MG TAB PO SCH (03:40)
[2025-01-26] MEDS: NS (Normal Saline) 0.9% 1,000 ML IV SCH ×4 (03:47→15:45)
[2025-01-26] MEDS ORDERED: LORazepam 2 MG TAB PO PRN (04:00)
[2025-01-26] MEDS ORDERED: KETOROLAC 30 MG/ML 1ML VIAL IV PRN (04:00)
[2025-01-26] MEDS ORDERED: REPA140I SUBQ (08:04)
[2025-01-26] MEDS ORDERED: AMLO1TAB25 PO (08:04)
[2025-01-26] MEDS ORDERED: ENZA40TA PO (08:04)
[2025-01-26] MEDS ORDERED: HOME MED LIST COMPLETE! XX SCH (08:05)
[2025-01-26] MEDS: DOCUSATE SODIUM 100MG CAPSULE PO SCH (08:08)
[2025-01-26] MEDS: THIAMINE 100 MG TAB PO SCH (08:09)
[2025-01-26] MEDS: MULTIVITAMINS/MINERALS THERAP 1 TAB PO SCH (08:09)
[2025-01-26] MEDS: FOLIC ACID 1MG TAB PO SCH (08:09)
[2025-01-26 08:40] LABS: HEMATOCRIT 42.1 % (42.0-52.0); HEMOGLOBIN 14.5 g/dl (13.5-17.5); MEAN CORPUSCULAR HEMOGLOBIN 30.7 pg (27.0-33.0); MEAN CORPUSCULAR HGB CONC 34.4 g/dl (32.0-36.5); PLATELET COUNT, AUTOMATED 242 10^3/uL (150-450); RED BLOOD COUNT 4.73 10^6/uL (4.30-6.10); WHITE BLOOD COUNT 19.8 10^3/uL (4.0-10.0)
[2025-01-26 09:00] LABS: ALBUMIN 3.4 G/DL (3.2-5.2); ALKALINE PHOSPHATASE 90 U/L (40-129); ALT/SGPT < 9 U/L (7.0-40); AST/SGOT 14 U/L (<34); BLOOD UREA NITROGEN 18 MG/DL (9-23); CARBON DIOXIDE LEVEL 21 MMOL/L (20-31); CHLORIDE LEVEL 104 MMOL/L (98-107); CREATININE FOR GFR 0.95 MG/DL (0.70-1.30); GLOMERULAR FILTRATION RATE 87.2 (>49); GLUCOSE, FASTING 147 MG/DL (74-106); SODIUM LEVEL 136 MMOL/L (136-145); TOTAL PROTEIN 6.2 G/DL (5.7-8.2)
[2025-01-26] MEDS: MIDAZOLAM INJ 2MG/2ML VIAL IV PRN (13:47)
[2025-01-26] MEDS: fentaNYL 100 MCG/2 ML INJECTION IV PRN (13:47)
[2025-01-26] MEDS: LIDOCAINE 1% MDV 20ML VIAL SC SCH (13:56)
[2025-01-26] MEDS: ISOVUE-300 61% 100ML VIAL IV SCH (13:56)
[2025-01-26] MEDS: SODIUM CHLORIDE 0.9% 1000 ML XX SCH (13:57)
[2025-01-26] MEDS ORDERED: PERCOCET 5MG/325MG TAB PO PRN (14:05)
[2025-01-26] MEDS ORDERED: ONDANSETRON 4MG 2ML VIAL IV PRN (14:05)
[2025-01-26] MEDS ORDERED: MORPHINE 2 MG/ML 1ML VIAL IV PRN (14:05)
[2025-01-26] MEDS: NIFEdipine 30MG XL TAB PO SCH (20:49)
[2025-01-26] MEDS: RELUGOLIX 120 MG PO SCH (20:50)
[2025-01-26] MEDS: FLUTICASONE PROP 0.05% NASAL SPRAY 16 GM (FLONASE) NARES SCH (21:00)
[2025-01-26] MEDS: cefTRIAXone SOD 1 GM in DEXTROSE 5% (D5W) ADV/MINI-BAG 50 ML IV SCH (22:59)
[2025-01-26] MEDS: LORATADINE 10 MG TAB PO SCH (22:59)
[2025-01-27 05:30] VITALS: BP 171/95; TEMP 98.1; O2SAT 97
[2025-01-27 06:32] LABS: HEMATOCRIT 39.7 % (42.0-52.0); HEMOGLOBIN 13.5 g/dl (13.5-17.5); MEAN CORPUSCULAR VOLUME 91.1 fl (80.0-96.0); PLATELET COUNT, AUTOMATED 205 10^3/uL (150-450); RED BLOOD COUNT 4.36 10^6/uL (4.30-6.10); WHITE BLOOD COUNT 13.5 10^3/uL (4.0-10.0)
[2025-01-27 07:03] LABS: ALBUMIN 3.3 G/DL (3.2-5.2); ALKALINE PHOSPHATASE 87 U/L (40-129); ALT/SGPT < 9 U/L (7.0-40); AST/SGOT 14 U/L (<34); BLOOD UREA NITROGEN 14 MG/DL (9-23); CALCIUM LEVEL 8.5 MG/DL (8.3-10.6); CARBON DIOXIDE LEVEL 23 MMOL/L (20-31); CHLORIDE LEVEL 100 MMOL/L (98-107); CREATININE FOR GFR 0.86 MG/DL (0.70-1.30); GLOMERULAR FILTRATION RATE > 90.0 (>49); GLUCOSE, FASTING 149 MG/DL (74-106); POTASSIUM SERUM 3.7 MMOL/L (3.5-5.1); SODIUM LEVEL 134 MMOL/L (136-145); TOTAL PROTEIN 6.2 G/DL (5.7-8.2)
[2025-01-27 07:10] LABS: PROCALCITONIN 0.65 ng/ml
[2025-01-27] MEDS ORDERED: PERCOCET 5MG/325MG TAB PO PRN (08:15)
[2025-01-27] MEDS: ENZALUTAMIDE 40 MG PO SCH (09:20)
[2025-01-27 12:00] VITALS: BP 163/92; TEMP 97.9; O2SAT 97
[2025-01-27 14:00] VITALS: BP 163/92
[2025-01-27 20:00] VITALS: BP 169/94; TEMP 98.1; O2SAT 98
[2025-01-27] MEDS: SENNA 8.6 MG TAB PO SCH (20:11)
[2025-01-27 22:00] VITALS: BP 169/94
[2025-01-27] MEDS: ENOXAPARIN 40MG/0.4ML SYRINGE (J1650 PER 10MG) SC SCH (23:45)
[2025-01-28 06:06] VITALS: BP 152/90; TEMP 97.5; O2SAT 95
[2025-01-28 06:21] LABS: HEMATOCRIT 41.4 % (42.0-52.0); HEMOGLOBIN 14.3 g/dl (13.5-17.5); MEAN CORPUSCULAR HEMOGLOBIN 30.6 pg (27.0-33.0); MEAN CORPUSCULAR HGB CONC 34.5 g/dl (32.0-36.5); MEAN CORPUSCULAR VOLUME 88.7 fl (80.0-96.0); PLATELET COUNT, AUTOMATED 213 10^3/uL (150-450); RED BLOOD COUNT 4.67 10^6/uL (4.30-6.10); WHITE BLOOD COUNT 7.5 10^3/uL (4.0-10.0)
[2025-01-28 07:12] LABS: ALBUMIN 3.2 G/DL (3.2-5.2); ALKALINE PHOSPHATASE 88 U/L (40-129); ALT/SGPT < 9 U/L (7.0-40); AST/SGOT 14 U/L (<34); BILIRUBIN,TOTAL 0.6 MG/DL (0.3-1.2); BLOOD UREA NITROGEN 15 MG/DL (9-23); CALCIUM LEVEL 8.6 MG/DL (8.3-10.6); CARBON DIOXIDE LEVEL 22 MMOL/L (20-31); CHLORIDE LEVEL 99 MMOL/L (98-107); CREATININE FOR GFR 0.93 MG/DL (0.70-1.30); GLOMERULAR FILTRATION RATE 89.4 (>49); GLUCOSE, FASTING 114 MG/DL (74-106); POTASSIUM SERUM 3.8 MMOL/L (3.5-5.1); SODIUM LEVEL 133 MMOL/L (136-145); TOTAL PROTEIN 6.2 G/DL (5.7-8.2)
[2025-01-28 10:50] VITALS: BP 159/64
[2025-01-28 12:00] VITALS: BP 153/89; TEMP 97.9; O2SAT 99
[2025-01-28 20:34] VITALS: BP 149/97; TEMP 98.1; O2SAT 96
[2025-01-29 03:35] VITALS: BP 142/86; TEMP 97.9; O2SAT 98
[2025-01-29 05:48] LABS: HEMATOCRIT 42.9 % (42.0-52.0); HEMOGLOBIN 14.6 g/dl (13.5-17.5); MEAN CORPUSCULAR HEMOGLOBIN 30.9 pg (27.0-33.0); MEAN CORPUSCULAR VOLUME 90.9 fl (80.0-96.0); PLATELET COUNT, AUTOMATED 243 10^3/uL (150-450); RED BLOOD COUNT 4.72 10^6/uL (4.30-6.10)
[2025-01-29 06:11] LABS: ALBUMIN 3.3 G/DL (3.2-5.2); BILIRUBIN,TOTAL 0.5 MG/DL (0.3-1.2); CALCIUM LEVEL 9.1 MG/DL (8.3-10.6); CREATININE FOR GFR 1.06 MG/DL (0.70-1.30); GLOMERULAR FILTRATION RATE 76.4 (>49); POTASSIUM SERUM 3.9 MMOL/L (3.5-5.1); TOTAL PROTEIN 6.4 G/DL (5.7-8.2)
[2025-01-29] MEDS ORDERED: ACET32TAB PO (07:22)
[2025-01-29] MEDS ORDERED: SENN18TA PO (07:22)
[2025-01-29] MEDS ORDERED: COLA100C5 PO (07:22)
[2025-01-29] MEDS ORDERED: LISI20TA33 PO (07:22)
[2025-01-29] MEDS ORDERED: LEVO1TAB40 PO (07:29)
[2025-01-29] MEDS ORDERED: PROB250C PO (07:29)
[2025-01-29 08:19] VITALS: BP 140/74
== END 2025-01-29 10:47 | disposition home or self-care (01) | DRG 872 ==
LOC: M ED 18:32 → M ED INP 18:33 → EEVIPCON 18:33 → M MSPAV 01-26 04:39
PROVIDERS: ADMIT Student in an Organized Health Care Education/Training Program; ATTEND Internal Medicine
PROC: 0T9030Z Drainage of Right Kidney with Drainage Device, Percutaneous Approach (ICD-10-PCS; principal; 2025-01-26 14:00)
DX: A41.59 Other Gram-negative sepsis (principal); C79.11 Secondary malignant neoplasm of bladder; N13.6 Pyonephrosis; N39.0 Urinary tract infection, site not specified; N20.0 Calculus of kidney; R11.2 Nausea with vomiting, unspecified; C61 Malignant neoplasm of prostate; I10 Essential (primary) hypertension; E78.5 Hyperlipidemia, unspecified; B96.1 Klebsiella pneumoniae [K. pneumoniae] as the cause of diseases classified elsewhere; Z93.6 Other artificial openings of urinary tract status; F10.10 Alcohol abuse, uncomplicated; K57.90 Diverticulosis of intestine, part unspecified, without perforation or abscess without bleeding; Z79.899 Other long term (current) drug therapy

== ENCOUNTER → 2025-03-15 | Outpatient (REF) | payer BC, OTHER ==
[~2025-03-15] MED LIST changes: +ACET32TAB PO; +COLA100C5 PO; +ENZA40TA PO; +LISI20TA33 PO; +REPA140I SUBQ; +SENN18TA PO
== END ==
LOC: M LAB REF 17:25
PROVIDERS: ATTEND Student in an Organized Health Care Education/Training Program
DX: R30.0 Dysuria (principal)

== ENCOUNTER → 2025-05-01 | Outpatient (CLI) | payer BC, OTHER | LOC: M EKG 08:57 | PROVIDERS: ATTEND Internal Medicine Cardiovascular Disease | DX: I44.1 Atrioventricular block, second degree (principal); I45.5 Other specified heart block ==